=== PATIENT | female | born 1945 | race Caucasian/White ===

== ENCOUNTER 2018-06-03 09:00 | Outpatient (RCR) | payer MEDICARE, SELFPAY ==
--- NOTE | 2018-05-14 11:01 | PTTR_ITS ---
DATE: 05/14/18 SUBJECTIVE: I am doing okay for the most part. I guess that Dr. Guzman is happy with the progress so far. OBJECTIVE: Manual therapy: ([id number]): Patient was placed in supine and mobilized with oscillatory lateral distraction and scapular jiggles to decrease muscle tension. She was then mobilized with stretch of the pectorals and biceps with low load long duration holds. Patient placed through the plane of abduction with use of posterior lateral glide of the humeral head which she tolerated well to 90 degrees. She was externally rotated to 70 degrees and internal rotation with scapular block was 45. With free scapular motion and rotation her internal rotation was 70 degrees. Patient was guided through flexion raises with active assist to just shy of 145 degrees. This was applied in both the supine and sitting positions. Direct treatment time: 30 minutes of direct patient care.
--- NOTE | 2018-05-16 14:28 | PTTR_ITS ---
DATE: 05/16/18 SUBJECTIVE: Pt states that she is doing ok for the most part. OBJECTIVE: Manual therapy: ([id number]).Pt placed in the supine position receiving gentle oscillatory lateral distraction, as well as scapular jiggles to decrease muscle tension. She is mobilized with stretching of the pectorals and biceps with active isolated stretching technique.Pt then mobilized in the plane of abduction with use of a posterolateral glide through the humeral head. At 90 degrees of abduction, she is rotated to just shy of 80 degrees of ER and 60 degrees of IR with use of scapular gliding. With scapular block, she is still hovering around 45 degrees. Overhead shoulder flexion available to 145 degrees today with good tolerance for end range utilizing a GH approximation to end range traction technique. Direct treatment time: 30 min Total treatment time: 30 min direct pt care FRITZ/ragini
--- NOTE | 2018-05-21 11:50 | PTTR_ITS ---
DATE: 05/21/18 SUBJECTIVE: I am doing okay, making slow progress. OBJECTIVE: Manual therapy: ([id number]): Patient was guided through light shoulder mobilization pushing the limits of her tolerance today. Patient was mobilized with gentle oscillatory lateral distraction and scapular jiggles to decrease muscle tension. She was stretched lightly through the biceps and pectorals with low load long duration holds. Patient mobilized with posterior lateral glides of the humeral head while abducted to 90 degrees. She was mobilized with external rotation to 80 degrees and internal rotation to 50 degrees. Patient was guided through gentle flexion within the scapular plane to 150 and then true flexion to 150. She tolerates treatment well. Direct treatment time: 30 minutes of direct patient care.
--- NOTE | 2018-05-23 11:33 | PTTR_ITS ---
DATE: 05/23/18 SUBJECTIVE: I am doing okay but my left side of the neck is pretty stiff today. OBJECTIVE: Manual therapy: ([id number]): Patient was placed in supine and mobilized with oscillatory lateral distraction and scapular jiggles to decrease muscle tension. The pectorals and biceps were mobilized with low load long duration holds. The shoulder was guided through the plane of abduction with a posterior lateral glide through the humeral head. Her external rotation was a little tight but with tolerance to 80 degrees at 90 degrees of scaption. With abduction her external rotation is more like 65-70. Her internal rotation with scapular blocking is around 45 degrees but over head shoulder flexion passively is through 145-150 degrees with glenohumeral approximation to end range traction. Patient mobilized with traction through the cervical spine with guidance into retraction. She is mobilized with ischemic press trigger point release techniques through the left side upper trapezius, levator scapulae, and SCM. Direct treatment time: 30 minutes of direct patient care.
--- NOTE | 2018-05-27 10:20 | PTTR_ITS ---
DATE: 05/27/18 SUBJECTIVE: I am doing okay for the most part. OBJECTIVE: Manual therapy: ([id number]): Patient was placed in supine and mobilized with gentle oscillatory lateral distraction and scapular jiggles to decrease muscle tension. She was stretched lightly through the pectorals and biceps with low load long duration holds. Patient then mobilized with abduction through the 95 degrees with use of a gentle posterior lateral glide through the humeral head. Her external rotation is still mildly limited through 80 degrees with end range tension. Internal rotation was mobilized with use of both scapular block and scapular free motion with limitation functionally to about 60 degrees. Patient then guided through active assisted shoulder flexion in both supine and standing. Her supine flexion is available to 160 degrees and standing is about 135 degrees. Direct treatment time: 30 minutes of direct patient care.
--- NOTE | 2018-05-29 09:52 | PTTR_ITS ---
DATE: 05/29/18 SUBJECTIVE: I am doing okay for the most part. OBJECTIVE: Manual therapy: ([id number]): Patient was placed in supine and mobilized with gentle oscillatory lateral distraction and scapular jiggles through the shoulder girdle to decrease muscle tension. She was then mobilized with stretch of the pectorals and biceps with low load long duration holds. Patient mobilized through the plane of abduction with a posterior lateral glide through the humeral head. Her rotations are then mobilized with good tolerance for 80 degrees of external rotation and 60 degrees of internal rotation. Patient was then mobilized with active assisted shoulder flexion to 155 degrees. In standing she was reinforced with oscillatory flexions and scaption raises to 130 degrees. Direct treatment time: 30 minutes of direct patient care.
--- NOTE | 2018-06-03 11:55 | PTTR_ITS ---
DATE: 06/03/18 SUBJECTIVE: Pt states that she is doing ok for the most part. OBJECTIVE: Manual therapy: ([id number]). PT placed in the supine position receiving gentle oscillatory lateral distraction and scapular jiggles to decrease muscle tension. She is then mobilized with a gentle stretch through the pectorals and biceps with low load long duration holds. She is mobilized through the plane of abduction with use of a posterior lateral glide of the humeral head and she is mobilized into 80* of ER, 45* IR, overhead shoulder flexion utilized with a glenohumeral compression to end range traction technique. Able to approximate 150* of flexion. She is then trained in an AA flexion technique utilizing a thera band. Pt tolerated tx well. Direct treatment time: 30 minutes Total treatment time: 30 minutes
== END 2018-06-06 23:59 | disposition home or self-care (01) ==
LOC: PT 09:00
PROVIDERS: PCP Family Medicine; Referring Provider Orthopaedic Surgery; Visit Provider Orthopaedic Surgery
DX: S43.422D Sprain of left rotator cuff capsule, subsequent encounter (principal)
CPT/HCPCS: 97140

== ENCOUNTER → 2018-07-01 09:47 | Outpatient (BNVA) | payer MEDICARE, SELFPAY | PROVIDERS: Visit Provider Orthopaedic Surgery | DX: S43.422D Sprain of left rotator cuff capsule, subsequent encounter (principal); X58.XXXD Exposure to other specified factors, subsequent encounter; I10 Essential (primary) hypertension | CPT/HCPCS: 99213 ==

== ENCOUNTER 2018-07-21 09:10 | Emergency (ER) | payer MEDICARE, SELFPAY ==
[2018-07-21 09:38] VITALS: BP 163/89; PULSE 86; RESP 16; TEMP 36.5; O2SAT 98
--- NOTE | 2018-07-21 09:47 | W.ED.GENAD ---
Discharge Plan Disposition Patient Disposition: HOME Condition: Improving Discharge Details Chief Complaint: RespSymp Clinical Impression: Sinusitis Primary Care Provider: Megan Banegas ED Provider: Srini Lombardo Home Meds and New Rx's Prescriptions: New azithromycin [Zithromax Z-Manuel] 250 mg tablet 250 mg PO DAILY 5 Days Qty: 5 RF: 0 guaifenesin [Mucinex] 600 mg tablet extended release 12hr 600 mg PO Q12H PRNQty: 10 RF: 0 Continue cholecalciferol (vitamin D3) 1,000 UNIT capsule 500 unit PO DAILY RF: 0 acetaminophen [Tylenol Extra Strength] 500 MG tablet 1,000 mg PO Q6H PRN RF: 0 celecoxib [Celebrex] 200 MG capsule 200 mg PO BID Qty: 60 RF: 2 omeprazole 40 MG capsule,delayed release(DR/EC) 40 mg PO DAILY Qty: 30 RF: 2 buspirone 10 MG tablet 10 mg PO BID Qty: 60 RF: 1 losartan 50 mg tablet 50 mg PO DAILY Qty: 90 RF: 4 calcium carbonate-vitamin D3 1 EACH tablet 1 tab PO DAILY RF: 0 avlbruqylctg-hkdl-lqksk acid [Centrum Complete] 1 EACH tablet 1 tab PO DAILY RF: 0 aspirin [Aspir-81] 81 MG tablet,delayed release (DR/EC) 81 mg PO DAILY RF: 0 docusate sodium [Colace] 100 MG capsule 100 mg PO DAILY RF: 0 acetaminophen [Arthritis Pain Relief (acetam)] 650 MG tablet extended release 650 mg PO PRN PRNRF: 0 Discharge Instructions Instructions: Sinusitis (ED) Additional Instructions: Follow-up with regular doctor if not improving in 5-7 days time. Take medications as prescribed and continue your regular medications. Home to rest today. Small, frequent sips of fluids to maintain hydration Return to the emergency department for any acute concerns Medical Decision Making 73-year-old female presents with 7-8 days of cough, congestion and now developing bifrontal sinus pain pressure. It is consistent with a developing acute sinusitis. She is well-appearing otherwise without complaint and her exam is reassuring. She is allergic to penicillins and therefore I feel that azithromycin is a reasonable choice. She will follow up with PMD if not improving. Return precautions to the ER were discussed with patient and her at the bedside prior to discharge. HPI General Mode of arrival: ambulatory. Date/Time Provider Initiated Documentation: 07/21/18 09:31. Limitations to Documentation: no limitations. Information obtained by: patient. History of Present Illness 73 year old F presents to the emergency department with the chief complaint of Cough, described as moderate, Quality is described as dull, and is localized to the chest. Patient reports no radiation. Patient started experiencing this day(s) and it has been intermittent. No relieving factors improve symptom(s), No exacerbating factors reported . HPI Narrative: 73-year-old female presents with cough, congestion that is been worsening over 7 days time and now associated with bifrontal sinus pain and pressure. She denies any fever today. She is been tolerating liquids and solids by mouth without any vomiting or diarrhea. Positive sick contacts with a family member. Related Data Home Medications Medication Instructions Recorded Confirmed calcium carbonate-vitamin D3 1 tab PO DAILY 01/21/13 07/21/18 rydehrytwhkh-dbxo-apwqs acid 1 tab PO DAILY 01/21/13 07/21/18 [Centrum Complete] cholecalciferol (vitamin D3) 500 unit PO DAILY 05/12/14 07/21/18 aspirin [Aspir-81] 81 mg PO DAILY 09/20/14 07/21/18 acetaminophen [Tylenol Extra 1,000 mg PO Q6H PRN tab-cap 10/25/15 07/21/18 Strength] docusate sodium [Colace] 100 mg PO DAILY 02/07/18 07/21/18 acetaminophen [Arthritis Pain 650 mg PO PRN PRN 02/10/18 07/21/18 Relief (acetam)] celecoxib [Celebrex] 200 mg PO BID #60 tab-cap 02/25/18 07/21/18 omeprazole 40 mg PO DAILY #30 tab-cap 04/23/18 07/21/18 buspirone 10 mg PO BID #60 tab-cap 04/29/18 07/21/18 losartan 50 mg tablet 50 mg PO DAILY #90 tab 06/13/18 07/21/18 azithromycin [Zithromax Z-Manuel] 250 mg PO DAILY 5 Days #5 tab 07/21/18 guaifenesin [Mucinex] 600 mg PO Q12H PRN #10 tab 07/21/18 Previous Rx's Medication Instructions Recorded omeprazole 40 mg PO DAILY #30 tab-cap 04/23/18 buspirone 10 mg PO BID #60 tab-cap 04/29/18 losartan 50 mg tablet 50 mg PO DAILY #90 tab 06/13/18 azithromycin [Zithromax Z-Manuel] 250 mg PO DAILY 5 Days #5 tab 07/21/18 guaifenesin [Mucinex] 600 mg PO Q12H PRN #10 tab 07/21/18 Allergies Allergy/AdvReac Type Severity Reaction Status Date / Time Penicillins Allergy Intermediate Skin Rash Unverified 07/21/18 09:44 banana AdvReac Mild headache Unverified 07/21/18 09:44 buspirone HCl [From BuSpar] AdvReac Mild didn't Unverified 07/21/18 09:44 feel good on it cetirizine AdvReac Mild didn't Unverified 07/21/18 09:44 feel good on it sertraline AdvReac Mild blurry Unverified 07/21/18 09:44 vision & tingling under tongue tomato AdvReac Mild headache Unverified 07/21/18 09:44 lisinopril AdvReac Unknown Unverified 07/21/18 09:44 General Stated Complaint: RespSymp MARIE: 4 Review of Systems Review of Systems 6 systems reviewed and otherwise negative PFSH Family History Mother Heart disease Myocardial infarction Father Heart disease Myocardial infarction Brother Diabetes Essential hypertension Heart disease Hyperlipidemia Brother Diabetes Essential hypertension Depression Heart disease Hyperlipidemia Brother Heart disease Hyperlipidemia Medical History Essential hypertension Gastritis Gastroesophageal reflux disease Headache Hyperlipidemia Insomnia Obesity Osteopenia Social History Smoking/Tobacco Use Status: Never Surgical History CARDIAC STRESS TEST Colonoscopy - IV Sedation EGD - IV Sedation Ligation of fallopian tube Exam Narrative Exam Narrative: GEN: awake, alert, oriented 3. Pleasant, well groomed, interactive. HEAD: Normocephalic, atraumatic ENT: Mucous membranes moist, oropharynx unremarkable, External ear exam unremarkable, and membranes clear. The frontal sinuses are tender to percussion EYES: PERRL, EOMI NECK: Full ROM, no NATHANIEL, no menigismus CHEST/RESP: Nontender, clear to auscultation bilateral, no wheeze/rhonchi/rales CARDIOVASCULAR: RRR, no murmur, rub jeimy. 2+ Rad pulse bilateral ABDOMEN: Soft, nontender, no mass. +Bowel sounds EXT: Full ROM, no edema, no rash Neuro: Grossly normal neurologic exam, conversant, interactive. Psych: Speech fluent, thoughts congruent, affect normal Course Vital Signs Temperature 36.5 C 07/21/18 09:38 Pulse 86 07/21/18 09:38 Respiratory Rate 16 07/21/18 09:38 Blood Pressure 163/89 H 07/21/18 09:38 Pulse Oximetry 98 07/21/18 09:38 Temperature 36.5 C 07/21/18 09:38 Temperature Source Temporal Artery Scan 07/21/18 09:38 Pulse 86 07/21/18 09:38 Respiratory Rate 16 07/21/18 09:38 Respiratory Effort Non-Labored 07/21/18 09:45 Respiratory Depth Normal 07/21/18 09:45 Blood Pressure 163/89 H 07/21/18 09:38 Blood Pressure Position Sitting 07/21/18 09:38 Pulse Oximetry 98 07/21/18 09:38 Oxygen Delivery Method Room Air 07/21/18 09:38 Oxygen Flow Rate 0 07/21/18 09:38
--- NOTE | 2018-07-21 09:50 | ED.GENADUL_ITS ---
Discharge Plan Disposition Patient Disposition: HOME Condition: Improving Discharge Details Chief Complaint: RespSymp Clinical Impression: Sinusitis Primary Care Provider: Megan Banegas ED Provider: Srini Lombardo Home Meds and New Rx's Prescriptions: New azithromycin [Zithromax Z-Manuel] 250 mg tablet 250 mg PO DAILY 5 Days Qty: 5 RF: 0 guaifenesin [Mucinex] 600 mg tablet extended release 12hr 600 mg PO Q12H PRNQty: 10 RF: 0 Continue cholecalciferol (vitamin D3) 1,000 UNIT capsule 500 unit PO DAILY RF: 0 acetaminophen [Tylenol Extra Strength] 500 MG tablet 1,000 mg PO Q6H PRN RF: 0 celecoxib [Celebrex] 200 MG capsule 200 mg PO BID Qty: 60 RF: 2 omeprazole 40 MG capsule,delayed release(DR/EC) 40 mg PO DAILY Qty: 30 RF: 2 buspirone 10 MG tablet 10 mg PO BID Qty: 60 RF: 1 losartan 50 mg tablet 50 mg PO DAILY Qty: 90 RF: 4 calcium carbonate-vitamin D3 1 EACH tablet 1 tab PO DAILY RF: 0 xlbhfyanlcew-mevd-mfqwt acid [Centrum Complete] 1 EACH tablet 1 tab PO DAILY RF: 0 aspirin [Aspir-81] 81 MG tablet,delayed release (DR/EC) 81 mg PO DAILY RF: 0 docusate sodium [Colace] 100 MG capsule 100 mg PO DAILY RF: 0 acetaminophen [Arthritis Pain Relief (acetam)] 650 MG tablet extended release 650 mg PO PRN PRNRF: 0 Discharge Instructions Instructions: Sinusitis (ED) Additional Instructions: Follow-up with regular doctor if not improving in 5-7 days time. Take medications as prescribed and continue your regular medications. Home to rest today. Small, frequent sips of fluids to maintain hydration Return to the emergency department for any acute concerns Medical Decision Making 73-year-old female presents with 7-8 days of cough, congestion and now developing bifrontal sinus pain pressure. It is consistent with a developing acute sinusitis. She is well-appearing otherwise without complaint and her exam is reassuring. She is allergic to penicillins and therefore I feel that azithromycin is a reasonable choice. She will follow up with PMD if not improving. Return precautions to the ER were discussed with patient and her at the bedside prior to discharge. HPI General Mode of arrival: ambulatory . Date/Time Provider Initiated Documentation: 07/21/18 09:31 . Limitations to Documentation: no limitations . Information obtained by: patient . History of Present Illness 73 year old F presents to the emergency department with the chief complaint of Cough, described as moderate, Quality is described as dull, and is localized to the chest. Patient reports no radiation. Patient started experiencing this day(s) and it has been intermittent. No relieving factors improve symptom(s), No exacerbating factors reported . HPI Narrative: 73-year-old female presents with cough, congestion that is been worsening over 7 days time and now associated with bifrontal sinus pain and pressure. She denies any fever today. She is been tolerating liquids and solids by mouth without any vomiting or diarrhea. Positive sick contacts with a family member. Related Data Home Medications Medication Instructions Recorded Confirmed calcium carbonate-vitamin D3 1 tab PO DAILY 01/21/13 07/21/18 ggeddnkwyivw-kvpq-txerk acid 1 tab PO DAILY 01/21/13 07/21/18 [Centrum Complete] cholecalciferol (vitamin D3) 500 unit PO DAILY 05/12/14 07/21/18 aspirin [Aspir-81] 81 mg PO DAILY 09/20/14 07/21/18 acetaminophen [Tylenol Extra 1,000 mg PO Q6H PRN tab-cap 10/25/15 07/21/18 Strength] docusate sodium [Colace] 100 mg PO DAILY 02/07/18 07/21/18 acetaminophen [Arthritis Pain 650 mg PO PRN PRN 02/10/18 07/21/18 Relief (acetam)] celecoxib [Celebrex] 200 mg PO BID #60 tab-cap 02/25/18 07/21/18 omeprazole 40 mg PO DAILY #30 tab-cap 04/23/18 07/21/18 buspirone 10 mg PO BID #60 tab-cap 04/29/18 07/21/18 losartan 50 mg tablet 50 mg PO DAILY #90 tab 06/13/18 07/21/18 azithromycin [Zithromax Z-Manuel] 250 mg PO DAILY 5 Days #5 tab 07/21/18 guaifenesin [Mucinex] 600 mg PO Q12H PRN #10 tab 07/21/18 Previous Rx's Medication Instructions Recorded omeprazole 40 mg PO DAILY #30 tab-cap 04/23/18 buspirone 10 mg PO BID #60 tab-cap 04/29/18 losartan 50 mg tablet 50 mg PO DAILY #90 tab 06/13/18 azithromycin [Zithromax Z-Manuel] 250 mg PO DAILY 5 Days #5 tab 07/21/18 guaifenesin [Mucinex] 600 mg PO Q12H PRN #10 tab 07/21/18 Allergies Allergy/AdvReac Type Severity Reaction Status Date / Time Penicillins Allergy Intermediate Skin Rash Unverified 07/21/18 09:44 banana AdvReac Mild headache Unverified 07/21/18 09:44 buspirone HCl [From BuSpar] AdvReac Mild didn't Unverified 07/21/18 09:44 feel good on it cetirizine AdvReac Mild didn't Unverified 07/21/18 09:44 feel good on it sertraline AdvReac Mild blurry Unverified 07/21/18 09:44 vision & tingling under tongue tomato AdvReac Mild headache Unverified 07/21/18 09:44 lisinopril AdvReac Unknown Unverified 07/21/18 09:44 General Stated Complaint: RespSymp MARIE: 4 Review of Systems Review of Systems 6 systems reviewed and otherwise negative PFSH Family History Mother Heart disease Myocardial infarction Father Heart disease Myocardial infarction Brother Diabetes Essential hypertension Heart disease Hyperlipidemia Brother Diabetes Essential hypertension Depression Heart disease Hyperlipidemia Brother Heart disease Hyperlipidemia Medical History Essential hypertension Gastritis Gastroesophageal reflux disease Headache Hyperlipidemia Insomnia Obesity Osteopenia Social History Smoking/Tobacco Use Status: Never Surgical History CARDIAC STRESS TEST Colonoscopy - IV Sedation EGD - IV Sedation Ligation of fallopian tube Exam Narrative Exam Narrative: GEN: awake, alert, oriented 3. Pleasant, well groomed, interactive. HEAD: Normocephalic, atraumatic ENT: Mucous membranes moist, oropharynx unremarkable, External ear exam unremarkable, and membranes clear. The frontal sinuses are tender to percussion EYES: PERRL, EOMI NECK: Full ROM, no NATHANIEL, no menigismus CHEST/RESP: Nontender, clear to auscultation bilateral, no wheeze/rhonchi/rales CARDIOVASCULAR: RRR, no murmur, rub jeimy. 2+ Rad pulse bilateral ABDOMEN: Soft, nontender, no mass. +Bowel sounds EXT: Full ROM, no edema, no rash Neuro: Grossly normal neurologic exam, conversant, interactive. Psych: Speech fluent, thoughts congruent, affect normal Course Vital Signs Temperature 36.5 C 07/21/18 09:38 Pulse 86 07/21/18 09:38 Respiratory Rate 16 07/21/18 09:38 Blood Pressure 163/89 H 07/21/18 09:38 Pulse Oximetry 98 07/21/18 09:38 Temperature 36.5 C 07/21/18 09:38 Temperature Source Temporal Artery Scan 07/21/18 09:38 Pulse 86 07/21/18 09:38 Respiratory Rate 16 07/21/18 09:38 Respiratory Effort Non-Labored 07/21/18 09:45 Respiratory Depth Normal 07/21/18 09:45 Blood Pressure 163/89 H 07/21/18 09:38 Blood Pressure Position Sitting 07/21/18 09:38 Pulse Oximetry 98 07/21/18 09:38 Oxygen Delivery Method Room Air 07/21/18 09:38 Oxygen Flow Rate 0 07/21/18 09:38
== END 2018-07-21 09:56 | disposition home or self-care (01) ==
PROVIDERS: Emergency Provider Emergency Medicine; PCP Family Medicine
DX: J01.10 Acute frontal sinusitis, unspecified (principal); I10 Essential (primary) hypertension
CPT/HCPCS: 99283

== ENCOUNTER 2018-09-01 00:27 | Outpatient (CLI) | payer MEDICARE, SELFPAY ==
--- NOTE | 2018-09-01 11:00 | DI.MAMMO_ITS ---
SYMPTOM/DIAGNOSIS: SCREENING Z12.31 BILATERAL SCREENING MAMMOGRAM: Mammograms were interpreted according to the usual protocol including computer analysis with CAD system, tomosynthesis and C view imaging. Comparison is made with exams from 2012 through 2017. The breasts are composed of fatty density tissue, breast density category A. No suspicious masses or suspicious microcalcifications are seen. There has been no significant change. IMPRESSION: Category 1-A, negative mammogram. Yearly screening mammography is recommended. [facility] ASSESSMENT OF FINDINGS: Negative. Category 1. Patient will receive a letter notifying them of these results. BI-RAD category A. The breasts are almost entirely fatty.
== END 2018-09-01 00:47 ==
PROVIDERS: PCP Family Medicine; Visit Provider Family Medicine
DX: Z12.31 Encounter for screening mammogram for malignant neoplasm of breast (principal)
CPT/HCPCS: 77063; 77067

== ENCOUNTER 2019-01-28 14:30 | Outpatient (CLI) | payer MEDICARE, SELFPAY ==
[2019-01-28 14:58] LABS: Abs Immature Grans 0.01 k/cumm (0.0-0.09); Absolute Basophil Count 0.03 k/cumm (0.0-0.2); Absolute Eosinophil Count 0.08 k/cumm (0.0-0.7); Absolute Monocyte Count 0.54 k/cumm (0.11-0.7); Absolute Neutrophil Count 3.93 k/cumm (1.2-6.7); Basophils % 0.4; Eosinophils % 1.1; HCT 38.3 % (36.0-46.0); HGB 12.5 g/dL (12.0-15.5); Immature Grans % 0.1; Lymphocytes % 35.3; Mean Corp. HGB Concentration 32.6 g/dL (32.0-36.0); Mean Corpuscular Hemoglobin 30.7 pg (27.0-33.0); Mean Corpuscular Volume 94.1 fL (80-95); Monocytes % 7.6; Neutrophils % 55.5; Platelet Count 267 x1000/uL (130-400); RBC 4.07 m/cumm (4.00-5.20); RBC Distribution Width 13.2 % (11.7-14.6); White Blood Cell Count 7.09 k/cumm (4.4-10.8)
[2019-01-28 16:24] LABS: ALT 25 U/L (12-78); AST 20 U/L (15-37); Albumin 3.7 g/dL (3.4-5.0); Alkaline Phosphatase 117 U/L (46-116); Anion Gap 9.6 mmol/L (3-11); BUN 23 mg/dL (7-18); Bilirubin, Total 0.3 mg/dL (0.2-1.0); CO2 27.4 mmol/L (21.0-32.0); CREATININE 0.94 mg/dL (0.55-1.02); Chloride 103 mmol/L (98-107); Estimated GFR 58.37 (mL/min/1.73m2); Glucose 149 mg/dL (70-100); Potassium 3.5 mmol/L (3.5-5.1); Sodium 140 mmol/L (136-145); Total Protein 7.2 g/dL (6.4-8.2)
[2019-01-28 20:53] LABS: Hemoglobin A1C 6.2 % (4.5-6.2)
== END 2019-01-28 14:50 ==
PROVIDERS: PCP Family Medicine; Visit Provider Internal Medicine
DX: I10 Essential (primary) hypertension (principal); K21.9 Gastro-esophageal reflux disease without esophagitis; M85.80 Other specified disorders of bone density and structure, unspecified site
CPT/HCPCS: 36415; 80053; 83036; 85025

== ENCOUNTER → 2019-04-13 09:45 | Outpatient (BNVA) | payer MEDICARE, SELFPAY | PROVIDERS: PCP Family Medicine; Referring Provider Family Medicine; Visit Provider Physical Therapy Assistant | DX: Z12.11 Encounter for screening for malignant neoplasm of colon (principal); I10 Essential (primary) hypertension; Z86.010 Personal history of colon polyps ==

== ENCOUNTER 2019-05-11 10:34 | Emergency (ER) | payer MEDICARE, SELFPAY ==
[2019-05-11 10:39] VITALS: BP 165/96; PULSE 79; RESP 18; TEMP 36.6; O2SAT 96
--- NOTE | 2019-05-11 10:42 | W.ED.GENAD ---
Discharge Plan Disposition Patient Disposition: HOME Condition: Good Discharge Details Chief Complaint: Orthopedic Clinical Impression: Foot pain, left Primary Care Provider: Megan Banegas ED Provider: Montse Obrien Home Meds and New Rx's Prescriptions: Continued acetaminophen 650 mg tablet extended release 1,300 mg PO HS PRN RF: 0 polyethylene glycol 3350 17 gram/dose powder 238 g PO ONCE Qty: 238 RF: 0 bisacodyl [Dulcolax (bisacodyl)] 5 mg tablet,delayed release (DR/EC) 5 mg PO ONCE Qty: 4 RF: 0 cholecalciferol (vitamin D3) 1,000 UNIT capsule 500 unit PO DAILY RF: 0 losartan 50 mg tablet 50 mg PO DAILY Qty: 90 RF: 4 omeprazole 40 mg capsule,delayed release(DR/EC) 40 mg PO DAILY Qty: 90 RF: 3 calcium carbonate-vitamin D3 1 EACH tablet 1 tab PO DAILY RF: 0 Centrum Complete 1 EACH tablet 1 tab PO DAILY RF: 0 docusate sodium [Colace] 100 MG capsule 100 mg PO DAILY RF: 0 Discharge Instructions Instructions: Arthralgia (ED) Additional Instructions: Encourage rest, ice, elevation. Tylenol and ibuprofen as needed for discomfort. Ibuprofen may be of more benefit as it will target the inflammation in your foot. Please follow-up with primary care in the next 1 to 2 weeks for reevaluation of pain persist. Attached is a referral for physical therapy. Please wear more supportive shoes, purchase sneakers with arch support. If you develop fever/chills, increased pain, inability to walk or the new/worsening symptoms please seek care urgently once again. Stand Alone Forms: Physical Therapy Referral Referrals: Megan Banegas MD [Primary Care Provider] - Discharge Data Discharge Date/Time-TO BE ENTERED AT DEPARTURE: 05/11/19 12:10 Medical Decision Making Kamryn 74 year old female presenting today with c/c of left foot pain. Pain has been intermittent for over a month now. Was seen by PCP last week but did not address her foot. no known trauma. Patient is wearing thin flat shoe without support. No fevers/chills. No swelling. She has known OA elsewhere. Finds ambulation increases pain. Fairly vague about where pain is in the foot. Seems to be maximal over the dorsal proximal foot. Spares the ankle. Afebrile, nontoxic appearing. No chagnes to the skin. Will obtian XR. X-rays reviewed by radiologist and read to be normal. I reviewed the imaging myself. Question for some degenerative changes but nothing acute. Discussed these findings with the patient. Advised likely inflammatory driven, likely secondary to some arthritis. Encourage rest, ice, elevation. Tylenol and ibuprofen as needed for discomfort. She is wearing a flat, thin sandals. I encouraged her to purchase sneakers with good arch support. Advised that if this does not improve, she may need referral to artists' booking representative. We will also refer to physical therapy for reevaluation and treatment of her chronic foot pain. We discussed new/worsening symptoms when to seek care urgently once again. All of her questions and concerns were addressed and she is in agreement with this plan. HPI General Mode of arrival: ambulatory. Date/Time Provider Initiated Documentation: 05/11/19 10:40. Limitations to Documentation: no limitations. Information obtained by: patient, family (accmpanied by ) and RN notes reviewed. History of Present Illness 74 year old F presents to the emergency department with the chief complaint of left foot pain, described as severe, with intensity rated at 8. Quality is described as aching, and is localized to the left and lower extremity. Patient reports no radiation. Patient started experiencing this month(s) (>1 month) and it has been intermittent. Immobilization improves symptom(s), Movement worsens symptoms (wosre with weight bearing activities) . Patient notes no other symptoms.. Patient did receive the following treatments prior to arrival, none Related Data Home Medications Medication Instructions Recorded Confirmed Centrum Complete 1 tab PO DAILY 01/21/13 05/11/19 calcium carbonate-vitamin D3 1 tab PO DAILY 01/21/13 05/11/19 cholecalciferol (vitamin D3) 500 unit PO DAILY 05/12/14 05/11/19 docusate sodium [Colace] 100 mg PO DAILY 02/07/18 05/11/19 losartan 50 mg tablet 50 mg PO DAILY #90 tab 06/13/18 05/11/19 acetaminophen 650 mg 1,300 mg PO HS PRN tab 12/26/18 05/11/19 tablet,extended release bisacodyl 5 mg tablet,delayed 5 mg PO ONCE #4 tab 04/13/19 05/11/19 release polyethylene glycol 3350 17 238 g PO ONCE #238 gm 04/13/19 05/11/19 gram/dose oral powder omeprazole 40 mg capsule,delayed 40 mg PO DAILY #90 tab-cap 05/05/19 05/11/19 release Previous Rx's Medication Instructions Recorded losartan 50 mg tablet 50 mg PO DAILY #90 tab 06/13/18 bisacodyl 5 mg tablet,delayed 5 mg PO ONCE #4 tab 04/13/19 release polyethylene glycol 3350 17 238 g PO ONCE #238 gm 04/13/19 gram/dose oral powder omeprazole 40 mg capsule,delayed 40 mg PO DAILY #90 tab-cap 05/05/19 release Allergies Allergy/AdvReac Type Severity Reaction Status Date / Time Penicillins Allergy Intermediate Skin Rash Verified 05/11/19 10:44 buspirone HCl [From BuSpar] AdvReac Mild didn't Verified 05/11/19 10:44 feel good on it cetirizine AdvReac Mild didn't Verified 05/11/19 10:44 feel good on it sertraline AdvReac Mild blurry Verified 05/11/19 10:44 vision & tingling under tongue lisinopril AdvReac Unknown Verified 05/11/19 10:44 General MARIE: 4 Review of Systems Review of Systems All systems reviewed & are unremarkable except as noted in HPI and below Constitutional Reports as per HPI, Denies chills, Denies fever(s), Denies headache(s) and Denies weakness ENT Denies headache(s) Cardiovascular Reports as per HPI Respiratory Reports as per HPI and Denies cough Musculoskeletal Reports as per HPI and Denies tingling Integumentary/Breasts Reports as per HPI, Denies rash and Denies wounds Neurologic Reports as per HPI, Denies headache(s), Denies tingling, Denies paresthesias and Denies weakness [facility] Medical History Essential hypertension Gastritis Gastroesophageal reflux disease Headache History of cardiovascular stress test (Resolved) Hyperlipidemia Insomnia Obesity Osteopenia Trigger middle finger (Resolved 10/14/15) Tubular adenoma of colon (Resolved) Surgical History CARDIAC STRESS TEST Colonoscopy - IV Sedation EGD - IV Sedation History of bilateral ligation of fallopian tubes (Resolved) History of esophagogastroduodenoscopy (Resolved) History of Surgical Procedure (Resolved) Ligation of fallopian tube Social History Smoking/Tobacco Use Status: Never Alcohol Intake: never Drug use: Never Substance use type: does not use Household members: spouse Pets and animals: Yes Pets and animals: cat(s) Frequency: does not exercise Marcela/Moravian: No preference Special marcela needs: No Do you feel safe at home: Yes Do you feel safe in your relationship?: Yes Exam Const General: cooperative, healthy appearing, comfortable, no acute distress, well developed and well groomed Nutritional Appearance: average body habitus and well nourished Orientation: alert and awake Resp Effort & Inspection: normal respiratory effort, able to speak in complete sentences and no respiratory distress Cardio Rate: regular rate Rhythm: regular rhythm Skin General skin exam: no rashes or lesions noted Lesions: no lesions Rashes: no rashes Trauma: no lacerations or abrasions Neuro General: alert and awake Cognition: normal cognition Speech: speech normal Gait: normal gait Motor: muscle tone normal throughout Sensory Exam: no sensory deficits noted Extrem Left lower extremity: normal to inspection, full ROM, normal capillary refill, no joint enlargement, lower leg Details: normal to inspection and no edema; no erythema, no tenderness, no localized swelling and no palpable cords, ankle Details: normal to inspection, swelling, no edema and normal ROM; no tenderness and achilles tendon exam normal and foot Details: normal capillary refill, normal to inspection, tenderness Location: of the dorsal foot Location: proximally and of the mid foot; not of the plantar foot, not of the great toe, not of any other digit, not of the calcaneus, not of the lateral foot and not of the medial foot, toes with normal ROM, no edema, vascular exam Details: dorsalis pedis pulse present, posterior tibial pulse present and normal capillary refill, tendon exam Details: active flexion normal and active extension normal and motor-sensory exam Details: light-touch normal; no unusual warmth, no abrasions, no lacerations, no ecchymosis and no crepitus; no edema Psych Appearance: grossly normal and well kempt Mental Status: mental status grossly normal Speech and Movement: speech and movement normal
--- NOTE | 2019-05-11 11:10 | DI.RAD_ITS ---
SYMPTOMS/DIAGNOSIS: MID FOOT PAIN LEFT FOOT: There is a plantar calcaneal spur. An ossicle is seen adjacent to the cuboid. There are degenerative changes of the tarsal metatarsal joints and first MTP joint. No fracture or dislocation is seen. IMPRESSION: Degenerative changes. No acute abnormality.
[2019-05-11 12:10] VITALS: BP 130/60; PULSE 79; RESP 18; TEMP 36.6; O2SAT 96
== END 2019-05-11 12:10 | disposition home or self-care (01) ==
PROVIDERS: Emergency Provider Physician Assistant; PCP Family Medicine
DX: M79.672 Pain in left foot (principal); I10 Essential (primary) hypertension
CPT/HCPCS: 99283; 73630

== ENCOUNTER 2019-06-02 05:55 | Day surgery (SDC) | payer MEDICARE, SELFPAY ==
[2019-06-02 06:07] VITALS: BP 122/79; PULSE 78; RESP 18; TEMP 36.6; O2SAT 98
--- NOTE | 2019-06-02 06:33 | W.PM.HP.N ---
Date of service: 06/02/19 Time of Service: 06:38 Assessment and Plan (1) Encounter for colorectal cancer screening: Current visit: Yes Status: Acute A\\ Hx of polyps P\\ Colonoscopy The patient is here for Colonoscopy pre-op. Her last screening was in 2013 and was remarkable for tubular adenoma. She has no family history of colon cancer. She has not had any bowel habit changes. -Discussed colonoscopy bowel prep as well as the procedure. Discussed possible complications of the procedure to include bleeding, pain, perforation, missed small lesion/polyp, sore throat, aspiration and adverse reaction to the medications. Questions were answered to patient?s satisfaction. No guarantees were implied or given. History of Present Illness Narrative: 74 y/o female with history of GERD and HTN seen in the office for colonoscopy screening pre-op. Her last screening was in 2013, which was remarkable for tubular adenoma. She denies a family history of colon cancer. She denies any changes in bowel habits including bloody or black tarry stools, abdominal pain, diarrhea or constipation. She denies constitutional symptoms. Of note she complains of a long standing dizziness with position changes. She reports that once she sits for a few minutes these symptoms completely resolve. Denies use of marijuana or any other recreational or illegal drugs. She denies chest pain, palpitations, dyspnea or dyspnea with exertion. She denies prior history or family history of adverse reactions or complications with anesthesia. Stress test in 11/2018 which was unremarkable. There have been no major changes in her health since she was seen in the office Review of Systems Cardiovascular Denies chest pain, Denies irregular heart rhythm, Denies palpitations and Denies dyspnea Respiratory Denies cough and Denies dyspnea Endocrine Denies palpitations [facility] Medical History Essential hypertension Gastritis Gastroesophageal reflux disease Headache History of broken leg (Acute) ORIF lt leg History of cardiovascular stress test (Resolved) Hyperlipidemia Insomnia Obesity Osteopenia Trigger middle finger (Resolved 10/14/15) /surgery pending Tubular adenoma of colon (Resolved) 09/20/14; DR. ANDRES; X 1- Repeat in 5 years Surgical History CARDIAC STRESS TEST 01/21/14 01/27/14 Colonoscopy - IV Sedation 05/25/04;07/11/09;09/20/14 EGD - IV Sedation 07/11/09 History of bilateral ligation of fallopian tubes (Resolved) History of esophagogastroduodenoscopy (Resolved) History of surgery on arm (Acute) ORIF lt arm History of Surgical Procedure (Resolved) a. Tubal ligation many years ago, over 20 years ago. b. Bilateral cataracts. Ligation of fallopian tube 03/02/03 Family History Mother Heart disease Myocardial infarction Depression Father Heart disease Myocardial infarction Brother Diabetes Essential hypertension Heart disease Hyperlipidemia Alcohol abuse Brother Diabetes Essential hypertension Depression Heart disease Hyperlipidemia Brother Heart disease Hyperlipidemia Daughter No problems noted. Social History Smoking/Tobacco Use Status: Never Alcohol Intake: never Drug use: Never Substance use type: does not use Household members: spouse Pets and animals: Yes Pets and animals: cat(s) Frequency: does not exercise Marcela/Taoist: No preference Special marcela needs: No Do you feel safe at home: Yes Do you feel safe in your relationship?: Yes Meds Home Medications Medication Instructions Recorded Confirmed Type Centrum Complete 1 tab PO DAILY 01/21/13 06/02/19 History calcium carbonate-vitamin D3 1 tab PO DAILY 01/21/13 06/02/19 History cholecalciferol (vitamin D3) 500 unit PO DAILY 05/12/14 06/02/19 History docusate sodium [Colace] 100 mg PO DAILY 02/07/18 06/02/19 History losartan 50 mg tablet 50 mg PO DAILY #90 tab 06/13/18 06/02/19 Rx acetaminophen 650 mg 1,300 mg PO HS PRN tab 12/26/18 06/02/19 History tablet,extended release omeprazole 40 mg capsule,delayed 40 mg PO DAILY #90 tab-cap 05/05/19 06/02/19 Rx release Allergies Allergy/AdvReac Type Severity Reaction Status Date / Time Penicillins Allergy Intermediate Skin Rash Verified 06/02/19 06:12 buspirone HCl [From BuSpar] AdvReac Mild didn't Verified 06/02/19 06:12 feel good on it cetirizine AdvReac Mild didn't Verified 06/02/19 06:12 feel good on it sertraline AdvReac Mild blurry Verified 06/02/19 06:12 vision & tingling under tongue lisinopril AdvReac Unknown Verified 06/02/19 06:12 Exam HENMT Head: normocephalic and atraumatic Resp Effort & Inspection: normal respiratory effort Auscultation: clear to auscultation bilaterally Cardio Rate: regular rate Rhythm: regular rhythm Results Last Vital Signs Temp 97.9 F 06/02/19 06:07 Pulse 78 06/02/19 06:07 Resp 18 06/02/19 06:07 BP 122/79 06/02/19 06:07 Pulse Ox 98 06/02/19 06:07
[2019-06-02] MEDS: Lactated Ringers 1,000 ML 80 ML IV (06:35)
--- NOTE | 2019-06-02 06:39 | W.COLOREPORT ---
Date of service: 06/02/19 Time of Service: : Colonoscopy Report Date of procedure: 06/02/19 Pre-op diagnosis general: Hx of polyps Post-op diagnosis procedure note: other (Diverticulosis and polyps) Procedure: Colonoscopy Surgeon: Dorie Ayoub Anesthesia proc note operative: other (General/ ASA2 /Flavio Nguyễn, OLU) Estimated blood loss (mL): 3 Pathology: other (3 polyps) Complications: None Disposition: same day Indications: Mrs. Zendejas is a pleasant 74 year old female who is here for a repeat colonoscopy. Her last colonoscopy was in 2013 at which time she was noted to have a tubular adenoma. Risks, benefits and complications have been reviewed. Complications include but are not limited to bleeding, pain, perforation, missed small lesion/polyp, sore throat, aspiration and adverse reaction to the medications. Questions were entertained and answered to their satisfaction and they wished to proceed. No guarantees were given or implied. Prep: Miralax/Dulcolax Procedure Start Time: :23 Procedure End Time: 07:54 Retraction Time: 26 minutes Findings: 3 sessile polyps. One in the transverse colon and 2 in the descending colon Mild sigmoid diverticulosis Procedure Description: After informed consent was obtained the patient was taken to the procedure room and placed in a left decubitous position. Monitors were applied and a time out was done. The patients name, date of , procedure, allergies to medications and metal in their body was reviewed. The patient was then sedated. Once sedated and comfortable a rectal exam was done. External exam was normal. Internal exam revealed a normal sphincter tone and no palpable masses. The scope was then introduced and retro-flexed. No internal hemorrhoids were identified. The scope was then advanced to the cecum with difficulty. The TI and appendiceal orifice were identified. The prep was good. The scope was then slowly retracted over 26 minutes back into the rectum. Polyps were removed in the Transverse colon and descending colon x 2 with cold forceps. Mild diverticulosis was noted in the sigmoid colon. The scope was removed and the patient was woken up and taken back to Same day surgery in stable condition. The patient tolerated the procedure well and there were no immediate complications. Follow up: The patient should follow up in 3-5 years unless they develop changes in bowel habits or other new gastrointestinal complaints.
--- NOTE | 2019-06-02 06:40 | PDOC.DSDIS_ITS ---
Discharge Plan Disposition Patient Disposition: HOME Condition: Good Discharge Details Reason For Visit: Hx of colon polyps Attending Provider: Dorie Ayoub Primary Care Provider: Megan Banegas Home Meds and New Rx's Prescriptions: Continued acetaminophen 650 mg tablet extended release 1,300 mg PO HS PRN RF: 0 cholecalciferol (vitamin D3) 1,000 UNIT capsule 500 unit PO DAILY RF: 0 losartan 50 mg tablet 50 mg PO DAILY Qty: 90 RF: 4 omeprazole 40 mg capsule,delayed release(DR/EC) 40 mg PO DAILY Qty: 90 RF: 3 calcium carbonate-vitamin D3 1 EACH tablet 1 tab PO DAILY RF: 0 Centrum Complete 1 EACH tablet 1 tab PO DAILY RF: 0 docusate sodium [Colace] 100 MG capsule 100 mg PO DAILY RF: 0 Discharge Instructions Instructions: Colonoscopy (GEN), Diverticulosis (ED), Colorectal Polyps (GEN) Additional Instructions: Findings: 3 polyps mild diverticulosis Follow up: 3-5 years Please call if you develop: fevers >101.5 Nausea or Vomiting Abdominal pain that is not transient DAY SURGERY UNIT POST ENDOSCOPY INSTRUCTIONS 1. Because there will be medication in your system for the next 24 hours, you may feel a little sleepy. Your coordination will be affected. Therefore: a. Do not drive or operate dangerous equipment for 24 hours. b. Do not drink alcohol beverages for 24 hours (not even beer). c. Plan to go home and rest for the day. 2. Generally there are no restrictions on your activity after a day or so has g one by, but you may feel a bit fatigued for a few days. 3 After you arrive home you may have a light meal and return to a normal diet as you can tolerate it without feeling sick to your stomach. 4. After surgery, you may feel pain or discomfort. This should be only transient, but if it persists please contact your doctor. 5. If there are any questions regarding the findings of your procedure, please feel free to contact your doctor. 6. If you are unable to contact your doctor with a problem, contact the hospital at [phone]. 7. Continue all your regular medications unless directed otherwise. I understand the above instructions and have no questions. Signature of Patient or Responsible Adult Escort Date/Time Name of Responsible Adult Escort Signature of Nurse Date/Time Activity:: Activity as Tolerated Diet:: As Tolerated Discharge Orders Discharge Orders: Discharge Order (Routine); Ordered 06/02/19 Ordered By: Dorie Ayoub DS: Diagnosis Discharge Diagnosis (1) Encounter for colorectal cancer screening: Status: Acute
--- NOTE | 2019-06-02 07:33 | BOWEL_PTH ---
PATIENT: Deisy Zendejas LOC: [facility] U#:[id number] AGE/SX: 74/F ROOM: RE06/02/[address]: Dorie Ayoub MD : 1945 BED: DIS: 06/02/2019 SPEC #: [id number] RECD: 06/02/19 12:44 STATUS: PADMA REQ #: [id number] SAUL: 06/02/19 07:[address]: Dorie Ayoub DEPT: Surgical Specimen RECD BY: Nayely Chester ENTERED: 06/02/19 12:45 SP TYPE: Bowel OTHR DR: Megan Banegas MD Tissues: 1 - BIOPSY BOWEL 2 - BIOPSY BOWEL Procedures: GROSS AND MICRO LEVEL 4 Comments: [id number]
[2019-06-02 08:40] VITALS: BP 146/83; PULSE 70; RESP 18; TEMP 36.6; O2SAT 98
== END 2019-06-02 09:12 | disposition home or self-care (01) ==
PROVIDERS: PCP Family Medicine; Visit Provider Surgery
PROC: 0DJD8ZZ Inspection of Lower Intestinal Tract, Via Natural or Artificial Opening Endoscopic (ICD-10-PCS; CPT 45378; principal; 2019-06-02 07:30)
DX: Z12.11 Encounter for screening for malignant neoplasm of colon (principal); Z86.010 Personal history of colon polyps; D12.3 Benign neoplasm of transverse colon; D12.4 Benign neoplasm of descending colon; K57.30 Diverticulosis of large intestine without perforation or abscess without bleeding; I10 Essential (primary) hypertension; K21.9 Gastro-esophageal reflux disease without esophagitis
CPT/HCPCS: 45380; 88305; NC; J2250

== ENCOUNTER 2019-09-07 11:06 | Outpatient (CLI) | payer MEDICARE, SELFPAY ==
--- NOTE | 2019-09-07 11:54 | DI.MAMMO_ITS ---
EXAM: MG MAMMO SCREENING CLINICAL HISTORY: screening, Z12.39 TECHNIQUE: Bilateral full field digital CC and MLO mammographic images were obtained with 3D tomosyn thesis and utilizing computer aided detection (CAD). COMPARISON: Available for comparison. FINDINGS: Masses/Architectural Distortion: None seen. Microcalcifications: No suspicious pleomorphic-type are seen. Skin Thickening/Nipple Retraction: None. IMPRESSION: 1. No significant interval change with no specific features of malignancy noted. 2. Unless there is more urgent need, screening mammography is recommended, as per [employer] [employer] guidelines. ACR BI-RAD Category- 1 Negative Breast Density - Category B - Scattered areas of fibroglandular density A negative radiographic report should not delay biopsy if a dominant or clinically suspicious mass is present. Up to ten percent of cancers are not identified on mammography. A negative report may reinforce clinical impression. Adenosis and dense breasts may obscure an underlying neoplasm. False positive reports average 6 to 10%. Patient will receive a letter notifying them of these results.
== END 2019-09-07 11:26 ==
PROVIDERS: PCP Family Medicine; Visit Provider Family Medicine
DX: Z12.31 Encounter for screening mammogram for malignant neoplasm of breast (principal)
CPT/HCPCS: 77063; 77067

== ENCOUNTER 2019-10-12 09:15 | Emergency (ER) | payer MEDICARE, SELFPAY ==
[2019-10-12 09:18] VITALS: BP 184/97; PULSE 101; RESP 16; TEMP 37; O2SAT 97
--- NOTE | 2019-10-12 09:24 | W.ED.GENAD ---
Discharge Plan Disposition Patient Disposition: HOME Condition: Stable Discharge Details Chief Complaint: RespSymp Clinical Impression: Viral URI with cough, Seasonal allergies Primary Care Provider: Megan Banegas ED Provider: [facility] [place] Home Meds and New Rx's Prescriptions: New benzonatate [Tessalon Perles] 100 mg capsule 100 mg PO TID PRN (Reason: cough) Qty: 14 RF: 0 codeine-guaifenesin 10-100 mg/5 mL liquid 10 ml PO QHS PRN (Reason: cough) Qty: 30 RF: 0 Continued acetaminophen 650 mg tablet extended release 1,300 mg PO HS PRN RF: 0 omeprazole 40 mg capsule,delayed release(DR/EC) 40 mg PO DAILY RF: 0 cholecalciferol (vitamin D3) 1,000 UNIT capsule 500 unit PO DAILY RF: 0 losartan 50 mg tablet 50 mg PO DAILY Qty: 90 RF: 4 calcium carbonate-vitamin D3 1 EACH tablet 1 tab PO DAILY RF: 0 Centrum Complete 1 EACH tablet 1 tab PO DAILY RF: 0 Discharge Instructions Instructions: Upper Respiratory Infection (ED), Allergies (ED), Acute Cough (ED) Additional Instructions: Take the Tessalon Perles cough medication as needed and directed for cough. If you have no relief with the Tessalon Perles, at nighttime you can try Robitussin with codeine to help with cough overnight. You can also try [id number] oral allergy medications such as Claritin, Zyrtec or Leslie or allergy nasal spray such as Nasonex, Flonase or Nasacort as your chronic cough and nasal congestion may be due to allergies. Call your primary care doctor's office today to schedule follow-up appointment for reevaluation in the next 1 to 2 weeks. Return to the emergency department with any worsening or new concerning symptoms. Discharge Data Discharge Physician: Cherry Fields Medical Decision Making 74-year-old female with a history of hypertension, GERD, hyperlipidemia presents for dry cough for the past 5 days, worse at night and keeping her awake. She also does admit to occasional clear nasal discharge, sneezing and watery eyes. She denies fever, chest pain, sore throat, shortness of breath or change in appetite. She denies any relief with Robitussin. Patient appears nontoxic. Heart rate low 100s. Afebrile. She appears nontoxic. Normal ENT exam. Lungs clear. Differential diagnosis of cough includes seasonal allergies, URI. History and presentation not consistent with bronchitis or pneumonia. We will send home with a prescription for Tessalon Perles to take throughout the day and Robitussin with codeine for a few days to take at night as needed. She was also advised to try [id number] allergy medication that also may help with her symptoms. Advised to follow up with the primary care doctor for re-evaluation. Usual and customary return precautions given prior to discharge. HPI General Mode of arrival: ambulatory. Date/Time Provider Initiated Documentation: 10/12/19 09:24. Limitations to Documentation: no limitations. Information obtained by: patient. History of Present Illness 74 year old F presents to the emergency department with the chief complaint of Cough, worse at night, Patient started experiencing this day(s) (5) and it has been intermittent. No relieving factors improve symptom(s), Other factors that worsen symptoms (Worse at night) . Patient notes cough (Dry); denies fever/chills, headaches, loss of appetite, malaise, nausea/vomiting, rash, seizure, shortness of breath, syncope and weakness. Patient did receive the following treatments prior to arrival, none Related Data Home Medications Medication Instructions Recorded Confirmed Centrum Complete 1 tab PO DAILY 01/21/13 10/12/19 calcium carbonate-vitamin D3 1 tab PO DAILY 01/21/13 10/12/19 cholecalciferol (vitamin D3) 500 unit PO DAILY 05/12/14 10/12/19 acetaminophen 650 mg 1,300 mg PO HS PRN tab 12/26/18 10/12/19 tablet,extended release losartan 50 mg tablet 50 mg PO DAILY #90 tab 06/24/19 10/12/19 omeprazole 40 mg capsule,delayed 40 mg PO DAILY 09/07/19 10/12/19 release benzonatate [Tessalon Perles] 100 mg PO TID PRN #14 cap 10/12/19 codeine-guaifenesin 10 ml PO QHS PRN #30 ml 10/12/19 Previous Rx's Medication Instructions Recorded losartan 50 mg tablet 50 mg PO DAILY #90 tab 06/24/19 benzonatate [Tessalon Perles] 100 mg PO TID PRN #14 cap 10/12/19 codeine-guaifenesin 10 ml PO QHS PRN #30 ml 10/12/19 Allergies Allergy/AdvReac Type Severity Reaction Status Date / Time Penicillins Allergy Intermediate Skin Rash Verified 10/12/19 09:20 buspirone HCl [From BuSpar] AdvReac Mild didn't Verified 10/12/19 09:20 feel good on it cetirizine AdvReac Mild didn't Verified 10/12/19 09:20 feel good on it sertraline AdvReac Mild blurry Verified 10/12/19 09:20 vision & tingling under tongue lisinopril AdvReac Unknown Verified 10/12/19 09:20 General Stated Complaint: RespSymp MARIE: 4 Review of Systems All systems reviewed & are unremarkable except as noted in HPI and below Constitutional Constitutional: Reports as per HPI, Denies chills and Denies fever(s) Eyes Eyes: Denies blurry vision ENT Ears, Nose, Mouth, and Throat: Denies dizziness, Denies sore throat and Denies throat swelling Cardiovascular Cardiovascular: Denies chest pain and Denies dyspnea Respiratory Respiratory: Reports cough and Denies dyspnea Gastrointestinal Gastrointestinal: Denies abdominal pain, Denies diarrhea and Denies vomiting Genitourinary Genitourinary: Denies hematuria and Denies dysuria Musculoskeletal Musculoskeletal: Denies back pain and Denies numbness Integumentary/Breasts Skin/Breast: Denies lesions and Denies rash Neurologic Neurologic: Denies dizziness, Denies focal weakness and Denies numbness Allergic/Immunologic Allergic/Immunologic: Denies throat swelling [facility] Medical History Essential hypertension Gastritis Gastroesophageal reflux disease Headache History of broken leg (Acute) ORIF lt leg History of cardiovascular stress test (Resolved) Hyperlipidemia Insomnia Obesity Osteopenia Trigger middle finger (Resolved 10/14/15) /surgery pending Tubular adenoma of colon (Acute) 09/20/14; DR. ANDRES; X 1- Repeat in 5 years 05/2019; DR. ANDRES; X 3-REPEAT IN 3 YEARS Surgical History CARDIAC STRESS TEST 01/21/14 01/27/14 Colonoscopy - IV Sedation 05/25/04;07/11/09;09/20/14 EGD - IV Sedation 07/11/09 History of bilateral ligation of fallopian tubes (Resolved) History of esophagogastroduodenoscopy (Resolved) History of surgery on arm (Acute) ORIF lt arm History of Surgical Procedure (Resolved) a. Tubal ligation many years ago, over 20 years ago. b. Bilateral cataracts. Ligation of fallopian tube 03/02/03 Family History Mother , AGE 72 Heart disease Myocardial infarction Depression Father , AGE 80 Heart disease Myocardial infarction Brother , AGE 79 Diabetes Essential hypertension Heart disease Hyperlipidemia Alcohol abuse Brother , AGE 77 Diabetes Essential hypertension Depression Heart disease Hyperlipidemia Brother , AGE 67 Heart disease Hyperlipidemia Daughter No problems noted. Social History Smoking/Tobacco Use Status: Never Alcohol Intake: never Drug use: Never Substance use type: does not use Caregiver/Support person: No Household members: spouse Housing: house Communication Needs: Corrective Lenses Do you need help understanding health information?: Often Pets and animals: Yes Pets and animals: cat(s) Sexually active: No Current gender identity: female What is your relationship status?: How often do you talk on the phone with friends or family?: once per week How often do you get together with friends or relatives?: once per week How often do you attend mandaeism or anabaptism services?: decline to answer Do you belong to any clubs or organized social groups?: no Panel score (0-1 are the most socially isolated patients): 1 What type of physical activity do you participate in: decline to answer Duration: 15-30 minutes/day Frequency: does not exercise Marcela/Caodaism: No preference Special marcela needs: No Seatbelt use: always Drive intox 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 Do you feel safe at home: Yes Do you feel safe in your relationship?: Yes Exam Const General: cooperative, healthy appearing and no acute distress HENMT Head: normal to inspection Ears: hearing grossly normal bilaterally, external ears normal and TM's normal bilaterally General nose exam: external nose normal Face and sinus: normal facial exam Mouth: oral mucosae normal Teeth and gingiva: dentition normal Throat: posterior oropharynx normal, uvula midline and no peritonsillar masses Eyes General: appearance normal, both eyes and all related structures EOM: EOM intact bilaterally Neck Neck: normal visual inspection and No submandibular swelling Lymphatic: no lymphadenopathy noted Chest Chest: normal inspection of the chest and no tenderness Resp Effort & Inspection: normal respiratory effort and able to speak in complete sentences Auscultation: clear to auscultation bilaterally Cardio Rate: regular rate Rhythm: regular rhythm GI Inspection: normal to inspection Palpation: soft, not firm, not rigid and nontender Auscultation: normal bowel sounds Skin General skin exam: no rashes or lesions noted Neuro General: alert, awake and oriented x3 Cognition: normal cognition Speech: speech normal Motor: muscle tone normal throughout Sensory Exam: no sensory deficits noted Extrem General: normal to inspection, full ROM, normal capillary refill, no calf tenderness bilaterally and no edema Psych Appearance: grossly normal Mental Status: mental status grossly normal Speech and Movement: speech and movement normal Affect: normal affect Course Vital Signs Vital signs: Vital Signs Temperature 98.6 F 10/12/19 09:18 Pulse 101 H 10/12/19 09:18 Respiratory Rate 16 10/12/19 09:18 Blood Pressure 184/97 H 10/12/19 09:18 Pulse Oximetry 97 10/12/19 09:18 Temperature 98.6 F 10/12/19 09:18 Temperature Source Skin 10/12/19 09:18 Pulse 101 H 10/12/19 09:18 Respiratory Rate 16 10/12/19 09:18 Respiratory Effort Non-Labored 10/12/19 09:23 Respiratory Depth Normal 10/12/19 09:23 Blood Pressure 184/97 H 10/12/19 09:18 Blood Pressure Position Sitting 10/12/19 09:18 Pulse Oximetry 97 10/12/19 09:18 Oxygen Delivery Method Room Air 10/12/19 09:18 Oxygen Flow Rate 0 10/12/19 09:18 Pain Level 0 10/12/19 09:18
[2019-10-12 09:46] VITALS: BP 131/83; PULSE 109; RESP 18; O2SAT 100
[2019-10-12 09:53] VITALS: BP 131/83; PULSE 109; RESP 18; O2SAT 100
== END 2019-10-12 09:53 | disposition home or self-care (01) ==
PROVIDERS: Emergency Provider Physician Assistant; PCP Family Medicine
DX: J06.9 Acute upper respiratory infection, unspecified (principal); J30.2 Other seasonal allergic rhinitis; I10 Essential (primary) hypertension
CPT/HCPCS: 99283

== ENCOUNTER 2019-12-11 13:24 | Outpatient (CLI) | payer MEDICARE, SELFPAY ==
--- NOTE | 2019-12-11 11:45 | DI.RAD_ITS ---
EXAM: XR KNEE LT 3V AP,LAT,DORIS INDICATION: pain in left knee, no trauma, increasing pain. COMPARISON: No exams were available for comparison TECHNIQUE: 2D digital imaging was performed. FINDINGS: A total knee prosthesis is seen. There are no abnormal bony lucencies or evidence of joint effusion. DATA REPOSITORY: RADIATION DOSE DELIVERED:
--- NOTE | 2019-12-11 11:45 | DI.RAD_ITS ---
EXAM: XR KNEE RT 3V AP,LAT,DORIS INDICATION: pain in RT knee, no trauma, increasing pain, M25.561. COMPARISON: No exams were available for comparison TECHNIQUE: 2D digital imaging was performed. FINDINGS: There is moderate narrowing of the medial femoral tibial joint space and periarticular spurring. Spu rring and irregularity is noted at the patellofemoral joint. Venous varicosities are noted. The bon es appear osteopenic. 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 DATA REPOSITORY: RADIATION DOSE DELIVERED:
== END 2019-12-11 13:44 ==
PROVIDERS: PCP Family Medicine; Visit Provider Family Medicine
DX: M25.561 Pain in right knee (principal); M25.562 Pain in left knee; Z96.652 Presence of left artificial knee joint; M17.11 Unilateral primary osteoarthritis, right knee
CPT/HCPCS: 73562

== ENCOUNTER 2020-04-25 02:14 | Outpatient (CLI) | payer MEDICARE, SELFPAY ==
[2020-04-25 08:46] LABS: Hemoglobin A1C 6.5 % (3.8-5.6)
[2020-04-25 09:28] LABS: ALT 26 U/L (14-59); AST 26 U/L (15-37); Albumin 3.6 g/dL (3.4-5.0); Alkaline Phosphatase 93 U/L (46-116); Anion Gap 8.7 mmol/L (3-11); BUN 12 mg/dL (7-18); Bilirubin, Total 0.5 mg/dL (0.2-1.0); CO2 26.3 mmol/L (21.0-32.0); CREATININE 0.84 mg/dL (0.55-1.02); Calcium 9.5 mg/dL (8.5-10.1); Calculated LDL 112 mg/dL (<100); Chloride 106 mmol/L (98-107); Cholesterol 192 mg/dL (<200); Glucose 110 mg/dL (74-106); HDL Cholesterol 64 mg/dL (40-60); Magnesium 1.9 mg/dL (1.8-2.4); Potassium 4.3 mmol/L (3.5-5.1); Sodium 141 mmol/L (136-145); Total Protein 6.9 g/dL (6.4-8.2); Triglyceride 80 mg/dL (<150)
== END 2020-04-25 02:34 ==
PROVIDERS: PCP Family Medicine; Visit Provider Family Medicine
DX: E83.42 Hypomagnesemia (principal); I10 Essential (primary) hypertension; R73.9 Hyperglycemia, unspecified
CPT/HCPCS: 36415; 80053; 80061; 83036; 83735

== ENCOUNTER 2020-05-24 04:43 | Outpatient (CLI) | payer MEDICARE, SELFPAY ==
--- NOTE | 2020-05-24 13:00 | NS.NUTBLAN_ITS ---
ASSESSMENT: Deisy presents for referral from PCP at for overweight/prediabetes. Documentation reveals FBG 110 on 04/25/20. Previous labs from 12/2018 show BG of 145. She has family hx DM and has been to [facility] nutritional counseling in the past for weight loss. She is currently 187lbs w/ BMI 30 indicating obesity. She reports eating two slices toast w/ coffee and cream and a boiled egg for breakfast. She drinks coffee with small amount of cream and water. Avoids sodas. She states that she has not had lunch before her 1:00pm appointment with this RD.H We took her BG which was 100mg/dl which is the lowest end of the pre-DM range. She reports no physical activity although previous documentation shows she was walking. She reports she has not done any PA so since Covid-19 protocols restricted walking at the mall. INTERVENTION: Recommended 7% weight loss to help prevent T-2. This is ~ 13 lbs. Reviewed safe weight loss at 500k/dania day reduction for 1lb per week loss. Reviewed [employer] and cals phone keysha to help with CHO and calorie content of foods. Educated Deisy on portion sizes relative to 15g/CHO servings. Recommended 1500-1800k/dania/day. Recommend <100 g/ CHO /day. Provided example of meals with <30g CHO to achieve this goal. Provided literature for weight loss diet, food choices and healthy meal planning and shopping. Explained that taking her own blood sugar would not be necessary at this time and that she can rely on labs as ordered by MD. Provided divided plates with covers to help reinforce correct portion sizes of CHO, PRO and Vegetables. Recommended slowly incorporating online exercise program w/ MD approval. PLAN: Deisy will continue to focus on portion size, fresh whole foods, and caloric intake. She will arrange follow up w/ [facility] RD following next
== END 2020-05-24 05:03 ==
PROVIDERS: PCP Family Medicine; Visit Provider Dietitian, Registered
DX: E66.3 Overweight (principal); R73.03 Prediabetes; Z71.3 Dietary counseling and surveillance
CPT/HCPCS: 97802

== ENCOUNTER 2020-05-25 02:57 | Outpatient (CLI) | payer MEDICARE, SELFPAY ==
[2020-05-25 12:20] LABS: Iron 69 ug/dL (50-170); Total Iron Binding Capacity 276 ug/dL (250-450); Transferrin Sat 25 % (15-50)
[2020-05-25 12:33] LABS: Ferritin 115 ng/mL (8-252); TSH 2.14 uIU/mL (0.36-3.74)
== END 2020-05-25 03:17 ==
PROVIDERS: PCP Family Medicine; Visit Provider Family Medicine
DX: L65.9 Nonscarring hair loss, unspecified (principal); Z86.2 Personal history of diseases of the blood and blood-forming organs and certain disorders involving the immune mechanism
CPT/HCPCS: 36415; 82728; 83540; 83550; 84443

== ENCOUNTER 2020-08-09 03:48 | Outpatient (CLI) | payer MEDICARE, SELFPAY ==
[2020-08-09 08:40] LABS: Hemoglobin A1C 6.1 % (<5.7)
[2020-08-09 08:57] LABS: Anion Gap 7.7 mmol/L (3-11); BUN 20 mg/dL (7-18); CO2 28.3 mmol/L (21.0-32.0); CREATININE 0.83 mg/dL (0.55-1.02); Calcium 9.2 mg/dL (8.5-10.1); Chloride 104 mmol/L (98-107); Glucose 100 mg/dL (74-106); Potassium 4.2 mmol/L (3.5-5.1); Sodium 140 mmol/L (136-145)
== END 2020-08-09 04:08 ==
PROVIDERS: PCP Family Medicine; Visit Provider Family Medicine
DX: I10 Essential (primary) hypertension (principal); E11.9 Type 2 diabetes mellitus without complications
CPT/HCPCS: 36415; 80048; 83036

== ENCOUNTER 2020-10-19 19:42 | Emergency (ER) | payer MEDICARE, SELFPAY ==
[2020-10-19 19:48] VITALS: BP 165/76; PULSE 83; RESP 18; TEMP 36.5; O2SAT 98
--- NOTE | 2020-10-19 20:28 | ED.GENADUL_ITS ---
Discharge Plan Disposition Patient Disposition: HOME Condition: Stable Discharge Details Clinical Impression: Fall, Back pain, Arm pain Primary Care Provider: Megan Banegas ED Provider: Clovis Brantley Home Meds and New Rx's Prescriptions: Continued (DME) Po[employer] Pantiliners Pad See Rx Instructions .ROUTE .MEDSUPPLY Qty: 48 RF: 2 cholecalciferol (vitamin D3) 1,000 UNIT capsule 500 unit PO DAILY RF: 0 omeprazole 40 mg capsule,delayed release(DR/EC) 40 mg PO DAILY Qty: 30 RF: 6 losartan 50 mg tablet 50 mg PO DAILY Qty: 90 RF: 4 calcium carbonate-vitamin D3 1 EACH tablet 1 tab PO DAILY RF: 0 Centrum Complete 1 EACH tablet 1 tab PO DAILY RF: 0 Discharge Instructions Instructions: Back Pain (ED), Fall Prevention (ED), Chest Wall Pain (ED), Arm Pain (ED) Medical Decision Making 75-year-old female had a mechanical slip and fall 1 week ago. At that time she injured her left arm and left posterior chest wall-back. Denies any other injuries, she did not strike her head she states that her pain has improved and currently is 0 out of 10. With certain types of movements her pain goes up to a 1 or 2 out of 10. Clinically she appears well, nontoxic. We discussed options. The pain was directly correlated with the mechanical fall. No distracting injuries. 1 week ago. She has full range of motion of her left arm. No bony point tenderness. Chest wall-back with minimal discomfort but no crepitus, erythema, ecchymosis. No midline point tenderness. We certainly could pursue advanced imaging but extremely low suspicion for rib fracture, shoulder fracture, dislocation, pneumothorax, etc. Patient feels as though x-rays are indicated because nothing is seriously wrong or broken, I would tend to agree with her overall assessment. She is reassured after the physical exam was completed. She will continue with conservative therapy such as cool and/or warm compresses, [id number]-[id number]-[id number] medication as directed, and gentle stretching as tolerated. She was encouraged to return to the ER for new or worsening symptoms, otherwise she will contact her primary care provider tomorrow for prompt outpatient reevaluation. Medical Records Medical records reviewed: Yes I reviewed the patient's medical records. HPI General Mode of arrival: ambulatory . Date/Time Provider Initiated Documentation: 01/13/21 19:44 . Limitations to Documentation: no limitations . Information obtained by: patient . HPI Narrative: This is a 75-year-old female with past medical history of anxiety, hypertension, GERD, presents to the ER today for evaluation of left-sided pain status post a fall. She states that 1 week ago she had a mechanical fall, slipping while at the [employer]und[employer]. She fell to the ground and did not hit anything on her way to the ground. She reports that she is right-hand dominant. She is complaining of left shoulder pain and left posterior chest wall pain-back pain, that began at the time of the fall. She denies striking her head, LOC, headache, neck pain, visual changes, anterior chest pain, shortness of breath, abdominal pain, nausea, vomiting, hematuria, bowel or bladder incontinence or retention, radiation into her lower extremities. Denies numbness, tingling, weakness. She reports that currently her pain is a 0 out of 10 but with passive movement like doing the dishes, her pain gets up to a 1 or 2 out of 10. She states that her pain was worse earlier in the week and is progressively getting better however is not gone yet so she came to the ER to be sure there is nothing more serious happening. She has taken [id number] medication with little relief. She is hoping that I can give her a pill to make me better faster. Related Data Home Medications Medication Instructions Recorded Confirmed Centrum Complete 1 tab PO DAILY 01/21/13 10/19/20 calcium carbonate-vitamin D3 1 tab PO DAILY 01/21/13 10/19/20 cholecalciferol (vitamin D3) 500 unit PO DAILY 05/12/14 10/19/20 incontinence pad, liner, disp #48 each 12/11/19 05/23/20 omeprazole 40 mg capsule,delayed 40 mg PO DAILY #30 cap 04/20/20 10/19/20 release losartan 50 mg tablet 50 mg PO DAILY #90 tab 09/05/20 10/19/20 Previous Rx's Medication Instructions Recorded incontinence pad, liner, disp #48 each 12/11/19 omeprazole 40 mg capsule,delayed 40 mg PO DAILY #30 cap 04/20/20 release losartan 50 mg tablet 50 mg PO DAILY #90 tab 09/05/20 Allergies Allergy/AdvReac Type Severity Reaction Status Date / Time Penicillins Allergy Intermediate Skin Rash Verified 10/19/20 19:56 buspirone HCl [From BuSpar] AdvReac Mild didn't Verified 10/19/20 19:56 feel good on it cetirizine AdvReac Mild didn't Verified 10/19/20 19:56 feel good on it sertraline AdvReac Mild blurry Verified 10/19/20 19:56 vision & tingling under tongue lisinopril AdvReac Unknown Verified 10/19/20 19:56 General Stated Complaint: Orthopedic MARIE: 3 Review of Systems Constitutional Constitutional: Denies fatigue, Denies fever(s) and Denies headache(s) ENT Ears, Nose, Mouth, and Throat: Denies headache(s) Cardiovascular Cardiovascular: Denies chest pain and Denies dyspnea Respiratory Respiratory: Denies cough and Denies dyspnea Gastrointestinal Gastrointestinal: Denies abdominal pain, Denies nausea and Denies vomiting Genitourinary Genitourinary: Denies hematuria and Denies dysuria Musculoskeletal Musculoskeletal: Reports back pain, Denies numbness, Denies stiffness, Denies tingling and Reports other (Left arm-shoulder discomfort) Integumentary/Breasts Skin/Breast: Denies rash Neurologic Neurologic: Denies headache(s), Denies numbness and Denies tingling Endocrine Endocrine: Denies fatigue [facility] Medical History Essential hypertension JANETH (generalized anxiety disorder) Gastritis Gastroesophageal reflux disease Headache History of broken leg ORIF lt leg History of cardiovascular stress test Hyperlipidemia Insomnia Obesity Osteopenia Tubular adenoma of colon 09/20/14; DR. ANDRES; X 1- Repeat in 5 years 05/2019; DR. ANDRES; X 3-REPEAT IN 3 YEARS Surgical History CARDIAC STRESS TEST 01/21/14 01/27/14 Colonoscopy - IV Sedation 05/25/04;07/11/09;09/20/14 EGD - IV Sedation 07/11/09 History of esophagogastroduodenoscopy History of surgery on arm ORIF lt arm History of Surgical Procedure a. Tubal ligation many years ago, over 20 years ago. b. Bilateral cataracts. Ligation of fallopian tube 5/27/03 Family History Mother , AGE 72 Heart disease Myocardial infarction Depression Father , AGE 80 Heart disease Myocardial infarction Brother , AGE 79 Diabetes Essential hypertension Heart disease Hyperlipidemia Alcohol abuse Brother , AGE 77 Diabetes Essential hypertension Depression Heart disease Hyperlipidemia Brother , AGE 67 Heart disease Hyperlipidemia Daughter No problems noted. Social History Smoking/Tobacco Use Status: Never Smoking risk assessment performed?: Yes Alcohol Intake: never Drug use: Never Substance use type: does not use Caregiver/Support person: No Household members: spouse Housing: house Communication Needs: Corrective Lenses Do you need help understanding health information?: Often Pets and animals: Yes Pets and animals: cat(s) Sexually active: No Current gender identity: female What is your relationship status?: How often do you talk on the phone with friends or family?: once per week How often do you get together with friends or relatives?: once per week How often do you attend alevism or taoism services?: decline to answer Do you belong to any clubs or organized social groups?: no Panel score (0-1 are the most socially isolated patients): 1 What type of physical activity do you participate in: decline to answer Duration: 15-30 minutes/day Frequency: does not exercise Marcela/Episcopal: No preference Special marcela needs: No Seatbelt use: always Drive 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 Do you feel safe at home: Yes Do you feel safe in your relationship?: Yes Exam Const General: cooperative, healthy appearing, comfortable and no acute distress Orientation: alert, awake and oriented x3 HENMT Head: normal to inspection, normocephalic and atraumatic Eyes General: appearance normal, both eyes and all related structures Alignment and Position: alignment normal Periorbital: periorbital findings normal Eyelids: eyelids normal Conjunctivae: conjunctivae normal Sclera: sclerae normal Cornea: corneas normal EOM: EOM intact bilaterally Neck Neck: normal visual inspection, full ROM, no meningeal signs, trachea midline, supple and nontender Chest Chest: normal inspection of the chest and normal palpation of entire chest wall Resp Effort & Inspection: normal respiratory effort and able to speak in complete sentences Auscultation: clear to auscultation bilaterally Cardio Rate: regular rate Rhythm: regular rhythm GI Inspection: normal to inspection Palpation: soft, not firm, no guarding, no pulsatile masses and nontender Back/Spine/Pelvis Back: back tenderness Thoracic/Lumbar Spine: straight leg raise negative bilaterally Back/spine/pelvis image: 1. Diffuse mild discomfort. There is no ecchymosis, crepitus, bony point tenderness. Skin is intact. Skin General skin exam: no rashes or lesions noted Neuro General: patient alert, patient awake, patient oriented x3, moves all extrem ities and no focal motor deficits Cognition: normal cognition Speech: speech normal Gait: normal gait Motor: muscle tone normal throughout Sensory Exam: no sensory deficits noted Extrem General: normal to inspection, full ROM and capillary refill normal Shoulder/upper arm images: 1. Diffuse mild soft tissue discomfort. There is no swelling, erythema, ecchymosis. Skin is intact. Neuro, vascular, tendon intact. Psych Appearance: grossly normal Mental Status: mental status grossly normal Course Vital Signs Vital signs: Vital Signs Temperature 36.5 C 10/19/20 19:48 Pulse 83 10/19/20 19:48 Respiratory Rate 18 10/19/20 19:48 Blood Pressure 165/76 H 10/19/20 19:48 Pulse Oximetry 98 10/19/20 19:48 Temperature 36.5 C 10/19/20 19:48 Temperature Source Skin 10/19/20 19:48 Pulse 83 10/19/20 19:48 Respiratory Rate 18 10/19/20 19:48 Respiratory Effort Non-Labored 10/19/20 19:54 Blood Pressure 165/76 H 10/19/20 19:48 Pulse Oximetry 98 10/19/20 19:48 Oxygen Delivery Method Room Air 10/19/20 19:48 Oxygen Flow Rate 0 10/19/20 19:48 Pain Level 5 10/19/20 19:48
== END 2020-10-19 20:45 | disposition home or self-care (01) ==
PROVIDERS: Emergency Provider Physician Assistant; PCP Family Medicine
DX: M54.6 Pain in thoracic spine (principal); R07.81 Pleurodynia; M25.512 Pain in left shoulder; W19.XXXA Unspecified fall, initial encounter; I10 Essential (primary) hypertension
CPT/HCPCS: 99283

== ENCOUNTER 2020-11-18 08:23 | Outpatient (CLI) | payer MEDICARE, SELFPAY ==
[2020-11-19 17:08] LABS: COVID-19 RT-PCR UVMMC Result Negative (Negative)
== END 2020-11-18 08:24 | disposition home or self-care (01) ==
LOC: LBO 08:23
PROVIDERS: PCP Family Medicine; Visit Provider Family Medicine
DX: Z20.822 Contact with and (suspected) exposure to COVID-19 (principal)
CPT/HCPCS: U0003; U0005

== ENCOUNTER 2020-11-28 02:53 | Outpatient (CLI) | payer MEDICARE, SELFPAY ==
[2020-11-28 12:30] LABS: Bilirubin Negative (Negative); Blood Negative (Negative); Clarity Clear (Clear); Glucose Negative (Negative); Ketones Negative (Negative); Leukocyte Esterase Negative (Negative); Nitrite Negative (Negative); Specific Gravity 1.025 (1.005-1.025); Urobilinogen 0.2 EU/dL (Up TO 0.2); pH 6.5 (5-8)
[2020-11-28 12:34] LABS: Abs Immature Grans 0.03 10^3/uL (0.0-0.06); Absolute Basophil Count 0.06 10^3/uL (0.0-0.2); Absolute Eosinophil Count 0.44 10^3/uL (0.0-0.7); Absolute Lymphocyte Count 2.66 10^3/uL (1.2-3.4); Absolute Monocyte Count 0.99 10^3/uL (0.1-0.8); Absolute Neutrophil Count 4.28 10^3/uL (1.2-6.7); Basophils % 0.7; Eosinophils % 5.2; HGB 12.6 g/dL (11.2-15.7); Immature Grans % 0.4; Lymphocytes % 31.4; MCH 29.9 pg (27.0-33.0); MCHC 32.3 % (32.0-36.0); MCV 92.6 fL (80-95); MPV 9.2 fL (8.0-11.0); Monocytes % 11.7; Neutrophils % 50.6; Nucleated RBC 0 %; Platelet Count 388 10^3/uL (130-400); RBC 4.21 10^6/uL (3.93-5.22); RDW 12.8 % (11.7-14.6); RDW-SD 43.5 fL; WBC 8.46 10^3/uL (4.4-10.8)
[2020-11-28 12:44] LABS: ALT 23 U/L (14-59); AST 20 U/L (15-37); Albumin 3.7 g/dL (3.4-5.0); Alkaline Phosphatase 108 U/L (46-116); Anion Gap 9.1 mmol/L (3-11); BUN 28 mg/dL (7-18); Bilirubin, Total 0.6 mg/dL (0.2-1.0); CO2 27.9 mmol/L (21.0-32.0); CREATININE 0.7 mg/dL (0.55-1.02); Calcium 9.6 mg/dL (8.5-10.1); Chloride 102 mmol/L (98-107); Glucose 107 mg/dL (74-106); Magnesium 2.1 mg/dL (1.8-2.4); Potassium 4.5 mmol/L (3.5-5.1); Sodium 139 mmol/L (136-145); Total Protein 7.8 g/dL (6.4-8.2)
[2020-11-28 12:53] LABS: Hemoglobin A1C 6.6 % (<5.7)
== END 2020-11-28 02:54 | disposition home or self-care (01) ==
LOC: LOS 02:53
PROVIDERS: PCP Family Medicine; Visit Provider Family Medicine
DX: R53.83 Other fatigue (principal); R73.9 Hyperglycemia, unspecified; E83.42 Hypomagnesemia; R32 Unspecified urinary incontinence
CPT/HCPCS: 36415; 80053; 81003; 83036; 83735; 84443; 85025

== ENCOUNTER 2021-02-14 02:28 | Outpatient (CLI) | payer MEDICARE, SELFPAY ==
--- NOTE | 2021-02-14 11:07 | DI.MAMMO_ITS ---
Exam(s) MAMMO SCREENING EXAM: MAMMO SCREENING CLINICAL HISTORY: screening,Z12.39 TECHNIQUE: Mammograms were interpreted according to the usual protocol including computer analysis w i[employer] CAD system, tomosynthesis and C-view imaging. COMPARISON: FINDINGS: The breasts are of moderate density with fairly symmetrical distribution of fibroglandular tissue. N o dominant mass or clumped microcalcification is identified in either breast. The current examinatio n is compared with previous examinations including September 2019 and there has been no gross interval change in appearance in comparison with the prior studies. IMPRESSION: No specific evidence of malignancy at this time. Routine screening examinations are suggested at yea rly intervals due to the family history of breast carcinoma. BI-RADS Category 1 - Negative Breast Density - Category B - Scattered areas of fibroglandular density
== END 2021-02-14 02:48 ==
PROVIDERS: PCP Family Medicine; Visit Provider Family Medicine
DX: Z12.31 Encounter for screening mammogram for malignant neoplasm of breast (principal); Z80.3 Family history of malignant neoplasm of breast
CPT/HCPCS: 77063; 77067

== ENCOUNTER 2021-06-07 11:56 | Outpatient (REF) | payer MEDICARE, SELFPAY ==
[2021-06-07 18:23] LABS: Hemoglobin A1C 6.4 % (<5.7)
[2021-06-07 19:12] LABS: COMMENT (LAB VIEW ONLY) 16.61 mg/dL; Microalb ug/mg Crea 20.5 ug/mg Cr
[2021-06-07 19:14] LABS: ALT 29 U/L (14-59); AST 22 U/L (15-37); Alkaline Phosphatase 113 U/L (46-116); Anion Gap 8.6 mmol/L (3-11); BUN 25 mg/dL (7-18); Bilirubin, Total 0.4 mg/dL (0.2-1.0); CO2 27.4 mmol/L (21.0-32.0); CREATININE 0.9 mg/dL (0.55-1.02); Calcium 9.3 mg/dL (8.5-10.1); Chloride 103 mmol/L (98-107); Glucose 99 mg/dL (74-106); Potassium 4.8 mmol/L (3.5-5.1); Sodium 139 mmol/L (136-145)
[2021-06-07 19:28] LABS: Calculated LDL 108 mg/dL (<100); Cholesterol 207 mg/dL (<200); HDL Cholesterol 78 mg/dL (40-60); Triglyceride 105 mg/dL (<150)
== END 2021-06-07 11:57 | disposition home or self-care (01) ==
LOC: LBN 11:56
PROVIDERS: PCP Family Medicine; Visit Provider Family Medicine
DX: E11.9 Type 2 diabetes mellitus without complications (principal)
CPT/HCPCS: 80053; 80061; 82043; 82570; 83036

== ENCOUNTER 2021-06-30 20:48 | Outpatient (REF) | payer MEDICARE, SELFPAY | END 2021-06-30 20:49 | disposition home or self-care (01) | LOC: LBN 20:48 | PROVIDERS: PCP Family Medicine; Visit Provider Physician Assistant | DX: N89.8 Other specified noninflammatory disorders of vagina (principal) | CPT/HCPCS: 87480; 87510; 87660 ==

== ENCOUNTER 2021-07-18 02:00 | Outpatient (REF) | payer MEDICARE, SELFPAY ==
[2021-07-18 22:02] LABS: Magnesium 2.2 mg/dL (1.8-2.4)
[2021-07-18 22:39] LABS: D-Dimer 720 ng/mlFEU (<500)
== END 2021-07-19 08:06 | disposition home or self-care (01) ==
LOC: LBN 02:00
PROVIDERS: PCP Family Medicine; Visit Provider Nurse Practitioner Family
DX: M79.662 Pain in left lower leg (principal)
CPT/HCPCS: 83735; 85379

== ENCOUNTER 2022-01-12 02:27 | Outpatient (CLI) | payer MEDICARE, SELFPAY ==
[2022-01-12 09:36] LABS: Hemoglobin A1C 6.3 % (<5.7)
[2022-01-12 10:26] LABS: Anion Gap 10.1 mmol/L (3-11); BUN 18 mg/dL (7-18); CO2 26.9 mmol/L (21.0-32.0); CREATININE 0.8 mg/dL (0.55-1.02); Calcium 9.1 mg/dL (8.5-10.1); Chloride 106 mmol/L (98-107); Glucose 105 mg/dL (74-106); Potassium 4.4 mmol/L (3.5-5.1); Sodium 143 mmol/L (136-145)
== END 2022-01-12 02:28 | disposition home or self-care (01) ==
LOC: LBO 02:28
PROVIDERS: PCP Family Medicine; Visit Provider Family Medicine
DX: E11.9 Type 2 diabetes mellitus without complications (principal)
CPT/HCPCS: 36415; 80048; 83036

== ENCOUNTER → 2022-02-16 01:15 | Outpatient (CLI) | payer MEDICARE, SELFPAY ==
--- NOTE | 2022-02-16 09:25 | DI.RAD_ITS ---
Exam(s) XR LUMBAR SPINE COMPLETE EXAM: XR LUMBAR SPINE COMPLETE CLINICAL HISTORY: back pain,M54.9. TECHNIQUE: 2D digital imaging was performed. COMPARISON: CR LUMBAR SPINE COMPLETE from 10/10/2009 FINDINGS: Five views Again noted is transitional anatomy with a transitional lumbosacral vertebra. No scoliosis. No evidence of fracture but there is again noted anterolisthesis of L5 upon the transi tional vertebra this related to facet arthropathy, with approximately 1 cm anterior slippage at this level, slightly more so than previous. There is, however, only mild disc space narrowing at this lev el and no disc space narrowing at the other levels. There is no scoliosis. Sacroiliac joints appear unremarkable. IMPRESSION: As above if clinically indicated recommend flexion extension lateral views to determine the true amou nt of slippage at the listhesis level. DATA REPOSITORY: RADIATION DOSE DELIVERED:
--- NOTE | 2022-02-16 09:25 | DI.RAD_ITS ---
Exam(s) XR CERVICAL SPINE COMP 4-5V EXAM: XR CERVICAL SPINE COMP 4-5V CLINICAL HISTORY: PAIN. TECHNIQUE: 2D digital imaging was performed. COMPARISON: No exams were available for comparison FINDINGS: Five views No evidence of fracture, listhesis, nor offset of the spinal laminar line. There is multilevel moder ate-advanced disc space narrowing at all disc levels with the exception of C2-3 and C4-5 levels which maintain preserved disc height. On the oblique views there are no prominent Luschka joint osteophytes, only small bilateral Luschka j oint osteophytes at the lower 2 levels. Prominent left transverse process at C7 is consistent with a small cervical rib this level. IMPRESSION: Multilevel chronic degenerative disc disease. Other findings as above. No listhesis. DATA REPOSITORY: RADIATION DOSE DELIVERED:
--- NOTE | 2022-02-16 09:25 | DI.RAD_ITS ---
Exam(s) XR THORACIC SPINE COMPLETE EXAM: XR THORACIC SPINE COMPLETE CLINICAL HISTORY: back pain,M54.9. TECHNIQUE: 2D digital imaging was performed. COMPARISON: CR CHEST 2 VIEWS PA,LAT from 07/19/2017 CR XR LUMBAR SPINE COMPLETE from 02/16/2022 FINDINGS: 3 views There is no evidence of compression fracture or listhesis. There is some disc space narrowing in the anterior aspect of the disc space at a midthoracic vertebra level. Also some chronic degenerative d isc disease changes in the lower cervical spine. Also evidence of rotator cuff surgery in 1 of the s houlders (cannot tell which on these images.. There is no scoliosis. No abnormal widening of the paraspinal lines. No osseous lesions. IMPRESSION: DATA REPOSITORY: RADIATION DOSE DELIVERED:
== END ==
PROVIDERS: PCP Family Medicine; Visit Provider Physician Assistant
DX: M50.322 Other cervical disc degeneration at C5-C6 level; M50.323 Other cervical disc degeneration at C6-C7 level; M43.16 Spondylolisthesis, lumbar region; M51.34 Other intervertebral disc degeneration, thoracic region
CPT/HCPCS: 72050; 72072; 72110

== ENCOUNTER → 2022-02-21 08:51 | Outpatient (CLI) | payer MEDICARE, SELFPAY ==
--- NOTE | 2022-02-21 08:27 | DI.RAD_ITS ---
Exam(s) XR LUMBAR SPINE FLEX/EXT ONLY EXAM: XR LUMBAR SPINE FLEX/EXT ONLY CLINICAL HISTORY: f/u lumbar views, anterolisthesis lumbar spine, M43.16 spondylolisthesis. TECHNIQUE: 2D digital imaging was performed. COMPARISON: CR XR LUMBAR SPINE COMPLETE from 02/16/2022 FINDINGS: 3 lateral views, including neutral, flexion, and extension upright views this was performed to determ ine the true amount of anterolisthesis of L5 upon the transitional vertebra, as described on the rece nt plain film series of 02/16/2022. At the level the previously described listhesis, the amount of slippage appears to be approximately 1 cm with flexion and 1 cm with extension, similar to the neutral view. There is some disc space narr owing again evident at this level. IMPRESSION: DATA REPOSITORY: RADIATION DOSE DELIVERED:
== END ==
PROVIDERS: PCP Family Medicine; Visit Provider Family Medicine
DX: M43.16 Spondylolisthesis, lumbar region (principal); M51.36 Other intervertebral disc degeneration, lumbar region
CPT/HCPCS: 72120

== ENCOUNTER 2022-04-01 09:11 | Emergency (ER) | payer MEDICARE, SELFPAY ==
--- NOTE | 2022-04-01 09:14 | ED.GENADUL_ITS ---
Discharge Plan Disposition Patient Disposition: HOME Condition: Stable Discharge Details Clinical Impression: Left ankle pain, Left foot pain Primary Care Provider: Nevaeh Morales ED Provider: Cherry Fields Home Meds and New Rx's Prescriptions: Continued clotrimazole 1 % cream 1 applic topical BID Qty: 15 0RF diclofenac sodium [Arthritis Pain (diclofenac)] 1 % gel 2 g topical QID PRN (Reason: back pain) Qty: 100 2RF atorvastatin 20 mg tablet 20 mg PO QHS Qty: 90 3RF cholecalciferol (vitamin D3) 1,000 UNIT capsule 500 unit PO DAILY polyethylene glycol 3350 [Miralax] 17 gram/dose powder 17 g PO DAILY PRN losartan 50 mg tablet 50 mg PO DAILY Qty: 90 4RF omeprazole 40 mg capsule,delayed release(DR/EC) 40 mg PO DAILY Qty: 90 1RF calcium carbonate-vitamin D3 1 EACH tablet 1 tab PO DAILY Centrum Complete 1 EACH tablet 1 tab PO DAILY Discharge Instructions Instructions: Ankle Sprain (ED), Arthritis (ED) Additional Instructions: Your x-rays today are reassuring and show no evidence of acute concerning or significant findings. Your symptoms may be due to an ankle sprain and or arthritis. It is recommended to rest, ice, elevate your leg as much as possible. You can wear the ankle brace for support as much as needed. Follow-up with your primary care doctor in 1 week and for referral to orthopedics if indicated. Return to the emergency department with any worsening or new concerning symptoms. Referrals: John Bush MD [ [facility] STAFF PHYSICIAN] - Discharge Data Discharge Date/Time-TO BE ENTERED AT DEPARTURE: 04/01/22 10:57 Discharge Physician: Cherry Fields Medical Decision Making 77-year-old female presents with left foot and ankle pain that she noted upon awakening this morning. Pain worse with weightbearing and walking. Denies any known fever or injury. Patient appears comfortable and nontoxic. Pain is reproducible upon standing and weightbearing. There is no obvious evidence of cellulitis, trauma, deformity and she has neurovascular intact without focal. History of pre sentation does not appear consistent with joint. Suspicion for fracture is low. Differential diagnosis includes sprain, arthritis. Will obtain x-rays and give a dose of Motrin. X-rays reviewed and note soft tissue swelling and degenerative changes but no acute fracture. Patient was placed in an ankle brace. Advised on the importance of RICE. Given orthopedic follow-up information if needed. Advised to follow up with the primary care doctor for re-evaluation. Usual and customary return precautions given prior to discharge. Medical Records Medical records reviewed: Yes I reviewed the patient's medical records. Imaging Data Radiologic Study: Radiologist's impression: XR Left Ankle Exam date and time: 04/01/2022 9:42 AM Age: 77 years old Clinical indication: Patient HX: Anterior left ankle pain TECHNIQUE: Imaging protocol: Radiologic exam of the Left ankle. Views: 3 or more views. COMPARISON: CR XR foot LT complete 05/11/2019 11:05 AM FINDINGS: Bones/joints: No fractures or suspicious osseous lesions. Alignment is anatomic. Joint spaces are maintained. There is a small plantar calcaneal spur. Soft tissues: Scattered small vascular calcifications in the distal calf. Nonspecific mild soft tissue swelling anterior to the tibiotalar joint.? No soft tissue gas or radiopaque foreign body. IMPRESSION: Nonspecific mild soft tissue swelling in the anterior left ankle.? No acute osseous or articular abnormality. XR Left Foot Exam date and time: 04/01/2022 9:44 AM Age: 77 years old Clinical indication: Pain; Foot; Left TECHNIQUE: Imaging protocol: Radiologic exam of the Left foot. Views: 3 or more views. COMPARISON: CR XR foot LT complete 05/11/2019 11:05 AM FINDINGS: Bones/joints: No acute or healing fractures. No suspicious osseous lesions. No cortical erosion or periostitis. Small os tibialis externum and os peroneum. 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 Mild dorsal spurring in the midfoot. Small plantar calcaneal spur. Soft tissues: Regional soft tissues are unremarkable. IMPRESSION: 1. No acute abnormality in the left foot. 2. Chronic/degenerative changes as described above. HPI General Mode of arrival: ambulatory . Date/Time Provider Initiated Documentation: 04/01/22 09:14 . Limitations to Documentation: no limitations . Information obtained by: patient . HPI Narrative: Patient is a 77-year-old female presents to the ED with complaint of left foot and ankle pain that she noted upon awakening this morning. She states the pain is mostly worse with weightbearing and walking. She took Tylenol without relief. She denies any known injury, fever, or radiation of pain to her leg or knee. Related Data Home Medications Medication Instructions Recorded Confirmed calcium carbonate 600 mg-vitamin 1 tab PO DAILY 01/21/13 04/01/22 D3 5 mcg (200 unit) tablet multivitamin-ferrous 1 tab PO DAILY 01/21/13 04/01/22 fumarate-folic acid 18 mg-400 mcg tablet (Centrum Complete) cholecalciferol (vitamin D3) 25 500 unit PO DAILY 05/12/14 04/01/22 mcg (1,000 unit) capsule polyethylene glycol 3350 17 17 g PO DAILY PRN 01/19/21 04/01/22 gram/dose oral powder (Miralax) losartan 50 mg tablet 50 mg PO DAILY #90 tabs 06/15/21 04/01/22 diclofenac sodium 1 % topical gel 2 g topical QID PRN back pain #100 07/12/21 04/01/22 (Arthritis Pain (diclofenac)) grams atorvastatin 20 mg tablet 20 mg PO QHS #90 tabs 12/13/21 04/01/22 omeprazole 40 mg capsule,delayed 40 mg PO DAILY #90 caps 01/03/22 04/01/22 release clotrimazole 1 % topical cream 1 applic topical BID #15 grams 02/12/22 04/01/22 Previous Rx's Medication Instructions Recorded losartan 50 mg tablet 50 mg PO DAILY #90 tabs 06/15/21 diclofenac sodium 1 % topical gel 2 g topical QID PRN back pain #100 07/12/21 (Arthritis Pain (diclofenac)) grams atorvastatin 20 mg tablet 20 mg PO QHS #90 tabs 12/13/21 omeprazole 40 mg capsule,delayed 40 mg PO DAILY #90 caps 01/03/22 release clotrimazole 1 % topical cream 1 applic topical BID #15 grams 02/12/22 Allergies Allergy/AdvReac Type Severity Reaction Status Date / Time Penicillins Allergy Intermediate Skin Rash Verified 04/01/22 09:26 buspirone HCl [From BuSpar] AdvReac Mild didn't Verified 04/01/22 09:26 feel good on it cetirizine AdvReac Mild didn't Verified 04/01/22 09:26 feel good on it sertraline AdvReac Mild blurry Verified 04/01/22 09:26 vision & tingling under tongue lisinopril AdvReac Unknown Verified 04/01/22 09:26 General Stated Complaint: Orthopedic MARIE: 3 Review of Systems All systems reviewed & are unremarkable except as noted in HPI and below Constitutional Constitutional: Reports as per HPI, Denies chills and Denies fever(s) Eyes Eyes: Denies blurry vision ENT Ears, Nose, Mouth, and Throat: Denies dizziness, Denies sore throat and Denies throat swelling Cardiovascular Cardiovascular: Denies chest pain and Denies dyspnea Respiratory Respiratory: Denies cough and Denies dyspnea Gastrointestinal Gastrointestinal: Denies abdominal pain, Denies diarrhea and Denies vomiting Genitourinary Genitourinary: Denies hematuria and Denies dysuria Musculoskeletal Musculoskeletal: Denies back pain and Denies numbness Integumentary/Breasts Skin/Breast: Denies lesions and Denies rash Neurologic Neurologic: Denies dizziness, Denies localized weakness and Denies numbness Allergic/Immunologic Allergic/Immunologic: Denies throat swelling PFSH All Active Problems (Updated 04/01/22 @ 10:27 by Cherry Fields DO) Left ankle pain (Acute) Left foot pain (Acute) Anterolisthesis of lumbar spine (Acute) Incontinence of urine (Acute) Diabetes (Chronic ~11/2020) RUQ abdominal pain (Acute) JANETH (generalized anxiety disorder) (Acute) Tubular adenoma of colon (Acute) 09/20/14; DR. ANDRES; X 1- Repeat in 5 years 05/2019; DR. ANDRES; X 3-REPEAT IN 3 YEARS Hypertension (Chronic) GERD (gastroesophageal reflux disease) (Chronic) Depression (Acute) intolerant to Citalopram,Bupropion,Sertraline,Prozac Osteopenia (Acute) bone density scan Insomnia (Acute) Medical History Essential hypertension Gastritis Gastroesophageal reflux disease Headache History of broken leg ORIF lt leg History of cardiovascular stress test Hyperlipidemia Insomnia Obesity Osteopenia Pain in left knee xray 03-20: DJD Tear of left rotator cuff (11/19/17) Surgical History CARDIAC STRESS TEST 01/21/14 01/27/14 Colonoscopy - IV Sedation 05/25/04;07/11/09;09/20/14 EGD - IV Sedation 07/11/09 History of esophagogastroduodenoscopy History of surgery on arm ORIF lt arm History of Surgical Procedure a. Tubal ligation many years ago, over 20 years ago. b. Bilateral cataracts. Ligation of fallopian tube 03/02/03 Family History Mother , AGE 72 Heart disease Myocardial infarction Depression Father , AGE 80 Heart disease Myocardial infarction Brother , AGE 79 Diabetes Essential hypertension Heart disease Hyperlipidemia Alcohol abuse Brother , AGE 77 Diabetes Essential hypertension Depression Heart disease Hyperlipidemia Brother , AGE 67 Heart disease Hyperlipidemia Daughter No problems noted. Social History Smoking/Tobacco Use Status: Never Second Hand Exposure: No Smoking risk assessment performed?: Yes Alcohol Intake: never Drug use: Never Substance use type: does not use Caregiver/Support person: No Household members: spouse Housing: house Communication Needs: Corrective Lenses Do you need help understanding health information?: Often Pets and animals: Yes Pets and animals: cat(s) Sexually active: No Current gender identity: female What is your relationship status?: How often do you talk on the phone with friends or family?: once per week How often do you get together with friends or relatives?: once per week How often do you attend jain or worship services?: decline to answer Do you belong to any clubs or organized social groups?: no Panel score (0-1 are the most socially isolated patients): 1 What type of physical activity do you participate in: decline to answer Duration: 15-30 minutes/day Frequency: does not exercise Marcela/Episcopalian: No preference Special marcela needs: No Seatbelt use: always Drive intox or ride w/intox motor pool driver: No Do you feel safe at home: Yes Do you feel safe in your relationship?: Yes Exam Const General: cooperative and no acute distress Orientation: alert, awake and oriented x3 HENMT Head: normal to inspection Mouth: oral mucosae normal Eyes General: appearance normal, both eyes and all related structures Neck Neck: normal visual inspection Resp Effort & Inspection: normal respiratory effort and able to speak in complete sentences Cardio Rate: regular rate Skin General skin exam: no rashes or lesions noted Neuro General: patient alert, patient awake and patient oriented x3 Motor: muscle tone normal throughout Extrem Ankle/foot/toe images: 1. Pain in left anterior ankle and left dorsal proximal foot. There is no evidence of erythema, edema, ecchymosis, rash, lesions. Left PT/DP pulses intact. No tenderness palpation of left fifth metatarsal, heel, toes, lateral or medial malleolus. No deformity noted. Psych Appearance: grossly normal Affect: normal affect
--- NOTE | 2022-04-01 09:15 | DI.RAD_ITS ---
Exam(s) XR ANKLE LT COMPLETE EXAM: XR ANKLE LT COMPLETE CLINICAL HISTORY: pain anterior ankle, r/o fx. TECHNIQUE: 2D digital imaging was performed. COMPARISON: CR RIGHT ANKLE COMPLETE from 12/31/2014 FINDINGS: 3 views There is no evidence of fracture or widening of the ankle mortise. Talar dome unremarkable. Minimal degenerative changes. Moderate size inferior calcaneal spur is unchanged from 2015. There is noted some soft tissue swelling anterior to the ankle without an obvious ankle joint effusio n. IMPRESSION: Soft tissue swelling anteriorly. No fractures. DATA REPOSITORY: RADIATION DOSE DELIVERED:
--- NOTE | 2022-04-01 09:15 | DI.RAD_ITS ---
Exam(s) XR FOOT LT COMPLETE EXAM: XR FOOT LT COMPLETE CLINICAL HISTORY: left foot pain, r/o fx. TECHNIQUE: 2D digital imaging was performed. COMPARISON: No exams were available for comparison FINDINGS: 3 views There is no evidence of acute fracture or dislocation. No diastasis of the Lisfranc joint. Some mil d degenerative changes are noted in the great toe metatarsophalangeal joint. Inferior calcaneal spur moderate size noted. No erosions. No evidence of avascular necrosis. No osseous lesions. No radi opaque foreign body. IMPRESSION: No acute findings. Some degenerative changes as described above. DATA REPOSITORY: RADIATION DOSE DELIVERED:
[2022-04-01 09:21] VITALS: BP 135/78; PULSE 91; RESP 16; TEMP 36.8; O2SAT 96
[2022-04-01] MEDS: Ibuprofen 600 MG TAB PO (09:35)
--- NOTE | 2022-04-01 10:11 | DI.VRAD_ITS ---
PROCEDURE INFORMATION: Exam: XR Left Foot Exam date and time: 04/01/2022 9:44 AM Age: 77 years old Clinical indication: Pain; Foot; Left TECHNIQUE: Imaging protocol: Radiologic exam of the Left foot. Views: 3 or more views. COMPARISON: CR XR foot LT complete 05/11/2019 11:05 AM FINDINGS: Bones/joints: No acute or healing fractures. No suspicious osseous lesions. No cortical erosion or periostitis. Small os tibialis externum and os peroneum. 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 Mild dorsal spurring in the midfoot. Small plantar calcaneal spur. Soft tissues: Regional soft tissues are unremarkable. IMPRESSION: 1. No acute abnormality in the left foot. 2. Chronic/degenerative changes as described above. Dictated and Authenticated by: Joan Becerra MD. Ordering:KAUR Carey MD
--- NOTE | 2022-04-01 10:13 | DI.VRAD_ITS ---
PROCEDURE INFORMATION: Exam: XR Left Ankle Exam date and time: 04/01/2022 9:42 AM Age: 77 years old Clinical indication: Patient HX: Anterior left ankle pain TECHNIQUE: Imaging protocol: Radiologic exam of the Left ankle. Views: 3 or more views. COMPARISON: CR XR foot LT complete 05/11/2019 11:05 AM FINDINGS: Bones/joints: No fractures or suspicious osseous lesions. Alignment is anatomic. Joint spaces are maintained. There is a small plantar calcaneal spur. Soft tissues: Scattered small vascular calcifications in the distal calf. Nonspecific mild soft tissue swelling anterior to the tibiotalar joint. No soft tissue gas or radiopaque foreign body. IMPRESSION: Nonspecific mild soft tissue swelling in the anterior left ankle. No acute osseous or articular abnormality. Dictated and Authenticated by: Joan Becerra MD. Ordering:KAUR Carey MD
== END 2022-04-01 10:57 | disposition home or self-care (01) ==
PROVIDERS: Emergency Provider Physician Assistant; PCP Family Medicine
DX: M79.672 Pain in left foot (principal); M25.572 Pain in left ankle and joints of left foot; I10 Essential (primary) hypertension
CPT/HCPCS: 29515; 99284; 73610; 73630; 99282; 99283

== ENCOUNTER 2022-05-24 09:36 | Inpatient (IN) | payer MEDICARE, SELFPAY ==
[2022-05-24] VITALS (7 sets, daily range): BP systolic 122–168; BP diastolic 66–92; PULSE 76–89; RESP 16–18; TEMP 36.1–36.9; O2SAT 97–99
--- NOTE | 2022-05-24 13:47 | ED.GENADUL_ITS ---
Discharge Plan Disposition Patient Disposition: [facility] INPATIENT Condition: Stable Discharge Details Clinical Impression: Gall stone Primary Care Provider: Nevaeh Morales ED Provider: Srini Lombardo Home Meds and New Rx's Prescriptions: No Action clotrimazole 1 % cream 1 applic topical BID Qty: 15 0RF diclofenac sodium [Arthritis Pain (diclofenac)] 1 % gel 2 g topical QID PRN (Reason: back pain) Qty: 100 2RF atorvastatin 20 mg tablet 20 mg PO QHS Qty: 90 3RF cholecalciferol (vitamin D3) 1,000 UNIT capsule 500 unit PO DAILY polyethylene glycol 3350 [Miralax] 17 gram/dose powder 17 g PO DAILY PRN losartan 50 mg tablet 50 mg PO DAILY Qty: 90 4RF omeprazole 40 mg capsule,delayed release(DR/EC) 40 mg PO DAILY Qty: 90 1RF calcium carbonate-vitamin D3 1 EACH tablet 1 tab PO DAILY Centrum Complete 1 EACH tablet 1 tab PO DAILY Medical Decision Making 77-year-old female presents from home complaining of 1 week of itching skin and generalized weakness and malaise. She was seen at urgent care and placed on Zyrtec and a skin moisturizer. She states this has had minimal effect. She denies change to her urine, no chest pain, no fever. She does have a dry cough she states. Vital signs are unremarkable and her exam is reassuring. Urinalysis with positive leuk esterase, mixed cells and culture pending. CBC with white count 7, hematocrit 35, platelets 305. Chemistries are abnormal. BUN is 19 with creatinine 0.8. Her total bili is 1.2 with an AST of 103, ALT 112 and alk phos of 677. Lipase normal at 169 Referred for ultrasound which reveals large mobile gallstone, normal common bile duct. Case discussed with Dr. Beavers who will admit the patient for planned elective cholecystectomy tomorrow Lab Data Lab results reviewed: Yes I reviewed the patient's lab results. Labs: Laboratory Results - last 24 hr 05/24/22 05/24/22 05/24/22 13:55 14:28 14:28 WBC 7.13 RBC 4.02 Hgb 11.5 Hct 35.5 L MCV 88 MCH 28.6 MCHC 32.4 RDW 16.8 H Plt Count 305 MPV 9.9 Immature Gran % 0.3 Neutrophils % 52.2 Lymphocytes % 32.1 Monocytes % 12.3 Eosinophils % 2.5 Basophils % 0.6 Nucleated RBC % 0.0 Absolute Neutrophils 3.72 Absolute Lymphocytes 2.29 Absolute Monocytes 0.88 H Absolute Eosinophils 0.18 Absolute Basophils 0.04 Sodium 140 Potassium 3.9 Chloride 104 Carbon Dioxide 26.1 Anion Gap 9.9 BUN 19 H Creatinine 0.8 Estimated GFR/1.73 m2 >= 60.00 Glucose 121 H Calcium 9.2 Total Bilirubin 1.2 H AST 103 H ALT 112 H Alkaline Phosphatase 677 H Total Protein 8.0 Albumin 3.3 L TSH 2.08 Urine Color Yellow Urine Clarity Clear Urine pH 6.0 Ur Specific [place] 1.015 Urine Protein Negative Urine Ketones Negative Urine Blood Negative Urine Nitrite Negative Urine Bilirubin Negative Urine Urobilinogen 0.2 Ur Leukocyte Esterase Trace H Urine RBC 0-2 Urine WBC 5-10 Ur Epithelial Cells Few Urine Crystals Negative Urine Bacteria Few Urine Casts Negative Urine Mucus Negative Ur Culture Indicated? Yes Urine Glucose Negative HPI General Mode of arrival: ambulatory . Date/Time Provider Initiated Documentation: 05/24/22 09:51 . Limitations to Documentation: no limitations . Information obtained by: patient . History of Present Illness 77 year old F presents to the emergency department with the chief complaint of General malaise and itching skin for 1wk, described as mild, and is localized to the chest, abdomen, left, right and upper extremity. Patient reports no radiation. Patient started experiencing this day(s) and it has been intermittent. No relieving factors improve symptom(s), No exacerbating factors reported . Patient notes weakness; denies confusion, diaphoresis, fever/chills, rash, shortness of breath and syncope. Patient did receive the following treatments prior to arrival, other (On Zyrtec and skin moisturizers) Related Data Home Medications Medication Instructions Recorded Confirmed calcium carbonate 600 mg-vitamin 1 tab PO DAILY 01/21/13 05/24/22 D3 5 mcg (200 unit) tablet multivitamin-ferrous 1 tab PO DAILY 01/21/13 05/24/22 fumarate-folic acid 18 mg-400 mcg tablet (Centrum Complete) cholecalciferol (vitamin D3) 25 500 unit PO DAILY 05/12/14 05/24/22 mcg (1,000 unit) capsule polyethylene glycol 3350 17 17 g PO DAILY PRN 01/19/21 05/24/22 gram/dose oral powder (Miralax) losartan 50 mg tablet 50 mg PO DAILY #90 tabs 06/15/21 05/24/22 diclofenac sodium 1 % topical gel 2 g topical QID PRN back pain #100 07/12/21 05/24/22 (Arthritis Pain (diclofenac)) grams atorvastatin 20 mg tablet 20 mg PO QHS #90 tabs 12/13/21 05/24/22 omeprazole 40 mg capsule,delayed 40 mg PO DAILY #90 caps 01/03/22 05/24/22 release clotrimazole 1 % topical cream 1 applic topical BID #15 grams 02/12/22 05/24/22 Previous Rx's Medication Instructions Recorded losartan 50 mg tablet 50 mg PO DAILY #90 tabs 06/15/21 diclofenac sodium 1 % topical gel 2 g topical QID PRN back pain #100 07/12/21 (Arthritis Pain (diclofenac)) grams atorvastatin 20 mg tablet 20 mg PO QHS #90 tabs 12/13/21 omeprazole 40 mg capsule,delayed 40 mg PO DAILY #90 caps 01/03/22 release clotrimazole 1 % topical cream 1 applic topical BID #15 grams 02/12/22 Allergies Allergy/AdvReac Type Severity Reaction Status Date / Time Penicillins Allergy Intermediate Skin Rash Verified 05/24/22 09:49 buspirone HCl [From BuSpar] AdvReac Mild didn't Verified 05/24/22 09:49 feel good on it cetirizine AdvReac Mild didn't Verified 05/24/22 09:49 feel good on it sertraline AdvReac Mild blurry Verified 05/24/22 09:49 vision & tingling under tongue lisinopril AdvReac Unknown Verified 05/24/22 09:49 General Stated Complaint: GenMedical MARIE: 4 Review of Systems Narrative: Dry cough, no fever or chills. No known sick contacts. Denies chest pain or shortness of breath. No syncope. She did have nausea today. Decreased p.o. intake. 8 systems were reviewed and otherwise negative PFSH All Active Problems (Updated 05/24/22 @ 16:30 by Srini Lombardo MD) Gall stone (Acute) Anterolisthesis of lumbar spine (Chronic) improved pain control with chiropractor Incontinence of urine (Acute) Diabetes (Chronic ~11/2020) JANETH (generalized anxiety disorder) (Acute) Tubular adenoma of colon (Acute) 09/20/14; DR. ANDRES; X 1- Repeat in 5 years 05/2019; DR. 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 Tubal ligation many years ago, over 20 years ago. b. Bilateral cataracts. Ligation of fallopian tube 03/02/03 Family History Mother , AGE 72 Heart disease Myocardial infarction Depression Father , AGE 80 Heart disease Myocardial infarction Brother , AGE 79 Diabetes Essential hypertension Heart disease Hyperlipidemia Alcohol abuse Brother , AGE 77 Diabetes Essential hypertension Depression Heart disease Hyperlipidemia Brother , AGE 67 Heart disease Hyperlipidemia Daughter No problems noted. Social History Smoking/Tobacco Use Status: Never Second Hand Exposure: No Smoking risk assessment performed?: Yes Alcohol Intake: never Drug use: Never Substance use type: does not use Caregiver/Support person: No Household members: spouse Housing: house Communication Needs: Corrective Lenses Do you need help understanding health information?: Often Pets and animals: Yes Pets and animals: cat(s) Sexually active: No Current gender identity: female What is your relationship status?: How often do you talk on the phone with friends or family?: once per week How often do you get together with friends or relatives?: once per week How often do you attend episcopal or confucianism services?: decline to answer Do you belong to any clubs or organized social groups?: no Panel score (0-1 are the most socially isolated patients): 1 What type of physical activity do you participate in: decline to answer Duration: 15-30 minutes/day Frequency: does not exercise Marcela/Confucianism: No preference Special marcela needs: No Seatbelt use: always Drive intox or ride w/intox form setter/driver: No Do you feel safe at home: Yes Do you feel safe in your relationship?: Yes Exam Narrative Exam Narrative: GEN: awake, alert, oriented 3. Pleasant, well groomed, interactive. HEAD: Normocephalic, atraumatic ENT: Mucous membranes moist, oropharynx unremarkable, External ear exam unremarkable EYES: PERRL, EOMI NECK: Full ROM, no NATHANIEL, no menigismus CHEST/RESP: Nontender, clear to auscultation bilateral, no wheeze/rhonchi/rales CARDIOVASCULAR: RRR, no murmur, rub jeimy. 2+ Rad pulse bilateral ABDOMEN: Soft, nontender, no mass. +Bowel sounds EXT: Full ROM, no edema, no rash Neuro: Grossly normal neurologic exam, conversant, interactive. Psych: Speech fluent, thoughts congruent, affect normal Course Vital Signs Vital signs: Vital Signs Temperature 36.4 C L 05/24/22 09:44 Pulse 89 05/24/22 09:44 Respiratory Rate 18 05/24/22 09:44 Blood Pressure 153/67 H 05/24/22 09:44 Pulse Oximetry 99 05/24/22 09:44 Temperature 36.9 C 05/24/22 13:42 Temperature Source Tympanic 05/24/22 13:42 Pulse 86 05/24/22 13:42 Respiratory Rate 18 05/24/22 09:44 Respiratory Effort 05/24/22 09:50 Blood Pressure 168/92 H 05/24/22 13:42 Blood Pressure Position Sitting 05/24/22 09:44 Pulse Oximetry 99 05/24/22 13:42 Oxygen Delivery Method Room Air 05/24/22 13:42 Oxygen Flow Rate 0 05/24/22 13:42 Pain Level 0 05/24/22 09:44
[2022-05-24 14:38] LABS: Abs Immature Grans 0.02 10^3/uL (0.0-0.06); Absolute Basophil Count 0.04 10^3/uL (0.0-0.2); Absolute Eosinophil Count 0.18 10^3/uL (0.0-0.7); Absolute Lymphocyte Count 2.29 10^3/uL (1.2-3.4); Absolute Monocyte Count 0.88 10^3/uL (0.1-0.8); Absolute Neutrophil Count 3.72 10^3/uL (1.2-6.7); Basophils % 0.6; Eosinophils % 2.5; HCT 35.5 % (36.0-46.0); HGB 11.5 g/dL (11.2-15.7); Immature Grans % 0.3; Lymphocytes % 32.1; MCH 28.6 pg (27.0-33.0); MCHC 32.4 % (32.0-36.0); MCV 88 fL (80-95); MPV 9.9 fL (8.0-11.0); Monocytes % 12.3; Neutrophils % 52.2; Platelet Count 305 10^3/uL (130-400); RBC 4.02 10^6/uL (3.93-5.22); RDW 16.8 % (11.7-14.6); RDW-SD 54.4 fL; WBC 7.13 10^3/uL (4.4-10.8)
[2022-05-24 14:49] LABS: Bilirubin Negative (Negative); Blood Negative (Negative); Clarity Clear (Clear); Glucose Negative (Negative); Ketones Negative (Negative); Leukocyte Esterase Trace (Negative); Nitrite Negative (Negative); Specific Gravity 1.015 (1.005-1.025); Urobilinogen 0.2 EU/dL (Up TO 0.2)
[2022-05-24 14:55] LABS: Epithelial Cells Few HPF (Negative); RBC 0-2 HPF (0-2)
[2022-05-24 14:56] LABS: Bacteria Few HPF (Negative); C & S Indicated? Yes; Casts Negative LPF (Negative); Crystals Negative HPF (Negative); Mucus Negative (Negative)
--- NOTE | 2022-05-24 15:00 | DI.US_ITS ---
Exam(s) US ABDOMEN EXAM: US ABDOMEN CLINICAL HISTORY: Itching, abnormal LFTs TECHNIQUE: Ultrasound abdomen performed using standard protocol. COMPARISON: CT ABD PELVIS WITH CONTRAST from 02/26/2017 FINDINGS: LIVER: Normal size. Mildly increased echogenicity. No focal liver lesions are seen.. GALLBLADDER: A single gallstone is noted measuring 2.3 cm in maximal dimension. This is faintly visu alized on the prior CT.. No evidence of wall thickening. No pericholecystic fluid identified. DAMON'S SIGN: Negative. BILIARY SYSTEM: No intrahepatic or extrahepatic biliary ductal dilation. KIDNEYS: Kidneys are symmetric in size. No evidence of renal calculi. No evidence of hydronephrosis. No renal mass or cyst identified. PANCREAS: Normal where visualized. SPLEEN: Not enlarged. ABDOMINAL AORTA AND IVC: Visualized portions normal caliber. ASCITES: None seen. IMPRESSION: Single mobile gallstone. No gallbladder wall thickening or biliary dilatation. Mild hepatic steatos is. DATA REPOSITORY:
[2022-05-24 15:01] LABS: ALT 112 U/L (14-59); AST 103 U/L (15-37); Albumin 3.3 g/dL (3.4-5.0); Alkaline Phosphatase 677 U/L (46-116); Anion Gap 9.9 mmol/L (3-11); BUN 19 mg/dL (7-18); Bilirubin, Total 1.2 mg/dL (0.2-1.0); CO2 26.1 mmol/L (21.0-32.0); CREATININE 0.8 mg/dL (0.55-1.02); Calcium 9.2 mg/dL (8.5-10.1); Chloride 104 mmol/L (98-107); Glucose 121 mg/dL (74-106); Potassium 3.9 mmol/L (3.5-5.1); Sodium 140 mmol/L (136-145); TSH 2.08 uIU/mL (0.36-3.74)
--- NOTE | 2022-05-24 16:15 | RT.EKG_ITS ---
APPROVED REPORT Exam: Resting ECG Reason for Exam: pre-op Patient Location: I HR:72 bpm ECG Measurements Heart Rate 72 AXIS IL 171 P 47 QRSd 97 QRS -15 QT 421 T 12 QTc 461 Conclusion Sinus rhythm. LVH with secondary repolarization abnormality Nonspecific st changes
[2022-05-24 16:28] LABS: Lipase 169 U/L (73-393)
--- NOTE | 2022-05-24 16:29 | W.PM.PROGNOT ---
Date of Service Date of service: 05/24/22 Time of Service: 16:29 Assessment and Plan Assessment and plan (1) Gall stone: Status: Acute (2) Anterolisthesis of lumbar spine: Status: Chronic (3) Incontinence of urine: Status: Acute (4) Diabetes: Status: Chronic (5) JANETH (generalized anxiety disorder): Status: Acute (6) Hypertension: Status: Chronic (7) GERD (gastroesophageal reflux disease): Status: Chronic (8) Osteopenia: Status: Acute (9) Hyperlipidemia: Subjective Subjective Interval history since last seen: -see US and labs in [facility] Patient was admitted for pain control and because of her elevated LFTs. Plan on lap helen in a.m. provided she is medically stable from an anesthesia standpoint., consult sent for anesthesia. supportive care Full consult in progress. Objective Last Vital Signs Temp 36.9 C 05/24/22 13:42 Pulse 86 05/24/22 13:42 Resp 18 05/24/22 09:44 BP 168/92 H 05/24/22 13:42 Pulse Ox 99 05/24/22 13:42 Laboratory Results - last 24 hr 05/24/22 05/24/22 05/24/22 13:55 14:25 14:28 WBC RBC Hgb Hct MCV MCH MCHC RDW Plt Count MPV Immature Gran % Neutrophils % Lymphocytes % Monocytes % Eosinophils % Basophils % Nucleated RBC % Absolute Neutrophils Absolute Lymphocytes Absolute Monocytes Absolute Eosinophils Absolute Basophils Sodium 140 Potassium 3.9 Chloride 104 Carbon Dioxide 26.1 Anion Gap 9.9 BUN 19 H Creatinine 0.8 Estimated GFR/1.73 m2 >= 60.00 Glucose 121 H Calcium 9.2 Total Bilirubin 1.2 H AST 103 H ALT 112 H Alkaline Phosphatase 677 H Total Protein 8.0 Albumin 3.3 L Lipase 169 TSH 2.08 Urine Color Yellow Urine Clarity Clear Urine pH 6.0 Ur Specific [place] 1.015 Urine Protein Negative Urine Ketones Negative Urine Blood Negative Urine Nitrite Negative Urine Bilirubin Negative Urine Urobilinogen 0.2 Ur Leukocyte Esterase Trace H Urine RBC 0-2 Urine WBC 5-10 Ur Epithelial Cells Few Urine Crystals Negative Urine Bacteria Few Urine Casts Negative Urine Mucus Negative Ur Culture Indicated? Yes Urine Glucose Negative 05/24/22 14:28 WBC 7.13 RBC 4.02 Hgb 11.5 Hct 35.5 L MCV 88 MCH 28.6 MCHC 32.4 RDW 16.8 H Plt Count 305 MPV 9.9 Immature Gran % 0.3 Neutrophils % 52.2 Lymphocytes % 32.1 Monocytes % 12.3 Eosinophils % 2.5 Basophils % 0.6 Nucleated RBC % 0.0 Absolute Neutrophils 3.72 Absolute Lymphocytes 2.29 Absolute Monocytes 0.88 H Absolute Eosinophils 0.18 Absolute Basophils 0.04 Sodium Potassium Chloride Carbon Dioxide Anion Gap BUN Creatinine Estimated GFR/1.73 m2 Glucose Calcium Total Bilirubin AST ALT Alkaline Phosphatase Total Protein Albumin Lipase TSH Urine Color Urine Clarity Urine pH Ur Specific [place] Urine Protein Urine Ketones Urine Blood Urine Nitrite Urine Bilirubin Urine Urobilinogen Ur Leukocyte Esterase Urine RBC Urine WBC Ur Epithelial Cells Urine Crystals Urine Bacteria Urine Casts Urine Mucus Ur Culture Indicated? Urine Glucose
[2022-05-24 17:29] LABS: Source Nasal/Nares
[2022-05-24 18:12] LABS: COVID-19 PCR Negative (Negative)
[2022-05-24] MEDS: FAMOTIDINE 20 MG in Normal Saline 100 ML 400 MG IVPB (18:13)
[2022-05-24] MEDS: Normal Saline 500 ML 30 ML IV (18:14)
[2022-05-24] MEDS: Normal Saline Flush 10 ML SYR IVP (18:14)
[2022-05-24] MEDS: PIPERACILLIN/TAZO 3.375 GM in Normal Saline 50 ML IVPB ×2 (19:21→23:48)
[2022-05-24] MEDS: Normal Saline 1,000 ML 125 ML IV (21:34)
[2022-05-25] MEDS: FAMOTIDINE 20 MG in Normal Saline 100 ML 400 MG IVPB ×2 (05:28→16:51)
[2022-05-25] MEDS: Normal Saline 1,000 ML 125 ML IV (05:28)
[2022-05-25] MEDS: PIPERACILLIN/TAZO 3.375 GM in Normal Saline 50 ML IVPB ×4 (06:02→23:27)
[2022-05-25 06:34] LABS: ALT 90 U/L (14-59); AST 91 U/L (15-37); Albumin 2.5 g/dL (3.4-5.0); Alkaline Phosphatase 558 U/L (46-116); Anion Gap 7.8 mmol/L (3-11); BUN 20 mg/dL (7-18); Bilirubin, Total 1.2 mg/dL (0.2-1.0); CO2 24.2 mmol/L (21.0-32.0); Calcium 8.5 mg/dL (8.5-10.1); Chloride 108 mmol/L (98-107); Estimated GFR 53.91 (mL/min/1.73m2); Glucose 115 mg/dL (74-106); Lipase 183 U/L (73-393); Magnesium 1.7 mg/dL (1.8-2.4); Potassium 4.2 mmol/L (3.5-5.1); Sodium 140 mmol/L (136-145); Total Protein 6.5 g/dL (6.4-8.2)
[2022-05-25 08:03] VITALS: BP 121/77; PULSE 73; RESP 18; TEMP 37; O2SAT 97
--- NOTE | 2022-05-25 09:28 | PDOC.CMIN ---
- If Service Date Differs Date of service: 05/25/22 Time of Service: 09:28 Care Management Initial Assess REASON FOR HOSPITALIZATION:: Acute Janelle/Cholelithasis PAST MEDICAL HISTORY/PAST SURGICAL HISTORY:: All Active Problems (Updated 05/24/22 @ 16:30 by Srini Lobmardo MD). Gall stone (Acute). Anterolisthesis of lumbar spine (Chronic). improved pain control with chiropractor. Incontinence of urine (Acute). Diabetes (Chronic ~11/2020). JANETH (generalized anxiety disorder) (Acute). Tubular adenoma of colon (Acute). 09/20/14; DR. ANDRES; X 1- Repeat in 5 years. 05/2019; DR. ANDRES; X 3-REPEAT IN 3 YEARS. Hypertension (Chronic). GERD (gastroesophageal reflux disease) (Chronic). Depression (Acute). intolerant to Citalopram,Bupropion,Sertraline,Prozac. Osteopenia (Acute). bone density scan . Insomnia (Acute). Medical History . Essential hypertension. Gastroesophageal reflux disease. Headache. History of broken leg. ORIF lt leg. History of cardiovascular stress test. Hyperlipidemia. Obesity. Pain in left knee. xray 03-: DJD. Tear of left rotator cuff (11/19/17). Surgical History . CARDIAC STRESS TEST. 01/21/14. 01/27/14. Colonoscopy - IV Sedation. 05/25/04;07/11/09;09/20/14. EGD - IV Sedation. 07/11/09. History of esophagogastroduodenoscopy. History of surgery on arm. ORIF lt arm. History of Surgical Procedure. a. Tubal ligation many years ago, over 20 years ago. b. Bilateral cataracts. Ligation of fallopian tube. 03/02/03 PREVIOUS FUNCTIONAL STATUS/SOCIAL/FAMILY SUPPORTS:: Deisy is retired and lives in [place] with her Trent. She has 1 adult daughter who lives closeby and is supportive. Deisy is independent at baseline. Her provides her transportation, although she is able to drive. CURRENT FUNCTIONAL STATUS:: Deisy was lying in bed when CM met with her. She is accomplanied by her Trent. Deisy hopes she will be able to eat after her surgery, she is not enjoying being NPO but understands the rational. ADVANCE DIRECTIVES:: None on file, CM will offer forms Has patient been provided with info about the portal/API?: Yes Did the patient sign up for the portal?: No CODE STATUS:: Full Code INSURANCE COVERAGE / FINANCIAL ISSUES:: Medicare. Financial Assist 100 CURRENT HOME/COMMUNITY SERVICES/EQUIPMENT:: Has a cane and walker, uses her cane occaisionally. PRIMARY CARE PHYSICIAN:: Nevaeh Morales POTENTIAL DISCHARGE NEEDS:: Follow up appointments, discharge plan of care. PATIENT/FAMILY EDUCATION NEEDS:: Review discharge instructions, limitations, medications and plan to follow up with community providers. ask me three. TRANSPORTATION:: Via private vehicle with family. PLAN:: Anticipate, Deisy will discharge home via private vehicle when medically ready. She will follow up with community providers and discharge plan of care as prescribed. [facility] services will be ordered, if needed at time of discharge.
[2022-05-25] MEDS: MAGNESIUM SULFATE 1 GM/100 ML BAG IVPB (10:08)
[2022-05-25] MEDS: Lactated Ringers 1,000 ML 80 ML IV ×2 (10:25→23:27)
--- NOTE | 2022-05-25 11:57 | ANES.PREOP_ITS ---
General Info Date of Service Date Performed: 05/25/22 Height: 4 ft 7 in Weight: 80.286 kg Body Mass Index (BMI): 41.1 Surgical Procedure: Operation Date: 05/25/22 13:25 Proposed Procedure Side Surgeon p Cholecystectomy Laparoscopic Jacqueline Beavers, Meds Allergies and Home Medications Allergies Allergy/AdvReac Type Severity Reaction Status Date / Time Penicillins Allergy Intermediate Skin Rash Verified 05/24/22 09:49 buspirone HCl [From BuSpar] AdvReac Mild didn't Verified 05/24/22 09:49 feel good on it cetirizine AdvReac Mild didn't Verified 05/24/22 09:49 feel good on it sertraline AdvReac Mild blurry Verified 05/24/22 09:49 vision & tingling under tongue lisinopril AdvReac Unknown Verified 05/24/22 09:49 Home Medication Medication Instructions Recorded calcium carbonate 600 mg-vitamin 1 tab PO DAILY 01/21/13 D3 5 mcg (200 unit) tablet multivitamin-ferrous 1 tab PO DAILY 01/21/13 fumarate-folic acid 18 mg-400 mcg tablet (Centrum Complete) cholecalciferol (vitamin D3) 25 500 unit PO DAILY 05/12/14 mcg (1,000 unit) capsule polyethylene glycol 3350 17 17 g PO DAILY PRN 01/19/21 gram/dose oral powder (Miralax) losartan 50 mg tablet 50 mg PO DAILY #90 tabs 06/15/21 diclofenac sodium 1 % topical gel 2 g topical QID PRN back pain #100 07/12/21 (Arthritis Pain (diclofenac)) grams atorvastatin 20 mg tablet 20 mg PO QHS #90 tabs 12/13/21 omeprazole 40 mg capsule,delayed 40 mg PO DAILY #90 caps 01/03/22 release clotrimazole 1 % topical cream 1 applic topical BID #15 grams 02/12/22 Current Visit Medications: Current Medications Generic Name Dose Route Start Last Admin Trade Name Freq PRN Reason Stop Dose Admin Acetaminophen 1,000 mg 05/24/22 16:25 Acetaminophen 500 Mg Tab PO Q8H PRN PRN Abdominal Pain Sodium Chloride 500 mls @ 0 mls/hr 05/24/22 16:25 05/24/22 22:55 Saline 500ml Bag IV 0 mls/hr PRN PRN Infusion As Directed Sodium Chloride 1,000 mls @ 125 mls/hr 05/24/22 16:30 05/25/22 10:44 Saline 1000ml Bag IV 0 mls/hr INFUSION [facility] Infusion Piperacillin Sod/Tazobactam 50 mls @ 100 mls/hr 05/24/22 18:00 05/25/22 11:50 Sod 3.375 gm/ Sodium Chloride IVPB 100 mls/hr Q6H KAYLEE Administration Protocol Famotidine 20 mg/ Sodium 102 mls @ 400 mls/hr 05/24/22 16:30 05/25/22 05:55 Chloride IVPB Infused Q12H [facility] Infusion Ringer's Solution 1,000 mls @ 80 mls/hr 05/25/22 10:15 05/25/22 10:25 IV 80 mls/hr INFUSION KAYLEE Administration IV Miscellaneous Supplies 1 each 05/24/22 16:30 Iv Access IV DIRECTED [facility] IV Miscellaneous Supplies 1 each 05/24/22 16:30 Iv Access IV DIRECTED [facility] Morphine Sulfate 2 mg 05/24/22 16:25 Morphine 2 Mg/Ml Syr IVP Q1H PRN PRN Ondansetron HCl 4 mg 05/24/22 16:25 Ondansetron 4 Mg/2 Ml Vial IVP Q4H PRN PRN Sodium Chloride 0 ml 05/24/22 16:25 05/24/22 18:14 Normal Saline Flush 10 Ml Syr IVP 10 ml PRN PRN Administration Sodium Chloride 0 ml 05/24/22 16:29 Normal Saline Flush 10 Ml Syr IVP PRN PRN Tramadol HCl 50 mg 05/24/22 16:25 Tramadol 50 Mg Tab PO Q6H PRN PRN Pain PFSH Active Problems Active Problems: Problem Status Onset Code Gall stone K80.20 Anterolisthesis of lumbar spine M43.16 Incontinence of urine R32 Diabetes ~11/2020 E11.9 JANETH (generalized anxiety disorder) F41.1 Tubular adenoma of colon D12.6 Hypertension I10 GERD (gastroesophageal reflux disease) K21.9 Depression F32.9 Osteopenia M85.80 Insomnia G47.00 Medical History Medical History Essential hypertension Gastroesophageal reflux disease Headache History of broken leg ORIF lt leg History of cardiovascular stress test Hyperlipidemia Obesity 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 Tubal ligation many years ago, over 20 years ago. b. Bilateral cataracts. Ligation of fallopian tube 03/02/03 Tobacco Smoking/Tobacco Use Status: Never Passive smoking exposure: No Second hand exposure: No Alcohol Alcohol Intake: never Substance Use Substance use: Never Substance use type: does not use Vital Signs and Lab Results Vital Signs Most Recent Vital Signs in EMR: Most Recent Vital Signs Temp Pulse Resp BP Pulse Ox 37.0 C 73 18 121/77 97 05/25/22 08:03 05/25/22 08:03 05/25/22 08:03 05/25/22 08:03 05/25/22 08:03 Lab Results Result Diagrams: 05/24/22 14:28 05/25/22 05:42 Blood Type / Crossmatch: No Data to Display Complete Blood Count: White Blood Count 7.13 10^3/uL (4.4-10.8) 05/24/22 14:28 Red Blood Count 4.02 10^6/uL (3.93-5.22) 05/24/22 14:28 Hemoglobin 11.5 g/dL (11.2-15.7) 05/24/22 14:28 Hematocrit 35.5 % (36.0-46.0) L 05/24/22 14:28 Platelet Count 305 10^3/uL (130-400) 05/24/22 14:28 Complete Metabolic Panel: Sodium Level 140 mmol/L (136-145) 05/25/22 05:42 Potassium Level 4.2 mmol/L (3.5-5.1) 05/25/22 05:42 Chloride Level 108 mmol/L (98-107) H 05/25/22 05:42 Carbon Dioxide Level 24.2 mmol/L (21.0-32.0) 05/25/22 05:42 Blood Urea Nitrogen 20 mg/dL (7-18) H 05/25/22 05:42 Creatinine 1.0 mg/dL (0.55-1.02) 05/25/22 05:42 Estimated GFR/1.73 m2 53.91 (mL/min/1.73m2) 05/25/22 05:42 Magnesium Level 1.7 mg/dL (1.8-2.4) L 05/25/22 05:42 Calcium Level 8.5 mg/dL (8.5-10.1) 05/25/22 05:42 Albumin 2.5 g/dL (3.4-5.0) L 05/25/22 05:42 Glucose Level 115 mg/dL (74-106) H 05/25/22 05:42 Liver Function Panel: Alanine Aminotransferase (ALT/SGPT) 90 U/L (14-59) H 05/25/22 0 5:42 Aspartate Amino Transf (AST/SGOT) 91 U/L (15-37) H 05/25/22 05: 42 Coagulation Panel: No Data to Display Cardiac Panel: No Data to Display Arterial Blood Gas: No Data to Display Venous Blood Gas: No Data to Display Pancreas Panel: Lipase 183 U/L (73-393) 05/25/22 05:42 Thyroid Panel: Thyroid Stimulating Hormone (TSH) 2.08 uIU/mL (0.36-3.74) 05/24 14:28 Infectious Disease: Coronavirus (COVID-19)(PCR) Negative (Negative) 05/24/22 17:15 Coronavirus 2019 Source Nasal/Nares 05/24/22 17:15 Blood Cultures: No Data to Display Toxicology Panel: No Data to Display Imaging and Studies Imaging and Studies Study information below may be from another EMR and interpreted by another provider. Please see original notes in EMR for more complete details. EKG Summary: 05/28: sinus. Stress Test Summary: 2019: no defects noted, LVEF 49%. Anesthesia Assessment and Plan Anesthesia History Personal History: No History of Anesthesia Complications Family History: No Family History of Anesthesia Complications Exercise Tolerance Exercise Tolerance: Unknown Cardiac & Pulmonary Exam Cardiac Exam: Normal S1/S2 Heart Sounds Pulmonary Exam: Clear Bilateral Breath Sounds Implantable Cardiac Device Does patient have a Pacemaker or an ICD?: No Airway Exam Known Difficult Airway: No Mallampati Class: 3 Mouth Opening: Normal (> 3cm) Thyromental Distance: Greater than 3 cm Neck Range of Motion: Full ROM Neck Circumference: Normal Teeth Condition: Generalized Poor Dentition Airway Comments: no upper teeth. ASA Classification ASA Score: ASA 2 Emergency Case?: No NPO Status NPO Status: NPO Clears >2 hours, Solids >8 hours Anesthesia Plan Resuscitation Status: Full Code Anesthesia Technique: General Anesthesia Airway Planned: Endotracheal Tube Monitors Used: Standard Monitors Preoperative Comments:: 77 yo female for lap helen. currently inpt receiving pip/nayeli 3.375 gm last dose 1150. Sig PMHx: DM, anxiety, GERD (omeprazole), HTN (losartan), never smoker. Previous Anes: Mac 3 grade 2, easy mask.
[2022-05-25 12:02] VITALS: BMI 41.1
[2022-05-25 15:07] VITALS: BP 135/81; PULSE 75; RESP 16; TEMP 36.2; O2SAT 98
[2022-05-25] MEDS: Normal Saline 500 ML 30 ML IV (18:23)
--- NOTE | 2022-05-25 21:06 | W.PM.HP.N ---
Date of service: 05/25/22 Time of Service: 08:00 Assessment and Plan Assessment and plan (1) Gall stone: Status: Acute Assessment and plan: . Informed consent was obtained, explaining risks and benefits of the procedure including but not limited to bleeding, infection, pneumonia, blood clots, possible damage to bowel, bladder, blood vessels, bile ducts, possible open procedure, complications of general anesthesia and other unforetold complications. -Her labs are improved today. Her bilirubin is down to normal. I do not think she requires MRCP at this point we will cancel that. We will plan surgery on later this afternoon. Patient was given the option of going home and coming back as an outpatient. She would rather just have the procedure done since she is in the hospital. Continue supportive care (2) Anterolisthesis of lumbar spine: Status: Chronic (3) Diabetes: Status: Chronic (4) Hypertension: Status: Chronic (5) GERD (gastroesophageal reflux disease): Status: Chronic (6) Osteopenia: Status: Acute History of Present Illness Narrative: Patient presented to the ER on 05/26 complaining of pruritus, weakness and malaise, for a weeks duration . She was kind of vague about her symptoms. She denied any pain. She complains of some nausea and says she just has not been feeling well. She has chronic back pain. She is found to have a pretty significant elevation of her LFTs and alk phos. She is a large stone noted in her gallbladder. This is freely mobile. She did not feel better with antiemetics and fluids. We did keep her overnight. I did discuss her options today whether she would like to go home or have surgery today. We discussed the etiology and natural progression of gallstones. I think at this point patient has been having gallbladder symptoms for some time. We did discuss what she could expect during surgery post procedurally recovery time and risks of the procedure. She has never had a heart attack or stroke. She is pre diabetic but is not on any medications and is supposed to be working on lifestyle modification. Her only abdominal surgery is a tubal. She has had orthopedic surgery. She denies any problems with anesthesia. Allergies and medications reviewed. . Informed consent was obtained, explaining risks and benefits of the procedure including but not limited to bleeding, infection, pneumonia, blood clots, possible damage to bowel, bladder, blood vessels, bile ducts, possible open procedure, complications of general anesthesia and other unforetold complications. Review of Systems All systems reviewed & are unremarkable except as noted in HPI and below PFSH All Active Problems Gall stone (Acute) Anterolisthesis of lumbar spine (Chronic) improved pain control with chiropractor Incontinence of urine (Acute) Diabetes (Chronic ~11/2020) JANETH (generalized anxiety disorder) (Acute) Tubular adenoma of colon (Acute) 09/20/14; DR. ANDRES; X 1- Repeat in 5 years 05/2019; DR. 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 Tubal ligation many years ago, over 20 years ago. b. Bilateral cataracts. Ligation of fallopian tube 03/02/03 Family History Mother , AGE 72 Heart disease Myocardial infarction Depression Father , AGE 80 Heart disease Myocardial infarction Brother , AGE 79 Diabetes Essential hypertension Heart disease Hyperlipidemia Alcohol abuse Brother , AGE 77 Diabetes Essential hypertension Depression Heart disease Hyperlipidemia Brother , AGE 67 Heart disease Hyperlipidemia Daughter No problems noted. Social History Smoking/Tobacco Use Status: Never Second Hand Exposure: No Smoking risk assessment performed?: Yes Alcohol Intake: never Drug use: Never Substance use type: does not use Caregiver/Support person: No Household members: spouse Housing: house Communication Needs: Corrective Lenses Do you need help understanding health information?: Often Pets and animals: Yes Pets and animals: cat(s) Sexually active: No Current gender identity: female What is your relationship status?: How often do you talk on the phone with friends or family?: once per week How often do you get together with friends or relatives?: once per week How often do you attend moravian or congregation services?: decline to answer Do you belong to any clubs or organized social groups?: no Panel score (0-1 are the most socially isolated patients): 1 What type of physical activity do you participate in: decline to answer Duration: 15-30 minutes/day Frequency: does not exercise Marcela/Yarsanism: No preference Special marcela needs: No Seatbelt use: always Drive intox or ride w/intox residential recycle driver: No Do you feel safe at home: Yes Do you feel safe in your relationship?: Yes Meds Allergies and Home Medications Allergies Allergy/AdvReac Type Severity Reaction Status Date / Time Penicillins Allergy Intermediate Skin Rash Verified 05/24/22 09:49 buspirone HCl [From BuSpar] AdvReac Mild didn't Verified 05/24/22 09:49 feel good on it cetirizine AdvReac Mild didn't Verified 05/24/22 09:49 feel good on it sertraline AdvReac Mild blurry Verified 05/24/22 09:49 vision & tingling under tongue lisinopril AdvReac Unknown Verified 05/24/22 09:49 Home Medications Medication Instructions Recorded Confirmed Type calcium carbonate 600 mg-vitamin 1 tab PO DAILY 01/21/13 05/24/22 History D3 5 mcg (200 unit) tablet multivitamin-ferrous 1 tab PO DAILY 01/21/13 05/24/22 History fumarate-folic acid 18 mg-400 mcg tablet (Centrum Complete) cholecalciferol (vitamin D3) 25 500 unit PO DAILY 05/12/14 05/24/22 History mcg (1,000 unit) capsule polyethylene glycol 3350 17 17 g PO DAILY PRN 01/19/21 05/24/22 History gram/dose oral powder (Miralax) losartan 50 mg tablet 50 mg PO DAILY #90 tabs 06/15/21 05/25/22 Rx diclofenac sodium 1 % topical gel 2 g topical QID PRN back pain #100 07/12/21 05/24/22 Rx (Arthritis Pain (diclofenac)) grams atorvastatin 20 mg tablet 20 mg PO QHS #90 tabs 12/13/21 05/25/22 Rx omeprazole 40 mg capsule,delayed 40 mg PO DAILY #90 caps 01/03/22 05/25/22 Rx release clotrimazole 1 % topical cream 1 applic topical BID #15 grams 02/12/22 05/24/22 Rx Exam Narrative Exam Narrative: PHYSICAL EXAM GENERAL APPEARANCE: Alert, healthy appearance, oriented, in no acute distress SKIN: No rashes.? No breakdown HYDRATION: Well hydrated HEAD, EYES, EARS, NECK, THROAT: Head is normocephalic, pupils equal, round, reactive to light and accommodation, ocular movement intact, sclera clear and no jaundice. ?Dentition intact. No sore throat.? No jaw pain. No thrush NECK: Supple, Trachea midline. No JVD. LUNGS: normal respiration/nl chest excursion. ?Clear to auscultation B/l no R/R/W ?HEART: Regular rate and rhythm, EXTREMITY: No edema or cyanosis? no leg pain, redness, swelling.? No IV infiltration ABDOMEN: non tender to palpation, no masses or distention, no hernias. Normal bowel sounds she denies any abdominal pain currently. Postsurgical changes noted. No hernias. NEURO: no focal neuro deficits. Results Labs Result diagrams: 05/24/22 14:28 05/25/22 05:42 Labs: Laboratory Results - last 24 hr 05/25/22 05:42 Sodium 140 Potassium 4.2 Chloride 108 H Carbon Dioxide 24.2 Anion Gap 7.8 BUN 20 H Creatinine 1.0 Estimated GFR/1.73 m2 53.91 Glucose 115 H Calcium 8.5 Magnesium 1.7 L Total Bilirubin 1.2 H AST 91 H ALT 90 H Alkaline Phosphatase 558 H Total Protein 6.5 Albumin 2.5 L Lipase 183 Last Vital Signs Temp 36.2 C L 05/25/22 15:07 Pulse 75 05/25/22 15:07 Resp 16 05/25/22 15:07 BP 135/81 05/25/22 15:07 Pulse Ox 98 05/25/22 15:07
[2022-05-25 22:59] VITALS: BP 158/82; PULSE 82; RESP 19; TEMP 36.5; O2SAT 98
[2022-05-26] VITALS (9 sets, daily range): BP systolic 125–158; BP diastolic 50–84; PULSE 55–90; RESP 16–24; TEMP 36.4–37.2; O2SAT 96–100
[2022-05-26] MEDS: FAMOTIDINE 20 MG in Normal Saline 100 ML 400 MG IVPB (05:42)
[2022-05-26] MEDS: PIPERACILLIN/TAZO 3.375 GM in Normal Saline 50 ML IVPB ×2 (05:42→10:45)
[2022-05-26] MEDS: Lactated Ringers 1,000 ML 30 ML IV (10:29)
[2022-05-26] MEDS: Bupivacaine 0.25% Pres-Free 30 ML VIAL (10:50)
--- NOTE | 2022-05-26 11:10 | GB_PTH ---
PATIENT: Deisy Zendejas LOC: U#:[id number] AGE/SX: 77/F ROOM: 229 RE05/24/[address]: Jacqueline Beavers : 1945 BED: A DIS: 05/27/2022 SPEC #: [id number] RECD: 05/28/22 11:07 STATUS: PADMA REQ #: [id number] SAUL: 05/26/22 11:[address]: Jacqueline Beavers DEPT: Surgical Specimen RECD BY: Nayely Cehster ENTERED: 05/28/22 11:07 SP TYPE: GB OTHR DR: Nevaeh Morales Tissues: 1 - GALLBLADDER Procedures: GROSS AND MICRO LEVEL 3 Comments: [id number]
--- NOTE | 2022-05-26 11:56 | ROE_ITS ---
Date of service: 05/26/22 Time of Service: 11:56 Operative Note Operative Note DATE OF PROCEDURE: 05/26/22 PRE-OP DIAGNOSIS: acute helen/cholelithiasis POST-OP DIAGNOSIS: same PROCEDURE: laprascopic cholecystectomy SURGEON: Jacqueline Null PLANT QUALITY MANAGER: Nisha Dixon ANESTHESIA TYPE: Local By Surgeon and General LMA/ETT Refer to Anesthesia Record ESTIMATED BLOOD LOSS: 15 PATHOLOGY: other COMPLICATIONS: None Patient was transported to: PACU Patient's condition: stable Procedure Description: Patient was admitted through the ER with symptomatic gallstones and is here today for laparoscopic cholecystectomy. Informed consent was obtained, explaining risks and benefits of the procedure including but not limited to bleeding, infection, pneumonia, blood clots, possible damage to bowel, bladder, blood vessels, bile ducts, possible open procedure, complications of general anesthesia and other unforetold complications. PROCEDURE: The patient agrees and is brought to the operative room suite and placed in supine position. Anesthesia was administered per the Department of Anesthesia. The patient did receive IV antibiotics. NG tube and Ernst catheter are placed. The patient was prepped and draped in the usual sterile fashion using DuraPrep scrub solution. Pause for the cause was done. 20 mL of 1% buffered lidocaine was used for local anesthetization. A stab incision was made in the umbilicus and the Verres inserted. Drop test was positive and insufflation was begun. When 15 mm of pressure was noted on the monitor, the Veress was removed and #5 port inserted. The camera was inserted through the port and shows no damage to underlying structures. A 10 mm port was then placed in the epigastric position u nder direct visualization following creation of local field blocks as well as two 5 mm ports in the right upper quadrant. The camera was moved to one of the secondary ports so we could view the umbilical trocar site, and there is are no hernias or adhesions. The gallbladder fundus was grasped and retracted towards the right shoulder. Infundibulum was grasped and retracted laterally. The hepat-duodenal ligament is entered. The cystic duct and artery are dissected out and the most inferior portion of the gallbladder plate is removed from the liver and the critical view of safety was obtained after clearing away all fatty material. Endo Clips were placed across the duct and artery and these structures are divided. The remainder of the gallbladder was excised from the liver bed. The gallbladder was placed in a bag and brought out. Examination of the gallbladder shows indeed the cystic duct and artery to have been divided. The remainder of the abdomen was copiously irrigated with a liter of saline. All saline is removed. Floseal was placed in the liver bed to aid with hemostasis. There is no bleeding or bile leakage from the liver bed or the clips sites. An EndoClose needle was used to close the 10 mm port site with an 0 Vicryl. All ports and instruments are removed. SPonge and needle counts are correct. Pneumoperitoneum is evacuated and the port sites are monitored to make sure t here is no bleeding at the time of desufflation. ??Port sites are irrigated and the skin is closed with 4-0 Monocryl in a running subcuticular fashion. Skin glue sterile dressings are applied. The patient tolerated the procedure well without complications, transferred to the recovery room in stable condition. JACQUELINE NULL, DO
--- NOTE | 2022-05-26 12:16 | W.ANESPOSTOP ---
Postoperative Evaluation Date, Time and Location Date Performed: 05/26/22 Time Performed: 12:16 Patient Location: PACU Vital Signs Most Recent Imported Vital Signs: Most Recent Vital Signs Temp Pulse Resp BP Pulse Ox 36.4 C L 59 L 20 135/84 97 05/26/22 12:05 05/26/22 12:05 05/26/22 12:05 05/26/22 12:05 05/26/22 12:05 Pain Score Most Recent Pain Score: Most Recent Pain Score Pain Level 0 05/26/22 08:20 Assessment Mental Status: Awake (Alert & Oriented to Patient Baseline) Airway and Respiratory Function: Patent airway with normal (patient baseline) respiratory exam Cardiovascular Function: Hemodynamically Stable Hydration Status: Adequately Hydrated Nausea & Vomiting: No Nausea or Vomiting Pain: Pain is tolerable per patient Peripheral Nerve Block: Patient did not receive a nerve block
[2022-05-26] MEDS: MORPHine 2 MG/ML SYR IVP ×2 (12:35→13:32)
[2022-05-26] MEDS: Normal Saline Flush 10 ML SYR IVP ×3 (12:35→17:57)
[2022-05-26] MEDS: traMADol 50 MG TAB PO (13:07)
--- NOTE | 2022-05-26 14:09 | W.PM.PROGNOT ---
Date of Service Date of service: 05/26/22 Time of Service: 14:09 Assessment and Plan Assessment and plan (1) S/P laparoscopic cholecystectomy: Status: Acute Assessment and plan: The patient is doing well post-op. Their pain is well controlled. They are having no nausea or vomiting. The pt is not having any chest pain or SOB, productive cough; no calf pain or swelling. The pt is making good urine. The pt pain is adequately controlled. The case was discussed with nursing and patient?s progress reviewed. All of the pt's home medications were addressed and adjusted accordingly for their oral intact status. HEENT: no jaundice. no eye pain/drainage/redness/swelling. Mild sore throat Cardio- NSR no chest pain, BP stable. Pulm: no sob or productive cough. no hemoptysis Incision- clean/dry. Dressing intact no excessive bleeding or drainage I discussed with the patient and/or there family about the findings in surgery and the pt's progress. We reviewed expectations for progress in the hospital; what the pt could expect for recovery time and length of stay. We discussed the importance of walking and pulmonary toilet to avoid blood clots and pneumonia. Continue current plans for pulmonary toilet, GI and DVT prophylaxis. We shall continue the current plan for pain management as it is at an appropriate level, and working well for the pt. Appropriate measures will be taken for constipation prevention, and this was also reviewed with the pt. The wound care plan was reviewed with nursing as well. see orders Objective Last Vital Signs Temp 36.4 C L 05/26/22 12:43 Pulse 75 05/26/22 12:43 Resp 21 05/26/22 12:43 BP 138/59 L 05/26/22 12:43 Pulse Ox 97 05/26/22 12:43
[2022-05-26] MEDS: Ketorolac 15 MG/ML VIAL IVP ×2 (17:59→23:29)
[2022-05-26] MEDS: Acetaminophen 325 MG TAB 650 MG PO (21:35)
[2022-05-27] MEDS: Normal Saline Flush 10 ML SYR IVP (00:22)
[2022-05-27] MEDS: MORPHine 2 MG/ML SYR IVP (00:22)
[2022-05-27] MEDS: Ketorolac 15 MG/ML VIAL IVP ×2 (05:11→11:11)
[2022-05-27 06:19] LABS: Platelet Count 241 10^3/uL (130-400)
[2022-05-27 07:36] VITALS: BP 135/69; PULSE 81; RESP 18; TEMP 37; O2SAT 96
[2022-05-27] MEDS: Omeprazole 20 MG CAPCR 40 MG PO (07:47)
[2022-05-27] MEDS: Acetaminophen 325 MG TAB 650 MG PO (07:47)
[2022-05-27] MEDS: Polyethylene Glycol 3350 17 GM PACKET PO (07:47)
[2022-05-27] MEDS: Enoxaparin 40 MG/0.4 ML SYR SC (07:47)
[2022-05-27] MEDS: Losartan 50 MG TAB PO (07:47)
--- NOTE | 2022-05-27 13:58 | W.PM.PROGNOT ---
Date of Service Date of service: 05/27/22 Time of Service: 13:58 Assessment and Plan Assessment and plan (1) S/P laparoscopic cholecystectomy: Status: Acute Assessment and plan: Patient will be discharged home today Postop day #1 status post lap helen Subjective Subjective Interval history since last seen: Pt is doing well. no headaches. No CP or SOB. no productive cough. no dysuria. no leg pain or swelling. She is tolerating a regular diet. She feels her pain is adequately controlled. Exam Narrative Exam Narrative: PHYSICAL EXAM GENERAL APPEARANCE: Alert, healthy appearance, oriented, in no acute distress SKIN: No rashes.? No breakdown HYDRATION: Well hydrated HEAD, EYES, EARS, NECK, THROAT: Head is normocephalic, pupils equal, round, reactive to light and accommodation, ocular movement intact, sclera clear and no jaundice. ?Dentition intact. No sore throat.? No jaw pain. No thrush LUNGS: normal respiration/nl chest excursion. ?Clear to auscultation B/l no R/R/W ?HEART: Regular rate and rhythm, EXTREMITY: No edema or cyanosis? no leg pain, redness, swelling.? No IV infiltration ABDOMEN: Incisions are clean dry and intact. She has mild bruising. She has minimal tenderness. She has good bowel sounds. NEURO: no focal neuro deficits. Resp Effort & Inspection: normal respiratory effort and able to speak in complete sentences Auscultation: clear to auscultation bilaterally Cardio Rate: regular rate Rhythm: regular rhythm GI Other: Incisions are clean dry and intact with normal postop pain pattern. She has good bowel sounds. Extrem General: no clubbing, cyanosis or edema (No calf pain or swelling) Objective Last Vital Signs Temp 37.0 C 05/27/22 07:36 Pulse 81 05/27/22 07:36 Resp 18 05/27/22 07:36 BP 135/69 05/27/22 07:36 Pulse Ox 96 05/27/22 07:36 Laboratory Results - last 24 hr 05/27/22 05:57 Plt Count 241
--- NOTE | 2022-05-27 13:58 | W.PM.DS.N ---
Date of service: 05/27/22 Time of Service: 13:58 DS: Diagnosis Discharge Diagnosis (1) S/P laparoscopic cholecystectomy: Status: Acute Discharge Plan Disposition Patient Disposition: HOME Condition: Stable Discharge Details Reason For Visit: Acute Janelle/Cholelithiasis Admit Date/Time: 05/24/22 16:25 Admit Provider: Jacqueline Beavers Attending Provider: Jacqueline Beavers Primary Care Provider: Nevaeh Morales Hospital Course Hospital Course: see addendum Home Meds and New Rx's Prescriptions: New tramadol [Ultram] 50 mg tablet 50 mg PO Q6H PRNQty: 10 0RF Continued clotrimazole 1 % cream 1 applic topical BID Qty: 15 0RF diclofenac sodium [Arthritis Pain (diclofenac)] 1 % gel 2 g topical QID PRN (Reason: back pain) Qty: 100 2RF atorvastatin 20 mg tablet 20 mg PO QHS Qty: 90 3RF cholecalciferol (vitamin D3) 1,000 UNIT capsule 500 unit PO DAILY polyethylene glycol 3350 [Miralax] 17 gram/dose powder 17 g PO DAILY PRN losartan 50 mg tablet 50 mg PO DAILY Qty: 90 4RF omeprazole 40 mg capsule,delayed release(DR/EC) 40 mg PO DAILY Qty: 90 1RF calcium carbonate-vitamin D3 1 EACH tablet 1 tab PO DAILY Centrum Complete 1 EACH tablet 1 tab PO DAILY Discharge Instructions Additional Instructions: Care after Gallbladder Surgery -Pain control: ?For the first 72 hours after surgery, take you pain meds continuously and not just when you have pain.?? Alternate Tylenol 1000mg by mouth every 8 hours, and Ibuprofen 600mg every 6 hours.? Make sure you take ibuprofen with food and not on an empty stomach.? ??Use the tramadol for breakthrough pain- pain that is greater than a 7. ?- Use ICE! Ice really helps to keep the swelling down, and swelling causes pain. ??Twenty minutes on, and then off, continuously for the first 72hours.? After the first 72hrs, you can just use the Tylenol, ibuprofen and ice, ?when you have pain.?? If you are taking narcotic pain medication, follow the instructions on the label and do not drive. Pain medications can make you very constipated. Make sure you are moving your bowels daily. If not, take Miralax, milk of magnesia or magnesium citrate.? ? Use an ice bag for the first 72 hours. This helps to decrease swelling, which causes pain. It is normal to be more sore/painful and swollen towards the end of the day and first thing in the morning. ? Use Miralax or prune juice to prevent constipation (this is a particular side effect of pain medication and anesthesia). Do not allow yourself to become constipated. ? Avoid fatty or greasy foods; introduce these slowly, with care, after about 1 month. High-fat foods include: ? Foods that are fried, like Czech fries and potato chips ? High-fat meats, such as edwards, bologna, sausage, ground beef, and ribs, pork products ? High-fat dairy products, such as cheese, ice cream, cream, whole milk, and sour cream ? Pizza ? Foods made with lard or butter ? Creamy soups or sauces ? Meat gravies ? Chocolate ? Oils, such as palm and coconut oil ? Skin of chicken or turkey ? Nuts and nut butters ? Avacadoes ? Start out eating very small, bland amounts of food. Do not take pain pills on an empty stomach. - You will notice purple discoloration around the incisions.? This is the ?skin glue?.? This will wear off on its own.? It is OK to shower after 24hrs.? You do not need to cover the incisions. -You should walk frequently, gradually, increasing the distance. You may climb stairs, just go slowly. ? Do not go swimming or sit in a hot tub for two weeks. ? There are no stitches to remove. ? Do not drive your car x72hrs and then only if you have no pain and can move freely. Do not drive if you are taking pain narcotic pain medications. ? You may resume sexual activity whenever pain and soreness subside, usually in 2 weeks. ? Do no lift anything over 5 lbs. for two weeks. ? You may return to work in one week, or when you feel able, provided you do not have to do any heavy lifting or prolonged standing. ? You should return to Dr. Beavers?s office for a post-op appointment about two weeks after surgery. A follow-up should have been scheduled for you already.? If there is not, please call the [facility] at: [phone] to schedule an appointment. My Medications for pain and nausea are: Tylenol/ibuprofen ?and ultram- for severe pain ? When to Call the Office: ? If the incision becomes red or swollen, or there is more than a little drainage from it. ? If you develop a temperature higher than 100.5 F. ? If your eyes turn yellow ? Vomiting and can?t keep fluids down Activity:: see above Equipment/Supplies:: No Equipment Needed Diet:: low fat x 2 wks Discharge Orders Discharge Orders: Discharge Order (Routine); Ordered 05/27/22 Ordered By: Jacqueline Beavers DS: Summary Time Spent with Patient providing and/or coordinating discharge services: Less than 30 minutes Status at Discharge Functional status at discharge: independent ambulation Overall status at discharge: patient is back to baseline Mental Status: mental status grossly normal Speech and Movement: speech and movement normal Mood: congruent mood Affect: normal affect Exam Psych Mental Status: mental status grossly normal Speech and Movement: speech and movement normal Mood: congruent mood Affect: normal affect DS: Data Vitals/I&O Vitals and I&O: Vital Signs Temperature 37.0 C 05/27/22 07:36 Temperature Source Tympanic 05/27/22 07:36 Pulse 81 05/27/22 07:36 Pulse Rhythm Regular 05/27/22 08:01 Respiratory Rate 18 05/27/22 07:36 Respiratory Effort Non-Labored 05/27/22 08:01 Respiratory Depth Shallow 05/27/22 08:01 Respiratory Pattern Normal 05/27/22 08:01 Blood Pressure 135/69 05/27/22 07:36 Blood Pressure Position Sitting 05/24/22 09:44 Pulse Oximetry 96 05/27/22 07:36 Respiratory End-tidal CO2 32 05/26/22 12:20 Oxygen Delivery Method Room Air 05/27/22 07:36 Oxygen Flow Rate 0 05/27/22 07:36 Pain Level 2 05/27/22 11:11 Comment 05/25/22 08:15 Intake & Output 05/26/22 05/27/22 05/27/22 23:59 11:59 23:59 Intake Total 1844 / 2396 250 / 650 400 / 650 Output Total 1800 / 3200 800 / 800 Balance 44 / -804 -550 / -150 400 / -150 Intake: IV 1000 / 1552 Oral 844 / 844 250 / 650 400 / 650 Output: Urine 1800 / 3200 800 / 800 Other: Urine Color Yellow Yellow Urine Appearance Clear Clear Urine Odor None Comment independant Emesis Description None Voiding Methods Toilet Toilet Data Completed and Pending Labs on day of discharge: Labs from last 24 hours 05/27/22 05:57 Plt Count 241 PFSH All Active Problems S/P laparoscopic cholecystectomy (Acute) Gall stone (Acute) Anterolisthesis of lumbar spine (Chronic) improved pain control with chiropractor Incontinence of urine (Acute) Diabetes (Chronic ~11/2020) JANETH (generalized anxiety disorder) (Acute) Tubular adenoma of colon (Acute) 09/20/14; DR. ANDRES; X 1- Repeat in 5 years 05/2019; DR. 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 Tubal ligation many years ago, over 20 years ago. b. Bilateral cataracts. Ligation of fallopian tube 03/02/03 Family History Mother , AGE 72 Heart disease Myocardial infarction Depression Father , AGE 80 Heart disease Myocardial infarction Brother , AGE 79 Diabetes Essential hypertension Heart disease Hyperlipidemia Alcohol abuse Brother , AGE 77 Diabetes Essential hypertension Depression Heart disease Hyperlipidemia Brother , AGE 67 Heart disease Hyperlipidemia Daughter No problems noted. Social History Smoking/Tobacco Use Status: Never Second Hand Exposure: No Smoking risk assessment performed?: Yes Alcohol Intake: never Drug use: Never Substance use type: does not use Caregiver/Support person: No Household members: spouse Housing: house Communication Needs: Corrective Lenses Do you need help understanding health information?: Often Pets and animals: Yes Pets and animals: cat(s) Sexually active: No Current gender identity: female What is your relationship status?: How often do you talk on the phone with friends or family?: once per week How often do you get together with friends or relatives?: once per week How often do you attend buddhist or druze services?: decline to answer Do you belong to any clubs or organized social groups?: no Panel score (0-1 are the most socially isolated patients): 1 What type of physical activity do you participate in: decline to answer Duration: 15-30 minutes/day Frequency: does not exercise Marcela/Zoroastrianism: No preference Special marcela needs: No Seatbelt use: always Drive intox or ride w/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
--- NOTE | 2022-05-27 14:27 | PDOC.CMDIS ---
- If Service Date Differs Date of service: 05/27/22 Time of Service: 14:27 LACE Index Scoring Tool - Questions: Length of Stay (in days): 3 Acuity (Admit via E.D.?): Yes Comorbidities: Diabetes w/o Complication E.D. Visits: 2 - Answers: Total Score: 9 Risk of Readmission: Low Risk Care Management Discharge Reason for Hospitalization: Acute Janelle/Cholelithasis Discharge Plan: Deisy will discharge home via private vehicle. She will follow up with community providers and discharge plan of care as prescribed. Patient/Family Education Needs: Review discharge instructions, limitations, medications and plan to follow up with community providers. ask me three.
== END 2022-05-27 15:15 | disposition home or self-care (01) | DRG 418 ==
LOC: ER 17:01 → MS 17:27
PROVIDERS: Admitting Provider Surgery; Emergency Provider Emergency Medicine; PCP Family Medicine; Visit Provider Surgery
PROC: 0FT44ZZ Resection of Gallbladder, Percutaneous Endoscopic Approach (ICD-10-PCS; CPT 47562; principal; 2022-05-25 13:15)
DX: K80.12 Calculus of gallbladder with acute and chronic cholecystitis without obstruction (principal); Z68.41 Body mass index [BMI] 40.0-44.9, adult; M43.16 Spondylolisthesis, lumbar region; E11.9 Type 2 diabetes mellitus without complications; R32 Unspecified urinary incontinence; F41.1 Generalized anxiety disorder; K21.9 Gastro-esophageal reflux disease without esophagitis; E78.5 Hyperlipidemia, unspecified; M85.80 Other specified disorders of bone density and structure, unspecified site; E66.9 Obesity, unspecified
CPT/HCPCS: 47562; 36415; 80053; 83690; 87635; 93005; 99222; 99284; 99285; J1650; 76700; 81003; 81015; 83735; 84443; 85025; 85049; 87086; 88304; 93010; J0131; J1100; J1885; J2001; J2250; J2270; J2405; J2543; J2704; J3475

== ENCOUNTER → 2022-06-14 15:00 | Outpatient (BNVA) | payer MEDICARE, SELFPAY | PROVIDERS: PCP Family Medicine; Referring Provider Family Medicine; Visit Provider Surgery | DX: Z48.815 Encounter for surgical aftercare following surgery on the digestive system (principal); Z90.49 Acquired absence of other specified parts of digestive tract ==

== ENCOUNTER → 2022-07-03 01:57 | Outpatient (CLI) | payer MEDICARE, SELFPAY ==
--- NOTE | 2022-07-03 07:15 | DI.MAMMO_ITS ---
Exam(s) MAMMO SCREENING EXAM: MAMMO SCREENING CLINICAL HISTORY: screening,Z12.39 TECHNIQUE: Bilateral full field digital CC and MLO mammographic images were obtained with 3D tomosyn thesis and utilizing computer aided detection (CAD). COMPARISON: Available for comparison. FINDINGS: Masses/Architectural Distortion: There is a new small asymmetric density in the upper left breast on the MLO view. Microcalcifications: No suspicious pleomorphic-type are seen. Skin Thickening/Nipple Retraction: None. IMPRESSION: 1. New small asymmetric density in the upper left breast on the MLO view. 2. This area should be further evaluated with a spot compression view. Ultrasound may be indicated a t that time. BI-RADS Category 0 - Assessment Incomplete: Need additional imaging evaluation Breast Density - Category B - Scattered areas of fibroglandular density Breast density category C or D implies that the patient has dense breast tissue. Dense breast tissue is very common and is not abnormal but dense breast tissue can make it harder to find cancer on a ma mmogram. Also, dense breast tissue may increase their breast cancer risk. This information about the result of the mammogram report was provided to the patient to raise their awareness. Use this report when you speak with the patient about their risks for breast cancer, which includes their family hist ory. At that time, you may recommend for more screening tests (Ultrasound or MRI) as they might be us eful based on their risk. A negative radiographic report should not delay biopsy if a dominant or clinically suspicious mass is present. Up to ten percent of cancers are not identified on mammography. A negative report may reinforce clinical impression. Adenosis and dense breasts may obscure an underlying neoplasm. False positive reports average 6 to 10%. Patient will receive a letter notifying them of these results.
== END ==
PROVIDERS: PCP Family Medicine; Visit Provider Family Medicine
DX: Z12.31 Encounter for screening mammogram for malignant neoplasm of breast (principal); R92.8 Other abnormal and inconclusive findings on diagnostic imaging of breast
CPT/HCPCS: 77063; 77067

== ENCOUNTER → 2022-07-06 00:39 | Outpatient (CLI) | payer MEDICARE, SELFPAY ==
--- NOTE | 2022-07-06 | DI.US_ITS ---
Exam(s) MG MAMMO SCREEN CALL BACK UNI US BREAST LT LIMITED EXAM: MG MAMMO SCREEN CALL BACK UNI CLINICAL HISTORY: f/u mammo,new asymmetric density upper lt breast TECHNIQUE: Mammograms were interpreted according to the usual protocol including computer analysis w ith CAD system, tomosynthesis and C-view imaging. COMPARISON: FINDINGS: Additional mammographic views of the left breast and left breast ultrasound are interpreted in conjun ction. Recent mammogram showed a questionable new area of nodularity in the 12 o'clock position abou t 10 cm from the nipple. Spot compression views today confirm a well-circumscribed 6 millimeter nodu le at this site. Breast ultrasound shows multiple small well-circumscribed anechoic to hypoechoic no dules without internal vascular flow in this portion of the breast, the largest measuring about 4 mil limeters in diameter. No other suspicious findings. IMPRESSION: Probably benign findings of the left breast as described above. Malignancy not entirely excluded on the basis of the mammographic and ultrasound findings. Follow-up unilateral left breast mammogram an d left breast ultrasound recommended in 6 months. BI-RADS Category 3 - 6 month - Probably Benign Finding: Recommend follow-up mammography in 6 months Breast Density - Category B - Scattered areas of fibroglandular density
== END ==
PROVIDERS: PCP Family Medicine; Visit Provider Family Medicine
DX: R92.8 Other abnormal and inconclusive findings on diagnostic imaging of breast (principal); Z12.31 Encounter for screening mammogram for malignant neoplasm of breast
CPT/HCPCS: 76642; 77063; 77067

== ENCOUNTER 2022-09-17 11:53 | Emergency (ER) | payer MEDICARE, SELFPAY ==
[2022-09-17 12:11] VITALS: BP 154/76; PULSE 78; RESP 16; TEMP 36.9; O2SAT 99
== END 2022-09-17 13:42 | disposition left against medical advice (07) ==
LOC: ER 12:07
PROVIDERS: PCP Family Medicine
DX: Z53.21 Procedure and treatment not carried out due to patient leaving prior to being seen by health care provider (principal)
CPT/HCPCS: 80053; 86900; 86901; 85025

== ENCOUNTER 2022-09-18 09:34 | Emergency (ER) | payer MEDICARE, SELFPAY ==
[2022-09-18 09:37] VITALS: BP 166/67; PULSE 90; RESP 18; TEMP 36.7; O2SAT 100
[2022-09-18 10:11] LABS: Abs Immature Grans 0.02 10^3/uL (0.0-0.06); Absolute Basophil Count 0.06 10^3/uL (0.0-0.2); Absolute Eosinophil Count 0.14 10^3/uL (0.0-0.7); Absolute Lymphocyte Count 2.08 10^3/uL (1.2-3.4); Absolute Monocyte Count 0.71 10^3/uL (0.1-0.8); Absolute Neutrophil Count 5.11 10^3/uL (1.2-6.7); Basophils % 0.7; Eosinophils % 1.7; HCT 34.6 % (36.0-46.0); HGB 10.5 g/dL (11.2-15.7); Immature Grans % 0.2; Lymphocytes % 25.6; MCH 26.9 pg (27.0-33.0); MCHC 30.3 % (32.0-36.0); MCV 89 fL (80-95); MPV 9.3 fL (8.0-11.0); Monocytes % 8.7; Neutrophils % 63.1; Platelet Count 266 10^3/uL (130-400); RDW 15.8 % (11.7-14.6); WBC 8.12 10^3/uL (4.4-10.8)
[2022-09-18 10:28] LABS: ALT 38 U/L (14-59); AST 35 U/L (15-37); Albumin 3.5 g/dL (3.4-5.0); Alkaline Phosphatase 123 U/L (46-116); Anion Gap 5.7 mmol/L (3-11); BUN 22 mg/dL (7-18); Bilirubin, Total 0.4 mg/dL (0.2-1.0); CO2 28.3 mmol/L (21.0-32.0); Chloride 102 mmol/L (98-107); Creatine Kinase 192 U/L (26-192); Estimated GFR 58.39 (mL/min/1.73m2); Glucose 154 mg/dL (74-106); Magnesium 1.9 mg/dL (1.8-2.4); Potassium 4.2 mmol/L (3.5-5.1); Sodium 136 mmol/L (136-145); Total Protein 7.5 g/dL (6.4-8.2)
--- NOTE | 2022-09-18 10:50 | W.ED.GENAD ---
Discharge Plan Disposition Patient Disposition: Home Condition: Stable Discharge Details Clinical Impression: Leg pain Primary Care Provider: Nevaeh Morales ED Provider: Nayely Francisco Home Meds and New Rx's Prescriptions: New pregabalin [Lyrica] 50 mg capsule 50 mg PO QHS Qty: 14 0RF Continued diclofenac sodium [Arthritis Pain (diclofenac)] 1 % gel 2 g topical QID PRN (Reason: back pain) Qty: 100 2RF atorvastatin 20 mg tablet 20 mg PO QHS Qty: 90 3RF cholecalciferol (vitamin D3) 1,000 UNIT capsule 500 unit PO DAILY omeprazole 40 mg capsule,delayed release(DR/EC) 40 mg PO DAILY Qty: 90 1RF losartan 50 mg tablet 50 mg PO DAILY Qty: 90 3RF calcium carbonate-vitamin D3 1 EACH tablet 1 tab PO DAILY Centrum Complete 1 EACH tablet 1 tab PO DAILY docusate sodium [Colace] 100 mg Capsule 100 mg PO DAILY Discharge Instructions Instructions: Leg Pain (ED) Additional Instructions: You may try taking 50 mg of Lyrica at night to see if it helps your symptoms, use caution while taking this medication as it may make you feel tired and lightheaded Take this approximately 30 minutes prior to bedtime, do not combine many alcohol May also take some Tylenol before going to bed Please schedule appointment with your doctor for reassessment Return earlier should you have new or worsening complaints Referrals: Nevaeh Morales MD [Primary Care Provider] - 1 day Discharge Data Discharge Date/Time-TO BE ENTERED AT DEPARTURE: 09/18/22 11:12 Medical Decision Making 77 yo female with cramping to legs for the past 6 months presents for assessment today pt appears well, labs within normal limited specifically electrolytes are stable and cpk low suspicion for DVT clinically distal pulses intact to all 4 extremities placed on trial of neurontin for discomfort return precautions discussed and pt expressed understanding Medical Records Medical records reviewed: Yes I reviewed the patient's medical records. Lab Data Lab results reviewed: Yes I reviewed the patient's lab results. Sign Out No HPI General Date/Time Provider Initiated Documentation: 09/18/22 09:35. HPI Narrative: This 77-year-old female presents with report of cramping leg pain predominantly at night for the past 6 months. She does not followed up with her doctor. She denies any new medications. She states her symptoms are worse after she stands more frequently during the day. She describes the pain as a burning/cramping sensation. She does not have pain during the day. She denies any skin discoloration. Related Data Home Medications Medication Instructions Recorded Confirmed calcium carbonate 600 mg-vitamin 1 tab PO DAILY 01/21/13 09/18/22 D3 5 mcg (200 unit) tablet multivitamin-ferrous 1 tab PO DAILY 01/21/13 09/18/22 fumarate-folic acid 18 mg-400 mcg tablet (Centrum Complete) cholecalciferol (vitamin D3) 25 500 unit PO DAILY 05/12/14 09/18/22 mcg (1,000 unit) capsule diclofenac sodium 1 % topical gel 2 g topical QID PRN back pain #100 07/12/21 09/18/22 (Arthritis Pain (diclofenac)) grams atorvastatin 20 mg tablet 20 mg PO QHS #90 tabs 12/13/21 09/18/22 losartan 50 mg tablet 50 mg PO DAILY #90 tabs 07/05/22 09/18/22 omeprazole 40 mg capsule,delayed 40 mg PO DAILY #90 caps 07/05/22 09/18/22 release docusate sodium 100 mg capsule 100 mg PO DAILY 09/17/22 09/18/22 (Colace) pregabalin 50 mg capsule (Lyrica) 50 mg PO QHS #14 caps 09/18/22 Previous Rx's Medication Instructions Recorded diclofenac sodium 1 % topical gel 2 g topical QID PRN back pain #100 07/12/21 (Arthritis Pain (diclofenac)) grams atorvastatin 20 mg tablet 20 mg PO QHS #90 tabs 12/13/21 losartan 50 mg tablet 50 mg PO DAILY #90 tabs 07/05/22 omeprazole 40 mg capsule,delayed 40 mg PO DAILY #90 caps 07/05/22 release pregabalin 50 mg capsule (Lyrica) 50 mg PO QHS #14 caps 09/18/22 Allergies Allergy/AdvReac Type Severity Reaction Status Date / Time Penicillins Allergy Intermediate Skin Rash Verified 09/18/22 09:40 buspirone HCl [From BuSpar] AdvReac Mild didn't Verified 09/18/22 09:40 feel good on it cetirizine AdvReac Mild didn't Verified 09/18/22 09:40 feel good on it sertraline AdvReac Mild blurry Verified 09/18/22 09:40 vision & tingling under tongue lisinopril AdvReac Unknown Verified 09/18/22 09:40 General Stated Complaint: Orthopedic MARIE: 4 Review of Systems All systems reviewed & are unremarkable except as noted in HPI and below PFSH All Active Problems (Updated 09/18/22 @ 10:56 by LO Paniagua) GERD (gastroesophageal reflux disease) (Chronic) Essential hypertension (Acute) Depression (Acute) intolerant to Citalopram,Bupropion,Sertraline,Prozac Osteopenia (Acute) bone density scan Tubular adenoma of colon (Acute) 09/20/14; DR. ANDRES; X 1- Repeat in 5 years 05/2019; DR. ANDRES; X 3-REPEAT IN 3 YEARS Insomnia (Acute) JANETH (generalized anxiety disorder) (Acute) Incontinence of urine (Acute) Anterolisthesis of lumbar spine (Chronic) improved pain control with chiropractor Nocturnal leg cramps (Acute) Dupuytren's contracture of left hand (Acute) Class 2 obesity due to excess calories with body mass index (BMI) of 36.0 to 36.9 in adult (Acute) Fasting hyperglycemia (Acute) Fibromyalgia syndrome (Acute) Trochanteric bursitis of both hips (Acute) Leg pain (Acute) Medical History (Updated 09/18/22 @ 10:56 by LO Paniagua) Headache History of broken leg ORIF lt leg History of cardiovascular stress test 2013, negative. Hyperlipidemia Pain in left knee xray 03-20: DJD Tear of left rotator cuff (11/19/17) Surgical History (Updated 06/12/22 @ 19:47 by Nevaeh Morales MD) History of esophagogastroduodenoscopy History of surgery on arm ORIF lt arm History of Surgical Procedure a. Tubal ligation many years ago, over 20 years ago. b. Bilateral cataracts. S/P laparoscopic cholecystectomy (~05/2022) Family History Mother , AGE 72 Heart disease Myocardial infarction Depression Father , AGE 80 Heart disease Myocardial infarction Brother , AGE 79 Diabetes Essential hypertension Heart disease Hyperlipidemia Alcohol abuse Brother , AGE 77 Diabetes Essential hypertension Depression Heart disease Hyperlipidemia Brother , AGE 67 Heart disease Hyperlipidemia Daughter No problems noted. Social History (Updated 08/15/22 @ 15:17 by Randa Freitas) Smoking/Tobacco Use Status: Never Second Hand Exposure: No Smoking risk assessment performed?: Yes Alcohol Intake: never Drug use: Never Substance use type: does not use Caregiver/Support person: No Household members: spouse Housing: house Communication Needs: Corrective Lenses Do you need help understanding health information?: Often Pets and animals: Yes Pets and animals: cat(s) Sexually active: No Do you think of yourself as: straight/heterosexual Current gender identity: female What is your relationship status?: How often do you talk on the phone with friends or family?: three or more times per week How often do you get together with friends or relatives?: once per week How often do you attend christian or mormon services?: decline to answer Do you belong to any clubs or organized social groups?: no Panel score (0-1 are the most socially isolated patients): 2 What type of physical activity do you participate in: walking Duration: < 15 minutes/day Frequency: 1-2 times per week Marcela/Presybeterian: No preference Special marcela needs: No Seatbelt use: always Drive 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 Do you feel safe at home: Yes Do you feel safe in your relationship?: Yes Exam Const General: cooperative, comfortable and no acute distress Orientation: alert and oriented x3 Eyes Sclera: sclerae normal Resp Effort & Inspection: normal respiratory effort Auscultation: clear to auscultation bilaterally Cardio Rate: regular rate Rhythm: regular rhythm GI Other: no abdominal bruit or pulsatile mass Skin General skin exam: no rashes or lesions noted Neuro General: patient alert and patient oriented x3 Extrem General: normal to inspection, full ROM and capillary refill normal Other: distal pulses intact, no calf swelling or tenderness appreciated no discoloration to distal extremities Course Vital Signs Vital signs: Vital Signs Temperature 36.7 C 09/18/22 09:37 Pulse 90 09/18/22 09:37 Respiratory Rate 18 09/18/22 09:37 Blood Pressure 166/67 H 09/18/22 09:37 Pulse Oximetry 100 09/18/22 09:37 Temperature 36.7 C 09/18/22 09:37 Temperature Source Temporal Artery Scan 09/18/22 09:37 Pulse 90 12/13/22 09:37 Respiratory Rate 18 09/18/22 09:37 Respiratory Effort Non-Labored 09/18/22 09:41 Blood Pressure 166/67 H 09/18/22 09:37 Blood Pressure Position Sitting 09/18/22 09:37 Pulse Oximetry 100 09/18/22 09:37 Oxygen Delivery Method Room Air 09/18/22 09:37 Oxygen Flow Rate 0 09/18/22 09:37 Pain Level 10 09/18/22 09:37 Lab/Test Results Lab/Test Results: Laboratory Tests Range/Units 09/18/22 09/18/22 09:57 09:57 WBC (4.4-10.8) 10^3/uL 8.12 RBC (3.93-5.22) 10^6/uL 3.90 L Hgb (11.2-15.7) g/dL 10.5 L Hct (36.0-46.0) % 34.6 L MCV (80-95) fL 89 MCH (27.0-33.0) pg 26.9 L MCHC (32.0-36.0) % 30.3 L RDW (11.7-14.6) % 15.8 H Plt Count (130-400) 10^3/uL 266 MPV (8.0-11.0) fL 9.3 Immature Gran % 0.2 Neutrophils % 63.1 Lymphocytes % 25.6 Monocytes % 8.7 Eosinophils % 1.7 Basophils % 0.7 Nucleated RBC % (0.0-0.3) % 0.0 Absolute Neutrophils (1.2-6.7) 10^3/uL 5.11 Absolute Lymphocytes (1.2-3.4) 10^3/uL 2.08 Absolute Monocytes (0.1-0.8) 10^3/uL 0.71 Absolute Eosinophils (0.0-0.7) 10^3/uL 0.14 Absolute Basophils (0.0-0.2) 10^3/uL 0.06 Sodium (136-145) mmol/L 136 Potassium (3.5-5.1) mmol/L 4.2 Chloride (98-107) mmol/L 102 Carbon Dioxide (21.0-32.0) mmol/L 28.3 Anion Gap (3-11) mmol/L 5.7 BUN (7-18) mg/dL 22 H Creatinine (0.55-1.02) mg/dL 1.0 Est GFR (CKD-EPI 2020) (mL/min/1.73m2) 58.39 Glucose (74-106) mg/dL 154 H Calcium (8.5-10.1) mg/dL 9.0 Magnesium (1.8-2.4) mg/dL 1.9 Total Bilirubin (0.2-1.0) mg/dL 0.4 AST (15-37) U/L 35 ALT (14-59) U/L 38 Alkaline Phosphatase (46-116) U/L 123 H Creatine Kinase (26-192) U/L 192 Total Protein (6.4-8.2) g/dL 7.5 Albumin (3.4-5.0) g/dL 3.5
--- NOTE | 2022-09-19 11:11 | NUR.NOTE ---
Nursing Note: Patient called pharmacy did not have the prescription. Per Dr. De La Vega I called the prescription in to [facility].
== END 2022-09-18 11:12 | disposition home or self-care (01) ==
PROVIDERS: Emergency Provider Physician Assistant; PCP Family Medicine
DX: M79.604 Pain in right leg (principal); M79.605 Pain in left leg; R25.2 Cramp and spasm; Z98.51 Tubal ligation status
CPT/HCPCS: 36415; 80053; 82550; 99283; 83735; 85025; 99284

== ENCOUNTER 2022-12-03 19:21 | Outpatient (REF) | payer MEDICARE, SELFPAY ==
[2022-12-03 20:57] LABS: Abs Immature Grans 0.03 10^3/uL (0.0-0.06); Absolute Basophil Count 0.06 10^3/uL (0.0-0.2); Absolute Eosinophil Count 0.34 10^3/uL (0.0-0.7); Absolute Lymphocyte Count 2.48 10^3/uL (1.2-3.4); Absolute Monocyte Count 1.34 10^3/uL (0.1-0.8); Absolute Neutrophil Count 5.07 10^3/uL (1.2-6.7); Basophils % 0.6; Eosinophils % 3.6; HCT 32.5 % (36.0-46.0); Immature Grans % 0.3; Lymphocytes % 26.6; MCH 26.3 pg (27.0-33.0); MCHC 30.8 % (32.0-36.0); MCV 86 fL (80-95); MPV 9.7 fL (8.0-11.0); Monocytes % 14.4; Neutrophils % 54.5; Platelet Count 291 10^3/uL (130-400); RDW 15.2 % (11.7-14.6); WBC 9.32 10^3/uL (4.4-10.8)
[2022-12-03 21:33] LABS: ALT 54 U/L (14-59); AST 49 U/L (15-37); Albumin 3.4 g/dL (3.4-5.0); Alkaline Phosphatase 126 U/L (46-116); Anion Gap 7.8 mmol/L (3-11); BUN 22 mg/dL (7-18); Bilirubin, Total 0.3 mg/dL (0.2-1.0); CO2 26.2 mmol/L (21.0-32.0); CREATININE 1.1 mg/dL (0.55-1.02); Calcium 9.1 mg/dL (8.5-10.1); Chloride 105 mmol/L (98-107); Estimated GFR 52.08 (mL/min/1.73m2); Glucose 107 mg/dL (74-106); Potassium 4.6 mmol/L (3.5-5.1); Sodium 139 mmol/L (136-145)
[2022-12-05 16:29] LABS: Lab Add On Test DONE
[2022-12-05 16:40] LABS: Iron 21 ug/dL (50-170); Total Iron Binding Capacity 372 ug/dL (250-450); Transferrin Sat 6 % (15-50)
[2022-12-05 16:54] LABS: Ferritin 31 ng/mL (8-252)
== END 2022-12-03 19:22 | disposition home or self-care (01) ==
LOC: LBN 19:21
PROVIDERS: PCP Family Medicine; Visit Provider Physician Assistant
DX: R53.83 Other fatigue (principal); D64.9 Anemia, unspecified
CPT/HCPCS: 80053; 82728; 83540; 83550; 85025

== ENCOUNTER → 2022-12-21 09:46 | Outpatient (BNVA) | payer MEDICARE, SELFPAY | PROVIDERS: PCP Family Medicine; Referring Provider Family Medicine; Visit Provider Surgery | DX: D64.9 Anemia, unspecified (principal); D12.6 Benign neoplasm of colon, unspecified; K21.9 Gastro-esophageal reflux disease without esophagitis; E66.09 Other obesity due to excess calories; Z68.36 Body mass index [BMI] 36.0-36.9, adult | CPT/HCPCS: 99213 ==

== ENCOUNTER 2023-01-01 07:28 | Day surgery (SDC) | payer MEDICARE, SELFPAY ==
[2023-01-01 07:30] VITALS: BP 144/99; PULSE 89; RESP 16; TEMP 36; O2SAT 99
[2023-01-01] MEDS: Lactated Ringers 1,000 ML 80 ML IV (07:59)
--- NOTE | 2023-01-01 08:27 | ANES.PREOP_ITS ---
General Info Date of Service Date Performed: 01/01/23 Height: 4 ft 10 in Weight: 73.6 kg Body Mass Index (BMI): 33.9 Surgical Procedure: Operation Date: 01/01/23 09:20 Proposed Procedure Side Surgeon p Reynold Dhaliwal MD Meds Allergies and Home Medications Allergies Allergy/AdvReac Type Severity Reaction Status Date / Time Penicillins Allergy Intermediate Skin Rash Verified 01/01/23 07:37 buspirone HCl [From BuSpar] AdvReac Mild didn't Verified 01/01/23 07:37 feel good on it cetirizine AdvReac Mild didn't Verified 01/01/23 07:37 feel good on it sertraline AdvReac Mild blurry Verified 01/01/23 07:37 vision & tingling under tongue lisinopril AdvReac Unknown Verified 01/01/23 07:37 Home Medication Medication Instructions Recorded calcium carbonate 600 mg-vitamin 1 tab PO DAILY 01/21/13 D3 5 mcg (200 unit) tablet multivitamin-ferrous 1 tab PO DAILY 01/21/13 fumarate-folic acid 18 mg-400 mcg tablet (Centrum Complete) cholecalciferol (vitamin D3) 25 500 unit PO DAILY 05/12/14 mcg (1,000 unit) capsule diclofenac sodium 1 % topical gel 2 g topical QID PRN back pain #100 07/12/21 (Arthritis Pain (diclofenac)) grams docusate sodium 100 mg capsule 100 mg PO DAILY 09/17/22 (Colace) losartan 50 mg tablet 50 mg PO DAILY #90 tabs 09/28/22 omeprazole 40 mg capsule,delayed 40 mg PO DAILY #90 caps 09/28/22 release atorvastatin 20 mg tablet 20 mg PO QHS #90 tabs 12/05/22 ferrous sulfate 325 mg (65 mg 325 mg PO BID #60 tabs 12/05/22 iron) tablet,delayed release bisacodyl 5 mg tablet,delayed 5 mg PO ONCE colonscopy bowel prep 12/21/22 release (Dulcolax (bisacodyl)) #4 tabs polyethylene glycol 3350 17 238 g PO ONCE colonoscopy prep 12/21/22 gram/dose oral powder #238 grams Current Visit Medications: Current Medications Generic Name Dose Route Start Last Admin Trade Name Freq PRN Reason Stop Dose Admin Ringer's Solution 1,000 mls @ 80 mls/hr 01/01/23 06:00 01/01/23 07:59 IV 01/30/23 23:59 80 mls/hr INFUSION KAYLEE Administration IV Miscellaneous Supplies 1 each 01/01/23 06:00 Iv Access IV 01/30/23 23:59 DIRECTED KAYLEE Sodium Chloride 0 ml 01/01/23 06:00 Normal Saline Flush 10 Ml Syr IV 01/30/23 23:59 PRN PRN Sodium Chloride 0 ml 01/01/23 06:00 Normal Saline 10 Ml Vial IJ 01/30/23 23:59 DIRECTED PRN Sterile Water 0 ml 01/01/23 06:00 Water,Injection,Sterile 10 Ml Vial IJ 01/30/23 23:59 DIRECTED PRN PFSH Active Problems Active Problems: Problem Status Onset Code Fatty liver disease, nonalcoholic K76.0 Elevated LFTs R79.89 GERD (gastroesophageal reflux disease) K21.9 Essential hypertension Depression F32.9 Osteopenia M85.80 Tubular adenoma of colon D12.6 Insomnia G47.00 JANETH (generalized anxiety disorder) F41.1 Incontinence of urine R32 Anterolisthesis of lumbar spine M43.16 Nocturnal leg cramps G47.62 Dupuytren's contracture of left hand M72.0 Class 2 obesity due to excess calories with body mass index (BMI) of 36.0 to 36.9 in adult E66.09, Z68.36 Fasting hyperglycemia R73.01 Fibromyalgia syndrome M79.7 Trochanteric bursitis of both hips M70.61, M70.62 Anemia D64.9 Medical History Medical History Headache History of broken leg ORIF lt leg History of cardiovascular stress test 2013, negative. Hyperlipidemia Pain in left knee xray 03-: DJD Tear of left rotator cuff (11/19/17) Surgical History Surgical History History of esophagogastroduodenoscopy History of surgery on arm ORIF lt arm History of Surgical Procedure a. Tubal ligation many years ago, over 20 years ago. b. Bilateral cataracts. S/P laparoscopic cholecystectomy (~05/2022) Tobacco Smoking/Tobacco Use Status: Never Passive smoking exposure: No Second hand exposure: No Alcohol Alcohol Intake: never Substance Use Substance use: Never Substance use type: does not use Vital Signs and Lab Results Vital Signs Most Recent Vital Signs in EMR: Most Recent Vital Signs Temp Pulse Resp BP Pulse Ox 36 C L 89 16 144/99 H 99 01/01/23 07:30 01/01/23 07:30 01/01/23 07:30 01/01/23 07:30 01/01/23 07:30 Lab Results Blood Type / Crossmatch: No Data to Display Complete Blood Count: White Blood Count 9.32 10^3/uL (4.4-10.8) 12/03/22 19:15 Red Blood Count 3.80 10^6/uL (3.93-5.22) L 12/03/22 19:15 Hemoglobin 10.0 g/dL (11.2-15.7) L 12/03/22 19:15 Hematocrit 32.5 % (36.0-46.0) L 12/03/22 19:15 Platelet Count 291 10^3/uL (130-400) 12/03/22 19:15 Complete Metabolic Panel: Sodium 139 mmol/L (136-145) 12/03/22 19:15 Potassium 4.6 mmol/L (3.5-5.1) 12/03/22 19:15 Chloride 105 mmol/L (98-107) 12/03/22 19:15 Carbon Dioxide 26.2 mmol/L (21.0-32.0) 12/03/22 19:15 BUN 22 mg/dL (7-18) H 12/03/22 19:15 Creatinine 1.1 mg/dL (0.55-1.02) H 12/03/22 19:15 Est GFR (CKD-EPI 2020) 52.08 (mL/min/1.73m2) 12/03/22 19:15 Calcium 9.1 mg/dL (8.5-10.1) 12/03/22 19:15 Albumin 3.4 g/dL (3.4-5.0) 12/03/22 19:15 Glucose 107 mg/dL (74-106) H 12/03/22 19:15 Liver Function Panel: Alanine Aminotransferase (ALT/SGPT) 54 U/L (14-59) 12/03/22 19: 15 Aspartate Amino Transf (AST/SGOT) 49 U/L (15-37) H 12/03/22 19: 15 Coagulation Panel: No Data to Display Cardiac Panel: No Data to Display Arterial Blood Gas: No Data to Display Venous Blood Gas: No Data to Display Pancreas Panel: No Data to Display Thyroid Panel: No Data to Display Infectious Disease: No Data to Display Blood Cultures: No Data to Display Toxicology Panel: No Data to Display Imaging and Studies Imaging and Studies Study information below may be from another EMR and interpreted by another provider. Please see original notes in EMR for more complete details. EKG Summary: 05/28: sinus. Stress Test Summary: 2019: no defects noted, LVEF 49%. Impressions: Normal perfusion by [id number] Sestamibi Imaging. Summary: 1. Myocardial perfusion imaging: No myocardial perfusion defects noted. 2. The calculated left ventricular ejection fraction after stress: 49%. No left ventricular regional motion abnormality. 3. Stress: The target heart rate was achieved. Anesthesia Assessment and Plan Anesthesia History Personal History: No History of Anesthesia Complications Family History: No Family History of Anesthesia Complications Exercise Tolerance Exercise Tolerance: Metabolic Equivalents<4 Pertinent Negatives Pertinent Negatives: No Symptoms of GERD ( ed controlled) Cardiac & Pulmonary Exam Cardiac Exam: Normal S1/S2 Heart Sounds Pulmonary Exam: Clear Bilateral Breath Sounds Implantable Cardiac Device Does patient have a Pacemaker or an ICD?: No Airway Exam Known Difficult Airway: No Mallampati Class: 3 Mouth Opening: Normal (> 3cm) Thyromental Distance: Greater than 3 cm Neck Range of Motion: Full ROM Neck Circumference: Normal Teeth Condition: Generalized Poor Dentition and Removable Dentures/Plates Upper Airway Comments: no upper teeth. ASA Classification ASA Score: ASA 2 Emergency Case?: No NPO Status NPO Status: NPO Clears >2 hours, Solids >8 hours Anesthesia Plan Resuscitation Status: Full Code Anesthesia Technique: General Anesthesia Airway Planned: Natural Airway Monitors Used: Standard Monitors
[2023-01-01 08:31] VITALS: BMI 33.9
--- NOTE | 2023-01-01 09:01 | COLE_ITS ---
Date of service: 01/01/23 Time of Service: 09:02 Colonoscopy Report Procedure Description: Procedures performed: 1. Colonoscopy with snare polypectomy x3 Preoperative diagnosis: Surveillance colonoscopy Postoperative diagnosis: Colon polyps, diverticulosis Surgeon: Yoselin Dhaliwal Anesthesia: Collins Indication for procedure: Patient is a 77-year-old woman who had villous adenomas removed 3-4 years ago. There is no family history of colon cancer. She is not having symptoms. Findings: In the transverse colon a 5-7 mm sessile polyp was removed with hot snare technique. Further along in the transverse colon another polyp of similar size was removed with the same technique. In the sigmoid colon a 3-5 mm sessile polyp was removed with hot snare technique. Scattered diverticular changes are present in the left colon. Surveillance/follow-up recommendations: Considering the personal history and the findings today, I recommend repeating another colonoscopy in 3 years. Complications: None Blood loss: Minimal Specimens:?? YES Quality of Prep:?? Good Procedure in detail: Written consent was obtained from the patient who was in agreement with the risks, benefits and indications of the procedure.? We went to the endoscopy suite and laid the patient in left lateral decubitus position.? Anesthesia was administered which was tolerated well.? A timeout was performed and when we are all in agreement we began the procedure. Digital rectal exam and visual examination was performed and within normal limits.? A well?lubricated colonoscope was advanced without difficulty all the way to the cecum identified by the ileocecal valve, and triangular folds and keysha endiceal orifice.? It was then slowly withdrawn.?? Retroflexion was performed in the rectum.? The findings/interventions are noted above. The scope was then removed and the patient tolerated the procedure well and was then taken back to the PACU in hemodynamically stable condition.
--- NOTE | 2023-01-01 09:16 | BOWEL_PTH ---
PATIENT: Deisy Zendejas LOC: [facility] U#:[id number] AGE/SX: 77/F ROOM: RE01/01/[address]: Eder Dhaliwal : 1945 BED: DIS: 01/01/2023 SPEC #: [id number] RECD: 01/01/23 12:57 STATUS: PADMA RE #: [id number] SAUL: 01/01/23 09:[address]: Eder Dhaliwal DEPT: Surgical Specimen RECD BY: Nayely Chester ENTERED: 01/01/23 12:59 SP TYPE: Bowel OTHR DR: Nevaeh Morales Tissues: 1 - BIOPSY BOWEL 2 - BIOPSY BOWEL 3 - BIOPSY BOWEL Procedures: GROSS AND MICRO LEVEL 4 Comments: [id number]
[2023-01-01 09:42] VITALS: BP 133/69; PULSE 70; RESP 18; TEMP 36.2; O2SAT 98
--- NOTE | 2023-01-01 09:54 | W.ANESPOSTOP ---
Postoperative Evaluation Date, Time and Location Date Performed: 01/01/23 Time Performed: 09:55 Patient Location: Day Surgery Unit Vital Signs Most Recent Imported Vital Signs: Most Recent Vital Signs Temp Pulse Resp BP Pulse Ox 36.2 C L 70 18 133/69 98 01/01/23 09:42 01/01/23 09:42 01/01/23 09:42 01/01/23 09:42 01/01/23 09:42 Pain Score Most Recent Pain Score: Most Recent Pain Score Pain Level 0 01/01/23 09:42 Assessment Mental Status: Awake (Alert & Oriented to Patient Baseline) Airway and Respiratory Function: Patent airway with normal (patient baseline) respiratory exam Cardiovascular Function: Hemodynamically Stable Hydration Status: Adequately Hydrated Nausea & Vomiting: No Nausea or Vomiting Pain: Pt. Denies Any Pain Peripheral Nerve Block: Patient did not receive a nerve block
[2023-01-01 10:07] VITALS: BP 144/68; PULSE 66; RESP 166; TEMP 37.1; O2SAT 99
== END 2023-01-01 10:40 | disposition home or self-care (01) ==
PROVIDERS: PCP Family Medicine; Visit Provider Student in an Organized Health Care Education/Training Program
PROC: 0DJD8ZZ Inspection of Lower Intestinal Tract, Via Natural or Artificial Opening Endoscopic (ICD-10-PCS; CPT 45378; principal; 2023-01-01 09:15)
DX: Z12.11 Encounter for screening for malignant neoplasm of colon (principal); K63.5 Polyp of colon; K57.30 Diverticulosis of large intestine without perforation or abscess without bleeding; Z86.010 Personal history of colon polyps; K63.89 Other specified diseases of intestine
CPT/HCPCS: 45385; 88305

== ENCOUNTER 2023-01-03 01:32 | Outpatient (CLI) | payer MEDICARE, SELFPAY ==
--- NOTE | 2023-01-03 07:15 | DI.MAMMO_ITS ---
Exam(s) MG MAMMO DIAGNOSTIC UNI EXAM: MG MAMMO DIAGNOSTIC UNI CLINICAL HISTORY: F/U ABNL MAMMO, 6 MO F/U,R92.8 TECHNIQUE: Left cc and MLO mammogram images were performed according to the usual protocol [facility] ng computer analysis with CAD system, tomosynthesis and C-view imaging. COMPARISON: MG Screening Bilat Mammo from 04/30/2016 MG Screening Bilat Mammo from 05/02/2017 MG MG mammo screening from 09/01/2018 MG MG MAMMO SCREENING from 09/07/2019 MG MG MAMMO SCREENING from 02/14/2021 MG MG MAMMO SCREENING from 07/03/2022 US US BREAST LT LIMITED from 07/06/2022 MG MG MAMMO SCREEN CALL BACK UNI from 07/06/2022 FINDINGS: The left breast is composed of scattered fibroglandular densities, Breast Density category B. No suspicious masses or suspicious microcalcifications are seen. The small nodule questioned on th e prior exam has the appearance of an intramammary lymph node. Appears unchanged from prior exams. No skin thickening or abnormal axillary lymph nodes are seen. IMPRESSION: BI-RADS Category 1, Negative mammogram Yearly screening mammography is recommended. Breast Density - Category B, scattered fibroglandular densities. A negative radiographic report should not delay biopsy if a dominant or clinically suspicious mass is present. Up to ten percent of cancers are not identified on mammography. A negative report may reinforce clinical impression. Adenosis and dense breasts may obscure an underlying neoplasm. False positive reports average 6 to 10%. Patient will receive a letter notifying them of these results.
== END 2023-01-03 01:52 ==
LOC: DI 01:33
PROVIDERS: PCP Family Medicine; Visit Provider Family Medicine
DX: R92.8 Other abnormal and inconclusive findings on diagnostic imaging of breast (principal); N64.59 Other signs and symptoms in breast
CPT/HCPCS: 77061; 77065; G0279

== ENCOUNTER 2023-01-06 14:33 | Emergency (ER) | payer MEDICARE, SELFPAY ==
[2023-01-06 14:37] VITALS: BP 128/71; PULSE 117; RESP 20; TEMP 37.3; O2SAT 96
--- NOTE | 2023-01-06 14:56 | ED.GENADUL_ITS ---
Discharge Plan Discharge Details Chief Complaint: Sorethroat Primary Care Provider: Nevaeh Morales ED Provider: Trey Birch Home Meds and New Rx's Prescriptions: No Action polyethylene glycol 3350 17 gram/dose powder 238 g PO ONCE Qty: 238 0RF Rx Instructions: take per colonoscopy instructions bisacodyl [Dulcolax (bisacodyl)] 5 mg tablet,delayed release (DR/EC) 5 mg PO ONCE Qty: 4 0RF Rx Instructions: take per colonoscopy instructions diclofenac sodium [Arthritis Pain (diclofenac)] 1 % gel 2 g topical QID PRN (Reason: back pain) Qty: 100 2RF ferrous sulfate 325 mg (65 mg iron) tablet,delayed release (DR/EC) 325 mg PO BID Qty: 60 2RF atorvastatin 20 mg tablet 20 mg PO QHS Qty: 90 3RF cholecalciferol (vitamin D3) 1,000 UNIT capsule 500 unit PO DAILY losartan 50 mg tablet 50 mg PO DAILY Qty: 90 3RF omeprazole 40 mg capsule,delayed release(DR/EC) 40 mg PO DAILY Qty: 90 1RF calcium carbonate-vitamin D3 1 EACH tablet 1 tab PO DAILY Centrum Complete 1 EACH tablet 1 tab PO DAILY docusate sodium [Colace] 100 mg Capsule 100 mg PO DAILY Medical Decision Making Patient presenting to the emergency department for chief complaint of upper respiratory cold-like symptoms. She reports for the past 3 days she has had nasal congestion, sore throat, headache, dry nonproductive cough, subjective fever chills and malaise along with poor appetite. Patient has significant past medical history of of hypertension, depression, anxiety disorder fibromyalgia. She does state that she may have been exposed to something last week because she played [employer] and everyone was sick. Physical exam is unremarkable with clear lung sounds, normal cardiac exam, normal HEENT exam. Review of vital signs show no hypotension, no hypoxia, patient is afebrile and not tachypneic. Patient did have slight tachycardia at triage but upon my exam and auscultation patient was not tachycardic. Do not feel that advanced imaging is needed at this time and have low suspicion for pneumonia. Chief working differential diagnosis is viral upper respiratory tract infection. Given patient's age will perform COVID flu and RSV testing. Pending results will orally hydrate patient and give Tylenol along with Tessalon Perle. HPI General Mode of arrival: ambulatory . Date/Time Provider Initiated Documentation: 01/06/23 14:43 . Limitations to Documentation: no limitations . Information obtained by: patient and family . History of Present Illness 77 year old F presents to the emergency department with the chief complaint of Cough, nasal congestion, headache sore throat., described as moderate, with intensity rated at 4. Quality is described as aching, and is localized to the head. Patient reports no radiation. Patient started experiencing this day(s) (3) and it has been constant. No relieving factors improve symptom(s), No exacerbating factors reported . Patient notes no other symptoms.. Patient did receive the following treatments prior to arrival, other (Ewmg-fwr-rtthnem cough medication and Tylenol-yesterday evening) Related Data Home Medications Medication Instructions Recorded Confirmed calcium carbonate 600 mg-vitamin 1 tab PO DAILY 01/21/13 01/06/23 D3 5 mcg (200 unit) tablet multivitamin-ferrous 1 tab PO DAILY 01/21/13 01/06/23 fumarate-folic acid 18 mg-400 mcg tablet (Centrum Complete) cholecalciferol (vitamin D3) 25 500 unit PO DAILY 05/12/14 01/06/23 mcg (1,000 unit) capsule diclofenac sodium 1 % topical gel 2 g topical QID PRN back pain #100 07/12/21 01/01/23 (Arthritis Pain (diclofenac)) grams docusate sodium 100 mg capsule 100 mg PO DAILY 09/17/22 01/06/23 (Colace) losartan 50 mg tablet 50 mg PO DAILY #90 tabs 09/28/22 01/06/23 omeprazole 40 mg capsule,delayed 40 mg PO DAILY #90 caps 09/28/22 01/06/23 release atorvastatin 20 mg tablet 20 mg PO QHS #90 tabs 12/05/22 01/06/23 ferrous sulfate 325 mg (65 mg 325 mg PO BID #60 tabs 12/05/22 01/06/23 iron) tablet,delayed release bisacodyl 5 mg tablet,delayed 5 mg PO ONCE colonscopy bowel prep 12/21/22 01/01/23 release (Dulcolax (bisacodyl)) #4 tabs polyethylene glycol 3350 17 238 g PO ONCE colonoscopy prep 12/21/22 01/01/23 gram/dose oral powder #238 grams Previous Rx's Medication Instructions Recorded diclofenac sodium 1 % topical gel 2 g topical QID PRN back pain #100 07/12/21 (Arthritis Pain (diclofenac)) grams losartan 50 mg tablet 50 mg PO DAILY #90 tabs 09/28/22 omeprazole 40 mg capsule,delayed 40 mg PO DAILY #90 caps 09/28/22 release atorvastatin 20 mg tablet 20 mg PO QHS #90 tabs 12/05/22 ferrous sulfate 325 mg (65 mg 325 mg PO BID #60 tabs 12/05/22 iron) tablet,delayed release bisacodyl 5 mg tablet,delayed 5 mg PO ONCE colonscopy bowel prep 12/21/22 release (Dulcolax (bisacodyl)) #4 tabs polyethylene glycol 3350 17 238 g PO ONCE colonoscopy prep 12/21/22 gram/dose oral powder #238 grams Allergies Allergy/AdvReac Type Severity Reaction Status Date / Time Penicillins Allergy Intermediate Skin Rash Verified 01/01/23 07:37 buspirone HCl [From BuSpar] AdvReac Mild didn't Verified 01/01/23 07:37 feel good on it cetirizine AdvReac Mild didn't Verified 01/01/23 07:37 feel good on it sertraline AdvReac Mild blurry Verified 01/01/23 07:37 vision & tingling under tongue lisinopril AdvReac Unknown Verified 01/01/23 07:37 General Stated Complaint: Sorethroat MARIE: 4 Review of Systems Constitutional Constitutional: Reports body ache(s), Reports chills, Reports fever(s) (Subjective), Reports headache(s), Reports malaise and Reports poor appetite Eyes Eyes: Denies eye discharge ENT Ears, Nose, Mouth, and Throat: Reports as per HPI, Denies ear discharge, Denies otalgia, Reports headache(s), Reports nasal congestion, Reports nasal discharge, Denies neck pain, Reports sore throat and Denies throat swelling Cardiovascular Cardiovascular: Denies chest pain, Denies rapid heart rate, Denies palpitations and Denies dyspnea Respiratory Respiratory: Reports cough and Denies dyspnea Gastrointestinal Gastrointestinal: Denies abdominal pain and Denies diarrhea Musculoskeletal Musculoskeletal: Denies joint swelling and Denies neck pain Integumentary/Breasts Skin/Breast: Denies rash Neurologic Neurologic: Reports headache(s) Endocrine Endocrine: Denies palpitations Allergic/Immunologic Allergic/Immunologic: Denies throat swelling PFSH All Active Problems Fatty liver disease, nonalcoholic (Acute) Mild. Noted on ultrasound 2021 Elevated LFTs (Acute) GERD (gastroesophageal reflux disease) (Chronic) Essential hypertension (Acute) Depression (Acute) intolerant to Citalopram,Bupropion,Sertraline,Prozac Osteopenia (Acute) bone density scan Tubular adenoma of colon (Acute) 09/20/14; DR. ANDRES; X 1- Repeat in 5 years 05/2019; DR. ANDRES; X 3-REPEAT IN 3 YEARS Insomnia (Acute) JANETH (generalized anxiety disorder) (Acute) Incontinence of urine (Acute) Anterolisthesis of lumbar spine (Chronic) improved pain control with chiropractor Nocturnal leg cramps (Acute) Dupuytren's contracture of left hand (Acute) Class 2 obesity due to excess calories with body mass index (BMI) of 36.0 to 36.9 in adult (Acute) Fasting hyperglycemia (Acute) Fibromyalgia syndrome (Acute) Trochanteric bursitis of both hips (Acute) Anemia (Chronic) Medical History Headache History of broken leg ORIF lt leg History of cardiovascular stress test 2013, negative. Hyperlipidemia Pain in left knee xray 03-20: DJD Tear of left rotator cuff (11/19/17) Surgical History History of esophagogastroduodenoscopy History of surgery on arm ORIF lt arm History of Surgical Procedure a. Tubal ligation many years ago, over 20 years ago. b. Bilateral cataracts. S/P laparoscopic cholecystectomy (~05/2022) Family History Mother , AGE 72 Heart disease Myocardial infarction Depression Father , AGE 80 Heart disease Myocardial infarction Brother , AGE 79 Diabetes Essential hypertension Heart disease Hyperlipidemia Alcohol abuse Brother , AGE 77 Diabetes Essential hypertension Depression Heart disease Hyperlipidemia Brother , AGE 67 Heart disease Hyperlipidemia Daughter No problems noted. Social History Smoking/Tobacco Use Status: Never Second Hand Exposure: No Smoking risk assessment performed?: Yes Alcohol Intake: never Drug use: Never Substance use type: does not use Caregiver/Support person: No Household members: spouse Housing: house Communication Needs: Corrective Lenses Do you need help understanding health information?: Often Pets and animals: Yes Pets and animals: cat(s) Sexually active: No Do you think of yourself as: straight/heterosexual Current gender identity: female What is your relationship status?: How often do you talk on the phone with friends or family?: three or more times per week How often do you get together with friends or relatives?: once per week How often do you attend mormonism or scientologist services?: decline to answer Do you belong to any clubs or organized social groups?: no Panel score (0-1 are the most socially isolated patients): 2 What type of physical activity do you participate in: walking Duration: < 15 minutes/day Frequency: 1-2 times per week Marcela/Zoroastrian: No preference Special marcela needs: No Seatbelt use: always Drive intox or ride w/intox tilt tray driver: No Do you feel safe at home: Yes Do you feel safe in your relationship?: Yes Additional Social history: unable to assess privately Exam Const General: cooperative, comfortable and no acute distress Orientation: alert and awake [facility] Head: normal to inspection, normocephalic and atraumatic Ears: hearing grossly normal bilaterally and TM's normal bilaterally General nose exam: external nose normal Face and sinus: no erythema Mouth: oral mucosae normal, no drooling, no muffled voice and no trismus Throat: posterior oropharynx normal Neck Neck: normal visual inspection, full ROM, no lymphadenopathy, no meningeal signs, trachea midline and supple Resp Effort & Inspection: normal respiratory effort, able to speak in complete sentences and no cough Auscultation: clear to auscultation bilaterally Cardio Rate: regular rate Rhythm: regular rhythm Heart Sounds: S1 normal, S2 normal, normal S1 and S2, no click, no gallops, no murmurs and no rubs Skin General skin exam: no rashes or lesions noted and dry skin (warm) Neuro General: patient alert, patient awake, patient oriented x3, gait normal and moves all extremities Cognition: normal cognition Speech: speech normal Course Vital Signs Vital signs: Vital Signs Temperature 37.3 C 01/06/23 14:37 Pulse 117 H 01/06/23 14:37 Respiratory Rate 20 01/06/23 14:37 Blood Pressure 128/71 01/06/23 14:37 Pulse Oximetry 96 01/06/23 14:37 Temperature 37.3 C 01/06/23 14:37 Temperature Source Oral 01/06/23 14:37 Pulse 117 H 01/06/23 14:37 Respiratory Rate 20 01/06/23 14:37 Respiratory Effort Normal 01/06/23 14:43 Blood Pressure 128/71 01/06/23 14:37 Blood Pressure Position Sitting 01/06/23 14:37 Pulse Oximetry 96 01/06/23 14:37 Oxygen Delivery Method Room Air 01/06/23 14:37 Oxygen Flow Rate 0 01/06/23 14:37 Pain Level 0 01/06/23 14:37 Sign Out Sign Out Data: Sign Out Comment: Patient pending viral swab. Suspect discharge disposition with Tessalon Perles if effective to help with patient's cough. Otherwise conservative management of URI viral cold is appropriate. Last updated by Trey Birch GOVERNMENT GUARD at 01/06/23 15:40
[2023-01-06] MEDS: Benzonatate 100 MG CAP PO (15:13)
[2023-01-06] MEDS: Acetaminophen 325 MG TAB 650 MG PO (15:13)
[2023-01-06 15:44] LABS: COVID-19 PCR Negative (Negative); Influenza A PCR Negative (Negative); Influenza B PCR Negative (Negative); RSV PCR Negative (Negative)
[2023-01-06 15:47] LABS: Source Nasopharynx
--- NOTE | 2023-01-06 15:50 | W.EDPROG ---
Date of service: 01/06/23 Time of Service: 15:50 Medical Decision Making Care assumed from provider (Timur Birch NP) Please see their initial HPI, PE, and documentation. Discussed patient details and case and pending workup and disposition. Patient is hemodynamically stable, and alert and oriented. Awaiting COVID swab. COVID swab is negative. Patient discharged with Tessalon Perles. This text was generated using [employer] dictation system, please disregard any oddities of phrase or misspellings. Lab Data Lab results reviewed: Yes I reviewed the patient's lab results. Labs: Laboratory Tests Range/Units 01/06/23 15:04 COVID-19 Source Nasopharynx SARS-CoV-2 (PCR) (Negative) Negative Influenza Type A (PCR) (Negative) Negative Influenza Type B (PCR) (Negative) Negative RSV (PCR) (Negative) Negative Sign Out Sign Out Data: Sign Out Comment: Patient pending viral swab. Suspect discharge disposition with Tessalon Perles if effective to help with patient's cough. Otherwise conservative management of URI viral cold is appropriate. Last updated by Trey Birch NP at 01/06/23 15:40 Discharge Plan Disposition Patient Disposition: Home Condition: Stable Discharge Details Clinical Impression: Viral URI Primary Care Provider: Nevaeh Morales ED Provider: Loly Barber Home Meds and New Rx's Prescriptions: New benzonatate 100 mg capsule 100 mg PO BID-TID PRN (Reason: cough) Qty: 10 0RF Rx Instructions: Take 1 capsule by mouth 2-3 times daily as needed for cough No Action polyethylene glycol 3350 17 gram/dose powder 238 g PO ONCE Qty: 238 0RF Rx Instructions: take per colonoscopy instructions bisacodyl [Dulcolax (bisacodyl)] 5 mg tablet,delayed release (DR/EC) 5 mg PO ONCE Qty: 4 0RF Rx Instructions: take per colonoscopy instructions diclofenac sodium [Arthritis Pain (diclofenac)] 1 % gel 2 g topical QID PRN (Reason: back pain) Qty: 100 2RF ferrous sulfate 325 mg (65 mg iron) tablet,delayed release (DR/EC) 325 mg PO BID Qty: 60 2RF atorvastatin 20 mg tablet 20 mg PO QHS Qty: 90 3RF cholecalciferol (vitamin D3) 1,000 UNIT capsule 500 unit PO DAILY losartan 50 mg tablet 50 mg PO DAILY Qty: 90 3RF omeprazole 40 mg capsule,delayed release(DR/EC) 40 mg PO DAILY Qty: 90 1RF calcium carbonate-vitamin D3 1 EACH tablet 1 tab PO DAILY Centrum Complete 1 EACH tablet 1 tab PO DAILY docusate sodium [Colace] 100 mg Capsule 100 mg PO DAILY Discharge Instructions Instructions: Upper Respiratory Infection (ED) Additional Instructions: Negative for COVID flu or RSV. Please take the cough medicine as directed. You may also take [id number] cough and cold medicine. Follow up with primary care provider in 3-5 days. Return to ED sooner if any worsening or concerns. Increase oral fluids. Increase your vitamin C and vitamin D. Please take Tylenol with food every 4-6 hours as needed for pain and swelling. Referrals: Nevaeh Morales MD [Primary Care Provider] - 3 days
[2023-01-06 16:00] VITALS: BP 124/68; PULSE 94; RESP 16; O2SAT 98
== END 2023-01-06 16:00 | disposition home or self-care (01) ==
PROVIDERS: Nurse Practitioner Family; Emergency Provider Registered Nurse Emergency; PCP Family Medicine
DX: J06.9 Acute upper respiratory infection, unspecified (principal); I10 Essential (primary) hypertension; Z20.822 Contact with and (suspected) exposure to COVID-19
CPT/HCPCS: 87637; 99283; 99284

== ENCOUNTER 2023-02-25 02:33 | Outpatient (CLI) | payer MEDICARE, SELFPAY ==
[2023-02-25 12:29] LABS: Abs Immature Grans 0.02 10^3/uL (0.0-0.06); Absolute Basophil Count 0.07 10^3/uL (0.0-0.2); Absolute Eosinophil Count 0.26 10^3/uL (0.0-0.7); Absolute Lymphocyte Count 1.99 10^3/uL (1.2-3.4); Absolute Monocyte Count 0.73 10^3/uL (0.1-0.8); Absolute Neutrophil Count 3.19 10^3/uL (1.2-6.7); Basophils % 1.1; Eosinophils % 4.2; HCT 34.4 % (36.0-46.0); HGB 10.7 g/dL (11.2-15.7); Immature Grans % 0.3; Lymphocytes % 31.8; MCH 29.2 pg (27.0-33.0); MCHC 31.1 % (32.0-36.0); MCV 94 fL (80-95); MPV 10.1 fL (8.0-11.0); Monocytes % 11.7; Neutrophils % 50.9; Platelet Count 227 10^3/uL (130-400); RBC 3.67 10^6/uL (3.93-5.22); RDW-SD 59.3 fL; WBC 6.26 10^3/uL (4.4-10.8)
[2023-02-25 13:55] LABS: Iron 37 ug/dL (50-170); Total Iron Binding Capacity 333 ug/dL (250-450); Transferrin Sat 11 % (15-50)
[2023-02-25 14:00] LABS: Ferritin 54 ng/mL (8-252)
== END 2023-02-25 02:34 | disposition home or self-care (01) ==
LOC: LOS 02:34
PROVIDERS: PCP Family Medicine; Visit Provider Family Medicine
DX: D64.9 Anemia, unspecified (principal)
CPT/HCPCS: 36415; 82728; 83540; 83550; 85025

== ENCOUNTER 2023-03-19 10:22 | Outpatient (CLI) | payer MEDICARE, SELFPAY ==
--- NOTE | 2023-03-19 10:00 | DI.RAD_ITS ---
Exam(s) XR SHOULDER LT COMPLETE 2+V EXAM: XR SHOULDER LT COMPLETE 2+V CLINICAL HISTORY: left shoulder pain. TECHNIQUE: 2D digital imaging was performed. COMPARISON: No exams were available for comparison FINDINGS: 3 views There are multiple-4 fixation devices in the humeral head, most probably related to prior rotator cuf f surgery. There also appear to be postsurgical changes in the AC joint. There is no diminution of the subacromial space. No superior subluxation of the humeral head evident within the glenoid fossa. There are no soft tissue calcifications in the subacromial space nor adjacent to the greater tubero sity. Bone density normal. No osseous lesions. No abnormal radial lucency around the fastener catherine noah in the humeral neck and greater tuberosity region. No obvious degenerative changes in the glenoh umeral joint. No calcified loose bodies. No evidence of fracture or dislocation. IMPRESSION: Previous shoulder surgery, most probably related to rotator cuff repair. No significant acute osseous findings. DATA REPOSITORY: RADIATION DOSE DELIVERED:
== END 2023-03-19 10:23 | disposition home or self-care (01) ==
LOC: DIORS 10:22
PROVIDERS: PCP Family Medicine; Referring Provider Family Medicine; Visit Provider Student in an Organized Health Care Education/Training Program
DX: M25.512 Pain in left shoulder (principal); M79.18 Myalgia, other site; G89.4 Chronic pain syndrome
CPT/HCPCS: 99203; 99213; 73030

== ENCOUNTER 2023-04-17 17:58 | Outpatient (REF) | payer MEDICARE, SELFPAY ==
[2023-04-17 21:24] LABS: Abs Immature Grans 0.02 10^3/uL (0.0-0.06); Absolute Basophil Count 0.06 10^3/uL (0.0-0.2); Absolute Eosinophil Count 0.15 10^3/uL (0.0-0.7); Absolute Lymphocyte Count 2.65 10^3/uL (1.2-3.4); Absolute Monocyte Count 0.88 10^3/uL (0.1-0.8); Basophils % 0.7; Eosinophils % 1.7; HCT 35.4 % (36.0-46.0); HGB 11.7 g/dL (11.2-15.7); Immature Grans % 0.2; Lymphocytes % 30.3; MCH 30.5 pg (27.0-33.0); MCHC 33.1 % (32.0-36.0); MCV 92 fL (80-95); Neutrophils % 57.1; Platelet Count 237 10^3/uL (130-400); RBC 3.83 10^6/uL (3.93-5.22); RDW 14.1 % (11.7-14.6); RDW-SD 48.2 fL; WBC 8.76 10^3/uL (4.4-10.8)
[2023-04-17 21:39] LABS: Iron 49 ug/dL (50-170); Total Iron Binding Capacity 343 ug/dL (250-450); Transferrin Sat 14 % (15-50)
[2023-04-17 21:52] LABS: ALT 26 U/L (14-59); AST 31 U/L (15-37); Albumin 3.7 g/dL (3.4-5.0); Alkaline Phosphatase 103 U/L (46-116); Anion Gap 9.9 mmol/L (3-11); BUN 34 mg/dL (7-18); Bilirubin, Total 0.4 mg/dL (0.2-1.0); CO2 25.1 mmol/L (21.0-32.0); CREATININE 1.3 mg/dL (0.55-1.02); Calcium 9.1 mg/dL (8.5-10.1); Chloride 106 mmol/L (98-107); Estimated GFR 42.35 (mL/min/1.73m2); Ferritin 67 ng/mL (8-252); Glucose 144 mg/dL (74-106); Potassium 4.5 mmol/L (3.5-5.1); Sodium 141 mmol/L (136-145); TSH 2.34 uIU/mL (0.36-3.74); Total Protein 7.1 g/dL (6.4-8.2)
[2023-04-17 22:10] LABS: Bilirubin Negative (Negative); Blood Negative (Negative); Clarity Clear (Clear); Glucose Negative (Negative); Ketones Negative (Negative); Leukocyte Esterase Small (Negative); Nitrite Negative (Negative); Urobilinogen 0.2 mg/dL (Up to 0.2); pH 5.5 (5-8)
[2023-04-17 22:54] LABS: Bacteria Few HPF (Negative); C & S Indicated? Yes; Casts 0-2 Hyaline LPF (Negative); Crystals Negative HPF (Negative); Epithelial Cells Few HPF (Negative); Mucus Negative (Negative); Other Cells Rare Renal (Negative); RBC 0-2 HPF (0-2)
== END 2023-04-17 17:59 | disposition home or self-care (01) ==
LOC: LBN 17:58
PROVIDERS: PCP Family Medicine; Visit Provider Nurse Practitioner Family
DX: R53.1 Weakness (principal); R39.9 Unspecified symptoms and signs involving the genitourinary system
CPT/HCPCS: 80053; 81003; 81015; 82728; 83540; 83550; 84443; 85025; 87086

== ENCOUNTER 2023-07-04 16:46 | Outpatient (REF) | payer MEDICARE, SELFPAY ==
[2023-07-04 15:47] LABS: Bilirubin Negative (Negative); Blood Negative (Negative); Clarity Clear (Clear); Glucose Negative (Negative); Ketones Negative (Negative); Leukocyte Esterase Trace (Negative); Nitrite Negative (Negative); Urobilinogen 0.2 mg/dL (Up to 0.2)
[2023-07-04 16:31] LABS: Bacteria Negative HPF (Negative); C & S Indicated? No; Crystals Negative HPF (Negative); Epithelial Cells Rare HPF (Negative); Mucus Negative (Negative); RBC Negative HPF (0-2); WBC 0-2 HPF (0-5)
== END 2023-07-04 16:47 | disposition home or self-care (01) ==
LOC: LBN 16:46
PROVIDERS: PCP Family Medicine; Visit Provider Nurse Practitioner Family
DX: R35.0 Frequency of micturition (principal); R35.1 Nocturia
CPT/HCPCS: 81003; 81015

== ENCOUNTER 2023-07-05 03:32 | Outpatient (CLI) | payer MEDICARE, SELFPAY ==
[2023-07-05 12:32] LABS: Abs Immature Grans 0.02 10^3/uL (0.0-0.06); Absolute Basophil Count 0.04 10^3/uL (0.0-0.2); Absolute Eosinophil Count 0.12 10^3/uL (0.0-0.7); Absolute Monocyte Count 0.49 10^3/uL (0.1-0.8); Absolute Neutrophil Count 3.95 10^3/uL (1.2-6.7); Basophils % 0.6; Eosinophils % 1.9; HCT 35.6 % (36.0-46.0); HGB 11.3 g/dL (11.2-15.7); Immature Grans % 0.3; Lymphocytes % 26.9; MCH 30.1 pg (27.0-33.0); MCHC 31.7 % (32.0-36.0); MCV 95 fL (80-95); MPV 10.2 fL (8.0-11.0); Monocytes % 7.8; Neutrophils % 62.5; Platelet Count 222 10^3/uL (130-400); RBC 3.75 10^6/uL (3.93-5.22); RDW 14.1 % (11.7-14.6); RDW-SD 48.8 fL; WBC 6.32 10^3/uL (4.4-10.8)
[2023-07-05 12:44] LABS: Hemoglobin A1C 6.3 % (<5.7)
[2023-07-05 12:51] LABS: Anion Gap 8.4 mmol/L (3-11); BUN 18 mg/dL (7-18); CO2 26.6 mmol/L (21.0-32.0); CREATININE 1.1 mg/dL (0.55-1.02); Calcium 9.2 mg/dL (8.5-10.1); Chloride 105 mmol/L (98-107); Estimated GFR 51.75 (mL/min/1.73m2); Glucose 136 mg/dL (74-106); Potassium 3.9 mmol/L (3.5-5.1); Sodium 140 mmol/L (136-145)
[2023-07-05 12:55] LABS: Iron 51 ug/dL (50-170)
[2023-07-05 13:03] LABS: Ferritin 53 ng/mL (8-252)
== END 2023-07-05 03:33 | disposition home or self-care (01) ==
LOC: LOS 03:32
PROVIDERS: Nurse Practitioner Family; PCP Family Medicine; Referring Provider Family Medicine; Visit Provider Family Medicine
DX: D50.9 Iron deficiency anemia, unspecified (principal); R42 Dizziness and giddiness; D12.6 Benign neoplasm of colon, unspecified; R73.01 Impaired fasting glucose
CPT/HCPCS: 36415; 80048; 85027; 82728; 83036; 83540; 85025

== ENCOUNTER 2023-07-25 10:33 | Outpatient (CLI) | payer MEDICARE, SELFPAY ==
[2023-07-25 09:55] LABS: HGB 11.7 g/dL (11.2-15.7); MCHC 32.5 % (32.0-36.0); MCV 96 fL (80-95); MPV 9.7 fL (8.0-11.0); Platelet Count 206 10^3/uL (130-400); RBC 3.77 10^6/uL (3.93-5.22); RDW 13.7 % (11.7-14.6); RDW-SD 48.2 fL; WBC 6.86 10^3/uL (4.4-10.8)
== END 2023-07-25 10:34 | disposition home or self-care (01) ==
LOC: LBO 10:34
PROVIDERS: Nurse Practitioner Family; PCP Family Medicine; Visit Provider Family Medicine
DX: R53.1 Weakness (principal)
CPT/HCPCS: 36415; 85027

== ENCOUNTER 2023-08-04 11:59 | Emergency (ER) | payer MEDICARE, SELFPAY ==
[2023-08-04 12:03] VITALS: BP 176/78; PULSE 77; RESP 16; TEMP 36.6; O2SAT 100
--- NOTE | 2023-08-04 12:15 | DI.CT_ITS ---
Exam(s) CT LUMBAR SPINE SI JOINTS WO EXAM: CT LUMBAR SPINE SI JOINTS WO CLINICAL HISTORY: pain, prior anterolisthesis. TECHNIQUE: Imaging Protocol: Axial computed tomography images with coronal and sagittal reformatted images were created and reviewed COMPARISON: CR XR LUMBAR SPINE COMPLETE from 02/16/2022 FINDINGS: Bones: The last intervertebral disc space is designated the L5/S1 level for the numbering purpose of this examination. The vertebral body heights are well maintained. Stable grade 1 spondylolisthesis secondary to facet degenerative changes at L L4-5. No spondylolysis . No fracture is seen. T12-L1: No disc herniations or bulges are present. L1-2: No disc herniations or bulges are present. L2-3: Disc bulging and ligamentous hypertrophy cause moderate central canal stenosis. L3-4: A broad-based disc bulging of the set degenerative changes and ligamentous hypertrophy produce moderate central canal stenosis. L4-5: Severe central canal stenosis due to a combination of disc bulging, cyst severe facet degenera tive changes and ligamentous hypertrophy. Bilateral neural foraminal narrowing also present. L5-S1: No disc herniations or bulges are present. The visualized SI joints and sacrum are will maintained. Soft Tissues: The paraspinal soft tissues are unremarkable. Calcification in the aorta and iliac a rteries. IMPRESSION: Degenerative bone changes greatest at L4-5 causing severe central canal stenosis. No evidence of acu te fracture. RADIATION DOSE DELIVERED: Total DLP DATA REPOSITORY: All CT scans at this facility are submitted to the National Radiology Data Registry (NRDR) Dose Index Registry (DIR) with the [employer] (ACR). RADIATION OPTIMIZATION: All CT scans at this facility use at least one of these dose optimization te chniques: automated exposure control; mA and/or kV adjustment per patient size (includes targeted exa ms where dose is matched to clinical indication); or iterative reconstruction.
--- NOTE | 2023-08-04 12:33 | ED.GENADUL_ITS ---
Discharge Plan Disposition Patient Disposition: Home Discharge Details Clinical Impression: Anterolisthesis of lumbar spine, Low back pain Primary Care Provider: Nveaeh Morales ED Provider: Gal Cantu Home Meds and New Rx's Prescriptions: New diazepam [Valium] 2 mg tablet 2 mg PO BID PRNQty: 14 0RF Continued ferrous fumarate 324 mg (106 mg iron) tablet 324 mg PO BID Qty: 60 3RF atorvastatin 20 mg tablet 20 mg PO QHS Qty: 90 3RF mirtazapine 7.5 mg tablet 7.5 mg PO QHS Qty: 30 1RF Hold Instructions: Pt Stopped/Never Started cholecalciferol (vitamin D3) 1,000 UNIT capsule 500 unit PO DAILY losartan 50 mg tablet 50 mg PO DAILY Qty: 90 3RF omeprazole 40 mg capsule,delayed release(DR/EC) 40 mg PO DAILY Qty: 90 1RF lidocaine 4 % adhesive patch,medicated 1 patch topical DAILY PRN (Reason: pain) Qty: 30 1RF Rx Instructions: Apply patch to most painful area, may leave on for up to 12 hrs calcium carbonate-vitamin D3 1 EACH tablet 1 tab PO DAILY Centrum Complete 1 EACH tablet 1 tab PO DAILY docusate sodium [Colace] 100 mg Capsule 100 mg PO DAILY Discharge Instructions Instructions: Back Pain (ED) Additional Instructions: Please take ibuprofen over the counter. Take 600mg by mouth every 6 hours as needed for pain. Please take acetaminophen (tylenol) - 650mg every 6 hours by mouth as needed for pain. Please contact your primary care physician to arrange follow-up. Return to the ER immediately for any worsening or new concerning symptoms. Stand Alone Forms: Physical Therapy Referral Referrals: Nevaeh Morales MD [Primary Care Provider] - Medical Decision Making [id number]??78-year-old female with history of L5 anterior listhesis, here with severe lumbar back pain over the past 2 days. Patient has focal tenderness in her lower lumbar spine midline and to the left. Concern for worsening anterior listhesis versus fracture. Plan to obtain CT of the lumbar spine. I will give Toradol IM, lidocaine patch and Valium p.o. Plan to reassess. 3458 --CT of the lumbar spine was interpreted by radiology: Multifactorial multilevel moderate severe spinal stenosis worst at L4-L5 level where there is grade 1 anterolisthesis. Patient reassessed. Reviewed results with the patient. She still having some low back pain. Plan for discharge with outpatient follow-up with PCP. I will refer to physical therapy. HPI General Mode of arrival: ambulatory . Date/Time Provider Initiated Documentation: 08/04/23 12:01 . Limitations to Documentation: no limitations . Information obtained by: patient . HPI Narrative: 78-year-old female with history of anterolisthesis of lumbar spine, here with chief complaint of low back pain. Patient notes pain started 2 days ago and has persisted. She does not recall any specific injury. She notes she has had pain in her lumbar spine before but never this severe. Pain is severe and worse with any movement. No associated numbness or tingling. No bowel or bladder incontinence. Patient notes she took an [id number] analgesic which did not improve pain last night. Related Data Home Medications Medication Instructions Recorded Confirmed calcium carbonate 600 mg-vitamin 1 tab PO DAILY 01/21/13 08/04/23 D3 5 mcg (200 unit) tablet multivitamin-ferrous 1 tab PO DAILY 01/21/13 08/04/23 fumarate-folic acid 18 mg-400 mcg tablet (Centrum Complete) cholecalciferol (vitamin D3) 25 500 unit PO DAILY 05/12/14 08/04/23 mcg (1,000 unit) capsule docusate sodium 100 mg capsule 100 mg PO DAILY 09/17/22 08/04/23 (Colace) losartan 50 mg tablet 50 mg PO DAILY #90 tabs 09/28/22 08/04/23 atorvastatin 20 mg tablet 20 mg PO QHS #90 tabs 12/05/22 08/04/23 ferrous fumarate 324 mg (106 mg 324 mg PO BID #60 tabs 03/01/23 08/04/23 iron) tablet lidocaine 4 % topical patch 1 patch topical DAILY PRN pain #30 03/11/23 08/04/23 ea omeprazole 40 mg capsule,delayed 40 mg PO DAILY #90 caps 03/11/23 08/04/23 release mirtazapine 7.5 mg tablet 7.5 mg PO QHS #30 tabs 07/04/23 08/04/23 diazepam 2 mg tablet (Valium) 2 mg PO BID PRN #14 tabs 08/04/23 Previous Rx's Medication Instructions Recorded losartan 50 mg tablet 50 mg PO DAILY #90 tabs 09/28/22 atorvastatin 20 mg tablet 20 mg PO QHS #90 tabs 12/05/22 ferrous fumarate 324 mg (106 mg 324 mg PO BID #60 tabs 03/01/23 iron) tablet lidocaine 4 % topical patch 1 patch topical DAILY PRN pain #30 03/11/23 ea omeprazole 40 mg capsule,delayed 40 mg PO DAILY #90 caps 03/11/23 release mirtazapine 7.5 mg tablet 7.5 mg PO QHS #30 tabs 07/04/23 diazepam 2 mg tablet (Valium) 2 mg PO BID PRN #14 tabs 08/04/23 Allergies Allergy/AdvReac Type Severity Reaction Status Date / Time Penicillins Allergy Intermediate Skin Rash Verified 08/04/23 12:14 buspirone HCl [From BuSpar] AdvReac Mild didn't Verified 08/04/23 12:14 feel good on it cetirizine AdvReac Mild didn't Verified 08/04/23 12:14 feel good on it sertraline AdvReac Mild blurry Verified 08/04/23 12:14 vision & tingling under tongue lisinopril AdvReac Unknown Verified 08/04/23 12:14 General Stated Complaint: Nk/Back Pain MARIE: 3 Review of Systems All systems reviewed & are unremarkable except as noted in HPI and below Constitutional Constitutional: Denies fever(s) Gastrointestinal Gastrointestinal: Denies abdominal pain PFSH All Active Problems (Updated 08/04/23 @ 13:55 by Gal Cantu MD) Low back pain (Acute) Anterolisthesis of lumbar spine (Acute) Amplified musculoskeletal pain (Acute) Bursitis of shoulder, left (Acute) GERD (gastroesophageal reflux disease) (Chronic) Essential hypertension (Acute) Depression (Acute) intolerant to Citalopram,Bupropion,Sertraline,Prozac Osteopenia (Acute) bone density scan Tubular adenoma of colon (Acute) 09/20/14; DR. ANDRES; X 1- Repeat in 5 years 05/2019; DR. ANDRES; X 3-REPEAT IN 3 YEARS Insomnia (Acute) JANETH (generalized anxiety disorder) (Acute) Incontinence of urine (Acute) Anterolisthesis of lumbar spine (Chronic) improved pain control with chiropractor Nocturnal leg cramps (Acute) Dupuytren's contracture of left hand (Acute) Class 2 obesity due to excess calories with body mass index (BMI) of 36.0 to 36.9 in adult (Acute) Fasting hyperglycemia (Acute) Fibromyalgia syndrome (Acute) Trochanteric bursitis of both hips (Acute) Fatty liver disease, nonalcoholic (Acute) Mild. Noted on ultrasound 2021 Iron deficiency anemia (Acute) Medical History History of broken leg ORIF lt leg History of cardiovascular stress test 2013, negative. Tear of left rotator cuff (11/19/17) Hyperlipidemia Headache Pain in left knee xray 03-: DJD Surgical History History of colonoscopy with polypectomy (~01/01/23) S/P laparoscopic cholecystectomy (~05/2022) History of surgery on arm ORIF lt arm History of esophagogastroduodenoscopy History of Surgical Procedure a. Tubal ligation many years ago, over 20 years ago. b. Bilateral cataracts. Family History Mother , AGE 72 Heart disease Myocardial infarction Depression Father , AGE 80 Heart disease Myocardial infarction Brother , AGE 79 Diabetes Essential hypertension Heart disease Hyperlipidemia Alcohol abuse Brother , AGE 77 Diabetes Essential hypertension Depression Heart disease Hyperlipidemia Brother , AGE 67 Heart disease Hyperlipidemia Daughter No problems noted. Social History Smoking/Tobacco Use Status: Never Second Hand Exposure: No Smoking risk assessment performed?: Yes Alcohol Intake: never Drug use: Never Substance use type: does not use Caregiver/Support person: No Household members: spouse Housing: house Communication Needs: Corrective Lenses Do you need help understanding health information?: Often Pets and animals: Yes Pets and animals: cat(s) Sexually active: No Do you think of yourself as: straight/heterosexual Current gender identity: female What is your relationship status?: How often do you talk on the phone with friends or family?: three or more times per week How often do you get together with friends or relatives?: once per week How often do you attend buddhist or gnosticism services?: decline to answer Do you belong to any clubs or organized social groups?: no Panel score (0-1 are the most socially isolated patients): 2 What type of physical activity do you participate in: walking Duration: < 15 minutes/day Frequency: 1-2 times per week Marcela/Zoroastrian: No preference Special marcela needs: No Seatbelt use: always Drive intox or ride w/intox cdl bulk driver: No Do you feel safe at home: Yes Do you feel safe in your relationship?: Yes Additional Social history: unable to assess privately Exam Const General: cooperative HENMN Head: normocephalic and atraumatic Eyes Conjunctivae: normal conjunctivae Sclera: normal sclerae Resp Auscultation: clear to auscultation bilaterally, no rales, no rhonchi and no wheezes Cardio Rate: regular rate and not tachycardic Rhythm: regular rhythm GI Palpation: soft, not firm, no guarding, no masses, not rigid and nontender Back/Spine/Pelvis Back: No mass, No erythema and No warmth Thoracic/Lumbar Spine: No mass, paraspinal tenderness (left lumbar), lumbar spinal tenderness and straight leg raise positive Skin General skin exam: no rashes or lesions noted Neuro General: patient alert, patient awake, patient oriented x3 and tone normal Cognition: normal cognition Motor: strength 5/5 throughout (Bilateral lower extremities) Sensory Exam: no sensory deficits noted Other: No saddle anesthesia Extrem General: no edema Psych Appearance: grossly normal Mental Status: mental status grossly normal Course Vital Signs Vital signs: Vital Signs Temperature 36.6 C 08/04/23 12:03 Pulse 77 08/04/23 12:03 Respiratory Rate 16 08/04/23 12:03 Blood Pressure 176/78 H 08/04/23 12:03 Pulse Oximetry 100 08/04/23 12:03 Temperature 36.6 C 08/04/23 12:03 Temperature Source Skin 08/04/23 12:03 Pulse 77 08/04/23 12:03 Respiratory Rate 16 08/04/23 12:03 Respiratory Effort Normal 08/04/23 12:19 Blood Pressure 176/78 H 08/04/23 12:03 Blood Pressure Position Sitting 08/04/23 12:03 Pulse Oximetry 100 08/04/23 12:03 Oxygen Delivery Method Room Air 08/04/23 12:03 Oxygen Flow Rate 0 08/04/23 12:03 Pain Level 10 08/04/23 12:03 Comment taking tylenol and has used a patch heating pad not working 08/04/23 12:03
[2023-08-04] MEDS: diazePAM 2 MG TAB PO (12:38)
[2023-08-04] MEDS: Lidocaine 5% Patch 1 PATCH TP (12:39)
[2023-08-04] MEDS: Ketorolac 30 MG/ML VIAL IM (12:39)
--- NOTE | 2023-08-04 13:22 | DI.VRAD_ITS ---
PROCEDURE INFORMATION: Exam: CT Lumbar Spine Without Contrast Exam date and time: 08/04/2023 12:59 PM Age: 78 years old Clinical indication: Other: Pain, prior anterolisthesis TECHNIQUE: Imaging protocol: Computed tomography of the lumbar spine without contrast. COMPARISON: CR XR LUMBAR SPINE FLEX/EXT ONLY 02/21/2022 9:02 AM FINDINGS: Bones/joints: No acute fracture. Grade 1 anterolisthesis L4-L5. L1-L2: No significant disc bulge or herniation. No severe spinal canal stenosis. No significant neural foraminal narrowing. L2-L3: Small posterior disc herniation ligamentum flavum hypertrophy results in moderate-severe spinal stenosis. No significant neural foraminal narrowing. L3-L4: Small posterior disc herniation ligamentum flavum hypertrophy results in moderate-severe spinal stenosis. No significant neural foraminal narrowing. L4-L5: Small posterior disc herniation ligamentum flavum hypertrophy results in severe spinal stenosis. Mild bilateral neural foraminal narrowing. L5-S1: No significant disc bulge or herniation. No severe spinal canal stenosis. No significant neural foraminal narrowing. Adrenal glands: The adrenal glands are normal. Vasculature: The vasculature demonstrates diffuse mild atherosclerotic calcification. No abdominal aortic aneurysm. Soft tissues: Unremarkable. IMPRESSION: Multifactorial multilevel moderate-severe spinal stenosis worst at the L4-L5 level where there is grade 1 anterolisthesis. Dictated and Authenticated by: Eriberto Tuttle MD. Ordering:LETICIA Santo MD
[2023-08-04 14:05] VITALS: BP 170/62; PULSE 70; RESP 18; O2SAT 99
== END 2023-08-04 14:06 | disposition home or self-care (01) ==
PROVIDERS: Emergency Provider Student in an Organized Health Care Education/Training Program; PCP Family Medicine
DX: M54.50 Low back pain, unspecified (principal); M43.16 Spondylolisthesis, lumbar region; I10 Essential (primary) hypertension; Z79.899 Other long term (current) drug therapy; K21.9 Gastro-esophageal reflux disease without esophagitis; D50.9 Iron deficiency anemia, unspecified; Z88.0 Allergy status to penicillin; Z88.8 Allergy status to other drugs, medicaments and biological substances
CPT/HCPCS: 96372; 99285; 72131; 99284; J1885

== ENCOUNTER 2023-08-23 07:28 | Emergency (ER) | payer MEDICARE, SELFPAY ==
[2023-08-23] VITALS (33 sets, daily range): BP systolic 142–190; BP diastolic 43–116; PULSE 63–100; RESP 14–27; TEMP 36.8; O2SAT 97–100
--- NOTE | 2023-08-23 07:30 | RT.EKG_ITS ---
APPROVED REPORT Exam: Resting ECG Reason for Exam: Chest pain Patient Location: E HR:78 bpm ECG Measurements Heart Rate 78 AXIS ND 175 P 44 QRSd 83 QRS -17 QT 397 T 67 QTc 453 Conclusion Sinus rhythm...normal P axis, V-rate 60- 99 Probable LVH with secondary repol abnrm...multiple LVH criteria sinus rhythm, left axis, normal intervals
--- NOTE | 2023-08-23 07:44 | W.ED.GENAD ---
Discharge Plan Disposition Patient Disposition: Home Condition: Improving Discharge Details Chief Complaint: Chest Pain Clinical Impression: Chest pain Primary Care Provider: Nevaeh Morales ED Provider: Adam Rios Home Meds and New Rx's Prescriptions: No Action verapamil 180 mg tablet extended release 180 mg PO DAILY Qty: 90 1RF B-complex with vitamin C Capsule 1 cap PO DAILY Qty: 100 3RF losartan 50 mg tablet 50 mg PO DAILY Qty: 90 3RF ferrous fumarate 324 mg (106 mg iron) tablet 324 mg PO BID Qty: 60 3RF Hold Instructions: Patient Refused atorvastatin 20 mg tablet 20 mg PO QHS Qty: 90 3RF cholecalciferol (vitamin D3) 1,000 UNIT capsule 500 unit PO DAILY omeprazole 40 mg capsule,delayed release(DR/EC) 40 mg PO DAILY Qty: 90 1RF lidocaine 4 % adhesive patch,medicated 1 patch topical DAILY PRN (Reason: pain) Qty: 30 5RF Rx Instructions: Apply patch to most painful area, may leave on for up to 12 hrs calcium carbonate-vitamin D3 1 EACH tablet 1 tab PO DAILY Centrum Complete 1 EACH tablet 1 tab PO DAILY docusate sodium [Colace] 100 mg Capsule 100 mg PO DAILY Discharge Instructions Instructions: Chest Pain (ED) Additional Instructions: Please follow-up closely with your primary care physician. Please return to the emergency department for any worsening symptoms Medical Decision Making 78-year-old female history of hypertension, presents with anterior chest pain nonradiating that began approximately 6 AM this morning, nonexertional in nature, no history of coronary disease or thromboembolic disease, no nausea vomiting diaphoresis or shortness of breath. Patient has mild edema to bilateral ankles. Noted to be hypertense on arrival 190/116, afebrile normoxic nontoxic, EKG normal sinus rhythm left axis appearance of subtle ST depression in lead II and lateral leads is unchanged since 2021; must consider ACS versus symptomatic hypertension versus early CHF lower suspicion for PE or aortic pathology lower suspicion for pneumothorax or pneumonia given history and physical. Will obtain screening labs including serial troponins, chest x-ray, aspirin 324 chewable, close reassessment of symptoms disposition pending results and reassessment. 9: 20 patient resting comfortably no acute distress. Chest pain-free. Blood pressure greatly improved after hydralazine. Will obtain second troponin, close reassessment of symptoms likely home with primary and cardiology follow-up. 11: 18 patient resting comfortably no acute distress. 2 troponin negative. Patient will follow-up close with primary care physician Home care instructions and return precautions given HPI General Date/Time Provider Initiated Documentation: 08/23/23 07:31. HPI Narrative: 78-year-old female history of hypertension, presents with nonexertional anterior chest pain nonradiating that began around 6 AM this morning, denies nausea vomiting diaphoresis or shortness of breath, no history of coronary disease or thromboembolic disease. Recently started on verapamil for hypertension. Did not take her antihypertensives this morning. Related Data Home Medications Medication Instructions Recorded Confirmed calcium carbonate 600 mg-vitamin 1 tab PO DAILY 01/21/13 08/23/23 D3 5 mcg (200 unit) tablet multivitamin-ferrous 1 tab PO DAILY 01/21/13 08/23/23 fumarate-folic acid 18 mg-400 mcg tablet (Centrum Complete) cholecalciferol (vitamin D3) 25 500 unit PO DAILY 05/12/14 08/23/23 mcg (1,000 unit) capsule docusate sodium 100 mg capsule 100 mg PO DAILY 09/17/22 08/23/23 (Colace) atorvastatin 20 mg tablet 20 mg PO QHS #90 tabs 12/05/22 08/23/23 ferrous fumarate 324 mg (106 mg 324 mg PO BID #60 tabs 03/01/23 08/23/23 iron) tablet omeprazole 40 mg capsule,delayed 40 mg PO DAILY #90 caps 03/11/23 08/23/23 release lidocaine 4 % topical patch 1 patch topical DAILY PRN pain #30 08/06/23 08/23/23 ea B-complex with vitamin C 1 cap PO DAILY #100 caps 08/16/23 08/23/23 losartan 50 mg tablet 50 mg PO DAILY #90 tabs 08/16/23 08/23/23 verapamil 180 mg tablet,extended 180 mg PO DAILY #90 tabs 08/16/23 08/23/23 release Previous Rx's Medication Instructions Recorded atorvastatin 20 mg tablet 20 mg PO QHS #90 tabs 12/05/22 ferrous fumarate 324 mg (106 mg 324 mg PO BID #60 tabs 03/01/23 iron) tablet omeprazole 40 mg capsule,delayed 40 mg PO DAILY #90 caps 03/11/23 release lidocaine 4 % topical patch 1 patch topical DAILY PRN pain #30 08/06/23 ea B-complex with vitamin C 1 cap PO DAILY #100 caps 08/16/23 losartan 50 mg tablet 50 mg PO DAILY #90 tabs 08/16/23 verapamil 180 mg tablet,extended 180 mg PO DAILY #90 tabs 08/16/23 release Allergies Allergy/AdvReac Type Severity Reaction Status Date / Time Penicillins Allergy Intermediate Skin Rash Verified 08/23/23 07:36 buspirone HCl [From BuSpar] AdvReac Mild didn't Verified 08/23/23 07:36 feel good on it cetirizine AdvReac Mild didn't Verified 08/23/23 07:36 feel good on it sertraline AdvReac Mild blurry Verified 08/23/23 07:36 vision & tingling under tongue lisinopril AdvReac Unknown Verified 08/23/23 07:36 General Stated Complaint: Chest Pain MARIE: 2 Review of Systems Narrative: Review of Systems Constitutional: negative Eyes: negative ENT: negative Cardiovascular: Chest pain Respiratory: negative Gastrointestinal: negative : negative Musculoskeletal: negative Skin: negative Neurologic: negative Psych: negative PFSH All Active Problems (Updated 08/23/23 @ 11:19 by Adam Rios MD) Chest pain (Acute) Amplified musculoskeletal pain (Chronic) GERD (gastroesophageal reflux disease) (Chronic) Essential hypertension (Chronic) Depression (Chronic) intolerant to Citalopram,Bupropion,Sertraline,Prozac Osteopenia (Chronic) bone density scan Tubular adenoma of colon (Chronic) 09/20/14; DR. ANDRES; X 1- Repeat in 5 years 05/2019; DR. ANDRES; X 3-REPEAT IN 3 YEARS Insomnia (Chronic) JANETH (generalized anxiety disorder) (Chronic) Anterolisthesis of lumbar spine (Chronic) improved pain control with chiropractor Nocturnal leg cramps (Chronic) Dupuytren's contracture of left hand (Chronic) Class 2 obesity due to excess calories with body mass index (BMI) of 36.0 to 36.9 in adult (Chronic) Fasting hyperglycemia (Chronic) Fatty liver disease, nonalcoholic (Chronic) Mild. Noted on ultrasound 2021 Iron deficiency anemia (Chronic) Medical History (Updated 08/23/23 @ 11:19 by Adam Rios MD) History of broken leg ORIF lt leg History of cardiovascular stress test 2013, negative. Tear of left rotator cuff (11/19/17) Hyperlipidemia Headache Surgical History History of colonoscopy with polypectomy (~01/01/23) S/P laparoscopic cholecystectomy (~05/2022) History of surgery on arm ORIF lt arm History of esophagogastroduodenoscopy History of Surgical Procedure a. Tubal ligation many years ago, over 20 years ago. b. Bilateral cataracts. Family History Mother , AGE 72 Heart disease Myocardial infarction Depression Father , AGE 80 Heart disease Myocardial infarction Brother , AGE 79 Diabetes Essential hypertension Heart disease Hyperlipidemia Alcohol abuse Brother , AGE 77 Diabetes Essential hypertension Depression Heart disease Hyperlipidemia Brother , AGE 67 Heart disease Hyperlipidemia Daughter No problems noted. Social History (Updated 08/20/23 @ 09:09 by Randa Freitas) Smoking/Tobacco Use Status: Never Second Hand Exposure: Yes Smoking risk assessment performed?: Yes Alcohol Intake: former Drug use: Never Substance use type: does not use Adopted: No Caregiver/Support person: No Foster care: No Household members: spouse Housing: house Communication Needs: Corrective Lenses Do you need help understanding health information?: Always current occupation: retired Pets and animals: Yes Pets and animals: cat(s) Sexually active: Yes Do you think of yourself as: straight/heterosexual Current gender identity: female What is your relationship status?: How often do you talk on the phone with friends or family?: twice per week How often do you get together with friends or relatives?: once per week How often do you attend orthodox or nondenominational services?: decline to answer Do you belong to any clubs or organized social groups?: no Panel score (0-1 are the most socially isolated patients): 2 What type of physical activity do you participate in: walking Duration: 15-30 minutes/day Frequency: 1-2 times per week Marcela/Druze: No preference Special marcela needs: No Seatbelt use: always Helmet use: Yes Drive intox or ride w/intox motor vehicle escort driver: No Working smoke detector in home: Yes Carbon monox detector in home: No Firearms in home: No Do you feel safe at home: Yes Do you feel safe in your relationship?: Yes Victim of physical abuse: No Victim of emotional abuse: No Victim of sexual abuse: No Additional Social history: unable to assess privately Exam Narrative Exam Narrative: Physical Examination General: alert, awake, cooperative, resting comfortably, no acute distress HEENT: normocephalic, atraumatic; PERRL, EOM intact, conjunctiva normal; no nasal discharge; moist mucous membranes, oral and pharyngeal mucosa normal, tolerating secretions Neck: supple, trachea midline; full ROM Chest: normal to inspection Respiratory: normal respiratory effort, speaking in full sentences, clear to auscultation, no wheezing, rales or rhonchi Cardiac: regular rate, regular rhythm, S1S2 intact, no murmurs rubs or gallops GI: abdomen soft, non-tender, non-distended; no palpable mass or hepatosplenomegaly Skin: no lesions, rashes or trauma appreciated Neuro: AAOx3, normal speech, moving all extremities Extremities: Mild edema to bilateral ankles Psych: Appropriate mood and affect Course Vital Signs Vital signs: Vital Signs Temperature 36.8 C 08/23/23 07:32 Pulse 95 H 08/23/23 07:32 Respiratory Rate 20 08/23/23 07:32 Blood Pressure 190/116 H 08/23/23 07:32 Pulse Oximetry 98 08/23/23 07:32 Temperature 36.8 C 08/23/23 07:32 Temperature Source Oral 08/23/23 07:32 Pulse 95 H 08/23/23 07:32 Respiratory Rate 27 H 08/23/23 07:41 Respiratory Effort Normal 08/23/23 07:41 Respiratory Depth Normal 08/23/23 07:41 Respiratory Pattern Normal 08/23/23 07:41 Blood Pressure 190/116 H 08/23/23 07:32 Blood Pressure Position Supine 08/23/23 07:32 Pulse Oximetry 98 08/23/23 07:32 Oxygen Delivery Method Room Air 08/23/23 07:32 Oxygen Flow Rate 0 08/23/23 07:32 Pain Level 6 08/23/23 07:32
[2023-08-23] MEDS: Aspirin 81 MG CHEW 324 MG CH (07:46)
[2023-08-23 07:56] LABS: Abs Immature Grans 0.01 10^3/uL (0.0-0.06); Absolute Basophil Count 0.06 10^3/uL (0.0-0.2); Absolute Eosinophil Count 0.18 10^3/uL (0.0-0.7); Absolute Lymphocyte Count 2.81 10^3/uL (1.2-3.4); Absolute Monocyte Count 0.74 10^3/uL (0.1-0.8); Absolute Neutrophil Count 3.37 10^3/uL (1.2-6.7); Basophils % 0.8; Eosinophils % 2.5; HCT 35.8 % (36.0-46.0); HGB 11.7 g/dL (11.2-15.7); Immature Grans % 0.1; Lymphocytes % 39.2; MCH 30.5 pg (27.0-33.0); MCHC 32.7 % (32.0-36.0); MCV 94 fL (80-95); MPV 9.8 fL (8.0-11.0); Monocytes % 10.3; Neutrophils % 47.1; Platelet Count 205 10^3/uL (130-400); RBC 3.83 10^6/uL (3.93-5.22); RDW 13.6 % (11.7-14.6); RDW-SD 46.5 fL; WBC 7.17 10^3/uL (4.4-10.8)
[2023-08-23 08:06] LABS: PTT Activated 21.2 sec (23.6-32.8); Prothrombin Time 10.4 sec (9.1-11.1)
--- NOTE | 2023-08-23 08:15 | DI.RAD_ITS ---
Exam(s) XR CHEST 2V PA LATERAL EXAM: XR CHEST 2V PA LATERAL CLINICAL HISTORY: chest pain. TECHNIQUE: 2D digital imaging was performed. COMPARISON: No exams were available for comparison FINDINGS: 2 views: Heart size is normal. The mediastinum is not widened. Lungs are clear. No infiltrates nor pleural effusions. Evidence of previous rotator cuff surgery left shoulder. IMPRESSION: No acute pulmonary findings. DATA REPOSITORY: RADIATION DOSE DELIVERED:
[2023-08-23 08:17] LABS: ALT 56 U/L (14-59); AST 48 U/L (15-37); Albumin 3.5 g/dL (3.4-5.0); Alkaline Phosphatase 105 U/L (46-116); Anion Gap 9.1 mmol/L (3-11); BUN 20 mg/dL (7-18); Bilirubin, Total 0.6 mg/dL (0.2-1.0); CO2 26.9 mmol/L (21.0-32.0); Calcium 9.5 mg/dL (8.5-10.1); Chloride 105 mmol/L (98-107); Estimated GFR 58.02 (mL/min/1.73m2); Glucose 104 mg/dL (74-106); Magnesium 1.9 mg/dL (1.8-2.4); NT-proBNP 249 pg/mL (<300); Potassium 4.4 mmol/L (3.5-5.1); Sodium 141 mmol/L (136-145); TSH (W/Ref FT4) 3.46 uIU/mL (0.36-3.74); Total Protein 7.5 g/dL (6.4-8.2); Troponin I < 50 ng/L (<or=60)
[2023-08-23] MEDS: hydrALAZINE 20 MG/ML VIAL 10 MG IVP (08:20)
[2023-08-23 11:08] LABS: Troponin I < 50 ng/L (<or=60)
== END 2023-08-23 11:26 | disposition home or self-care (01) ==
PROVIDERS: Emergency Provider Emergency Medicine; PCP Family Medicine
DX: R07.89 Other chest pain (principal); R94.31 Abnormal electrocardiogram [ECG] [EKG]; I10 Essential (primary) hypertension; E78.5 Hyperlipidemia, unspecified; Z82.49 Family history of ischemic heart disease and other diseases of the circulatory system
CPT/HCPCS: 36415; 80053; 93005; 96374; 99283; 99284; 71046; 83735; 83880; 84443; 84484; 85025; 85610; 85730; 93010; J0360

== ENCOUNTER 2024-01-18 11:33 | Emergency (ER) | payer MEDICARE, SELFPAY ==
[2024-01-18 11:48] VITALS: BP 145/64; PULSE 80; RESP 16; TEMP 36.5; O2SAT 99
--- NOTE | 2024-01-18 14:17 | W.ED.GENAD ---
Discharge Plan Disposition Patient Disposition: Home Discharge Details Clinical Impression: Effusion of left knee, Acute pain of left knee Primary Care Provider: Enid Gandara ED Provider: Luis Carlos Rajput Home Meds and New Rx's Prescriptions: Continued ferrous fumarate 324 mg (106 mg iron) tablet 324 mg PO DAILY Hold Instructions: Patient Refused Rx Instructions: 45mg? losartan 50 mg tablet 50 mg PO DAILY Qty: 90 3RF lidocaine 4 % adhesive patch,medicated 1 patch topical DAILY PRN (Reason: pain) Qty: 30 5RF Rx Instructions: Apply patch to most painful area, may leave on for up to 12 hrs cholecalciferol (vitamin D3) 1,000 UNIT capsule 500 unit PO DAILY metoprolol succinate 50 mg tablet extended release 24 hr 50 mg PO DAILY Qty: 30 12RF atorvastatin 20 mg tablet 20 mg PO QHS Qty: 90 3RF calcium carbonate-vitamin D3 1 EACH tablet 1 tab PO DAILY Centrum Complete 1 EACH tablet 1 tab PO DAILY docusate sodium [Colace] 100 mg Capsule 100 mg PO DAILY Discharge Data Discharge Date/Time-TO BE ENTERED AT DEPARTURE: 01/18/24 19:13 HPI General Date/Time Provider Initiated Documentation: 01/18/24 12:00. HPI Narrative: MDM This is an overall very well-appearing normothermic and not tachycardic 78-year-old female with acute on chronic left knee pain 6 years status post ipsilateral knee replacement concerning for the possibility of osteoarthritis versus hardware malfunction. No significant swelling fevers nor erythema nor significant limitations in range of motion so my suspicion for septic joint is low. No rash to knee to suggest zoster. No pain out of proportion to suggest necrotizing soft tissue infection. Patient's left foot is warm well-perfused with 2+ PT and DP pulses so I am not concerned for critical limb ischemia so I do not feel that the patient requires CT angiogram with runoffs. No significant joint effusion no history of tick bites so my suspicion for Lyme arthritis is low. No history of gout no significant joint effusions my suspicion for gouty arthritis is low. Patient is able to straight leg raise so not concern for quadriceps tendon rupture. Patient has no history of significant trauma to her knee so I am not concerned for knee dislocation so I do not feel that the patient requires a lower extremity CTA. No calf tenderness to suggest DVT. In the absence of calf pain I am not suspicious for Achilles tendon rupture so I did not perform a Zendejas test. Will prescribe acetaminophen and obtain x-rays to assess for any acute osseous abnormalities or structural abnormalities associated with her hardware. Patient has no significant laxity in her knee on exam and my suspicion is low for tendon injury. If patient's x-rays are reassuring we will trial in the immobilizer as the patient has outpatient orthopedic follow-up. Will encourage weightbearing as tolerated based on the patient's age. If the knee immobilizer proves too cumbersome will advise patient obtain [id number] neoprene knee brace from the pharmacy. Patient her and I discussed return indications including any color changes in her foot any decreases in her range of motion any fevers or any significant swelling of her left knee. Given my low concern for fracture I did not feel that the patient required a CT scan to increase sensitivity for fracture. Patient understood her return indications. 6:30 PM I spoke with Dr. Bush and asked him to review the patient's imaging. He reported that there were no acute abnormalities and that he would help follow-up with the patient by ordering a bone scan and see the patient in clinic. He advised weightbearing as tolerated with a walker as needed. Patient was discharged with empiric trial of expectant outpatient management. Patient declined knee immobilizer. She reported having a walker at home. Chronic conditions affecting the care of the patient: Left knee pain History obtained from an outside historian: Patient's External record review: No [facility] EMR records Medications: Acetaminophen Social determinants of health affecting disposition: N/A Management discussed with: N/A Treatment/interventions considered: N/A Response to therapies provided: N/A HPI This is a 78-year-old female who is approximately 6 years status post a left knee replacement arrived to the emergency department in the setting of acute on chronic left knee pain. Patient notes that for the past 2 months she has had worsening left knee pain with ambulation. She has an appointment in approximately 3 weeks with the orthopedic team. She denies any specific trauma to her left knee. She has been taking scheduled ibuprofen 600 mg every 12. She denies any fevers or any history of gout. She reports that her left knee hurts her when she gets in and out of cars. She denies tick bites. No history of diabetes. She denies routine tobacco, ethanol, and illicits. She has not noticed any swelling to her left knee. She denies any recent fevers. She has had no numbness or tingling in her left foot. Exam General: Well-appearing in no acute distress speaking in complete sentences. Head: Normocephalic, atraumatic. Eye: Extraocular eye movements intact. No conjunctival injection. No scleral icterus. Ear, nose, mouth, throat: Grossly normal inspection. Normal voice, handling secretions normally. Neck: Trachea midline. Cardiovascular: Well-perfused distal extremities. Respiratory: Nonlabored respiration. Gastrointestinal: Nondistended abdomen. Musculoskeletal: Left lower extremity with well-healed anterior scar overlying the patient's left knee. Patient is able to straight leg raise on the left. She has a warm well-perfused left foot with 2+ PT and DP pulses. Cap refill less than 2 seconds in left toes. Patient is able to dorsi and plantarflex the left with 5 out of 5 strength. Patient is able to bend her left knee approximately 90 degrees. She has no calf nor thigh tenderness. No significant laxity on the left knee varus or valgus stress testing. Negative anterior posterior drawer tests. No hyperreflexia. No clonus. Skin: Normal for age and race, grossly normal temperature and turgor. No acute rash. Neurologic: Alert and appropriate, no apparent acute deficits. Psychiatric: Mood and manner are appropriate. Grooming and personal hygiene are appropriate. Related Data Home Medications Medication Instructions Recorded Confirmed calcium carbonate 600 mg-vitamin 1 tab PO DAILY 01/21/13 01/18/24 D3 5 mcg (200 unit) tablet multivitamin-ferrous 1 tab PO DAILY 01/21/13 01/18/24 fumarate-folic acid 18 mg-400 mcg tablet (Centrum Complete) cholecalciferol (vitamin D3) 25 500 unit PO DAILY 05/12/14 01/18/24 mcg (1,000 unit) capsule docusate sodium 100 mg capsule 100 mg PO DAILY 09/17/22 01/18/24 (Colace) metoprolol succinate 50 mg 50 mg PO DAILY #30 tabs 10/09/23 01/18/24 tablet,extended release 24 hr atorvastatin 20 mg tablet 20 mg PO QHS #90 tabs 12/23/23 01/18/24 ferrous fumarate 324 mg (106 mg 324 mg PO DAILY 01/04/24 01/18/24 iron) tablet lidocaine 4 % topical patch 1 patch topical DAILY PRN pain #30 01/04/24 01/18/24 ea losartan 50 mg tablet 50 mg PO DAILY #90 tabs 01/04/24 01/18/24 Previous Rx's Medication Instructions Recorded metoprolol succinate 50 mg 50 mg PO DAILY #30 tabs 10/09/23 tablet,extended release 24 hr atorvastatin 20 mg tablet 20 mg PO QHS #90 tabs 12/23/23 lidocaine 4 % topical patch 1 patch topical DAILY PRN pain #30 01/04/24 ea losartan 50 mg tablet 50 mg PO DAILY #90 tabs 01/04/24 Allergies Allergy/AdvReac Type Severity Reaction Status Date / Time Penicillins Allergy Intermediate Skin Rash Verified 01/18/24 11:51 verapamil AdvReac Severe Other (See Verified 01/18/24 11:51 Comment) buspirone HCl [From BuSpar] AdvReac Mild didn't Verified 01/18/24 11:51 feel good on it cetirizine AdvReac Mild didn't Verified 01/18/24 11:51 feel good on it sertraline AdvReac Mild blurry Verified 01/18/24 11:51 vision & tingling under tongue lisinopril AdvReac Unknown Other (See Verified 01/18/24 11:51 Comment) General Stated Complaint: Orthopedic MARIE: 4 Course Vital Signs Vital signs: Vital Signs Temperature 36.5 C 01/18/24 11:48 Pulse 80 01/18/24 11:48 Respiratory Rate 16 01/18/24 11:48 Blood Pressure 145/64 H 01/18/24 11:48 Pulse Oximetry 99 01/18/24 11:48 Temperature 36.5 C 01/18/24 11:48 Temperature Source Temporal Artery Scan 01/18/24 11:48 Pulse 80 01/18/24 11:48 Respiratory Rate 16 01/18/24 11:48 Respiratory Effort Normal 01/18/24 14:07 Blood Pressure 145/64 H 01/18/24 11:48 Pulse Oximetry 99 01/18/24 11:48 Oxygen Delivery Method Room Air 01/18/24 11:48 Oxygen Flow Rate 0 01/18/24 11:48 Pain Level 7 01/18/24 14:07 Medical Decision Making Quality:SDOH Health Related Social Needs: No Data to Display PFSH All Active Problems (Updated 01/18/24 @ 18:45 by Luis Carlos Rajput MD) Acute pain of left knee (Acute) Effusion of left knee (Acute) Knee pain, left anterior (Acute) pointing to mid/distal patellar region .. Amplified musculoskeletal pain (Chronic) GERD (gastroesophageal reflux disease) (Chronic) Essential hypertension (Chronic) Depression (Chronic) intolerant to Citalopram,Bupropion,Sertraline,Prozac Osteopenia (Chronic) bone density scan Tubular adenoma of colon (Chronic) 12/2022: 5 yr recall.. (09/20/14; 05/2019; DR. ANDRES X 3) Insomnia (Chronic) JANETH (generalized anxiety disorder) (Chronic) Anterolisthesis of lumbar spine (Chronic) improved pain control with chiropractor Nocturnal leg cramps (Chronic) Dupuytren's contracture of left hand (Chronic) Class 2 obesity due to excess calories with body mass index (BMI) of 36.0 to 36.9 in adult (Chronic) Fasting hyperglycemia (Chronic) Fibromyalgia syndrome (Chronic) Fatty liver disease, nonalcoholic (Chronic) Mild. Noted on ultrasound 2021 Iron deficiency anemia (Chronic) Medical History (Updated 01/18/24 @ 18:45 by Luis Carlos Rajput MD) History of broken leg ORIF lt leg History of cardiovascular stress test 2013, negative. Tear of left rotator cuff (11/19/17) Hyperlipidemia Headache Surgical History (Updated 01/14/24 @ 12:38 by Enid Gandara DO) History of total left knee replacement (TKR) per pt report (full knee replacement) History of colonoscopy with polypectomy (~01/01/23) S/P laparoscopic cholecystectomy (~05/2022) History of surgery on arm ORIF lt arm History of esophagogastroduodenoscopy History of Surgical Procedure a. Tubal ligation many years ago, over 20 years ago. b. Bilateral cataracts. Family History (Updated 01/14/24 @ 12:07 by Oma Olson RN) Mother , AGE 72 Heart disease Myocardial infarction Depression Father , AGE 80 Heart disease Myocardial infarction Brother , AGE 79 Diabetes Essential hypertension Heart disease Hyperlipidemia Alcohol abuse Brother , AGE 77 Diabetes Essential hypertension Depression Heart disease Hyperlipidemia Brother , AGE 67 Heart disease Hyperlipidemia Daughter No problems noted. Maternal Grandmother Breast cancer Social History (Updated 11/01/23 @ 14:06 by Nancy Chung) Smoking/Tobacco Use Status: Never Second Hand Exposure: No Smoking risk assessment performed?: Yes Alcohol Intake: never Drug use: Never Substance use type: does not use Adopted: No Caregiver/Support person: No Foster care: No Household members: spouse Housing: house Number of Children: 1 number of grandchildren: 2 Communication Needs: Hard of Hearing and Corrective Lenses Education Level: high school Do you need help understanding health information?: Often current occupation: retired Pets and animals: Yes (1 cat named Gabi) Pets and animals: cat(s) Sexually active: No Do you think of yourself as: straight/heterosexual Current gender identity: female What is your relationship status?: How often do you talk on the phone with friends or family?: three or more times per week How often do you get together with friends or relatives?: once per week How often do you attend synagogue or tenriism services?: decline to answer Do you belong to any clubs or organized social groups?: no Panel score (0-1 are the most socially isolated patients): 2 What type of physical activity do you participate in: none and walking Marcela/Oriental Orthodox: Restorationism Special marcela needs: No Seatbelt use: always Helmet use: No Drive intox or ride w/intox route driver salesperson: No Working smoke detector in home: Yes Carbon monox detector in home: No Firearms in home: No Do you feel safe at home: Yes Do you feel safe in your relationship?: Yes Victim of physical abuse: No Victim of emotional abuse: No Victim of sexual abuse: No Additional Social history: unable to assess privately
[2024-01-18] MEDS: Acetaminophen 500 MG TAB 1000 MG PO (14:28)
[2024-01-18 15:45] VITALS: BP 165/90; PULSE 61; RESP 16; O2SAT 94
--- NOTE | 2024-01-18 16:05 | DI.VRAD_ITS ---
PROCEDURE INFORMATION: Exam: XR Left Knee Exam date and time: 01/18/2024 3:19 PM Age: 78 years old Clinical indication: Pain; Left; Prior surgery; Surgery date: 6+ months; Surgery type: Knee replacement TECHNIQUE: Imaging protocol: Radiologic exam of the left knee. Views: 4 or more views. COMPARISON: CR XR KNEE LT 3V AP,LAT,DORIS 12/11/2019 11:45 AM FINDINGS: Tubes, catheters and devices: Three part prosthesis again seen. Bones/joints: Bone mineralization appears decreased. There is a moderate to large joint effusion. Bony and prosthetic alignment remains unchanged compared to previous study. There may be a posterior lucency in the distal femur versus artifact of positioning appreciated on the lateral view. It lies just superior to the prosthesis. Soft tissues: Normal. Vasculature: Vascular calcifications are noted. IMPRESSION: Joint effusion. Possible interval lucency development in the distal femur versus positional artifact. Dictated and Authenticated by: Susan Terry MD. Ordering:TIFFANY Aldridge MD
--- NOTE | 2024-01-18 16:45 | DI.CT_ITS ---
Exam(s) XR KNEE LT 4V AP,LAT,DORIS,PAT CT LOWER EXTREMITY LT WO EXAM: CT LOWER EXTREMITY LT WO and XR knee LT for V CLINICAL HISTORY: Abnormal x-ray left knee pain. TECHNIQUE: Imaging Protocol: Axial computed tomography images with coronal and sagittal reformatted images were created and reviewed. Four views of the left knee were obtained. COMPARISON: CR XR KNEE LT 3V AP,LAT,DORIS from 12/11/2019 FINDINGS: XR knee LT four view: The patient has a left total knee replacement. The orthopedic hardware appears in good position. No acute fracture or dislocation is identified. There is a moderately large join t effusion. Vascular calcifications are seen in the soft tissues. Bones: There is artifact from the patient's left total knee replacement. The osseous structures and articular surfaces are intact. Bony alignment is satisfactory. No cellulitic or osteomyelitic ruelas ges are identified. Cystic changes are again seen posteriorly in the distal femur on the lateral vie w. This is present on the x-ray of the knee from 12/11/2019. Soft Tissues: Vascular calcifications are present. IMPRESSION: 1. No definite acute fracture or dislocation. 2. Moderately large joint effusion. 3. Intact left total knee replacement. RADIATION DOSE DELIVERED: 284.5mGy.cm Total DLP 284.5mGy.cm Total DLP DATA REPOSITORY: All CT scans at this facility are submitted to the National Radiology Data Registry (NRDR) Dose Index Registry (DIR) with the [employer] (ACR). RADIATION OPTIMIZATION: All CT scans at this facility use at least one of these dose optimization te chniques: automated exposure control; mA and/or kV adjustment per patient size (includes targeted exa ms where dose is matched to clinical indication); or iterative reconstruction.
--- NOTE | 2024-01-18 18:00 | DI.VRAD_ITS ---
PROCEDURE INFORMATION: Exam: CT Left Lower Extremity Without Contrast, Knee Exam date and time: 01/18/2024 4:53 PM Age: 78 years old Clinical indication: Other: Abnormal x-ray left knee pain; Prior surgery; Surgery date: 6+ months; Surgery type: Knee replacement TECHNIQUE: Imaging protocol: CT of the left lower extremity without contrast was performed. Exam focused on the knee. COMPARISON: CR XR KNEE LT 4V AP,LAT,DORIS,PAT 01/18/2024 3:19 PM FINDINGS: Bones/joints: There is significant beam hardening artifact from three-part knee prosthesis. Moderate-sized joint effusion. The lucency appreciated on plain film exam appears to correspond to an area on CT assessment best appreciated on sagittal evaluation series 5, images 53-58. This is seen at the level of the distal medial femoral condyle just above the prosthesis. There is some subtle calcification associated with the periphery of the cyst and some cortical disruption. This can be partially appreciated on axial series 2, images 45-48. It is not well seen on coronal assessment. Soft tissues: Normal. IMPRESSION: 1. Joint effusion. 2. Cystic change posterior medial femoral condyle as described above. Dictated and Authenticated by: Susan Terry MD. Ordering:TIFFANY Aldridge MD
[2024-01-18 18:26] VITALS: BP 135/84; PULSE 65; RESP 18; TEMP 36.4; O2SAT 97
== END 2024-01-18 19:13 | disposition home or self-care (01) ==
PROVIDERS: Emergency Provider Emergency Medicine; PCP Student in an Organized Health Care Education/Training Program
DX: M25.542 Pain in joints of left hand (principal); M25.462 Effusion, left knee; I10 Essential (primary) hypertension; Z96.652 Presence of left artificial knee joint
CPT/HCPCS: 99284; 73564; 73700

== ENCOUNTER → 2024-02-05 04:37 | Outpatient (CLI) | payer MEDICARE, SELFPAY ==
--- NOTE | 2024-02-05 07:00 | DI.NM_ITS ---
Exam(s) NM BONE SCAN 3 PHASE EXAM: NM BONE SCAN 3 PHASE CLINICAL HISTORY: ACUTE PAIN LT KNEE, ?LOOSENING OF PROSTHESIS,M25.562,T84.84XA. TECHNIQUE: Injected Dose: 26.7 mCi Tc-99m MDP COMPARISON: CT CT LOWER EXTREMITY LT WO from 01/18/2024 FINDINGS: Perfusion: Immediate post injected images reveal no significant asymmetry in region of the knees. Blood Pool: Increased uptake subjacent to both sides of the tibial component of the prosthesis as wel l as around the femoral component. Delayed: Persistent abnormal radiopharmaceutical uptake subjacent to both sides the tibial plateau co mponent as well as around the femoral component. IMPRESSION: 1. Findings are consistent with loosening of the components of the prosthesis. DATA REPOSITORY:
== END ==
PROVIDERS: PCP Student in an Organized Health Care Education/Training Program; Visit Provider Student in an Organized Health Care Education/Training Program
DX: T84.84XA Pain due to internal orthopedic prosthetic devices, implants and grafts, initial encounter; T84.033A Mechanical loosening of internal left knee prosthetic joint, initial encounter
CPT/HCPCS: 78315

== ENCOUNTER → 2024-02-10 14:52 | Outpatient (BNVA) | payer MEDICARE, SELFPAY | PROVIDERS: PCP Student in an Organized Health Care Education/Training Program; Referring Provider Student in an Organized Health Care Education/Training Program; Visit Provider Student in an Organized Health Care Education/Training Program | DX: T84.84XA Pain due to internal orthopedic prosthetic devices, implants and grafts, initial encounter (principal); Z96.652 Presence of left artificial knee joint | CPT/HCPCS: 99215 ==

== ENCOUNTER 2024-02-13 01:19 | Outpatient (CLI) | payer MEDICARE, SELFPAY ==
[2024-02-13 11:00] LABS: HGB 12.4 g/dL (11.2-15.7); MCH 31.9 pg (27.0-33.0); MCHC 32.6 % (32.0-36.0); MCV 98 fL (80-95); MPV 9.3 fL (8.0-11.0); Platelet Count 203 10^3/uL (130-400); RBC 3.89 10^6/uL (3.93-5.22); RDW 13.8 % (11.7-14.6); RDW-SD 49.5 fL; WBC 7.01 10^3/uL (4.4-10.8)
[2024-02-13 11:10] LABS: ESR 12 mm/hr (0-30)
[2024-02-13 11:14] LABS: Hemoglobin A1C 6.3 % (<5.7)
[2024-02-13 12:22] LABS: Anion Gap 9.4 mmol/L (3-11); BUN 38 mg/dL (7-18); CO2 27.6 mmol/L (21.0-32.0); CREATININE 1.1 mg/dL (0.55-1.02); Calcium 9.4 mg/dL (8.5-10.1); Chloride 104 mmol/L (98-107); Estimated GFR 51.43 (mL/min/1.73m2); Glucose 97 mg/dL (74-106); Potassium 4.4 mmol/L (3.5-5.1); Sodium 141 mmol/L (136-145)
[2024-02-13 12:25] LABS: C-Reactive Protein < 0.50 mg/dL (<or=0.5)
== END 2024-02-13 01:20 | disposition home or self-care (01) ==
LOC: LBO 01:20
PROVIDERS: PCP Student in an Organized Health Care Education/Training Program; Visit Provider Student in an Organized Health Care Education/Training Program
DX: T84.84XA Pain due to internal orthopedic prosthetic devices, implants and grafts, initial encounter (principal); E11.9 Type 2 diabetes mellitus without complications; Z96.652 Presence of left artificial knee joint
CPT/HCPCS: 36415; 80048; 85027; 85652; 83036; 86140

== ENCOUNTER → 2024-02-19 04:18 | Outpatient (CLI) | payer MEDICARE, SELFPAY ==
--- NOTE | 2024-02-19 12:26 | DI.MAMMO_ITS ---
Exam(s) MAMMO SCREENING EXAM: MAMMO SCREENING CLINICAL HISTORY: screening, Z12.39 TECHNIQUE: Bilateral full field digital CC and MLO mammographic images were obtained with 3D tomosyn thesis and utilizing computer aided detection (CAD). COMPARISON: Available for comparison. FINDINGS: Masses/Architectural Distortion: There are multiple bilateral breast nodules. No suspicious nodules are seen. No areas of architectural distortion are seen. Microcalcifications: No suspicious pleomorphic-type are seen. Skin Thickening/Nipple Retraction: None. IMPRESSION: 1. No significant interval change with no specific features of malignancy noted. 2. Unless there is more urgent need, screening mammography is recommended, as per [employer] guidelines. BI-RADS Category 2 - Benign Findings Breast Density - Category B - Scattered areas of fibroglandular density Breast density category C or D implies that the patient has dense breast tissue. Dense breast tissue is very common and is not abnormal but dense breast tissue can make it harder to find cancer on a ma mmogram. Also, dense breast tissue may increase their breast cancer risk. This information about the result of the mammogram report was provided to the patient to raise their awareness. Use this report when you speak with the patient about their risks for breast cancer, which includes their family hist ory. At that time, you may recommend for more screening tests (Ultrasound or MRI) as they might be us eful based on their risk. A negative radiographic report should not delay biopsy if a dominant or clinically suspicious mass is present. Up to ten percent of cancers are not identified on mammography. A negative report may reinforce clinical impression. Adenosis and dense breasts may obscure an underlying neoplasm. False positive reports average 6 to 10%. Patient will receive a letter notifying them of these results.
== END ==
PROVIDERS: PCP Student in an Organized Health Care Education/Training Program; Visit Provider Student in an Organized Health Care Education/Training Program
DX: Z12.31 Encounter for screening mammogram for malignant neoplasm of breast (principal)
CPT/HCPCS: 77063; 77067

== ENCOUNTER → 2024-03-23 09:08 | Outpatient (BNVA) | payer MEDICARE, SELFPAY | PROVIDERS: PCP Student in an Organized Health Care Education/Training Program; Referring Provider Student in an Organized Health Care Education/Training Program; Visit Provider Physical Therapy Assistant | DX: K21.9 Gastro-esophageal reflux disease without esophagitis (principal) | CPT/HCPCS: 99213 ==

== ENCOUNTER 2024-05-06 10:34 | Emergency (ER) | payer MEDICARE, SELFPAY ==
[2024-05-06] VITALS (36 sets, daily range): BP systolic 140–215; BP diastolic 23–182; PULSE 54–154; RESP 12–24; TEMP 36.6; O2SAT 92–100
--- NOTE | 2024-05-06 10:30 | RT.EKG_ITS ---
APPROVED REPORT Exam: Resting ECG Reason for Exam: weakness Patient Location: E HR:63 bpm ECG Measurements Heart Rate 63 AXIS DE 189 P 45 QRSd 84 QRS -23 QT 453 T 12 QTc 462 Conclusion Sinus rhythm...normal P axis, V-rate 60- 99 Low voltage, precordial leads...precordial leads <1.0mV Probable LVH with secondary repol abnrm...multiple LVH criteria
--- OUTSIDE RECORDS SUMMARY | 2024-05-06 10:46 | XMS_ITS | Encounter Summary ---
Author Organization [facility] Address [address] [place] [address] Care Team Providers Care Transliterator Name Role Phone Maria L Ewing Primary Care Provider [phone] Encounter Details Date Type Department Care Team (Late st Contact Info) Description 01/02/2010 Results Only [facility] Laboratory Services - [facility] ([facility] [address] [place], [place] [address] Maria L Ewing FNP [address] [place], [place] [address] Social History Tobacco Use Types Packs/Day Years Used Date Smoking Tobacco: Never Assessed Sex and Gender Information Value Date Recorded Sex Assigned at Not on file Gender Identity Not on file Sexual Orientation Not on file documented as of this encounter Plan of Treatment Not on file documented as of this encounter Procedures Procedure Name Priority Date/Time Associated Diagnosis Comments CYTOPATHOLOGY Routine 01/02/2010 0:00 EDT documented in this encounter Results * CYTOPATHOLOGY (01/02/2010 0:00 EDT) Pathology Report: CYTOPATHOLOGY REPORT ? Reports generated via electronic interface contain original data; ? however they are lacking the format of the original report. ? Caution should be taken when reading/interpreti ng unformatted reports. ? Name: ? MALISSA LANDEROS ? Accession #: ? [id number] ? : ? 1945 (Age: 64) ??F ?Collect Date: ? 01/02/2010 ? Location: ? [facility] ? Receive Date: ? 01/04/2010 ? Provider: ?MARIA L PUENTE ? Copy to: ? Specimen/Source: ?Pap Test, Endocervix, ThinPrep Imaging System with ? manual evaluation ? Last Menstrual Period: ? FARA ? Other: ? HPVA - HPV testing requested if ASC-US on the current ThinPrep Pap test. ? SPECIMEN ADEQUACY ? Satisfactory for Evaluation ? - assessment of transformation zone component not applicable ( e.g. atrophy, ? vaginal sample, hysterectomy) ? GENERAL CATEGORIZATION ? Negative for Intraepithelial Lesion or Malignancy ? Document reviewed and electronically signed by: ? Mirta Aceves, SCT(ASCP) ? Report Date: ??01/09/2010 17:03 ? End of Report ? TED VANESSA 01/02/2010 01/04/2010 Maria L PUENTE PATHOLOGY ORDERABLES Performing Organization Address City/State/[facility] Co de Phone Number TED VANESSA [address] [place] [address] documented in this encounter Visit Diagnoses Not on filedocumented in this encounter Care Teams Transliterator Relationship Specialty Start Date End Date Maria L Ewing FNP [address] [place] [address] PCP - General 07/13/09 09/21/14 documented as of this encounter
--- OUTSIDE RECORDS SUMMARY | 2024-05-06 10:46 | XMS_ITS | Referral Summary ---
Author Organization [facility] Address [address] [place] [address] Care Team Providers Care Inseam Leveler Name Role Phone Nevaeh Morales MD Primary Care Provider Social History Tobacco Use Types Packs/Day Years Used Date Smoking Tobacco: Never Assessed Interpersonal Safety Answer Date Record ed Physically Hurt Never 05/08/2020 Verbally Threaten Not on file 05/08/2020 Sex and Gender Information Value Date Recorded Sex Assigned at Not on file Gender Identity Not on file Sexual Orientation Not on file Plan of Treatment Not on file Care Teams Inseam Leveler Relationship Specialty Start Date End Date Nevaeh Morales MD [address] [place] [address],[address] [place] [address] PCP - General Family Medicine - Primary Care 05/07/22
--- OUTSIDE RECORDS SUMMARY | 2024-05-06 10:46 | XMS_ITS | Encounter Summary ---
Author Organization [facility] Address [address] [place] [address] Care Team Providers Care Pharmaceutical Worker Name Role Phone Nevaeh Morales MD Primary Care Provider Encounter Details Date Type Department Care Team (Late st Contact Info) Description 01/01/2023 Lab Requisition [facility] Pathology & Laboratory Medicine - [address] [address] Eder Dhaliwal MD [address] [place] [phone] Encounter for other general examination Social History Tobacco Use Types Packs/Day Years [...] Procedure Name Priority Date/Time Associated Diagnosis Comments SURGICAL PATHOLOGY Today 01/01/2023 9: 16 EDT Encounter for other general examination documented in this encounter Results * SURGICAL PATHOLOGY (01/01/2023 9:16 EDT) Note to Patient The following pathology results have been interpreted by your pathologist and may be available to you before your health provider has had the opportunity to review them. Please allow time for your provider to receive these results and explore management options, if applicable. 01/02/2023 10:58 EDT [facility] Final Diagnosis A. COLON, TRANSVERSE, POLYP, BIOPSY: - Tubular adenoma. B. COLON, TRANSVERSE, POLYP, BIOPSY: - Tiny fragments of blood and rare crushed cells; specimen inadequate for histological evaluation. C. COLON, DESCENDING, POLYPS, BIOPSY: - Minute fragments of cauterized epithelium; specimen inadequate for histological evaluation. 01/02/2023 10:58 [facility] Attestation By the signature below, the attending physician certifies that they have 1) personally conducted a gross and/or microscopic examination of the described specimen(s), and/or personally interpreted the results of laboratory testing of the described specimen(s), and 2) personally rendered or confirmed the above diagnosis. 01/02/2023 10:58 [facility] at 1058 Clinical History Anemia, diverticulosis 01/02/2023 10:58 [facility] Gross Description A. Received in formalin labelled with proper patient identification (initials T, E) and polyp in transverse colon is a light adame tissue measuring 0.2 x 0.1 x 0.1 cm. Submitted intact in A1. B. Received in formalin labelled with proper patient identification (initials T, E) and transverse colon polyp x1 is a friable black tissue measuring 0.3 x 0.2 x 0.1 cm. Submitted intact in B1. C. Received in formalin labelled with proper patient identification (initials T, E) and descending polyp x2 are 2 minute adame-white tissue fragments measuring less than 0.1 cm cm in diameter and 0.2 x 0.1 x 0.1 cm. Submitted intact in C1. Specimen LO KATZ(ASCP) 01/01/2023 19:49 01/02/2023 10:58 [facility] Performing Lab [facility] 01/02/2023 10:58 [facility] Scanned Images 01/02/2023 10:58 [facility] Tissue DESCENDING COLON STRUCTURE / Unknown 01/01/2023 9:16 EDT 01/01/2023 17:40 EDT Tissue specimen (specimen) TRANSVERSE COLON STRUCTURE / Unknown 01/01/2023 9:16 EDT 01/01/2023 17:40 EDT Tissue specimen (specimen) DESCENDING COLON STRUCTURE / Unknown 01/01/2023 9:16 EDT 01/01/2023 17:40 EDT Eder Dhaliwal MD PATHOLOGY ORDERABLES [facility] [address] [place] [address] documented in this encounter Visit Diagnoses Diagnosis Encounter for other general examination documented in this encounter Care Teams Pharmaceutical Worker Relationship Specialty Start Date End Date Nevaeh Morales MD [address] [place] [address] [address] [place] [address] PCP - General Family Medicine - Primary Care 05/07/22 documented as of this encounter
--- OUTSIDE RECORDS SUMMARY | 2024-05-06 10:46 | XMS_ITS | Encounter Summary ---
Author Organization [facility] Address [address] [place] [address] Care Team Providers Care Limb Driver Name Role Phone Dorothy Ewing CUTTER [employer]EDS Primary Care Provider [phone] Encounter Details Date Type Department Care Team (Late st Contact Info) Description 09/20/2014 Results Only [facility] [phone] Tian Andres MD [address] [place] [address] [place] [address] Social History Tobacco Use Types Packs/Day Years Used Date Smoking Tobacco: Never Assessed Sex and Gender Information Value Date Recorded Sex Assigned at Not on file Gender Identity Not on file Sexual Orientation Not on file documented as of this encounter Plan of Treatment Not on file documented as of this encounter Procedures Procedure Name Priority Date/Time Associated Diagnosis Comments SURGICAL PATHOLOGY Routine 09/20/2014 17 :31 EST documented in this encounter Results * SURGICAL PATHOLOGY (09/20/2014 17:31 EST) Pathology Report: SURGICAL PATHOLOGY REPORT Reports generated via electronic interface contain original data; however they are lacking the format of the original report. Caution should be taken when reading/interpret ing unformatted reports. Name: ? MALISSA LANDEROS ? Accession #: ? [id number] ? : ? 1945 (Age: 69) ??F ? Collect Date: ? 09/20/2014 ? Location: ? [facility] ? Receive Date: ? 09/20/2014 ? Provider: TIAN ANDRES MD Copy to: JOSE BORJAS MD ? Final Pathologic Diagnosis: COLON, CECUM, POLYP, BIOPSY: - ??Tubular adenoma (1); no high-grade dysplasia. Document reviewed and electronically signed by: Clay Gomez MD Report ??Date: 09/22/2014 08:00 By the signature above, the attending physician certifies that he/she has personally conducted a gross and/or microscopic examination of the described specimens and rendered or confirmed the above diagnosis. Specimen(s) Received: Cecal polyp Clinical History: Colorectal screen Gross Description: ? Received in formalin labelled with proper patient identification (initials T, E) and cecal polyp is a single pink-adame polypoid tissue (0.4 x 0.2 x 0.2 cm). Submitted intact in 1. Daya Franck 09/20/2014 05:56 PM End of Report [facility] 09/20/2014 17:3 1 EST 09/20/2014 17:31 EST Tian Andres MD PATHOLOGY [facility] [address] [place] [address] documented in this encounter Visit Diagnoses Not on filedocumented in this encounter Care Teams Limb Driver Relationship Specialty Start Date End Date Dorothy Ewing FNP [address] [place] [address] PCP - General 07/13/09 09/21/14 documented as of this encounter
--- OUTSIDE RECORDS SUMMARY | 2024-05-06 10:46 | XMS_ITS | Encounter Summary ---
Author Organization [facility] Address [facility] [place] [address] Care Team Providers Care Inside Finisher Name Role Phone OleEnid rosen Miguel CHOE Primary Care Provider [phone] Reason for Referral * Consultation (Routine) - Authorized Specialty Diagnoses / Procedures Referred By Alissa murphy Referred To Contact Orthopaedics Diagnoses Left knee pain, unspecified chronicity John Bush MD [address] [place] [address] Farzad Carrasquillo MD [facility] [place] [address] Referral ID Status Reason Start Date Expiration Date Visits Requested Visits Authorized [id number] Authorized Consult, Test & Treat PCP Updated and/or Approved 02/21/2024 02/20/2025 6 6 Encounter Details Date Type Department Care Team (Latest Contact Info) Description 02/21/2024 Transcribe Orders eDH Incoming Referrals [phone] John Bush MD [address] [place], [place] [id number] Left knee pain, unspecified chronicity Social History Tobacco Use Types Packs/Day Years Used Date Smoking Tobacco: Never Assessed Sex and Gender Information Value Date Recorded Sex Assigned at Not on file Gender Identity Not on file Sexual Orientation Not on file documented as of this encounter Plan of Treatment Upcoming Encounters Date Type Department Care Team (Late st Contact Info) Description 06/15/2024 8:50 AM EDT Office [place] [address] Farzad Carrasquillo MD [facility] [place] [address] Scheduled Referrals Name Type Priority Associated Diagnoses Orde r Schedule Referral to Orthopaedics Outpatient Referral Routine Left knee pain, unspecified chronicity Ordered: 02/21/2024 documented as of this encounter Visit Diagnoses Diagnosis Left knee pain, unspecified chronicity documented in this encounter Care Teams Inside Finisher Relationship Specialty Start Date End Date Enid Gandara DO [address] [place] [address] PCP - General Family Medicine 02/21/24 documented as of this encounter
--- OUTSIDE RECORDS SUMMARY | 2024-05-06 10:46 | XMS_ITS | Encounter Summary ---
Author Organization [facility] Address [facility] [place] [address] Care Team Providers Care Timber Supervisor Name Role Phone Unavailable Primary Care Provider Unavailabl e Encounter Details Date Type Department Care Team (Late st Contact Info) Description 01/18/2024 12:05 AM EDT Ancillary Procedure [place] [address] Luis Carlos Rajput MD [address] [place] [address] [place] [address] Social History Tobacco Use Types Packs/Day Years [...] 8:50 AM EDT Office [place] [address] Farzad Carrasquillo MD [facility] [place] [address] documented as of this encounter Procedures Procedure Name Priority Date/Time Associated Diagnosis Comments FILM LIBRARY STORAGE ONLY CT LOWER EXTREMITY Routine 01/18/2024 12:05 AM EDT documented in this encounter Results * Film Library- Storage Only CT Lower Extremity (01/18/2024 12:05 AM EDT) Narrative [facility] - 02/11/2024 10:55 AM EDT This exam is auto-finalizing. It's purpose is for storage only. Luis Carlos Rajput MD [facility] FILM LIBRARY ORD ERABLES [facility] documented in this encounter Visit Diagnoses Not on filedocumented in this encounter
--- OUTSIDE RECORDS SUMMARY | 2024-05-06 10:46 | XMS_ITS | Clinical Summary ---
Author Organization [facility] Address [address] [place] [address] Care Team Providers Care Respiratory Care Specialist Name Role Phone Nevaeh Morales MD Primary [...] Orientation Not on file Plan of Treatment Health Maintenance Due Date Last Done Comments Hepatitis C Screen 1945 RSV Immunization ( o r 60+ Years) (1 - 1-dose 60+ series) 2006 Fall Risk Screening 2011 COVID-19 Vaccine (2022- season) 2023 Care Teams Respiratory Care Specialist Relationship Specialty Start Date End Date Nevaeh Morales MD [address] [place] [address],[address] [place] [address] PCP - General Family Medicine - Primary Care 05/07/22
--- OUTSIDE RECORDS SUMMARY | 2024-05-06 10:46 | XMS_ITS | Encounter Summary ---
Author Organization [facility] Address [address] [place] [address] Care Team Providers Care Atmospheric Physics Professor Name Role Phone Maria L Ewing Primary Care Provider [phone] Unknown, Provider Primary Care Provider [phone] Encounter Details Date Type Department Care Team (Late st Contact Info) Description 10/08/2006 Results Only [facility] - [facility] conversion [address] [place] [address] Maria L Ewing FNP [address] [place], [place] [address] Social History Tobacco Use Types Packs/Day Years Used Date Smoking Tobacco: Never Assessed Sex and Gender Information Value Date Recorded Sex Assigned at Not on file Gender Identity Not on file Sexual Orientation Not on file documented as of this encounter Plan of Treatment Not on file documented as of this encounter Procedures Procedure Name Priority Date/Time Associated Diagnosis Comments CYTOPATHOLOGY Routine 10/08/2006 0:00 EST documented in this encounter Results * CYTOPATHOLOGY (10/08/2006 0:00 EST) Pathology Report: CYTOPATHOLOGY REPORT Reports generated via electronic interface contain original data; however they are lacking the format of the original report. Caution should be taken when reading/interpreti ng unformatted reports. Name: ? MALISSA LANDEROS ? Accession #: ? [id number] : ? 1945 (Age: 61) ??F ?Collect Date: ? 10/08/2006 Location: ? [facility] ? Receive Date: ? 10/10/2006 Provider: ?MARIA L EWING FINISHING MANAGER Copy to: ? Specimen/Source: ?ThinPrep Pap Test, Cervix/Endocervix, processed on [employer] ThinPrep Imaging System, with manual evaluation Last Menstrual Period: ? Many Years Ago Other: ? Additional clinical information: Cervical Polyp HPVA - HPV testing requested if ASC-US on the current ThinPrep Pap test. ? SPECIMEN ADEQUACY ? Satisfactory for Evaluation - assessment of transformation zone component not applicable ( e.g. atrophy, vaginal sample, hysterectomy) GENERAL CATEGORIZATION ? Negative for Intraepithelial Lesion or Malignancy ? Document reviewed and electronically signed by: ? Saba Serra [facility](ASCP) ? Report Date: ??10/11/2006 11:22 End of Report [facility] 10/08/2006 10/10/2006 Maria L PUENTE PATHOLOGY ORDERABLES Performing Organization Address City/State/[facility] Co de Phone Number [facility] [address] [place] [address] documented in this encounter Visit Diagnoses Not on filedocumented in this encounter Care Teams Atmospheric Physics Professor Relationship Specialty Start Date End Date Maria L Ewing FNP [address] [place] [address] PCP - General 07/13/09 09/21/14 Unknown, Provider, PCP - General 04/12/09 07/12/09 documented as of this encounter
--- OUTSIDE RECORDS SUMMARY | 2024-05-06 10:46 | XMS_ITS | Encounter Summary ---
Author Organization [facility] Address [address] [place] [address] Care Team Providers Care Tool Repairer Bench Name Role Phone Maria L Ewing Primary Care Provider [phone] Unknown, Provider Primary Care Provider [phone] Encounter Details Date Type Department Care Team (Late st Contact Info) Description 12/22/[address] [facility] - Maple conversion [address] [place] [address] Maria L Ewing FNP [address] [place], [place] [address] Social History Tobacco Use Types Packs/Day Years Used Date Smoking Tobacco: Never Assessed Sex and Gender Information Value Date Recorded Sex Assigned at Not on file Gender Identity Not on file Sexual Orientation Not on file documented as of this encounter Plan of Treatment Not on file documented as of this encounter Procedures Procedure Name Priority Date/Time Associated Diagnosis Comments CYTOPATHOLOGY Routine 12/22/2007 0:00 EDT documented in this encounter Results * CYTOPATHOLOGY (12/22/2007 0:00 EDT) Pathology Report: CYTOPATHOLOGY REPORT Reports generated via electronic interface contain original data; however they are lacking the format of the original report. Caution should be taken when reading/interpreti ng unformatted reports. Name: ? MALISSA LANDEROS ? Accession #: ? [id number] : ? 1945 (Age: 62) ??F ?Collect Date: ? 12/22/2007 Location: ? [facility] ? Receive Date: ? 12/23/2007 Provider: ?MARIA L EWING AUTOTRANSFUSIONIST Copy to: ? Specimen/Source: ?ThinPrep Pap Test, Cervix/Endocervix, processed on [employer] [facility] [employer] ThinPrep Imaging System, with manual evaluation Last Menstrual Period: ? FARA Other: ? HPVA - HPV testing requested if ASC-US on the current ThinPrep Pap test. ? SPECIMEN ADEQUACY ? Satisfactory for Evaluation - assessment of transformation zone component not applicable ( e.g. atrophy, vaginal sample, hysterectomy) GENERAL CATEGORIZATION ? Negative for Intraepithelial Lesion or Malignancy ? Document reviewed and electronically signed by: ? CAMILO Grimm(ASCP) ? Report Date: ??12/26/2007 14:13 End of Report [facility] 12/22/2007 12/23/2007 Maria L PUENTE PATHOLOGY ORDERABLES Performing Organization Address City/State/[facility] Co de Phone Number [facility] [address] [place] [address] documented in this encounter Visit Diagnoses Not on filedocumented in this encounter Care Teams Tool Repairer Bench Relationship Specialty Start Date End Date Maria L Ewing FNP [address] [place], [place] [id number] PCP - General 07/13/09 09/21/14 Unknown, Provider, PCP - General 04/12/09 07/12/09 documented as of this encounter
--- OUTSIDE RECORDS SUMMARY | 2024-05-06 10:46 | XMS_ITS | Encounter Summary ---
Author Organization [facility] Address [address] [place] [address] Care Team Providers Care Supreme Court Judge Name Role Phone Maria L Ewing Primary Care Provider [phone] Unknown, Provider Primary Care Provider [phone] Encounter Details Date Type Department Care Team (Late st Contact Info) Description 02/06/2001 Results Only [facility] - Maple conversion [address] [place] [address] Maria L Ewing FNP [address] [place], [place] [address] Social History Tobacco Use Types Packs/Day Years Used Date Smoking Tobacco: Never Assessed Sex and Gender Information Value Date Recorded Sex Assigned at Not on file Gender Identity Not on file Sexual Orientation Not on file documented as of this encounter Plan of Treatment Not on file documented as of this encounter Procedures Procedure Name Priority Date/Time Associated Diagnosis Comments CYTOPATHOLOGY Routine 02/06/2001 0:00 EDT documented in this encounter Results * CYTOPATHOLOGY (02/06/2001 0:00 EDT) Pathology Report: CYTOPATHOLOGY REPORT Reports generated via electronic interface contain original data; however they are lacking the format of the original report. Caution should be taken when reading/interpreti ng unformatted reports. Name: ? MALISSA LANDEROS ? Accession #: ? [id number] : ? 1945 (Age: 56) ??F ?Collect Date: ? 02/06/2001 Location: ? [facility] ? Receive Date: ? 02/10/2001 Provider: ?MARIA L EWING BUCKLE STRAP DRUM OPERATOR Copy to: ? [facility] ? [address] ? [place] [address] ? Specimen/Source: ?ThinPrep Pap Test, Cervix/Endocervix Last Menstrual Period: ? FARA ? SPECIMEN ADEQUACY ? Satisfactory for evaluation. GENERAL CATEGORIZATION ? Within Normal Limits ? Document reviewed and electronically signed by: ? Agueda Villavicencio, ??SCT(ASCP) ? Report Date: ??02/11/2001 11:22 End of Report [facility] 02/06/2001 02/10/2001 Maria L PUENTE PATHOLOGY ORDERABLES [facility] [address] [place] [address] documented in this encounter Visit Diagnoses Not on filedocumented in this encounter Care Teams Supreme Court Judge Relationship Specialty Start Date End Date Maria L Ewing FNP [address] [place] [address] PCP - General 07/13/09 09/21/14 Unknown, Provider, PCP - General 04/12/09 07/12/09 documented as of this encounter
--- OUTSIDE RECORDS SUMMARY | 2024-05-06 10:46 | XMS_ITS | Encounter Summary ---
Author Organization [facility] Address [address] [place] [address] Care Team Providers Care Jr. Java Developer Name Role Phone Megan Banegas MD Primary Care Provider [phone] Encounter Details Date Type Department Care Team (Latest Contact Info) Description 06/02/2019 12:43 EDT - 06/02/2019 23:59 EDT Hospital Encounter [address] [address] Unknown, Provider, Discharge Disposition: Home or Self Care Social History Tobacco Use Types Packs/Day Years Used Date Smoking Tobacco: Never Assessed Sex and Gender Information Value Date Recorded Sex Assigned at Not on file Gender Identity Not on file Sexual Orientation Not on file documented as of this encounter Discharge Disposition Disposition Code Departure Means Destination Home or Self Custodial documented in this encounter Plan of Treatment Not on file documented as of this encounter Visit Diagnoses Not on filedocumented in this encounter Care Teams Jr. Java Developer Relationship Specialty Start Date End Date Megan Banegas MD [address] [place] [address] [address] [place] [address] PCP - General 09/22/14 05/06/22 documented as of this encounter
--- OUTSIDE RECORDS SUMMARY | 2024-05-06 10:46 | XMS_ITS | Encounter Summary ---
Author Organization [facility] Address [address] [place] [address] Care Team Providers Care Stockroom Supervisor Name Role Phone Unavailable Primary Care Provider Unavailabl e Encounter Details Date Type Department Care Team (Late st Contact Info) Description 04/11/2009 Orders Only [facility] Laboratory Services - [facility] ([facility] [address] [place] [id number] Enid Stewart, COMMERCIAL SPECIALIST Social History Tobacco Use Types Packs/Day Years Used Date Smoking Tobacco: Never Assessed Sex and Gender Information Value Date Recorded Sex Assigned at Not on file Gender Identity Not on file Sexual Orientation Not on file documented as of this encounter Plan of Treatment Not on file documented as of this encounter Procedures Procedure Name Priority Date/Time Associated Diagnosis Comments SURGICAL PATHOLOGY Routine 04/11/2009 0:00 EDT documented in this encounter Results * SURGICAL PATHOLOGY (04/11/2009 0:00 EDT) Pathology Report: SURGICAL PATHOLOGY REPORT ? Reports generated via electronic interface contain original data; ? however they are lacking the format of the original report. ? Caution should be taken when reading/interpreti ng unformatted reports. ? Name: ? LANDEROS, MALISSA M ? Accession #: ? [id number] ? : ? 1945 (Age: 64) ??F ? Collect Date: ? 04/11/2009 ? Location: ? [facility] ? Receive Date: ? 04/11/2009 ? Provider: ENID M ANITA COMMERCIAL SPECIALIST ? Copy to: MARIA L NOVOA PAY AGENT ? Final Pathologic Diagnosis: ? Endometrium, biopsy: ? 1. ?Abundant cervical mucus. ? 2. ? Scant endocervical cells. ? 3. ? No endometrium identified. ? 4. ? No cervical polyp identified. ? Document reviewed and electronically signed by: ? Maximilian Jett MD ? Report ??Date: 04/14/2009 17:52 ? By the signature above, the attending physician certifies that he/she has ? personally conducted a gross and/or microscopic examination of the described ? specimens and rendered or confirmed the above diagnosis. ? Specimen(s) Received: ? Endometrial bx ? Clinical History: ? Cervical polyp; PMB; LMP: 20 yrs ago +/- ? Gross Description: ? Received in formalin labelled Landeros, Malissa and endometrial bx are 2 cc of blood tinged opaque mucoid material admixed with scant fragments of ? red-brown tissue. ??The specimen is submitted entirely in one cassette. ??(BELLE ? Tessitore)/ljn ? End of Report ? [facility] 04/11/2009 04/11/2009 16: 31 EDT Enid Stewart COMMERCIAL SPECIALIST PATHOLOGY ORDERABLES [facility] [address] [place] [address] documented in this encounter Visit Diagnoses Not on filedocumented in this encounter
--- OUTSIDE RECORDS SUMMARY | 2024-05-06 10:46 | XMS_ITS | Encounter Summary ---
Author Organization [facility] Address [address] [place] [address] Care Team Providers Care Management Professional Name Role Phone Nevaeh Morales MD Primary Care Provider Encounter Details Date Type Department Care Team (Late st Contact Info) Description 05/28/2022 Lab Requisition [facility] Pathology & Laboratory Medicine - [address] [address] Jacqueline Beavers, DO [address] [place], [place] [id number] Calculus of gallbladder without cholecystitis without obstruction Social History Tobacco Use Types Packs/Day Years [...] Date/Time Associated Diagnosis Comments SURGICAL PATHOLOGY Today 05/26/2022 11 :10 EDT Calculus of gallbladder without cholecystitis without obstruction documented in this encounter Results * SURGICAL PATHOLOGY (05/26/2022 11:10 EDT) Note to Patient The following pathology results have been interpreted by your pathologist and may be available to you before your health provider has had the opportunity to review them. Please allow time for your provider to receive these results and explore management options, if applicable. 05/31/2022 10:01 [facility] Final Diagnosis A. GALLBLADDER, CHOLECYSTECTOMY: - Chronic cholecystitis. - Cholelithiasis. 05/31/2022 10:01 [facility] Attestation There was significant resident/fellow involvement in the diagnostic evaluation of this case. By the signature below, the attending physician certifies that they have personally conducted a gross and/or microscopic examination of the described specimens and rendered or confirmed the above diagnosis. 05/31/2022 10:01 [facility] at 1001 Clinical History Gallstone 05/31/2022 10:01 [facility] Gross Description A. Received in formalin labelled with proper patient identification (initials tangle, E) and gallbladder is an intact gallbladder with an attached segment of cystic duct (9.5 x 4.0 x 2.5 cm). A cystic duct lymph node is not present. The serosa is adame-purple and smooth. The mucosa is green and velvety and the wall is 0.2 cm in thickness. The cystic duct lumen is patent and measures 0.3 cm in diameter. The cystic duct margin is inked blue. There is a single green, spherical cholelith (1.8 x 1.3 x 1.1 cm). Two telephone claims representative sections and the en face cystic duct margin are submitted in A1. TREY RAMEY MD 05/29/2022 13:17 05/31/2022 10:01 [facility] Resident/Gurmeet w: Trey Ramey MD 05/31/2022 10:[address] [facility] Performing Lab [facility] 05/31/2022 10:01 [facility] Scanned Images 05/31/2022 10:01 [facility] Tissue ENTIRE GALLBLADDER / Unknown 05/26/2022 11:10 EDT 05/28/2022 17:33 EDT Jacqueline Beavers DO PATHOLOGY ORDERABLES [facility] [address] [place] [address] documented in this encounter Visit Diagnoses Diagnosis Calculus of gallbladder without cholecystitis without obstruction Calculus of gallbladder without mention of cholecystitis or obstruction documented in this encounter Care Teams Management Professional Relationship Specialty Start Date End Date Nevaeh Morales MD [address] [place] [address] [address] [place] [address] PCP - General Family Medicine - Primary Care 05/07/22 documented as of this encounter
--- OUTSIDE RECORDS SUMMARY | 2024-05-06 10:46 | XMS_ITS | Encounter Summary ---
Author Organization [facility] Address [address] [place] [address] Care Team Providers Care Ship Propeller Finisher Name Role Phone Kaylin Dorothy PUENTE Primary Care Provider [phone] Unknown, Provider Primary Care Provider [phone] Encounter Details Date Type Department Care Team (Late st Contact Info) Description 03/02/2003 Results Only [address] [id number] Sinai Herring MD [address] [place] [phone] Social History Tobacco Use Types Packs/Day Years Used Date Smoking Tobacco: Never Assessed Sex and Gender Information Value Date Recorded Sex Assigned at Not on file Gender Identity Not on file Sexual Orientation Not on file documented as of this encounter Plan of Treatment Not on file documented as of this encounter Procedures Procedure Name Priority Date/Time Associated Diagnosis Comments CYTOPATHOLOGY Routine 03/02/2003 0:00 EDT documented in this encounter Results * CYTOPATHOLOGY (03/02/2003 0:00 EDT) Pathology Report: CYTOPATHOLOGY REPORT Reports generated via electronic interface contain original data; however they are lacking the format of the original report. Caution should be taken when reading/interpreti ng unformatted reports. Name: ? MALISSA LANDEROS ? Accession #: ? [id number] : ? 1945 (Age: 58) ??F ?Collect Date: ? 03/02/2003 Location: ? [facility] ? Receive Date: ? 03/04/2003 Provider: ?SINAI HERRING MD Copy to: ? [facility] ?[address] ?[place] [address] ? Specimen/Source: ?ThinPrep Pap Test, Endocervix Last Menstrual Period: ? N/A Other: ? Additional clinical information: Small endocervical polyp ? SPECIMEN ADEQUACY ? Satisfactory for Evaluation - assessment of transformation zone component not applicable ( e.g. atrophy, vaginal sample, hysterectomy) GENERAL CATEGORIZATION ? Negative for Intraepithelial Lesion or Malignancy ? Document reviewed and electronically signed by: ? CAMILO Grimm(ASCP) ? Report Date: ??03/05/2003 11:20 End of Report TED VANES[facility] 03/02/2003 03/04/2003 Sinai Herring MD PATHOLOGY ORDERABLES [facility] [address] [place] [address] documented in this encounter Visit Diagnoses Not on filedocumented in this encounter Care Teams Ship Propeller Finisher Relationship Specialty Start Date End Date Dorothy Ewing FNP [address] [place] [address] PCP - General 07/13/09 09/21/14 Unknown, Provider, PCP - General 04/12/09 07/12/09 documented as of this encounter
--- OUTSIDE RECORDS SUMMARY | 2024-05-06 10:46 | XMS_ITS | Encounter Summary ---
Author Organization [facility] Address [address] [place] [address] Care Team Providers Care Manager Telemetry Name Role Phone Unknown, Provider Primary Care Provider Encounter Details Date Type Department Care Team (Late st Contact Info) Description 07/11/2009 Orders Only [facility] Medicine [address] [address] John Dalton MD [address] [place], [place] [id number] Social History Tobacco Use Types Packs/Day Years Used Date Smoking Tobacco: Never Assessed Sex and Gender Information Value Date Recorded Sex Assigned at Not on file Gender Identity Not on file Sexual Orientation Not on file documented as of this encounter Plan of Treatment Not on file documented as of this encounter Procedures Procedure Name Priority Date/Time Associated Diagnosis Comments SURGICAL PATHOLOGY Routine 07/11/2009 0:00 EDT documented in this encounter Results * SURGICAL PATHOLOGY (07/11/2009 0:00 EDT) Pathology Report: SURGICAL PATHOLOGY REPORT ? Reports generated via electronic interface contain original data; ? however they are lacking the format of the original report. ? Caution should be taken when reading/interpreting unformatted reports. ? Name: ? LANDEROS, MALISSA M ? Accession #: ? [id number] ? : ? 1945 (Age: 64) ??F ? Collect Date: ? 07/11/2009 ? Location: ? [facility] ? Receive Date: ? 07/11/2009 ? Provider: JOHN WALKO MD ? Copy to: MARIA L NOVOA JEWEL SUPERVISOR ? Final Pathologic Diagnosis: ? A. ?? Stomach, greater curve, biopsy: ?1. ?? Mild chronic gastritis. ? B. ?? Gastric antrum, biopsies: ?1. ?? Chronic gastritis. ?2. ?? Immunohistochemical staining for Helicobacter pylori is negative. ? C. ?? Gastric body, biopsy: ?1. ?? Mild chronic gastritis. ? D. ?? Esophagus, gastroesophageal junction, 35 cm, biopsies: ?1. ?? Squamocolumnar mucosa with chronic inflammation and reactive ? epithelial changes. ?2. ?? No intestinal metaplasia identified. ? Comment: ? Immunohistochemical staining was performed on this case. ??Positive and ? negative controls stained appropriately. ??(Dr. Buckley)/[facility] ? Block ?Antibody (Clone) ? Result ? (B) ?H. pylori (polyclonal, [facility]) ? negative ? NOTE: ??One or more of the reagents used in immunohistochemical testing in this case may not have been cleared or approved by the U.S. Food and Drug ? Administration (FDA). ??The FDA has determined that such clearance or approval is not necessary. ??These tests are used for clinical purposes. ??They should not be regarded as investigational or for research. ??These reagents' ??performance ? characteristics have been determined by [facility]. ??This ? laboratory is certified under the Clinical Laboratory Improvement Amendments of 1988 (CLIA-88) as qualified to perform high complexity clinical laboratory ? testing. ? Document reviewed and electronically signed by: ? Williams Buclkey MD ? Report ??Date: 07/15/2009 08:41 ? By the signature above, the attending physician certifies that he/she has ? personally conducted a gross and/or microscopic examination of the described ? specimens and rendered or confirmed the above diagnosis. ? Specimen(s) Received: ? A. ?Lesser curve bx (#1) ? B. ? Antrum bx (#2) ? C. ? Body bx (#3) ? D. ? Ortiz's 35 cm bx (#4) ? Clinical History: ? Dyspepsia & heme pos stool ? Gross Description: ? Received in Gary's fixative labelled Malissa Landeros and greater ?? curve biopsy is a single 0.4 x 0.3 x 0.2 cm pink-adame irregular soft tissue. ? Submitted in toto in (A). ? Received in Fritze's fixative labelled Malissa Landeros and antrum are two pink-adame irregular soft tissues, 0.2 x 0.2 x 0.2 cm and 0.3 x 0.3 x 0.2 cm. ? Submitted in toto in (B). ? Received in Fritze's fixative labelled Malissa Landeros and body biopsy is a single 0.5 x 0.2 x 0.1 cm pink-adame irregular soft tissue. ?? Submitted in toto in (C). ? Received in Holllesley's fixative labelled Malissa Landeros and ? Ortiz's EGJ 35 cm biopsy are two pink-daame irregular soft tissues, each 0.2 x 0.2 x 0.2 cm. Submitted in toto in (D). ??(L. Joe)/mms ? End of Report ? TED VANES[facility] 07/11/2009 07/11/2009 16: 27 EDT John Dalton MD PATHOLOGY ORDERABLES [facility] [address] [place] [address] documented in this encounter Visit Diagnoses Not on filedocumented in this encounter Care Teams Manager Telemetry Relationship Specialty Start Date End Date Unknown, Provider, PCP - General 04/12/09 07/12/09 documented as of this encounter
--- OUTSIDE RECORDS SUMMARY | 2024-05-06 10:46 | XMS_ITS | Encounter Summary ---
Author Organization [facility] Address [address] [place] [address] Care Team Providers Care Cycle Repairer Name Role Phone Maria L Ewing Primary Care Provider [phone] Unknown, Provider Primary Care Provider [phone] Encounter Details Date Type Department Care Team (Late st Contact Info) Description 02/03/2004 Results Only [facility] - [facility] [address] [place] [address] Maria L Ewing FNP [address] [place], [place] [address] Social History Tobacco Use Types Packs/Day Years Used Date Smoking Tobacco: Never Assessed Sex and Gender Information Value Date Recorded Sex Assigned at Not on file Gender Identity Not on file Sexual Orientation Not on file documented as of this encounter Plan of Treatment Not on file documented as of this encounter Procedures Procedure Name Priority Date/Time Associated Diagnosis Comments CYTOPATHOLOGY Routine 02/03/2004 0:00 EDT documented in this encounter Results * CYTOPATHOLOGY (02/03/2004 0:00 EDT) Pathology Report: CYTOPATHOLOGY REPORT Reports generated via electronic interface contain original data; however they are lacking the format of the original report. Caution should be taken when reading/interpreti ng unformatted reports. Name: ? MALISSA LANDEROS ? Accession #: ? [id number] : ? 1945 (Age: 59) ??F ?Collect Date: ? 02/03/2004 Location: ? [facility] ? Receive Date: ? 02/07/2004 Provider: ?MARIA L EWING LIVE TRUCK OPERATOR Copy to: ? Specimen/Source: ?ThinPrep Pap Test, Cervix/Endocervix Last Menstrual Period: ? Menstrual/Pregnanc y Status: ? Post Menopausal Other: ? Additional clinical information: Has pale cervical polyp, about 3-4 ??mm in diam. in os HPVA - HPV testing requested if ASC-US on the current ThinPrep Pap test. ? SPECIMEN ADEQUACY ? Satisfactory for Evaluation - assessment of transformation zone component not applicable ( e.g. atrophy, vaginal sample, hysterectomy) GENERAL CATEGORIZATION ? Negative for Intraepithelial Lesion or Malignancy ? Document reviewed and electronically signed by: ? CAMILO Hopson(ASCP) ? Report Date: ??02/10/2004 16:27 End of Report TED VAN[facility] 02/03/2004 02/07/2004 Maria L PUENTE PATHOLOGY ORDERABLES [facility] [address] [place] [address] documented in this encounter Visit Diagnoses Not on filedocumented in this encounter Care Teams Cycle Repairer Relationship Specialty Start Date End Date Maria L Ewing FNP [address] [place] [address] PCP - General 07/13/09 09/21/14 Unknown, Provider, PCP - General 04/12/09 07/12/09 documented as of this encounter
--- OUTSIDE RECORDS SUMMARY | 2024-05-06 10:46 | XMS_ITS | Encounter Summary ---
Author Organization [facility] Address [address] [place] [address] Care Team Providers Care Flume Tender Name Role Phone Maria L Ewing Primary Care Provider [phone] Unknown, Provider Primary Care Provider [phone] Encounter Details Date Type Department Care Team (Late st Contact Info) Description 03/26/2002 Results Only [facility] - Maple conversion [address] [place] [address] Maria L Ewing FNP [address] [place], [place] [address] Social History Tobacco Use Types Packs/Day Years Used Date Smoking Tobacco: Never Assessed Sex and Gender Information Value Date Recorded Sex Assigned at Not on file Gender Identity Not on file Sexual Orientation Not on file documented as of this encounter Plan of Treatment Not on file documented as of this encounter Procedures Procedure Name Priority Date/Time Associated Diagnosis Comments CYTOPATHOLOGY Routine 03/26/2002 0:00 EDT documented in this encounter Results * CYTOPATHOLOGY (03/26/2002 0:00 EDT) Pathology Report: CYTOPATHOLOGY REPORT Reports generated via electronic interface contain original data; however they are lacking the format of the original report. Caution should be taken when reading/interpreti ng unformatted reports. Name: ? MALISSA LANDEROS ? Accession #: ? [id number] : ? 1945 (Age: 57) ??F ?Collect Date: ? 03/26/2002 Location: ? [facility] ? Receive Date: ? 03/31/2002 Provider: ?MARIA L EWING SUPERVISOR [employer] EDUCATION Copy to: ? Specimen/Source: ?Conventional Pap Test, Cervix/Endocervix Last Menstrual Period: ? Many Years Ago Other: ? Additional clinical information: Small polyp in OS, unchanged since last visit. ? SPECIMEN ADEQUACY ? Satisfactory for Evaluation - transformation zone component present - obscuring inflammation GENERAL CATEGORIZATION ? Negative for Intraepithelial Lesion or Malignancy ? Document reviewed and electronically signed by: ? Mickie Diaz, CT(ASCP) ? Report Date: ??04/01/2002 08:15 End of Report TED VAN[facility] 03/26/2002 03/31/2002 Maria L PUENTE PATHOLOGY ORDERABLES Performing Organization Address City/State/[facility] Co de Phone Number TED VAN[facility] [address] [place] [address] documented in this encounter Visit Diagnoses Not on filedocumented in this encounter Care Teams Flume Tender Relationship Specialty Start Date End Date Maria L Ewing FNP [address] [place] [address] PCP - General 07/13/09 09/21/14 Unknown, Provider, PCP - General 04/12/09 07/12/09 documented as of this encounter
--- OUTSIDE RECORDS SUMMARY | 2024-05-06 10:46 | XMS_ITS | Encounter Summary ---
Author Organization [facility] Address [address] [place] [address] Care Team Providers Care Argon Tester Name Role Phone Dorothy Ewing Primary Care Provider [phone] Encounter Details Date Type Department Care Team (Latest Contact Info) Description 09/20/2014 9:50 EST - 09/20/2014 23:59 EST Hospital Encounter [address] [address] Unknown, Provider, Discharge Disposition: Home or Self Care Social History Tobacco Use Types Packs/Day Years Used Date Smoking Tobacco: Never Assessed Sex and Gender Information Value Date Recorded Sex Assigned at Not on file Gender Identity Not on file Sexual Orientation Not on file documented as of this encounter Discharge Disposition Disposition Code Departure Means Destination Home or Self Jail documented in this encounter Plan of Treatment Not on file documented as of this encounter Visit Diagnoses Not on filedocumented in this encounter Care Teams Argon Tester Relationship Specialty Start Date End Date Dorothy Ewing FNP [address] [place] [address] PCP - General 07/13/09 09/21/14 documented as of this encounter
--- OUTSIDE RECORDS SUMMARY | 2024-05-06 10:46 | XMS_ITS | Clinical Summary ---
Author Organization [facility] Address [facility] [place] [address] Care Team Providers Care Environmental Services Assistant Name Role Phone OleEnid rosen Primary Care Provider [phone] Encounters Date Type Department Care Team Description 02/21/2024 Transcribe Orders eDH Incoming Referrals [phone] John Bush MD Left knee pain, unspecified chronicity 02/05/2024 Ancillary Procedure [place] [phone] Luis Carlos Rajput MD from Last 3 Months Social History Tobacco Use Types Packs/Day Years Used Date Smoking Tobacco: Never Assessed Sex and Gender Information Value Date Recorded Sex Assigned at Not on file Gender Identity Not on file Sexual Orientation Not on file Plan of Treatment Upcoming Encounters Date Type Department Care Team (Late st Contact Info) Description 06/15/2024 8:50 AM EDT Office [place] [phone] Farzad Carrasquillo MD [facility] DR [place] [address] Health Maintenance Due Date Last Done Comments Hepatitis C Screening 01/22/1964 Tdap adult 1965 Tetanus vaccine 1965 Zoster vaccine (1 of 2) 01/22/1996 Bone Density Scan 2011 Pneumoccocal Vaccine: 65+ (1 of 1 - PCV) 2011 Covid-19 Vaccine ( - 2022-24 season) 2023 Influenza (Flu) vaccine (1 o f 1 - Influenza standard series) 06/07/2024 Procedures Procedure Name Priority Date/Time Associated Diagnosis Comments LAB SCAN 02/13/2024 12:00 AM EDT FILM LIBRARY STORAGE ONLY NUCLEAR MEDICINE Routine 02/05/2024 12:00 AM EDT from Last 3 Months Results * SCAN DOC: LAB (02/13/2024 12:00 AM EDT) Narrative 02/13/2024 12:00 AM EDT Ordered by an unspecified provider. Scanning Provider MEDIA MGR SCAN EXT O RDR/RSLT * Film Library- Storage Only nuclear medicine (02/05/2024 12:00 AM EDT) Narrative [facility] - 02/11/2024 10:55 AM EDT This exam is auto-finalizing. It's purpose is for storage only. Luis Carlos Rajput MD IMG FILM LIBRARY ORD ERABLES [place], [place] from Last 3 Months Care Teams Environmental Services Assistant Relationship Specialty Start Date End Date Enid Gandara DO [address] [place] [address] PCP - General Family Medicine 02/21/24
--- OUTSIDE RECORDS SUMMARY | 2024-05-06 10:46 | XMS_ITS | Encounter Summary ---
Author Organization [facility] [place] [address] Care Team Providers Care Process Plant Operator Name Role Phone Unavailable Primary Care Provider Unavailabl e Encounter Details Date Type Department Care Team (Late st Contact Info) Description 02/05/2024 Ancillary Procedure [place] [phone] Luis Carlos Rajput MD [address] [place] [address] [place] [address] Social History Tobacco Use Types Packs/Day Years [...] 8:50 AM EDT Office [place] [address] Farzad Carrasquillo MD [facility] [place] [address] documented as of this encounter Procedures Procedure Name Priority Date/Time Associated Diagnosis Comments FILM LIBRARY STORAGE ONLY NUCLEAR MEDICINE Routine 02/05/2024 12:00 AM EDT documented in this encounter Results * Film Library- Storage Only nuclear medicine (02/05/2024 12:00 AM EDT) Narrative [facility] - 02/11/2024 10:55 AM EDT This exam is auto-finalizing. It's purpose is for storage only. Luis Carlos Rajput MD [facility] FILM LIBRARY ORD ERABLES [facility] [address]ark[address] documented in this encounter Visit Diagnoses Not on filedocumented in this encounter
--- OUTSIDE RECORDS SUMMARY | 2024-05-06 10:46 | XMS_ITS | Encounter Summary ---
Author Organization [facility] Address [address] [place] [address] Care Team Providers Care Band Director Name Role Phone Maria L Ewing Primary Care Provider [phone] Unknown, Provider Primary Care Provider [phone] Encounter Details Date Type Department Care Team (Late st Contact Info) Description 10/23/2005 Results Only [facility] - Maple conversion [address] [place] [address] Maria L Ewing FNP [address] [place], [place] [address] Social History Tobacco Use Types Packs/Day Years Used Date Smoking Tobacco: Never Assessed Sex and Gender Information Value Date Recorded Sex Assigned at Not on file Gender Identity Not on file Sexual Orientation Not on file documented as of this encounter Plan of Treatment Not on file documented as of this encounter Procedures Procedure Name Priority Date/Time Associated Diagnosis Comments CYTOPATHOLOGY Routine 10/23/2005 0:00 EST documented in this encounter Results * CYTOPATHOLOGY (10/23/2005 0:00 EST) Pathology Report: CYTOPATHOLOGY REPORT Reports generated via electronic interface contain original data; however they are lacking the format of the original report. Caution should be taken when reading/interpreti ng unformatted reports. Name: ? MALISSA LANDEROS ? Accession #: ? [id number] : ? 1945 (Age: 60) ??F ?Collect Date: ? 10/23/2005 Location: ? [facility] ? Receive Date: ? 10/25/2005 Provider: ?MARIA L EWING SOFTWARE DEVELOPER Copy to: ? Sandra First ?[facility] ?[address] ?[place], [place] [address] ? Specimen/Source: ?ThinPrep Pap Test, Cervix/Endocervix, processed on [employer] ThinPrep Imaging System, with manual evaluation Last Menstrual Period: ? Other: ? HPVA - HPV testing requested if ASC-US on the current ThinPrep Pap test. ? SPECIMEN ADEQUACY ? Satisfactory for Evaluation - assessment of transformation zone component not applicable ( e.g. atrophy, vaginal sample, hysterectomy) GENERAL CATEGORIZATION ? Negative for Intraepithelial Lesion or Malignancy ? Document reviewed and electronically signed by: ? BE Patrick(ASCP) ? Report Date: ??10/26/2005 12:45 End of Report TED VAN[facility] 10/23/2005 10/25/2005 Maria L ZUÑIGAP PATHOLOGY ORDERABLES [facility] [address] [place] [address] documented in this encounter Visit Diagnoses Not on filedocumented in this encounter Care Teams Band Director Relationship Specialty Start Date End Date Maria L Ewing FNP [address] [place] [address] PCP - General 07/13/09 09/21/14 Unknown, Provider, PCP - General 04/12/09 07/12/09 documented as of this encounter
--- OUTSIDE RECORDS SUMMARY | 2024-05-06 10:46 | XMS_ITS | Encounter Summary ---
Author Organization [facility] Address [address] [place] [address] Care Team Providers Care Stereotype Caster Name Role Phone Jose Banegas MD Primary Care Provider [phone] Encounter Details Date Type Department Care Team (Late st Contact Info) Description 06/02/2019 Results Only [facility] [phone] Tian Andres MD [address] [place] [address] [place] [address] Social History Tobacco Use Types Packs/Day Years Used Date Smoking Tobacco: Never Assessed Sex and Gender Information Value Date Recorded Sex Assigned at Not on file Gender Identity Not on file Sexual Orientation Not on file documented as of this encounter Plan of Treatment Not on file documented as of this encounter Procedures Procedure Name Priority Date/Time Associated Diagnosis Comments SURGICAL PATHOLOGY Routine 06/02/2019 16 :58 EDT documented in this encounter Results * SURGICAL PATHOLOGY (06/02/2019 16:58 EDT) Pathology Report: SURGICAL PATHOLOGY REPORT Reports generated via electronic interface contain original data; however they are lacking the format of the original report. Caution should be taken when reading/interpret ing unformatted reports. Name: ? MALISSA LANDEROS ? Accession #: ? [id number] ? : ? 1945 (Age: 74) ??F ? Collect Date: ? 06/02/2019 ? Location: ? [facility] ? Receive Date: ? 06/02/2019 ? Provider: TIAN ANDRES MD Copy to: JOSE BANEGAS MD ? Final Pathologic Diagnosis: A. COLON, TRANSVERSE, POLYP, BIOPSY: - ??Fragments of inflamed tubulovillous adenoma. B. COLON, DESCENDING, POLYPS, BIOPSY: - ??Fragments of inflamed tubulovillous adenomas. ?? Document reviewed and electronically signed by: FELY HOLMAN MD Report ??Date: 06/04/2019 14:12 By the signature above, the attending physician certifies that he/she has personally conducted a gross and/or microscopic examination of the described specimens and rendered or confirmed the above diagnosis. Specimen(s) Received: A. ??Transverse colon polyp B. ??Descending colon polyps x2 Clinical History: History of polyps Gross Description: A. ?Received in formalin labelled with proper patient identification (initials T, E) and transverse colon polyp are five adame-white tissues (0.1 x 0.1 x 0.1 cm to 0.3 x 0.1 x 0.1 cm). Entirely submitted in A1 and A2. B. ?Received in formalin labelled with proper patient identification (initials T, E) and descending polyp are three adame-white tissues (0.2 x 0.1 x 0.1 cm, 0.3 x 0.1 x 0.1 cm and 0.5 x 0.1 x 0.1 cm). Entirely submitted in B1. Jayson Martin 06/03/2019 8:10 AM End of Report [facility] 06/02/2019 16:5 8 EDT 06/02/2019 16:58 EDT Tian Andres MD PATHOLOGY ORDERA AREN [facility] [address] [place] [address] documented in this encounter Visit Diagnoses Not on filedocumented in this encounter Care Teams Stereotype Caster Relationship Specialty Start Date End Date Jose Banegas MD [address] [place] [id number] PCP - General 09/22/14 05/06/22 documented as of this encounter
--- OUTSIDE RECORDS SUMMARY | 2024-05-06 10:46 | XMS_ITS | Encounter Summary ---
Author Organization [facility] Address [address] [place] [address] Care Team Providers Care Shotgun Shell Loading Machine Operator Name Role Phone Megan Banegas MD Primary Care Provider [phone] Nevaeh Morales MD Primary Care Provider Encounter Details Date Type Department Care Team (Late st Contact Info) Description 11/18/2020 Lab Requisition [facility] Pathology & Laboratory Medicine - [address] [address] Outr Resulting Lab, Provider Social History Tobacco Use Types Packs/Day [...] Procedure Name Priority Date/Time Associated Diagnosis Comments ZZCOVID-19 TEST [facility] PCR Today 11/18/2020 9:33 EST COVID-19 TESTING Routine 11/18/2020 9:33 EST documented in this encounter Results * COVID-19 TEST [facility] PCR (11/18/2020 9:33 EST) Swab ENTIRE NASOPHARYNX / Unknown 11/18/2020 9:33 EST 11/18/2020 16:14 EST Provider Outr Resulting Lab MICROBIOLOGY - GENERAL ORDERABLES [facility] [address] [place] [address] * COVID-19 TESTING (11/18/2020 9:33 EST) COVID-19 rt-PCR Result Negative Negative 11/19/2020 17:00 EST [facility] Comment: This test was developed and its performance characteristics determined by [facility]. It has not been cleared or approved by the US Food and Drug Administration. FDA does not require this test to go through premarket FDA review. This test is used for clinical purposes. It should not be regarded as investigational or for research. This laboratory is certified under the Clinical Laboratory Improvement Amendments (CLIA) as qualified to perform high complexity clinical laboratory testing. This test is based on the [facility] COVID-19 Emergency Use Authorization (EUA) assay, with minor modification as defined by the FDA Performed on the [employer] Pro RT-PCR System. This test has not been FDA cleared or approved. This test has been authorized by FDA under an EUA for use by authorized laboratories. This test has been authorized only for detection of nucleic acid from 2019-nCoV, not for any other viruses or pathogens. This test is only authorized for the duration of the declaration that circumstances exist justifying the authorization of emergency use of in vitro diagnostic tests for detection and/or diagnosis of 2019-nCoV under section 564(b)(1) of Act, 21 U.S.C ?? 360bbb-3(b) (1), unless the authorization is terminated or revoked sooner. Negative results do not preclude 2019-nCoV infection and should not be used as the sole basis for treatment or other patient management decisions. Negative results must be combined with clinical observations, patient history, and epidemiological information. Performing Lab [facility] Lab 11/19/2020 17:00 EST [facility] Swab 11/18/2020 9:33 EST 11/18/2020 16:14 EST Provider Outr Resulting Lab MICROBIOLOGY - GENERAL ORDERABLES Performing Organization Address City/[facility]/ZIP Co de Phone Number [facility] [address] [place] [address] documented in this encounter Visit Diagnoses Not on filedocumented in this encounter Care Teams Shotgun Shell Loading Machine Operator Relationship Specialty Start Date End Date Megan Banegas MD [address] [place] [address] [address] [place] [address] PCP - General 09/22/14 05/06/22 Nevaeh Morales MD [address] [place] [address] [address] [place] [address] PCP - General Family Medicine - Primary Care 05/07/22 documented as of this encounter
--- OUTSIDE RECORDS SUMMARY | 2024-05-06 10:46 | XMS_ITS | Encounter Summary ---
Author Organization [facility] [place] [address] Care Team Providers Care Upholstery Mechanic Name Role Phone Unavailable Primary Care Provider Unavailabl e Encounter Details Date Type Department Care Team (Late st Contact Info) Description 01/18/2024 Ancillary Procedure [place] [phone] Luis Carlos Rajput MD [address] [place] [address] [place] [address] Social History Tobacco Use Types Packs/Day Years [...] 8:50 AM EDT Office [place] [address] Farzad Carrasquillo MD [facility] [place] [address] documented as of this encounter Procedures Procedure Name Priority Date/Time Associated Diagnosis Comments FILM LIBRARY STORAGE ONLY DX KNEE Routine 01/18/2024 12:00 AM EDT documented in this encounter Results * Film Library- Storage Only DX Knee (01/18/2024 12:00 AM EDT) Narrative [facility] - 02/11/2024 10:55 AM EDT This exam is auto-finalizing. It's purpose is for storage only. Luis Carlos Rajput MD [facility] FILM LIBRARY ORD ERABLES [facility] [address] Sarkar documented in this encounter Visit Diagnoses Not on filedocumented in this encounter
--- NOTE | 2024-05-06 10:52 | W.ED.GENAD ---
Discharge Plan Disposition Patient Disposition: Home Condition: Stable Discharge Details Clinical Impression: Chest pain, Dizziness Primary Care Provider: Enid Gandara ED Provider: Sergo De La Vega Home Meds and New Rx's Prescriptions: New meclizine 25 mg tablet 25 mg PO TID PRN (Reason: dizziness) Qty: 30 0RF Continued ferrous fumarate 324 mg (106 mg iron) tablet 324 mg PO DAILY Rx Instructions: Her list states 45mg? losartan 50 mg tablet 50 mg PO DAILY Qty: 90 3RF magnesium glycinate 100 mg tablet 100 mg PO QHS Qty: 90 1RF Rx Instructions: Trial for electrolyte replenishment & leg discomfort cholecalciferol (vitamin D3) 1,000 UNIT capsule 500 unit PO DAILY metoprolol succinate 50 mg tablet extended release 24 hr 50 mg PO DAILY Qty: 30 12RF atorvastatin 20 mg tablet 20 mg PO QHS Qty: 90 3RF calcium carbonate-vitamin D3 1 EACH tablet 1 tab PO DAILY Centrum Complete 1 EACH tablet 1 tab PO DAILY HPI General Date/Time Provider Initiated Documentation: 05/06/24 10:34. Limitations to Documentation: no limitations. Information obtained by: patient. History of Present Illness 79 year old F presents to the emergency department with the chief complaint of lightheaded, described as moderate, Patient started experiencing this hour(s) (6) and it has been intermittent. Rest improves symptom(s), Movement worsens symptoms . Patient notes chest pain and nausea/vomiting; denies shortness of breath. Patient did receive the following treatments prior to arrival, none Related Data Home Medications ?Medication ?Instructions ?Recorded ?Confirmed calcium carbonate 600 mg-vitamin 1 tab PO DAILY 01/21/13 05/06/24 D3 5 mcg (200 unit) tablet multivitamin-ferrous 1 tab PO DAILY 01/21/13 05/06/24 fumarate-folic acid 18 mg-400 mcg tablet (Centrum Complete) cholecalciferol (vitamin D3) 25 500 unit PO DAILY 05/12/14 05/06/24 mcg (1,000 unit) capsule metoprolol succinate 50 mg 50 mg PO DAILY #30 tabs 10/09/23 05/06/24 tablet,extended release 24 hr atorvastatin 20 mg tablet 20 mg PO QHS #90 tabs 12/23/23 05/06/24 ferrous fumarate 324 mg (106 mg 324 mg PO DAILY 01/04/24 05/06/24 iron) tablet losartan 50 mg tablet 50 mg PO DAILY #90 tabs 01/04/24 05/06/24 magnesium glycinate 100 mg (as 100 mg PO QHS #90 tabs 04/14/24 05/06/24 glycinate) tablet meclizine 25 mg tablet 25 mg PO TID PRN dizziness #30 tabs 05/06/24 Previous Rx's ?Medication ?Instructions ?Recorded metoprolol succinate 50 mg 50 mg PO DAILY #30 tabs 10/09/23 tablet,extended release 24 hr atorvastatin 20 mg tablet 20 mg PO QHS #90 tabs 12/23/23 losartan 50 mg tablet 50 mg PO DAILY #90 tabs 01/04/24 magnesium glycinate 100 mg (as 100 mg PO QHS #90 tabs 04/14/24 glycinate) tablet meclizine 25 mg tablet 25 mg PO TID PRN dizziness #30 tabs 05/06/24 Allergies Allergy/AdvReac Type Severity Reaction Status Date / Time Penicillins Allergy Intermediate Skin Rash Verified 05/06/24 10:45 verapamil AdvReac Severe Other (See Verified 05/06/24 10:45 Comment) buspirone HCl (From BuSpar) AdvReac Mild didn't Verified 05/06/24 10:45 feel good on it cetirizine AdvReac Mild didn't Verified 05/06/24 10:45 feel good on it sertraline AdvReac Mild blurry Verified 05/06/24 10:45 vision & tingling under tongue lisinopril AdvReac Unknown Other (See Verified 05/06/24 10:45 Comment) General Stated Complaint: Dizzy/Sync MARIE: 3 Review of Systems All systems reviewed & are unremarkable except as noted in HPI and below Constitutional Constitutional: Denies chills, Denies fever(s) and Denies weakness Cardiovascular Cardiovascular: Reports chest pain and Denies dyspnea Respiratory Respiratory: Denies cough and Denies dyspnea Gastrointestinal Gastrointestinal: Denies abdominal pain and Reports vomiting Musculoskeletal Musculoskeletal: Denies joint swelling Neurologic Neurologic: Denies weakness Exam Const General: no acute distress Orientation: alert HENNJ Head: normal to inspection Ears: external ears normal General nose exam: external nose normal Mouth: moist mucous membranes Eyes General: appearance normal, both eyes and all related structures Neck Neck: normal visual inspection Resp Effort & Inspection: normal respiratory effort and able to speak in complete sentences Auscultation: clear to auscultation bilaterally Cardio Jugular venous pressure: no JVD Rate: regular rate Heart Sounds: no murmurs GI Palpation: soft and nontender Skin General skin exam: no rashes or lesions noted Neuro General: patient alert and patient oriented x3 Extrem General: normal to inspection Psych Mental Status: mental status grossly normal Course Vital Signs Vital signs: Vital Signs Temperature 36.6 C 05/06/24 10:34 Pulse 68 05/06/24 10:34 Respiratory Rate 18 05/06/24 10:34 Blood Pressure 181/66 H 05/06/24 10:34 Pulse Oximetry 97 05/06/24 10:34 Temperature 36.6 C 05/06/24 10:34 Temperature Source Temporal Artery Scan 05/06/24 10:34 Pulse 68 05/06/24 10:34 Respiratory Rate 18 05/06/24 10:34 Blood Pressure 181/66 H 05/06/24 10:34 Blood Pressure Position Sitting 05/06/24 10:34 Pulse Oximetry 97 05/06/24 10:34 Oxygen Delivery Method Room Air 05/06/24 10:34 Oxygen Flow Rate 0 05/06/24 10:34 Medical Decision Making 79-year-old female with a history of hypertension, GERD, comes in with complaints of feeling lightheaded when she stands or moves around starting this morning when she woke up. She denies any falls, no fevers. She has noted some chest pressure as well had episode of vomiting earlier. She has no headaches, she is alert and oriented on arrival speaking clearly in no distress. She has no focal deficits on exam, clear lung sounds, soft nontender abdomen. Her symptoms seem consistent with orthostasis but given her complaints of chest pressure as well we will check a troponin, CBC, CMP and a chest x-ray. She has equal peripheral pulses so doubt dissection and she has no tearing back pain. She has no significant hypoxia no evidence of DVT on exam so doubt PE. Labs unremarkable for emergent findings, negative for troponin. She had no complaints of upper back pain and abdominal discomfort, has no guarding but has some mid abdominal tenderness. Despite having equal peripheral pulses will obtain a CTA to evaluate for possible dissection among other pathologies. Will also obtain CT head as she also states she is intermittently felt dizzy though suspicion for central causes for vertigo unlikely, reassuring hints exam. Imaging all unremarkable, patient stable. Awaiting second troponin. BP now 150/62 on my exam. Repeat troponin negative and patient now asymptomatic was given a dose of meclizine with given her dizziness. BP now 150/72. She is still having no deficits on neuroexam and given reassuring workup feel she stable for discharge, advised to follow-up with her PCP and return precautions given Differential Diagnosis Differential Diagnosis: nstemi, orthostasis Medical Records Medical records reviewed: Yes I reviewed the patient's medical records. Imaging Data Radiologic Study: Attestation: I personally reviewed and interpreted this imaging study as follows: Imaging: CT Scan Radiologist's impression: No acute findings on head CT or CTA of the thorax abdomen pelvis. Lab Data Lab results reviewed: Yes I reviewed the patient's lab results. ECG Data Attestation: I personally reviewed and interpreted this ECG (s) as follows: Prior ECG tracings: available for review Interpretation: Sinus rhythm, rate of 63, KS 189, no STEMI Quality:SDOH Health Related Social Needs: No Data to Display [facility] Active Problems (Updated 05/06/24 @ 14:19 by Sergo De La Vega MD) Dizziness (Acute) Chest pain (Acute) Left knee pain (Acute) Painful total knee replacement, left (Acute) Knee pain, left anterior (Acute) pointing to mid/distal patellar region .. Amplified musculoskeletal pain (Chronic) GERD (gastroesophageal reflux disease) (Chronic) Essential hypertension (Chronic) Depression (Chronic) intolerant to Citalopram,Bupropion,Sertraline,Prozac Osteopenia (Chronic) bone density scan Insomnia (Chronic) JANETH (generalized anxiety disorder) (Chronic) Anterolisthesis of lumbar spine (Chronic) improved pain control with chiropractor Nocturnal leg cramps (Chronic) Not quite cramping, not quite restless legs .. [ ] Mag, Iron Dupuytren's contracture of left hand (Chronic) Class 2 obesity due to excess calories with body mass index (BMI) of 36.0 to 36.9 in adult (Chronic) Fasting hyperglycemia (Chronic) Fibromyalgia syndrome (Chronic) Fatty liver disease, nonalcoholic (Chronic) Mild. Noted on ultrasound 2021 Iron deficiency anemia (Chronic) Medical History (Updated 05/06/24 @ 14:19 by Sergo De La Vega MD) Tubular adenoma of colon 12/2022: 5 yr recall.. (09/20/14; 05/2019; DR. ANDRES X 3) History of broken leg ORIF lt leg History of cardiovascular stress test 2013, negative. Tear of left rotator cuff (11/19/17) Hyperlipidemia Headache Surgical History History of total left knee replacement (TKR) per pt report (full knee replacement) History of colonoscopy with polypectomy (~01/01/23) S/P laparoscopic cholecystectomy (~05/2022) History of surgery on arm ORIF lt arm History of esophagogastroduodenoscopy History of Surgical Procedure a. Tubal ligation many years ago, over 20 years ago. b. Bilateral cataracts. Family History Mother , AGE 72 Heart disease Myocardial infarction Depression Father , AGE 80 Heart disease Myocardial infarction Brother , AGE 79 Diabetes Essential hypertension Heart disease Hyperlipidemia Alcohol abuse Brother , AGE 77 Diabetes Essential hypertension Depression Heart disease Hyperlipidemia Brother , AGE 67 Heart disease Hyperlipidemia Daughter No problems noted. Maternal Grandmother Breast cancer Social History Smoking/Tobacco Use Status: Never Second Hand Exposure: No Smoking risk assessment performed?: Yes Alcohol Intake: never Drug use: Never Substance use type: does not use Adopted: No Caregiver/Support person: No Foster care: No Household members: spouse Housing: house Number of Children: 1 number of grandchildren: 2 Communication Needs: Hard of Hearing and Corrective Lenses Education Level: high school Do you need help understanding health information?: Often current occupation: retired Pets and animals: Yes (1 cat named Gabi) Pets and animals: cat(s) Sexually active: No Do you think of yourself as: straight/heterosexual Current gender identity: female What is your relationship status?: How often do you talk on the phone with friends or family?: three or more times per week How often do you get together with friends or relatives?: once per week How often do you attend adventist or confucianism services?: decline to answer Do you belong to any clubs or organized social groups?: no Panel score (0-1 are the most socially isolated patients): 2 What type of physical activity do you participate in: none and walking Marcela/Oriental Orthodox: Latter-Day Special marcela needs: No Seatbelt use: always Helmet use: No Drive intox or ride w/intox long haul truck driver: No Working smoke detector in home: Yes Carbon monox detector in home: No Firearms in home: No Do you feel safe at home: Yes Do you feel safe in your relationship?: Yes Victim of physical abuse: No Victim of emotional abuse: No Victim of sexual abuse: No Additional Social history: unable to assess privately
[2024-05-06 11:01] LABS: Abs Immature Grans 0.01 10^3/uL (0.0-0.06); Absolute Basophil Count 0.04 10^3/uL (0.0-0.2); Absolute Eosinophil Count 0.08 10^3/uL (0.0-0.7); Absolute Lymphocyte Count 1.71 10^3/uL (1.2-3.4); Absolute Monocyte Count 0.69 10^3/uL (0.1-0.8); Absolute Neutrophil Count 4.07 10^3/uL (1.2-6.7); Basophils % 0.6 %; Eosinophils % 1.2 %; HCT 38.8 % (36.0-46.0); Immature Grans % 0.2 %; Lymphocytes % 25.9 %; MCH 32.1 pg (27.0-33.0); MCHC 33.5 % (32.0-36.0); MCV 96 fL (80-95); MPV 9.2 fL (8.0-11.0); Monocytes % 10.5 %; Neutrophils % 61.6 %; Platelet Count 180 10^3/uL (130-400); RBC 4.05 10^6/uL (3.93-5.22); RDW 12.5 % (11.7-14.6); RDW-SD 44.5 fL
[2024-05-06 11:02] LABS: BE (Venous) 3 mmol/L (-2-3); HCO3 (Venous) 27 mmol/L (23-28); O2 Sat (Venous) 74 %; TCO2 (Venous) 24 mmol/L (24-29); pCO2 (Venous) 41 mmHg (41-51); pH (Venous) 7.42 (7.31-7.41); pO2 (Venous) 39 mmHg
[2024-05-06] MEDS: Normal Saline 1,000 ML 1000 ML IV (11:07)
[2024-05-06] MEDS: Ondansetron 4 MG/2 ML VIAL IVP (11:09)
[2024-05-06 11:16] LABS: INR 1.1 (0.9-1.1); Prothrombin Time 10.7 sec (9.1-11.1)
[2024-05-06 11:26] LABS: Troponin I < 50 ng/L (< or =60)
[2024-05-06 11:40] LABS: COVID-19 PCR Negative (Negative); Influenza A PCR Negative (Negative); Influenza B PCR Negative (Negative); RSV PCR Negative (Negative)
[2024-05-06 11:41] LABS: Source Nasopharynx
[2024-05-06] MEDS: Acetaminophen 500 MG TAB 1000 MG PO (11:45)
--- NOTE | 2024-05-06 11:45 | DI.CT_ITS ---
Exam(s) CT THORAX ABD/PEL CTA EXAM: CT THORAX ABD/PEL CTA CLINICAL HISTORY: upper back and abdomen pain, ?dissection. TECHNIQUE: Imaging Protocol: Axial CT angiography was performed with multi-slice acquisition and m ulti-planar and/or 3D reconstructions. CONTRAST MATERIAL: Intravenous: Omnipaque 350 Contrast volume:structured data in ml Oral: yes / no COMPARISON: CT ABD PELVIS WITH CONTRAST from 02/26/2017 FINDINGS: CHEST: Pulmonary Arteries: No evidence of filling defect to suggest pulmonary emboli. Tracheobronchial tree: Patent where visualized. Mediastinum and Isaura: No dominant adenopathy or fluid collection. Small hiatal hernia. Pulmonary parenchyma: Mild respiratory motion. Expiratory changes. No consolidation or dominant everardo surable mass. No architectural distortion. Pleura: No effusion or pneumothorax. Heart: The heart is mildly dilated. Mild coronary artery calcifications are seen. Aorta: Thoracic aorta non-dilated. Wrcm-jw-egdinuwy atherosclerotic changes. Bones: Degenerative changes. No evidence of compression fracture. Tubes, Catheters, and Lines: ABDOMEN AND PELVIS: Liver: Normal density. No measurable mass. Gallbladder and Biliary Tract: Status post cholecystectomy. No radiodense calculus or dilation. Pancreas: Some fatty infiltration. No abnormal calcifications or inflammatory process. Spleen: Normal. Adrenals: No masses seen. Kidneys: Normal size, contour and axis. No radiodense stones or obstructive uropathy. No masses seen. Bowel: No obstruction or bowel wall thickening. Appendix is unremarkable. Diverticulosis. No evide nce of diverticulitis. Peritoneal Cavity: No ascites, collection or mesenteric inflammatory response. Lymph Nodes: Within normal limits. Bones: Unremarkable. Soft Tissues: Small fat containing umbilical hernia. Vasculature: No evidence of abdominal aortic aneurysm. Frlb-hw-rndubfyj atherosclerotic changes. No significant narrowing of the aorta or branch vessels. Bladder: Symmetric distention, no gross wall thickening. Reproductive Organs: Unremarkable as visualized. Lymph Nodes: Within normal limits. Bones: Facet degenerative changes at L4-5 cause mild spondylolisthesis. IMPRESSION: Normal no acute abnormality in the chest abdomen or pelvis. RADIATION DOSE DELIVERED: Total DLP DATA REPOSITORY: All CT scans at this facility are submitted to the National Radiology Data Registry (NRDR) Dose Index Registry (DIR) with the [employer] (ACR). RADIATION OPTIMIZATION: All CT scans at this facility use at least one of these dose optimization te chniques: automated exposure control; mA and/or kV adjustment per patient size (includes targeted exa ms where dose is matched to clinical indication); or iterative reconstruction.
[2024-05-06 11:46] LABS: ALT 33 U/L (14-59); AST 29 U/L (15-37); Albumin 3.5 g/dL (3.4-5.0); Alkaline Phosphatase 84 U/L (46-116); Anion Gap 9.6 mmol/L (3-11); BUN 23 mg/dL (7-18); Bilirubin, Total 0.72 mg/dL (0.2-1.0); CO2 27.4 mmol/L (21.0-32.0); CREATININE 1.1 mg/dL (0.55-1.02); Calcium 9.3 mg/dL (8.5-10.1); Chloride 102 mmol/L (98-107); Estimated GFR 51.43 (mL/min/1.73m2); Glucose 130 mg/dL (74-106); Magnesium 1.8 mg/dL (1.8-2.4); Potassium 4.3 mmol/L (3.5-5.1); Procalcitonin < 0.1 ng/mL; Sodium 139 mmol/L (136-145); TSH (W/Ref FT4) 1.99 uIU/mL (0.36-3.74); Total Protein 7.4 g/dL (6.4-8.2)
[2024-05-06] MEDS: Omnipaque 350 MG/ML 100 ML BTL IJ (12:22)
[2024-05-06] MEDS: Normal Saline - Diluent 50 ML VIAL IJ (12:23)
--- NOTE | 2024-05-06 12:23 | DI.CT_ITS ---
Exam(s) CT HEAD WO EXAM: CT HEAD WO CLINICAL HISTORY: dizziness. TECHNIQUE: Imaging Protocol: Axial computed tomography images with coronal and sagittal reformatted images were created and reviewed COMPARISON: CT HEAD WITHOUT CONTRAST from 07/19/2017 FINDINGS: Ventricles and Extra axial spaces: Stable marked dilatation posterior horns of the lateral ventricles . Hemorrhage: None. Cerebral parenchyma: No evidence of acute infarct or mass. 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 White matter changes of small vessel disease. Midline shift: None. Brainstem/Cerebellum: Normal. Calvarium: Hyperostosis frontalis interna. Visualized Paranasal sinuses:Clear. Mastoids: Clear. Soft Tissues: Unremarkable. ORBITS: Unremarkable. PITUITARY: Empty sella. Unchanged from prior. IMPRESSION: No acute intracranial process. RADIATION DOSE DELIVERED: Total DLP DATA REPOSITORY: All CT scans at this facility are submitted to the National Radiology Data Registry (NRDR) Dose Index Registry (DIR) with the [employer] (ACR). RADIATION OPTIMIZATION: All CT scans at this facility use at least one of these dose optimization te chniques: automated exposure control; mA and/or kV adjustment per patient size (includes targeted exa ms where dose is matched to clinical indication); or iterative reconstruction.
[2024-05-06] MEDS: Meclizine 25 MG TAB PO (13:38)
[2024-05-06 13:58] LABS: Troponin I < 50 ng/L (< or =60)
== END 2024-05-06 14:36 | disposition home or self-care (01) ==
PROVIDERS: Emergency Provider Emergency Medicine; PCP Student in an Organized Health Care Education/Training Program
DX: R07.9 Chest pain, unspecified (principal); R42 Dizziness and giddiness; R53.1 Weakness; I10 Essential (primary) hypertension; E78.5 Hyperlipidemia, unspecified; Z90.49 Acquired absence of other specified parts of digestive tract
CPT/HCPCS: 36415; 71275; 80053; 82805; 84145; 87637; 93005; 96361; 96374; 99285; 70450; 74174; 81003; 83735; 84443; 84484; 85025; 85610; 85730; 93010; 99284; J2405; J3490

== ENCOUNTER 2024-05-25 03:52 | Outpatient (CLI) | payer MEDICARE, SELFPAY ==
--- OUTSIDE RECORDS SUMMARY | 2024-05-25 03:53 | XMS_ITS | Encounter Summary ---
Author Organization [facility] [place] [address] Care Team Providers Care Customs Compliance Analyst Name Role Phone Unavailable Primary Care Provider Unavailabl e Encounter Details Date Type Department Care Team (Late st Contact Info) Description 01/18/2024 Ancillary Procedure [place] [address] Luis Carlos Rajput MD Social History Tobacco Use Types Packs/Day Years [...] 8:50 AM EDT Office [place] [address] Farzad Carrasquillo MD [facility] [place] [address] documented as of this encounter Procedures Procedure Name Priority Date/Time Associated Diagnosis Comments FILM LIBRARY STORAGE ONLY DX KNEE Routine 01/18/2024 12:00 AM EDT documented in this encounter Results * Film Library- Storage Only DX Knee (01/18/2024 12:00 AM EDT) Narrative [facility] - 02/11/2024 10:55 AM EDT This exam is auto-finalizing. It's purpose is for storage only. Luis Carlos Rajput MD IMG FILM LIBRARY ORD ERABLES [place], [place] documented in this encounter Visit Diagnoses Not on filedocumented in this encounter
--- OUTSIDE RECORDS SUMMARY | 2024-05-25 03:53 | XMS_ITS | Encounter Summary ---
Author Organization [facility] Address [facility] [place] [address] Care Team Providers Care Vessel Specialist Name Role Phone OleEnid rosen Miguel CHOE Primary Care Provider [phone] Reason for Referral * Consultation (Routine) - Authorized Specialty Diagnoses / Procedures Referred By Alissa murphy Referred To Contact Orthopaedics Diagnoses Left knee pain, unspecified chronicity John Bush MD [address] [place] [address] Farzad Carrasquillo MD [facility] [place] [address] Referral ID Status Reason Start Date Expiration Date Visits Requested Visits Authorized [id number] Authorized Consult, Test & Treat PCP Updated and/or Approved 02/21/2024 02/20/2025 6 6 Encounter Details Date Type Department Care Team (Latest Contact Info) Description 02/21/2024 Transcribe Orders eDH Incoming Referrals [phone] John Bush MD [address] [place], [place] [id number] Left knee pain, unspecified chronicity Social History [...] 8:50 AM EDT Office [place] [address] Farzad Carrasquillo MD [facility] [place] [address] Scheduled Referrals Name Type Priority Associated Diagnoses Orde r Schedule Referral to Orthopaedics Outpatient Referral Routine Left knee pain, unspecified chronicity Ordered: 02/21/2024 documented as of this encounter Visit Diagnoses Diagnosis Left knee pain, unspecified chronicity documented in this encounter Care Teams Vessel Specialist Relationship Specialty Start Date End Date Enid Gandara DO [address] [place] [address] PCP - General Family Medicine 02/21/24 documented as of this encounter
--- OUTSIDE RECORDS SUMMARY | 2024-05-25 03:53 | XMS_ITS | Clinical Summary ---
Author Organization [facility] Address [facility] [place] [address] Care Team Providers Care Tax Audit Manager Name Role Phone Enid Gandara DO Primary Care Provider [phone] Social History Tobacco Use Types Packs/Day Years Used Date Smoking Tobacco: Never Assessed Sex and Gender Information Value Date Recorded Sex Assigned at Not on file Gender Identity Not on file Sexual Orientation Not on file Plan of Treatment Upcoming Encounters Date Type Department Care Team (Late st Contact Info) Description 06/15/2024 8:50 AM EDT [place] [phone] Farzad Carrasquillo MD [facility] DR ORTHOPAEDIC [place] [address] Health Maintenance Due Date Last Done Comments Hepatitis C Screening 01/22/1964 Tdap adult 1965 Tetanus vaccine 1965 Zoster vaccine (1 of 2) 01/22/1996 Bone Density Scan 2011 Pneumoccocal Vaccine: 65+ (1 of 1 - PCV) 2011 Covid-19 Vaccine (1 - 2022-24 season) 2023 Influenza (Flu) vaccine (1 o f 1 - Influenza standard series) 06/07/2024 Care Teams Tax Audit Manager Relationship Specialty Start Date End Date Enid Gandara DO [address] [place] [address] PCP - General Family Medicine 02/21/24
--- OUTSIDE RECORDS SUMMARY | 2024-05-25 03:53 | XMS_ITS | Referral Summary ---
Author Organization [facility] Address [address] [place] [address] Care Team Providers Care Cocoa Milling Machine Operator Name Role Phone Nevaeh Morales MD Primary [...] of Treatment Not on file Care Teams Cocoa Milling Machine Operator Relationship Specialty Start Date End Date Nevaeh Morales MD [address] [place] [address],[address] [place] [address] PCP - General Family Medicine - Primary Care 05/07/22
--- OUTSIDE RECORDS SUMMARY | 2024-05-25 03:53 | XMS_ITS | Encounter Summary ---
Author Organization [facility] [place] [address] Care Team Providers Care Floor Surfacer Name Role Phone Unavailable Primary Care Provider Unavailabl e Encounter Details Date Type Department Care Team (Late st Contact Info) Description 02/05/2024 Ancillary Procedure [place] [address] Luis Carlos Rajput MD Social History Tobacco [...] 8:50 AM EDT Office [place] [address] Farzad Carrasquillo MD [facility] [place] [address] documented as of this encounter Procedures Procedure Name Priority Date/Time Associated Diagnosis Comments FILM LIBRARY STORAGE ONLY NUCLEAR MEDICINE Routine 02/05/2024 12:00 AM EDT documented in this encounter Results * Film Library- Storage Only nuclear medicine (02/05/2024 12:00 AM EDT) Narrative [facility] - 02/11/2024 10:55 AM EDT This exam is auto-finalizing. It's purpose is for storage only. Luis Carlos Rajput MD IMG FILM LIBRARY ORD ERABLES [place], [place] documented in this encounter Visit Diagnoses Not on filedocumented in this encounter
--- OUTSIDE RECORDS SUMMARY | 2024-05-25 03:53 | XMS_ITS | Clinical Summary ---
Author Organization [facility] Address [address] [place] [address] Care Team Providers Care Signal Inspector Name Role Phone Nevaeh Morales MD Primary [...] COVID-19 Vaccine (2022- season) 2023 Care Teams Signal Inspector Relationship Specialty Start Date End Date Nevaeh Morales MD [address] [place] [address],[address] [place] [address] PCP - General Family Medicine - Primary Care 05/07/22
--- OUTSIDE RECORDS SUMMARY | 2024-05-25 03:53 | XMS_ITS | Encounter Summary ---
Author Organization [facility] [place] [address] Care Team Providers Care Recording Engineer Name Role Phone Unavailable Primary Care Provider Unavailabl e Encounter Details Date Type Department Care Team (Late st Contact Info) Description 01/18/2024 12:05 AM EDT Ancillary Procedure [place] [address] Luis Carlos Rajput MD Social History Tobacco [...] 8:50 AM EDT Office Visit [place] [address] Farzad Carrasquillo MD [facility] [place] [address] documented as of this encounter Procedures Procedure Name Priority Date/Time Associated Diagnosis Comments FILM LIBRARY STORAGE ONLY CT LOWER EXTREMITY Routine 01/18/2024 12:05 AM EDT documented in this encounter Results * Film Library- Storage Only CT Lower Extremity (01/18/2024 12:05 AM EDT) Narrative [facility] - 02/11/2024 10:55 AM EDT This exam is auto-finalizing. It's purpose is for storage only. Luis Carlos Rajput MD IMG FILM LIBRARY ORD ERABLES [address] documented in this encounter Visit Diagnoses Not on filedocumented in this encounter
--- OUTSIDE RECORDS SUMMARY | 2024-05-25 03:54 | XMS_ITS | Encounter Summary ---
Author Organization [facility] Address [address] [place] [address] Care Team Providers Care Patternmaker Wood Name Role Phone Maria L Ewing Primary Care Provider [phone] Unknown, Provider Primary Care Provider [phone] Encounter Details Date Type Department Care Team (Late st Contact Info) Description 10/08/2006 Results Only [facility] - Maple conversion [address] [place] [address] Maria L Ewing FNP [address] [place], [place] [address] Social History Tobacco Use Types Packs/Day Years [...] Date: ? 10/10/2006 Provider: ?MARIA L EWING GAS PLANT TECHNICIAN Copy to: ? Specimen/Source: ?ThinPrep Pap Test, Cervix/Endocervix, processed on [employer] ThinPrep Imaging System, with manual evaluation Last [...] and electronically signed by: ? Saba Serra [facility](ASCP) ? Report Date: ??10/11/2006 11:22 End of Report [facility] 10/08/2006 10/10/2006 Maria L PUENTE PATHOLOGY ORDERABLES Performing Organization Address City/State/[facility] Co de Phone Number [facility] [address] [place] [address] documented in this encounter Visit Diagnoses Not on filedocumented in this encounter Care Teams Patternmaker Wood Relationship Specialty Start Date End Date Maria L Ewing FNP [address] [place] [address] PCP - General 07/13/09 09/21/14 Unknown, Provider, PCP - General 04/12/09 07/12/09 documented as of this encounter
--- OUTSIDE RECORDS SUMMARY | 2024-05-25 03:54 | XMS_ITS | Encounter Summary ---
Author Organization [facility] Address [address] [place] [address] Care Team Providers Care Counter Clerk Name Role Phone Nevaeh Morales MD Primary Care Provider Encounter Details Date Type Department Care Team (Late st Contact Info) Description 01/01/2023 Lab Requisition [facility] Pathology & Laboratory Medicine - [address] [address] Eder Dhaliwal MD [address] [place] [phone] Encounter for other general examination Social History [...] management options, if applicable. 01/02/2023 10:58 EDT [facility] Final Diagnosis A. COLON, TRANSVERSE, POLYP, BIOPSY: - Tubular adenoma. B. COLON, TRANSVERSE, POLYP, BIOPSY: - Tiny fragments of blood and rare crushed cells; specimen inadequate for histological evaluation. C. COLON, DESCENDING, POLYPS, BIOPSY: - Minute fragments of cauterized epithelium; specimen inadequate for histological evaluation. 01/02/2023 10:58 [facility] Attestation By the signature below, the attending physician certifies that they have 1) personally conducted a gross and/or microscopic examination of the described specimen(s), and/or personally interpreted the results of laboratory testing of the described specimen(s), and 2) personally rendered or confirmed the above diagnosis. 01/02/2023 10:58 [facility] at 1058 Clinical History Anemia, diverticulosis 01/02/2023 10:58 [facility] Gross Description A. Received in [...] Specimen LO KATZ(ASCP) 01/01/2023 19:49 01/02/2023 10:58 [facility] Performing Lab [facility] 01/02/2023 10:58 [facility] Scanned Images 01/02/2023 10:58 [facility] Tissue DESCENDING COLON STRUCTURE / Unknown 01/01/2023 9:16 EDT 01/01/2023 17:40 EDT Tissue specimen (specimen) TRANSVERSE COLON STRUCTURE / Unknown 01/01/2023 9:16 EDT 01/01/2023 17:40 EDT Tissue specimen (specimen) DESCENDING COLON STRUCTURE / Unknown 01/01/2023 9:16 EDT 01/01/2023 17:40 EDT Eder Dhaliwal MD PATHOLOGY ORDERABLES [facility] [address] [place] [address] documented in this encounter Visit Diagnoses Diagnosis Encounter for other general examination documented in this encounter Care Teams Counter Clerk Relationship Specialty Start Date End Date Nevaeh Morales MD [address] [place] [address] RD,[address] [place] [address] PCP - General Family Medicine - Primary Care 05/07/22 documented as of this encounter
--- OUTSIDE RECORDS SUMMARY | 2024-05-25 03:54 | XMS_ITS | Encounter Summary ---
Author Organization [facility] Address [address] [place] [address] Care Team Providers Care Licensed Massage Therapist Name Role Phone Maria L Ewing Primary Care Provider [phone] Unknown, Provider Primary Care Provider [phone] Encounter Details Date Type Department Care Team (Late st Contact Info) Description 12/22/2007 Results Only [facility] - Maple conversion [address] [place] [address] Maria L Ewing FNP [address] [place], [place] [address] Social History Tobacco Use Types Packs/Day Years [...] ? MALISSA LANDEROS ? Accession #: ? [id number] : ? 1945 (Age: 62) ??F ?Collect Date: ? 12/22/2007 Location: ? [facility] ? Receive Date: ? 12/23/2007 Provider: ?MARIA L EWING HIGH SCHOOL TEACHER Copy to: ? Specimen/Source: ?ThinPrep Pap Test, Cervix/Endocervix, processed on [employer] ThinPrep Imaging System, with manual evaluation Last [...] L PUENTE PATHOLOGY ORDERABLES Performing Organization Address City/State/[facility] Co de Phone Number [facility] [address] [place] [address] documented in this encounter Visit Diagnoses Not on filedocumented in this encounter Care Teams Licensed Massage Therapist Relationship Specialty Start Date End Date Maria L Ewing FNP [address] [place], [place] [address] PCP - General 07/13/09 09/21/14 Unknown, Provider, PCP - General 04/12/09 07/12/09 documented as of this encounter
--- OUTSIDE RECORDS SUMMARY | 2024-05-25 03:54 | XMS_ITS | Encounter Summary ---
Author Organization [facility] Address [address] [place] [address] Care Team Providers Care Bookkeeping Machine Operator Name Role Phone Megan Banegas MD Primary Care Provider [phone] Encounter Details Date Type Department Care Team (Latest Contact Info) Description 06/02/2019 12:43 EDT - 06/02/2019 23:59 EDT Hospital Encounter [address] [address] Unknown, Provider, Discharge Disposition: Home or Self Care Social History Tobacco Use Types Packs/Day Years Used Date Smoking Tobacco: Never Assessed Sex and Gender Information Value Date Recorded Sex Assigned at Not on file Gender Identity Not on file Sexual Orientation Not on file documented as of this encounter Discharge Disposition Disposition Code Departure Means Destination Home or Self [facility] documented in this encounter Plan of Treatment Not on file documented as of this encounter Visit Diagnoses Not on filedocumented in this encounter Care Teams Bookkeeping Machine Operator Relationship Specialty Start Date End Date Megan Bangeas MD [address] [place] [address] [address] [place] [address] PCP - General 09/22/14 05/06/22 documented as of this encounter
--- OUTSIDE RECORDS SUMMARY | 2024-05-25 03:54 | XMS_ITS | Encounter Summary ---
Author Organization [facility] Address [address] [place] [address] Care Team Providers Care Cumulative Effects Analyst Name Role Phone Kaylin Dorothy PUENTE Primary Care Provider [phone] Unknown, Provider Primary Care Provider [phone] Encounter Details Date Type Department Care Team (Late st Contact Info) Description 03/02/2003 Results Only [address] [address] Sinai Herring MD [address] [place] [phone] Social History Tobacco Use Types Packs/Day Years [...] ? MALISSA LANDEROS ? Accession #: ? [id number] : ? 1945 (Age: 58) ??F ?Collect Date: ? 03/02/2003 Location: ? [facility] ? Receive Date: ? 03/04/2003 Provider: ?SINAI HERRING MD Copy to: ? [facility] ?[address] ?[place] [address] ? Specimen/Source: ?ThinPrep Pap Test, Endocervix Last [...] Herring MD PATHOLOGY ORDERABLES [facility] [address] [place] [address] documented in this encounter Visit Diagnoses Not on filedocumented in this encounter Care Teams Cumulative Effects Analyst Relationship Specialty Start Date End Date Dorothy Ewing FNP [address] [place] [address] PCP - General 07/13/09 09/21/14 Unknown, Provider, PCP - General 04/12/09 07/12/09 documented as of this encounter
--- OUTSIDE RECORDS SUMMARY | 2024-05-25 03:54 | XMS_ITS | Encounter Summary ---
Author Organization [facility] Address [address] [place] [address] Care Team Providers Care Hide Tanner Name Role Phone Maria L Ewing Primary Care Provider [phone] Encounter Details Date Type Department Care Team (Late st Contact Info) Description 01/02/2010 Results Only [facility] - [facility] [address] [place], [place] [address] Maria L Ewing FNP [address] [place], [place] [address] Social History Tobacco Use Types Packs/Day Years [...] ? MALISSA LANDEROS ? Accession #: ? [id number] ? : ? 1945 (Age: 64) ??F [...] Co de Phone Number [facility] [address] [place] [address] documented in this encounter Visit Diagnoses Not on filedocumented in this encounter Care Teams Hide Tanner Relationship Specialty Start Date End Date Maria L Eiwng FNP [address] [place] [address] PCP - General 07/13/09 09/21/14 documented as of this encounter
--- OUTSIDE RECORDS SUMMARY | 2024-05-25 03:54 | XMS_ITS | Encounter Summary ---
Author Organization [facility] Address [address] [place] [address] Care Team Providers Care Train Brake Operator Name Role Phone Dorothy Ewing Primary Care Provider [phone] Encounter Details Date Type Department Care Team (Latest Contact Info) Description 09/20/2014 9:50 EST - 09/20/2014 23:59 EST Hospital Encounter [address] [address] Unknown, Provider, Discharge Disposition: Home or Self Care Social History Tobacco Use Types Packs/Day Years Used Date Smoking Tobacco: Never Assessed Sex and Gender Information Value Date Recorded Sex Assigned at Not on file Gender Identity Not on file Sexual Orientation Not on file documented as of this encounter Discharge Disposition Disposition Code Departure Means Destination Home or Self Assisted documented in this encounter Plan of Treatment Not on file documented as of this encounter Visit Diagnoses Not on filedocumented in this encounter Care Teams Train Brake Operator Relationship Specialty Start Date End Date Dorothy Ewing FNP [address] [place] [address] PCP - General 07/13/09 09/21/14 documented as of this encounter
--- OUTSIDE RECORDS SUMMARY | 2024-05-25 03:54 | XMS_ITS | Encounter Summary ---
Author Organization [facility] Address [address] [place] [address] Care Team Providers Care Facility Administrator Name Role Phone Dorothy Ewing PATIENT SAFETY MANAGER Primary Care Provider Encounter Details Date Type Department Care Team (Late st Contact Info) Description 09/20/2014 Results Only [facility] [phone] Tian Andres MD [address] [place] [address] [place] [address] Social History Tobacco Use Types Packs/Day Years [...] ? MALISSA LANDEROS ? Accession #: ? [id number] ? : ? 1945 (Age: 69) ??F [...] Franck 09/20/2014 05:56 PM End of Report [facility] 09/20/2014 17:3 1 EST 09/20/2014 17:31 EST Tian Andres MD PATHOLOGY [facility]A [facility] [address] [place] [address] documented in this encounter Visit Diagnoses Not on filedocumented in this encounter Care Teams Facility Administrator Relationship Specialty Start Date End Date Dorothy Ewing FNP [address] [place] [address] PCP - General 07/13/09 09/21/14 documented as of this encounter
--- OUTSIDE RECORDS SUMMARY | 2024-05-25 03:54 | XMS_ITS | Encounter Summary ---
Author Organization [facility] Address [address] [place] [address] Care Team Providers Care Vending Technician Name Role Phone Maria L Ewing Primary Care Provider [phone] Unknown, Provider Primary Care Provider [phone] Encounter Details Date Type Department Care Team (Late st Contact Info) Description 02/06/2001 Results Only [facility] - Maple conversion [address] [place] [address] Maria L Ewing FNP [address] [place], [place] [address] Social History Tobacco Use Types Packs/Day Years [...] ? MALISSA LANDEROS ? Accession #: ? [id number] : ? 1945 (Age: 56) ??F ?Collect Date: ? 02/06/2001 Location: ? [facility] ? Receive Date: ? 02/10/2001 Provider: ?MARIA L EWING PULLMAN CLERK Copy to: ? [facility] ? [address] ? [place] [address] ? Specimen/Source: ?ThinPrep Pap Test, Cervix/Endocervix Last Menstrual Period: ? FARA ? SPECIMEN ADEQUACY ? Satisfactory for evaluation. GENERAL CATEGORIZATION ? Within Normal Limits ? Document reviewed and electronically signed by: ? Agueda Villavicencio, ??SCT(ASCP) ? Report Date: ??02/11/2001 11:22 End of Report [facility] 02/06/2001 02/10/2001 Maria L PUENTE PATHOLOGY ORDERABLES [facility] [address] [place] [address] documented in this encounter Visit Diagnoses Not on filedocumented in this encounter Care Teams Vending Technician Relationship Specialty Start Date End Date Maria L Ewing FNP [address] [place] [address] PCP - General 07/13/09 09/21/14 Unknown, Provider, PCP - General 04/12/09 07/12/09 documented as of this encounter
--- OUTSIDE RECORDS SUMMARY | 2024-05-25 03:54 | XMS_ITS | Encounter Summary ---
Author Organization [facility] Address [address] [place] [address] Care Team Providers Care Producer Assistant Name Role Phone Unknown, Provider Primary Care Provider Encounter Details Date Type Department Care Team (Late st Contact Info) Description 07/11/2009 Orders Only [facility] Medicine [address] [address] John Dalton MD [address] [place], [place] [id number] Social History Tobacco Use Types Packs/Day Years [...] LANDEROS, MALISSA M ? Accession #: ? [id number] ? : ? 1945 (Age: 64) ??F ? Collect Date: ? 07/11/2009 ? Location: ? [facility] ? Receive Date: ? 07/11/2009 ? Provider: JOHN WALKO MD ? Copy to: MARIA L NOVOA EELER ? Final Pathologic Diagnosis: ? A. ?? [...] and ? negative controls stained appropriately. ??(Dr[facility] Buckley[facility] ? Block ?Antibody (Clone) ? Result ? [...] ??performance ? characteristics have been determined by [facility]. ??This ? laboratory is certified under the Clinical Laboratory Improvement Amendments of 1988 (CLIA-88) as qualified to perform high complexity clinical laboratory ? testing. ? Document reviewed and electronically signed by: ? Williams Buckley MD ? Report ??Date: 07/15/2009 08:41 ? [...] Ortiz's EGJ 35 cm biopsy are two pink-adame irregular soft tissues, each 0.2 x 0.2 x 0.2 cm. Submitted in toto in (D). ??(L. Joe)/mms ? End of Report ? [facility] 07/11/2009 07/11/2009 16: 27 EDT John Dalton MD PATHOLOGY ORDERABLES [facility] [address] [place] [address] documented in this encounter Visit Diagnoses Not on filedocumented in this encounter Care Teams Producer Assistant Relationship Specialty Start Date End Date Unknown, Provider, PCP - General 04/12/09 07/12/09 documented as of this encounter
--- OUTSIDE RECORDS SUMMARY | 2024-05-25 03:54 | XMS_ITS | Encounter Summary ---
Author Organization [facility] Address [address] [place] [address] Care Team Providers Care Millwork Estimator Name Role Phone Maria L Ewing Primary Care Provider Unknown, Provider Primary Care Provider [phone] Encounter Details Date Type Department Care Team (Late st Contact Info) Description 03/26/2002 Results Only [facility] - Maple conversion [address] [place] [address] Maria L Ewing FNP [address] [place], [place] [address] Social History Tobacco Use Types Packs/Day Years [...] ? MALISSA LANDEROS ? Accession #: ? [id number] : ? 1945 (Age: 57) ??F ?Collect Date: ? 03/26/2002 Location: ? [facility] ? Receive Date: ? 03/31/2002 Provider: ?MARIA L EWING SOLAR INSTALLATION TECHNICIAN Copy to: ? Specimen/Source: ?Conventional Pap Test, [...] L PUENTE PATHOLOGY ORDERABLES Performing Organization Address City/State/[facility] Co de Phone Number [facility] [address] [place] [address] documented in this encounter Visit Diagnoses Not on filedocumented in this encounter Care Teams Millwork Estimator Relationship Specialty Start Date End Date Maria L Ewing FNP [address] [place] [address] PCP - General 07/13/09 09/21/14 Unknown, Provider, PCP - General 04/12/09 07/12/09 documented as of this encounter
--- OUTSIDE RECORDS SUMMARY | 2024-05-25 03:54 | XMS_ITS | Encounter Summary ---
Author Organization [facility] Address [address] [place] [address] Care Team Providers Care Accounts Payable Manager Name Role Phone Megan Banegas MD Primary Care Provider [phone] Nevaeh Morales MD Primary Care Provider Encounter Details Date Type Department Care Team (Late st Contact Info) Description 11/18/2020 Lab Requisition [facility] Pathology & Laboratory Medicine - [address] [address] Outr Resulting Lab, Provider Social History Tobacco [...] Outr Resulting Lab MICROBIOLOGY - GENERAL ORDERABLES [facility] [address] [place] [address] * COVID-19 TESTING (11/18/2020 9:33 EST) COVID-19 rt-PCR Result Negative Negative 11/19/2020 17:00 EST [facility] Comment: This test was developed and its performance characteristics determined by [facility]. It has not been cleared or [...] This test is based on the [facility] COVID-19 Emergency Use Authorization (EUA) assay, with minor modification as defined by the FDA Performed on the Aireon Pro RT-PCR System. This test has not [...] history, and epidemiological information. Performing Lab [facility] Lab 11/19/2020 17:00 EST [facility] Swab 11/18/2020 9:33 EST 11/18/2020 16:14 EST Provider Outr Resulting Lab MICROBIOLOGY - GENERAL ORDERABLES Performing Organization Address City/[facility]/ZIP Co de Phone Number [facility] [address] [place] [address] documented in this encounter Visit Diagnoses Not on filedocumented in this encounter Care Teams Accounts Payable Manager Relationship Specialty Start Date End Date Megan Banegas MD [address] [place] [address] [address] [place] [address] PCP - General 09/22/14 05/06/22 Nevaeh Morales MD [address] [place] [address] [address] [place] [address] PCP - General Family Medicine - Primary Care 05/07/22 documented as of this encounter
--- OUTSIDE RECORDS SUMMARY | 2024-05-25 03:54 | XMS_ITS | Encounter Summary ---
Author Organization [facility] Address [address] [place] [address] Care Team Providers Care Sensor Specialist Name Role Phone Maria L Ewing Primary Care Provider [phone] Unknown, Provider Primary Care Provider [phone] Encounter Details Date Type Department Care Team (Late st Contact Info) Description 02/03/2004 Results Only [facility] - Maple conversion [address] [place] [address] Maria L Ewing FNP [address] [place], [place] [address] Social History Tobacco Use Types Packs/Day Years [...] ? MALISSA LANDEROS ? Accession #: ? [id number] : ? 1945 (Age: 59) ??F ?Collect Date: ? 02/03/2004 Location: ? [facility] ? Receive Date: ? 02/07/2004 Provider: ?MARIA L EWING TELETYPE OR VARITYPE KEYBOARD OPERATOR Copy to: ? Specimen/Source: ?ThinPrep Pap [...] PUENTE PATHOLOGY ORDERABLES [facility] [address] [place] [address] documented in this encounter Visit Diagnoses Not on filedocumented in this encounter Care Teams Sensor Specialist Relationship Specialty Start Date End Date Maria L Ewing FNP [address] [place] [address] PCP - General 07/13/09 09/21/14 Unknown, Provider, PCP - General 04/12/09 07/12/09 documented as of this encounter
--- OUTSIDE RECORDS SUMMARY | 2024-05-25 03:54 | XMS_ITS | Encounter Summary ---
Author Organization [facility] Address [address] [place] [address] Care Team Providers Care Program Management Professional Name Role Phone Unavailable Primary Care Provider Unavailabl e Encounter Details Date Type Department Care Team (Late st Contact Info) Description 04/11/2009 Orders Only [facility] Services - [facility] [place] [address] [place] [id number] Enid Stewart, LIBRARY SERIALS ASSISTANT Social History Tobacco Use Types Packs/Day Years [...] LANDEROS, MALISSA M ? Accession #: ? [id number] ? : ? 1945 (Age: 64) ??F ? Collect Date: ? 04/11/2009 ? Location: ? [facility] ? Receive Date: ? 04/11/2009 ? Provider: ENID M ANITA LIBRARY SERIALS ASSISTANT ? Copy to: MARIA L NOVOA TANK RIVETER ? Final Pathologic Diagnosis: ? Endometrium, biopsy: [...] 04/11/2009 04/11/2009 16: 31 EDT Enid Stewart LIBRARY SERIALS ASSISTANT PATHOLOGY ORDERABLES [facility] [address] [place] [address] documented in this encounter Visit Diagnoses Not on filedocumented in this encounter
--- OUTSIDE RECORDS SUMMARY | 2024-05-25 03:54 | XMS_ITS | Encounter Summary ---
Author Organization [facility] Address [address] [place] [address] Care Team Providers Care Equipment Sales Specialist Name Role Phone Maria L Ewing Primary Care Provider [phone] Unknown, Provider Primary Care Provider [phone] Encounter Details Date Type Department Care Team (Late st Contact Info) Description 10/23/2005 Results Only [facility] - Maple conversion [address] [place] [address] Maria L Ewing FNP [address] [place], [place] [address] Social History Tobacco Use Types Packs/Day Years [...] ? MALISSA LANDEROS ? Accession #: ? [id number] : ? 1945 (Age: 60) ??F ?Collect Date: ? 10/23/2005 Location: ? [facility] ? Receive Date: ? 10/25/2005 Provider: ?MARIA L EWING AUTOMOTIVE FUEL SYSTEMS CONVERTER Copy to: ? Sandra First ?[facility] ?[address] ?[place], [place] [address] ? Specimen/Source: ?ThinPrep Pap Test, Cervix/Endocervix, processed on EduKoala ThinPrep Imaging System, with manual evaluation Last [...] L ZUÑIGAP PATHOLOGY ORDERABLES [facility] [address] [place] [address] documented in this encounter Visit Diagnoses Not on filedocumented in this encounter Care Teams Equipment Sales Specialist Relationship Specialty Start Date End Date Maria L Ewing FNP [address] [place] [address] PCP - General 07/13/09 09/21/14 Unknown, Provider, PCP - General 04/12/09 07/12/09 documented as of this encounter
--- OUTSIDE RECORDS SUMMARY | 2024-05-25 03:54 | XMS_ITS | Encounter Summary ---
Author Organization [facility] Address [address] [place] [address] Care Team Providers Care Ug Designer Name Role Phone Nevaeh Morales MD Primary Care Provider Encounter Details Date Type Department Care Team (Late st Contact Info) Description 05/28/2022 Lab Requisition [facility] Pathology & Laboratory Medicine - [address] [address] Jacqueline Beavers, DO [address] [place], [place] [id number] Calculus of gallbladder without cholecystitis without obstruction [...] explore management options, if applicable. 05/31/2022 10:01 [facility] Final Diagnosis A. GALLBLADDER, CHOLECYSTECTOMY: - Chronic cholecystitis. - Cholelithiasis. 05/31/2022 10:01 [facility] Attestation There was significant resident/fellow involvement in the diagnostic evaluation of this case. By the signature below, the attending physician certifies that they have personally conducted a gross and/or microscopic examination of the described specimens and rendered or confirmed the above diagnosis. 05/31/2022 10:01 [facility] at 1001 Clinical History Gallstone 05/31/2022 10:01 [facility] Gross Description A. Received [...] (1.8 x 1.3 x 1.1 cm). Two warehouse representative sections and the en face cystic duct margin are submitted in A1. TREY RAMEY MD 05/29/2022 13:17 05/31/2022 10:01 [facility] Resident/Gurmeet w: Trey Ramey MD 05/31/2022 10:01 T [facility] Performing Lab [facility] 05/31/2022 10:01 [facility] Scanned Images 05/31/2022 10:01 [facility] Tissue ENTIRE GALLBLADDER / Unknown 05/26/2022 11:10 EDT 05/28/2022 17:33 EDT Jacqueline Beavers DO PATHOLOGY ORDERABLES [facility] [address] [place] [address] documented in this encounter Visit Diagnoses Diagnosis Calculus of gallbladder without cholecystitis without obstruction Calculus of gallbladder without mention of cholecystitis or obstruction documented in this encounter Care Teams Ug Designer Relationship Specialty Start Date End Date Nevaeh Morales MD [address] [place] [address] [address] [place] [address] PCP - General Family Medicine - Primary Care 05/07/22 documented as of this encounter
--- OUTSIDE RECORDS SUMMARY | 2024-05-25 03:54 | XMS_ITS | Encounter Summary ---
Author Organization [facility] Address [address] [place] [address] Care Team Providers Care Lean Engineer Name Role Phone Jose Banegas MD Primary Care Provider [phone] Encounter Details Date Type Department Care Team (Late st Contact Info) Description 06/02/2019 Results Only [facility] [phone] Tian Andres MD [address] [place] [address] [place] [address] Social History Tobacco Use Types [...] ? MALISSA LANDEROS ? Accession #: ? [id number] ? : ? 1945 (Age: 74) ??F [...] Martin 06/03/2019 8:10 AM End of Report [facility] 06/02/2019 16:5 8 EDT 06/02/2019 16:58 EDT Tian Andres MD PATHOLOGY ORDERA AREN [facility] [address] [place] [address] documented in this encounter Visit Diagnoses Not on filedocumented in this encounter Care Teams Lean Engineer Relationship Specialty Start Date End Date Jose Banegas MD [address] [place] [phone] PCP - General 09/22/14 05/06/22 documented as of this encounter
[2024-05-25 13:41] LABS: Anion Gap 6.1 mmol/L (3-11); BUN 27 mg/dL (7-18); CO2 29.9 mmol/L (21.0-32.0); Calcium 9.5 mg/dL (8.5-10.1); Chloride 104 mmol/L (98-107); Estimated GFR 57.66 (mL/min/1.73m2); Ferritin 140 ng/mL (8-252); Glucose 131 mg/dL (74-106); Potassium 4.4 mmol/L (3.5-5.1); Sodium 140 mmol/L (136-145)
[2024-05-25 13:55] LABS: Iron 84 ug/dL (50-170); Total Iron Binding Capacity 260 ug/dL (250-450); Transferrin Sat 32 % (15-50)
[2024-05-25 14:10] LABS: Hemoglobin A1C 6.2 % (<5.7)
== END 2024-05-25 03:53 | disposition home or self-care (01) ==
PROVIDERS: PCP Student in an Organized Health Care Education/Training Program; Referring Provider Student in an Organized Health Care Education/Training Program; Visit Provider Student in an Organized Health Care Education/Training Program
DX: Z86.2 Personal history of diseases of the blood and blood-forming organs and certain disorders involving the immune mechanism (principal); G25.81 Restless legs syndrome; E11.9 Type 2 diabetes mellitus without complications; R42 Dizziness and giddiness; G47.62 Sleep related leg cramps; Z91.89 Other specified personal risk factors, not elsewhere classified
CPT/HCPCS: 80048; 82728; 83036; 83540; 83550

== ENCOUNTER 2025-05-01 21:03 | Emergency (ER) | payer MEDICARE, SELFPAY ==
[2025-05-01 21:09] VITALS: BP 152/78; PULSE 73; RESP 18; TEMP 37.1; O2SAT 97
[2025-05-01 21:13] VITALS: RESP 18
--- NOTE | 2025-05-01 22:03 | W.ED.GENAD ---
Discharge Plan Disposition Patient Disposition: Home Condition: Stable Discharge Details Clinical Impression: Breast lump or mass Primary Care Provider: Amberly Brown ED Provider: Caterina Hernandez Home Meds and New Rx's Prescriptions: No Action ferrous fumarate 324 mg (106 mg iron) tablet 324 mg PO DAILY Rx Instructions: Her list states 45mg? omeprazole 20 mg capsule,delayed release(DR/EC) 20 mg PO DAILY Qty: 90 3RF lidocaine HCl 4 % adhesive patch,medicated 1 patch topical DAILY PRN (Reason: pain) Qty: 30 1RF polyethylene glycol 3350 [Miralax] 17 gram/dose powder 17 g PO DAILY PRN losartan 25 mg tablet 25 mg PO DAILY Qty: 90 3RF diclofenac sodium [Solaraze] 3 % gel 1 applic topical BID Qty: 100 2RF cholecalciferol (vitamin D3) 1,000 UNIT capsule 500 unit PO DAILY atorvastatin 20 mg tablet 20 mg PO QHS Qty: 90 3RF metoprolol succinate 50 mg tablet extended release 24 hr 50 mg PO DAILY Qty: 30 12RF calcium carbonate-vitamin D3 1 EACH tablet 1 tab PO DAILY Centrum Complete 1 EACH tablet 1 tab PO DAILY Discharge Instructions Instructions: Common breast problems Additional Instructions: You were seen in the emergency department today for evaluation of changes in sensation in your breast. In our department you had a full physical examination performed and had an ultrasound that did not show any sign of infection or abscess. You have a mammogram scheduled on the of this month, that is in 2 days. This is the test that will definitively tell us what the lumps or masses that we could feel on her exam today were. You can use Tylenol as needed for management of discomfort. Please follow-up with your primary care provider in the next few days to discuss this visit and any symptoms that change, worsen, or persist. Thank you for allowing us to be part of your care. HPI General Mode of arrival: ambulatory. Date/Time Provider Initiated Documentation: 05/01/25 21:05. Limitations to Documentation: no limitations. Information obtained by: patient, family and old records reviewed. HPI Narrative: This is a 80-year-old female patient with a past medical history significant for GERD, hypertension, depression, anxiety, and anemia presenting for evaluation of a strange sensation in her breast. She states that she noticed it first this evening. She has a difficult time characterizing what it feels like, states that it is not pain or discomfort. She states that it is hard to pinpoint the exact area of her breast where she feels it. She has not noted any overlying skin changes, has not sustained injury, has no nipple discharge, and denies numbness, tingling, weakness, or swelling of her associated left arm. She has not had any chest pain or shortness of breath. She has a mammogram scheduled in 2 days as a routine screening exam, she denies history of lumps or breast cancer. Related Data Home Medications ?Medication ?Instructions ?Recorded ?Confirmed calcium 600 mg (as 1 tab PO DAILY 01/21/13 05/01/25 carbonate)-vitamin D3 5 mcg (200 unit) tablet multivitamin-ferrous 1 tab PO DAILY 01/21/13 05/01/25 fumarate-folic acid 18 mg-400 mcg tablet (Centrum Complete) cholecalciferol (vitamin D3) 25 500 unit PO DAILY 05/12/14 05/01/25 mcg (1,000 unit) capsule ferrous fumarate 324 mg (106 mg 324 mg PO DAILY 01/04/24 05/01/25 iron) tablet polyethylene glycol 3350 17 17 g PO DAILY PRN 05/14/24 05/01/25 gram/dose oral powder (Miralax) losartan 25 mg tablet 25 mg PO DAILY #90 tabs 10/13/24 05/01/25 atorvastatin 20 mg tablet 20 mg PO QHS #90 tabs 10/15/24 05/01/25 metoprolol succinate 50 mg 50 mg PO DAILY #30 tabs 10/15/24 05/01/25 tablet,extended release 24 hr lidocaine HCl 4 % topical patch 1 patch topical DAILY PRN pain #30 02/23/25 05/01/25 ea omeprazole 20 mg capsule,delayed 20 mg PO DAILY #90 caps 02/23/25 05/01/25 release diclofenac sodium 3 % topical gel 1 applic topical BID left knee 04/20/25 05/01/25 (Solaraze) pain #100 grams Previous Rx's ?Medication ?Instructions ?Recorded losartan 25 mg tablet 25 mg PO DAILY #90 tabs 10/13/24 atorvastatin 20 mg tablet 20 mg PO QHS #90 tabs 10/15/24 metoprolol succinate 50 mg 50 mg PO DAILY #30 tabs 10/15/24 tablet,extended release 24 hr lidocaine HCl 4 % topical patch 1 patch topical DAILY PRN pain #30 02/23/25 ea omeprazole 20 mg capsule,delayed 20 mg PO DAILY #90 caps 02/23/25 release diclofenac sodium 3 % topical gel 1 applic topical BID left knee 04/20/25 (Solaraze) pain #100 grams Allergies Allergy/AdvReac Type Severity Reaction Status Date / Time Penicillins Allergy Intermediate Skin Rash Verified 05/01/25 21:13 verapamil AdvReac Severe Other (See Verified 05/01/25 21:13 Comment) buspirone HCl (From BuSpar) AdvReac Mild didn't Verified 05/01/25 21:13 feel good on it cetirizine AdvReac Mild didn't Verified 05/01/25 21:13 feel good on it sertraline AdvReac Mild blurry Verified 05/01/25 21:13 vision & tingling under tongue lisinopril AdvReac Unknown Other (See Verified 05/01/25 21:13 Comment) General Stated Complaint: GenMedical MARIE: 4 Exam Narrative Exam Narrative: Gen: Awake and alert, in no apparent distress HEENT: Non-icteric sclera Neck: Supple Lungs: No apparent respiratory distress, normal respiratory effort. Lung sounds clear and equal without wheezes, rhonchi, rales CV: Appears well perfused, heart with regular rate and rhythm, no murmurs auscultated, strong distal pulses. Breast: The patient's left breast exam was supervised by ILEANA Tolbert, I note normal external skin without evidence of redness, induration, or swelling. There is no puckering or skin changes such as peau d'orange. I palpate 2 areas of approximately 3 cm x 3 cm firmness, which is slightly tender to palpation, fairly mobile, 1 located at the 8 o'clock position and 1 located at 3 o'clock position. There are no palpable lymph nodes or tenderness to the left axilla. Abdomen: Non-distended MSK: Moves 4 extremities without apparent limitation in ROM Skin: Visualized skin without rashes, cyanosis. Neuro: Normal Gait, no obvious focal deficits or facial asymmetry. Speaks in full, clear sentences. Psych: Appropriate for situation. Course Vital Signs Vital signs: Vital Signs Temperature 37.1 C 05/01/25 21:09 Pulse 73 05/01/25 21:09 Respiratory Rate 18 05/01/25 21:09 Blood Pressure 152/78 H 05/01/25 21:09 Pulse Oximetry 97 05/01/25 21:09 Temperature 37.1 C 05/01/25 21:09 Temperature Source Oral 05/01/25 21:09 Pulse 73 05/01/25 21:09 Respiratory Rate 18 05/01/25 21:13 Respiratory Effort Normal 05/01/25 21:13 Respiratory Depth Normal 05/01/25 21:13 Respiratory Pattern Normal 05/01/25 21:13 Blood Pressure 152/78 H 05/01/25 21:09 Blood Pressure Position Sitting 05/01/25 21:09 Pulse Oximetry 97 05/01/25 21:09 Oxygen Delivery Method Room Air 05/01/25 21:09 Oxygen Flow Rate 0 05/01/25 21:09 Procedure Abscess Drainage Provider that performed the procedure: Caterina Hernandez Medical Decision Making This is a 80-year-old female patient presenting for evaluation of breast problem. Differential includes but is not limited to breast cancer, fibrocystic change, certainly considered cellulitis, abscess, though the patient has no evidence of this on external examination nor on bedside ultrasound. Exam less consistent with Paget's disease. Ultimately, the patient has had acute infection appropriately ruled out and I do not see an indication for further advanced imaging in this patient with mild symptoms of short duration, for whom the appropriate test (mammogram) is scheduled in the next few days. I did provide her with a Tylenol for pain management, and at this time, the patient has had a full medical evaluation and is safe for discharge to home. They are hemodynamically stable, ambulatory, and tolerating PO. They are understanding of the follow-up plan and return precautions. They left our facility without incident. 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 mixed improbement with meclizine @ home x1 only (per ) Painful total knee replacement, left (Acute) Knee pain, left anterior (Acute) pointing to mid/distal patellar region .. Amplified musculoskeletal pain (Chronic) GERD (gastroesophageal reflux disease) (Chronic) Essential hypertension (Chronic) Depression (Chronic) intolerant to Citalopram,Bupropion,Sertraline,Prozac, escitalopram, cymbalta Osteopenia (Chronic) bone density scan Insomnia (Chronic) JANETH (generalized anxiety disorder) (Chronic) Anterolisthesis of lumbar spine (Chronic) improved pain control with chiropractor Nocturnal leg cramps (Chronic) Not quite cramping, not quite restless legs .. [ ] Mag, Iron Dupuytren's contracture of left hand (Chronic) Class 2 obesity due to excess calories with body mass index (BMI) of 36.0 to 36.9 in adult (Chronic) Fasting hyperglycemia (Chronic) Fibromyalgia syndrome (Chronic) Fatty liver disease, nonalcoholic (Chronic) Mild. Noted on ultrasound 2021 Iron deficiency anemia (Chronic) Medical History History of broken leg ORIF lt leg History of cardiovascular stress test 2013, negative. Tubular adenoma of colon 12/2022: 5 yr recall.. (09/20/14; 05/2019; DR. ANDRES X 3) Tear of left rotator cuff (11/19/17) Hyperlipidemia Headache Surgical History History of total left knee replacement (TKR) per pt report (full knee replacement) History of colonoscopy with polypectomy (~01/01/23) S/P laparoscopic cholecystectomy (~05/2022) History of surgery on arm ORIF lt arm History of esophagogastroduodenoscopy History of Surgical Procedure a. Tubal ligation many years ago, over 20 years ago. b. Bilateral cataracts. Family History Mother , AGE 72 Heart disease Myocardial infarction Depression Father , AGE 80 Heart disease Myocardial infarction Brother , AGE 79 Diabetes Essential hypertension Heart disease Hyperlipidemia Alcohol abuse Brother , AGE 77 Diabetes Essential hypertension Depression Heart disease Hyperlipidemia Brother , AGE 67 Heart disease Hyperlipidemia Daughter No problems noted. Maternal Grandmother Breast cancer Social History Smoking/Tobacco Use Status: Never Second Hand Exposure: No Smoking risk assessment performed?: Yes Alcohol Intake: never Drug use: Never Substance use type: does not use Adopted: No Caregiver/Support person: No Foster care: No Household members: spouse Housing: house Number of Children: 1 number of grandchildren: 2 Communication Needs: Hard of Hearing and Corrective Lenses Education Level: high school Do you need help understanding health information?: Often current occupation: retired Pets and animals: Yes (1 cat named Gabi) Pets and animals: cat(s) Sexually active: No Do you think of yourself as: straight/heterosexual Current gender identity: female What is your relationship status?: How often do you talk on the phone with friends or family?: three or more times per week How often do you get together with friends or relatives?: once per week How often do you attend taoist or spiritism services?: decline to answer Do you belong to any clubs or organized social groups?: no Panel score (0-1 are the most socially isolated patients): 2 What type of physical activity do you participate in: none and walking Marcela/Muslim: Scientologist Special marcela needs: No Seatbelt use: always Helmet use: No Drive intox or ride w/intox hazardous materials tanker driver: No Working smoke detector in home: Yes Carbon monox detector in home: No Firearms in home: No Do you feel safe at home: Yes Do you feel safe in your relationship?: Yes Victim of physical abuse: No Victim of emotional abuse: No Victim of sexual abuse: No Additional Social history: unable to assess privately POCUS Exam (ED) Limited Soft Tissue Exam DATE OF EXAM: 05/01/25 TIME OF EXAM: 21:56 PROVIDER THAT PERFORMED THE STUDY: Caterina Hernandez IS THIS A REPEAT EXAM DURING THIS ENCOUNTER: No LOCATION OF EXAM: Breast/left REASON FOR EXAM: Mass VISUALIZED STRUCTURES: Left upper quadrant, Right upper quadrant, Left lower quadrant and Right lower quadrant PERTINENT FINDINGS/IMPRESSION: No apparent abnormalities (Specifically, no evidence of cellulitis or cobblestoning, abscess.). Exam Complete
== END 2025-05-01 22:44 | disposition home or self-care (01) ==
PROVIDERS: Emergency Provider Emergency Medicine; PCP Nurse Practitioner Family
DX: N64.9 Disorder of breast, unspecified (principal); E78.5 Hyperlipidemia, unspecified
CPT/HCPCS: 76642; 99284; 99283

== ENCOUNTER 2025-05-03 02:38 | Outpatient (CLI) | payer MEDICARE, SELFPAY ==
--- NOTE | 2025-05-03 06:45 | DI.MAMMO_ITS ---
Exam(s) MAMMO SCREENING EXAM: MAMMO SCREENING CLINICAL HISTORY: screening, Z12.39. TECHNIQUE: Bilateral full field digital CC and MLO mammographic images were obtained with 3D tomosynthesis and utilizing computer aided detection (CAD). COMPARISON: Prior mammograms were reviewed. FINDINGS: There has been no significant change in the appearance and distribution of the fibroglandular tissue. Asymmetric densities in both breasts appear unchanged from prior mammograms. Benign-appearing micro and macro calcifications in both breasts are noted. There are no new spiculated masses nor malignant appearing microcalcification groups. There is no significant architectural distortion nor skin thickening-retraction. IMPRESSION: No radiographic evidence of malignancy. Stable benign-appearing findings. However, according to the technologist's note this patient is having left breast symptoms and therefore this should be a diagnostic study. Patient should return for ultrasound examination as the next step BI-RADS Category 0 - Incomplete: Need additional imaging evaluation Breast Density - Category B - There are scattered areas of fibroglandular density. Breast density Category C or D implies that the patient has dense breast tissue. Dense breast tissue can make it harder to find cancer on a mammogram. Dense breast tissue is also associated with an increased risk of breast cancer. This information about the result of the mammogram report was provided to the patient to raise their awareness. Use this report when you speak with the patient about their risks for breast cancer, which includes their family history. At that time, you may recommend additional screening tests (Ultrasound or MRI) as these tests may add significant information. A negative radiographic report should not delay biopsy if a dominant or clinically suspicious mass is present. Up to ten percent of cancers are not identified on mammography. A negative report may reinforce clinical impression. Adenosis and dense breasts may obscure an underlying neoplasm. False positive reports average 6 to 10%. Patient will receive a letter notifying them of these results.
== END 2025-05-03 02:58 ==
LOC: DI 02:39
PROVIDERS: PCP Nurse Practitioner Family; Visit Provider Nurse Practitioner Family
DX: Z12.31 Encounter for screening mammogram for malignant neoplasm of breast (principal); R92.323 Mammographic fibroglandular density, bilateral breasts
CPT/HCPCS: 77063; 77067

== ENCOUNTER 2025-05-10 01:29 | Outpatient (CLI) | payer MEDICARE, SELFPAY ==
--- NOTE | 2025-05-10 | DI.US_ITS ---
Exam(s) US BREAST LT COMPLETE EXAM: US BREAST LT COMPLETE CLINICAL HISTORY: F/U MAMMO, LT BREAST SENSATION,LT BREAST FIRMNESS AT 8 AND 3 OCLOCK TECHNIQUE: Ultrasound left breast performed using standard protocol. COMPARISON: Comparison is made with prior mammograms. The most recent mammogram was 05/03/2025. FINDINGS: There is a shadowing focus at 9 o'clock, 3 cm from the nipple. It measures 3 mm in diameter. No definite corresponding calcification is seen on the mammogram. There is a 2nd hypoechoic area with posterior shadowing at the 9 o'clock position 3 cm from the nipple measuring 5-6 mm in diameter. Again, no corresponding calcification is seen on the mammogram. The possibility of a breast mass should be considered. Based on these findings, an MRI of the breasts should be performed for further evaluation. IMPRESSION: 1. Two hypoechoic shadowing areas at the 9 o'clock position of the left breast 3 cm from the nipple. No corresponding calcifications are seen on the mammogram. 2. Follow-up is recommended. A breast MRI is recommended for further characterization. 3. Findings were discussed with the patient on the date of the examination. BI-RADS Category 0 - Incomplete: Need additional imaging evaluation DATA REPOSITORY:
== END 2025-05-10 01:49 ==
LOC: DI 01:29
PROVIDERS: PCP Nurse Practitioner Family; Visit Provider Nurse Practitioner Family
DX: N64.51 Induration of breast (principal)
CPT/HCPCS: 76642

== ENCOUNTER 2025-05-26 02:14 | Outpatient (CLI) | payer MEDICARE, SELFPAY ==
--- NOTE | 2025-05-26 07:15 | DI.DEXA_ITS ---
Exam(s) XR DEXA BONE DENSITY W/WO PATRICIA EXAM: XR DEXA BONE DENSITY W/WO PATRICIA CLINICAL HISTORY: re-evaluation of bone density,OSTEOPENIA 2012,SCREENING FOR OSTEOPOROSIS TECHNIQUE: [email or web address] Horizon C densitometer analysis of left hip, lumbar spine and left forearm. Lateral survey image of the thoracic and lumbar spine. COMPARISON: DX DEXA BONE DENSITY WITH PATRICIA from 03/20/2013 CR XR LUMBAR SPINE FLEX/EXT ONLY from 02/21/2022 FINDINGS: Lateral view of the thoracic and lumbar spine shows no evidence of compression fractures. Bone mineral density measurements of the lumbar spine correspond to a total T- score of -0.5, in the normal range. This represents a 10.5 percent increase compared with 2013 Bone mineral density measurements of the left hip correspond to a total T-score of -0.5. The femoral neck T-score is -2.3, in the osteopenic range. This represents a 5.2 percent decrease from 2013. Theleft forearm bone mineral density measurements correspond to a T-score of the distal 3rd of -1.1, in the osteopenic range. This is not significantly changed from the prior exam. IMPRESSION: Osteopenia of the hip and forearm. Normal bone density of the spine.
== END 2025-05-26 02:34 ==
LOC: DI 02:14
PROVIDERS: PCP Nurse Practitioner Family; Visit Provider Student in an Organized Health Care Education/Training Program
DX: Z13.820 Encounter for screening for osteoporosis (principal); Z78.0 Asymptomatic menopausal state; M85.89 Other specified disorders of bone density and structure, multiple sites
CPT/HCPCS: 77080

== ENCOUNTER 2025-06-10 08:22 | Outpatient (CLI) | payer MEDICARE, SELFPAY ==
--- NOTE | 2025-06-10 06:30 | DI.US_ITS ---
Exam(s) US LOWER EXTREMITY VENOUS LT EXAM: US LOWER EXTREMITY VENOUS LT CLINICAL HISTORY: leg swelling left, ? dvt/funez cyst. TECHNIQUE: Lower extremity venous ultrasound performed using grayscale, color- flow, and spectral Doppler analysis. COMPARISON: CR,XR XR KNEE LT 4V AP,LAT,DORIS,PAT from 01/18/2024 FINDINGS: The common femoral, femoral and popliteal veins demonstrate normal compressibility, augmentation, and color Doppler. The posterior tibial and peroneal veins are patent. No saphenous vein thrombosis or other superficial venous thrombosis is seen. No hematoma or Funez's cyst is seen. IMPRESSION: Negative lower extremity ultrasound. No evidence of DVT. DATA REPOSITORY:
== END 2025-06-10 08:42 ==
LOC: DI 08:26
PROVIDERS: PCP Nurse Practitioner Family; Visit Provider Nurse Practitioner Family
DX: M79.89 Other specified soft tissue disorders (principal)
CPT/HCPCS: 36415; 85379; 93971

== ENCOUNTER 2025-06-10 14:57 | Outpatient (CLI) | payer MEDICARE, SELFPAY ==
[2025-06-10 14:21] LABS: D-Dimer 1110 ng/mlFEU (<500)
== END 2025-06-10 14:58 | disposition home or self-care (01) ==
LOC: LBO 14:59
PROVIDERS: PCP Nurse Practitioner Family; Visit Provider Nurse Practitioner Family
DX: M79.89 Other specified soft tissue disorders (principal)
CPT/HCPCS: 36415; 85379